=== PATIENT | male | born 1970 | race Caucasian/White ===

== ENCOUNTER 2022-10-01 16:58 | Emergency (ER) | payer MEDICAID, SELFPAY ==
[2022-10-01 17:34] VITALS: BP 190/131; PULSE 75; RESP 18; TEMP 36.6; O2SAT 98; BMI 31.7
--- NOTE | 2022-10-01 17:35 | ECG_ITS ---
Test Reason : sob Blood Pressure : / mmHG Vent. Rate : 077 BPM Atrial Rate : 077 BPM P-R Int : 146 ms QRS Dur : 096 ms QT Int : 364 ms P-R-T Axes : 029 -25 065 degrees QTc Int : 411 ms Normal sinus rhythm Minimal voltage criteria for LVH, may be normal variant ( Silvestre product ) Nonspecific T wave abnormality Abnormal ECG No previous ECGs available Referred By: René Haque Electronically Signed By:RASHARD VAN MD
--- NOTE | 2022-10-01 17:44 | ED.GENADULT ---
HPI - General Adult General Chief complaint: General Medical <EVANGELINA Saldaña - Last Filed: 10/01/22 17:45> Stated complaint: rib pain, no injury <EVANGELINA Saldaña - Last Filed: 10/01/22 17:45> Time Seen by Provider: 10/01/22 21:35 <EVANGELINA Saldaña - Last Filed: 10/01/22 17:45> Source: patient and family <Aadms Mason MD - Last Filed: 10/01/22 22:14> Mode of arrival: ambulatory <Adams Mason MD - Last Filed: 10/01/22 22:14> Limitations: language barrier (Patient speaks Kazakh, IP[employer] certified court interpreter used.) <Adams Mason MD - Last Filed: 10/01/22 22:14> History of Present Illness HPI narrative: 52-year-old male who presents emergency department for evaluation of right-sided chest pain. He states the pain came on gradually 3 days prior. The pain is worse with movement, worse with breathing worse with coughing. The patient states that he has a cough which is productive of thick green phlegm with no blood in the phlegm. He feels short of breath and has dyspnea on exertion. He had subjective fever and chills. Patient traveled back from [place] 1 week prior. Denied any pain or swelling in his lower extremities. <Adams Mason MD - Last Filed: 10/01/22 22:14> Related Data Home medications: Previous Rx's Medication Instructions Recorded acetaminophen 500 mg tablet 1,000 mg PO Q6H PRN fever or pain 10/01/22 (Tylenol Extra Strength) #20 tabs amoxicillin 500 mg capsule 1,000 mg PO TID 5 days #30 caps 10/01/22 azithromycin 250 mg tablet See Rx Instructions PO .COMPLEX #6 10/01/22 (Zithromax Z-Freddie) tabs ibuprofen 400 mg tablet 400 mg PO TID PRN fever or pain 10/01/22 #30 tabs <EVANGELINA Saldaña - Last Filed: 10/01/22 17:45> Allergies/adverse reactions: Allergies Allergy/AdvReac Type Severity Reaction Status Date / Time No Known Allergies Allergy Verified 10/01/22 17:35 <EVANGELINA Saldaña - Last Filed: 10/01/22 17:45> Review of Systems Review of Systems: Yes all other systems are reviewed and are negative <Adams Mason MD - Last Filed: 10/01/22 22:14> [facility] Past Medical History [facility] Narrative: Social history: He does smoke cigarettes. Denies alcohol use. Denies drug use. <Adams Mason MD - Last Filed: 10/01/22 22:14> Social History Social History: Social History Smoked in Last 30 Days: No Use of substances other than those prescribed or required for medical reasons: No Advance Directives: No Advance Directives Information Provided: Yes <EVANGELINA Saldaña - Last Filed: 10/01/22 17:45> Physical Exam ED Vital Signs: Vital Signs - 24 hr 10/01/22 17:34 Temperature 97.9 F Pulse Rate 75 Respiratory Rate 18 Blood Pressure 190/131 H Pulse Oximetry 98 Oxygen Delivery Method Room Air BMI result Body Mass Index 31.7 <EVANGELINA Saldaña - Last Filed: 10/01/22 17:45> Vital Signs - 24 hr 10/01/22 17:34 Temperature 97.9 F Pulse Rate 75 Respiratory Rate 18 Blood Pressure 190/131 H Pulse Oximetry 98 Oxygen Delivery Method Room Air BMI result Body Mass Index 31.7 <Adams Mason MD - Last Filed: 10/01/22 22:14> Const General: cooperative and no acute distress <Adams Mason MD - Last Filed: 10/01/22 22:14> Orientation/consciousness: oriented to person and oriented to place <Adams Mason MD - Last Filed: 10/01/22 22:14> Limitations: no limitations <Adams Mason MD - Last Filed: 10/01/22 22:14> HENMT Head: Yes normal to inspection, Yes normocephalic and Yes atraumatic <Adams Mason MD - Last Filed: 10/01/22 22:14> Ears: external ears normal <Adams Mason MD - Last Filed: 10/01/22 22:14> General nose exam: Normal external nose present <Adams Mason MD - Last Filed: 10/01/22 22:14> Face and sinus: Yes normal facial exam <Adams Mason MD - Last Filed: 10/01/22 22:14> Mouth: Normal oral and palatal mucosa present <Adams Mason MD - Last Filed: 10/01/22 22:14> Throat: Yes posterior oropharynx normal <Adams Mason MD - Last Filed: 10/01/22 22:14> Eyes General: appearance normal, both eyes and all related structures <Adams Mason MD - Last Filed: 10/01/22 22:14> Pupils: Equal, round and reactive pupils present <Adams Mason MD - Last Filed: 10/01/22 22:14> Neck Neck: Yes normal visual inspection, Yes no lymphadenopathy, Yes trachea midline and Yes supple <Adams Mason MD - Last Filed: 10/01/22 22:14> Chest Chest palpation & inspection: normal inspection of the chest and normal palpation of entire chest wall <MD Sunshine Whitman Last Filed: 10/01/22 22:14> Resp Effort & Inspection: normal respiratory effort and able to speak in complete sentences <Adams Mason MD - Last Filed: 10/01/22 22:14> Auscultation: clear to auscultation bilaterally <Adams Mason MD - Last Filed: 10/01/22 22:14> Cardio Rate: regular rate <MD uSnshine Whitman Last Filed: 10/01/22 22:14> Rhythm: regular rhythm <MD Sunshine Whitman Last Filed: 10/01/22 22:14> Heart sounds: S1 normal heart sound present, S2 normal heart sound present and no murmurs <MD Sunshine Whitman Last Filed: 10/01/22 22:14> GI Inspection: Yes normal to inspection <Adams Mason MD - Last Filed: 10/01/22 22:14> Palpation (GI): Soft to palpation, nontender and no guarding <Adams Mason MD - Last Filed: 10/01/22 22:14> Auscultation: normal bowel sounds <Adams Mason MD - Last Filed: 10/01/22 22:14> General: Yes no CVA tenderness <Adams Mason MD - Last Filed: 10/01/22 22:14> Back/Spine/Pelvis Back: no CVA tenderness <Adams Mason MD - Last Filed: 10/01/22 22:14> Skin General skin exam: no rashes or lesions noted <Adams Mason MD - Last Filed: 10/01/22 22:14> Neuro General: oriented to person and oriented to place <Adams Mason MD - Last Filed: 10/01/22 22:14> Cranial nerves: Yes CN's II-XII intact bilaterally and Yes Equal, round and reactive pupils present <Adams Mason MD - Last Filed: 10/01/22 22:14> Cognition (Neuro): normal cognition <Adams Mason MD - Last Filed: 10/01/22 22:14> Motor exam (neuro): 5/5 motor strength present throughout <Adams Mason MD - Last Filed: 10/01/22 22:14> Extrem General: Yes normal to inspection <Adams Mason MD - Last Filed: 10/01/22 22:14> Psych Appearance: grossly normal <Adams Mason MD - Last Filed: 10/01/22 22:14> Speech and movement: Normal speech and movement present <Adams Mason MD - Last Filed: 10/01/22 22:14> Affect: normal affect <Adams Mason MD - Last Filed: 10/01/22 22:14> Attitude: cooperative <Adams Mason MD - Last Filed: 10/01/22 22:14> Thought process: Normal thought process present <Adams Mason MD - Last Filed: 10/01/22 22:14> Thought content: Normal thought content present <Adams Mason MD - Last Filed: 10/01/22 22:14> Course Course Course Narrative: This is an RME: Additional HPI, ROS, PE not included below will be deferred to primary provider. 52-year-old male presents for evaluation of right-sided rib pain with deep breathing status post flight from [place] since last Thursday, symptoms worsening. Also reports shortness of breath. No history of PE or DVT. Not anticoagulated. History of hypertension not med compliant physical exam hypertension noted. Plan labs, EKG. <EVANGELINA Saldaña - Last Filed: 10/01/22 17:45> Medical Decision Making Medical Decision Making [facility] Narrative: 51-year-old male presents emergency department for evaluation of right-sided chest pain x1 week, the pain came on gradually and got progressively worse. Pain is a sharp pain which is worse with coughing, breathing and with movement. Patient has had a productive cough, subjective fever and chills. Patient vital signs revealed an elevated blood pressure of 190/131-patient has absent hypertension, otherwise vital signs were unremarkable. Patient had no chest wall tenderness. 2207: My interpretation laboratory data is as follows: Normal CBC, normal CMP. Troponin was detectable at 9.7 but not elevated. COVID-19 was negative. D-dimer was not elevated at 195. Twelve EKG was unremarkable Patient's presentation is most likely consistent with acute bronchitis versus pneumonia. Patient will be treated with amoxicillin 1000 mg 3 times a day for 5 days . Also was given a prescription for Zithromax Z-Freddie is also given prescription for ibuprofen and Tylenol. Prior to discharge he was given amoxicillin 1000 mg orally, Zithromax 500 mg orally and ibuprofen 40 mg orally. He was given printed and verbal instructions and discharged home. <Adams Mason MD - Last Filed: 10/01/22 22:14> Differential Diagnosis Differential diagnosis includes was not limited to pleurisy, pleuritic pain, pulmonary embolism, pneumonia, bronchitis, chest wall injury, herpes zoster <Adams Mason MD - Last Filed: 10/01/22 22:14> Lab Data [facility] Lab Attestation statement: I reviewed the patient's lab results. <Adams Mason MD - Last Filed: 10/01/22 22:14> Please see MDM <Adams Mason MD - Last Filed: 10/01/22 22:14> Result Diagrams: 10/01/22 18:06 10/01/22 18:06 <EVANGELINA Saldaña - Last Filed: 10/01/22 17:45> Labs: Lab Results 10/01/22 10/01/22 10/01/22 Range/Units 18:06 18:06 18:06 WBC 6.6 (4.8-10.8) X10*3/uL RBC 5.51 (4.60-5.80) X10*6/uL Hgb 15.0 (14.0-18.0) g/dl Hct 45.9 (42.0-52.0) % MCV 83.3 (80.0-98.0) fL MCH 27.2 (27.0-33.0) pg MCHC 32.7 (31.0-36.0) g/dl RDW 14.3 (11.0-16.0) % Plt Count 310 (160-400) X10*3/uL MPV 9.8 (9.4-12.4) fL Immature Gran % (Auto) 0.3 (0.0-0.4) % Neut % (Auto) 56.3 (45-73) % Lymph % (Auto) 26.5 (20-40) % [place] % (Auto) 11.9 H (2-11) % Eos % (Auto) 4.2 H (0-4) % Baso % (Auto) 0.8 (0-2) % Lymph # (Auto) 1.8 (1.2-4.9) X10*3/uL [place] # (Auto) 0.8 (0.1-1.2) X10*3/uL Eos # (Auto) 0.3 (0.0-0.4) X10*3/uL Baso # (Auto) 0.1 (0.0-0.2) X10*3/uL Abs Immat Gran (auto) 0.02 (0.00-0.03) X10*3/uL Absolute Neuts (auto) 3.7 (2.0-8.3) x10*3/uL Absolute Nucleated RBC 0.000 (0.0-0.012) X10*3/uL Nucleated RBC % (auto) 0.0 (0.0-0.2) /100WBC D-Dimer High Sensitivty 195 NG/ML Sodium 139 (135-145) mmol/L Potassium 4.8 (3.3-5.1) mmol/L Chloride 107 (96-108) mmol/L Carbon Dioxide 24 (22-29) mmol/L Anion Gap 13 (12-20) BUN 18 H (9-16) mg/dL Creatinine 1.04 (0.5-1.4) mg/dL Estim Creat Clear Calc 94.6 Estimated GFR > 60 Random Glucose 82 (60-115) mg/dL Calcium 10.1 (8.4-10.2) mg/dL Magnesium 1.9 (1.6-2.6) mg/dL Total Bilirubin 0.4 (0.0-1.0) mg/dL AST 27 (5-37) U/L ALT 31 (0-40) U/L Alkaline Phosphatase 93 (39-117) U/L Troponin I High Sens (<3.5-35.0) ng/L Total Protein 7.4 (6.5-8.0) g/dL Albumin 4.4 (3.5-5.0) g/dL COVID-19 (KIM) (Negative) COVID-19 Clin Com 10/01/22 10/01/22 Range/Units 18:06 18:06 WBC (4.8-10.8) X10*3/uL RBC (4.60-5.80) X10*6/uL Hgb (14.0-18.0) g/dl Hct (42.0-52.0) % MCV (80.0-98.0) fL MCH (27.0-33.0) pg MCHC (31.0-36.0) g/dl RDW (11.0-16.0) % Plt Count (160-400) X10*3/uL MPV (9.4-12.4) fL Immature Gran % (Auto) (0.0-0.4) % Neut % (Auto) (45-73) % Lymph % (Auto) (20-40) % [place] % (Auto) (2-11) % Eos % (Auto) (0-4) % Baso % (Auto) (0-2) % Lymph # (Auto) (1.2-4.9) X10*3/uL [place] # (Auto) (0.1-1.2) X10*3/uL Eos # (Auto) (0.0-0.4) X10*3/uL Baso # (Auto) (0.0-0.2) X10*3/uL Abs Immat Gran (auto) (0.00-0.03) X10*3/uL Absolute Neuts (auto) (2.0-8.3) x10*3/uL Absolute Nucleated RBC (0.0-0.012) X10*3/uL Nucleated RBC % (auto) (0.0-0.2) /100WBC D-Dimer High Sensitivty NG/ML Sodium (135-145) mmol/L Potassium (3.3-5.1) mmol/L Chloride (96-108) mmol/L Carbon Dioxide (22-29) mmol/L Anion Gap (12-20) BUN (9-16) mg/dL Creatinine (0.5-1.4) mg/dL Estim Creat Clear Calc Estimated GFR Random Glucose (60-115) mg/dL Calcium (8.4-10.2) mg/dL Magnesium (1.6-2.6) mg/dL Total Bilirubin (0.0-1.0) mg/dL AST (5-37) U/L ALT (0-40) U/L Alkaline Phosphatase (39-117) U/L Troponin I High Sens 9.7 (<3.5-35.0) ng/L Total Protein (6.5-8.0) g/dL Albumin (3.5-5.0) g/dL COVID-19 (KIM) Negative (Negative) COVID-19 Clin Com See Note <EVANGELINA Saldaña - Last Filed: 10/01/22 17:45> Lab Results 10/01/22 10/01/22 10/01/22 Range/Units 18:06 18:06 18:06 WBC 6.6 (4.8-10.8) X10*3/uL RBC 5.51 (4.60-5.80) X10*6/uL Hgb 15.0 (14.0-18.0) g/dl Hct 45.9 (42.0-52.0) % MCV 83.3 (80.0-98.0) fL MCH 27.2 (27.0-33.0) pg MCHC 32.7 (31.0-36.0) g/dl RDW 14.3 (11.0-16.0) % Plt Count 310 (160-400) X10*3/uL MPV 9.8 (9.4-12.4) fL Immature Gran % (Auto) 0.3 (0.0-0.4) % Neut % (Auto) 56.3 (45-73) % Lymph % (Auto) 26.5 (20-40) % [place] % (Auto) 11.9 H (2-11) % Eos % (Auto) 4.2 H (0-4) % Baso % (Auto) 0.8 (0-2) % Lymph # (Auto) 1.8 (1.2-4.9) X10*3/uL [place] # (Auto) 0.8 (0.1-1.2) X10*3/uL Eos # (Auto) 0.3 (0.0-0.4) X10*3/uL Baso # (Auto) 0.1 (0.0-0.2) X10*3/uL Abs Immat Gran (auto) 0.02 (0.00-0.03) X10*3/uL Absolute Neuts (auto) 3.7 (2.0-8.3) x10*3/uL Absolute Nucleated RBC 0.000 (0.0-0.012) X10*3/uL Nucleated RBC % (auto) 0.0 (0.0-0.2) /100WBC D-Dimer High Sensitivty 195 NG/ML Sodium 139 (135-145) mmol/L Potassium 4.8 (3.3-5.1) mmol/L Chloride 107 (96-108) mmol/L Carbon Dioxide 24 (22-29) mmol/L Anion Gap 13 (12-20) BUN 18 H (9-16) mg/dL Creatinine 1.04 (0.5-1.4) mg/dL Estim Creat Clear Calc 94.6 Estimated GFR > 60 Random Glucose 82 (60-115) mg/dL Calcium 10.1 (8.4-10.2) mg/dL Magnesium 1.9 (1.6-2.6) mg/dL Total Bilirubin 0.4 (0.0-1.0) mg/dL AST 27 (5-37) U/L ALT 31 (0-40) U/L Alkaline Phosphatase 93 (39-117) U/L Troponin I High Sens (<3.5-35.0) ng/L Total Protein 7.4 (6.5-8.0) g/dL Albumin 4.4 (3.5-5.0) g/dL COVID-19 (KIM) (Negative) COVID-19 Clin Com 10/01/22 10/01/22 Range/Units 18:06 18:06 WBC (4.8-10.8) X10*3/uL RBC (4.60-5.80) X10*6/uL Hgb (14.0-18.0) g/dl Hct (42.0-52.0) % MCV (80.0-98.0) fL MCH (27.0-33.0) pg MCHC (31.0-36.0) g/dl RDW (11.0-16.0) % Plt Count (160-400) X10*3/uL MPV (9.4-12.4) fL Immature Gran % (Auto) (0.0-0.4) % Neut % (Auto) (45-73) % Lymph % (Auto) (20-40) % [place] % (Auto) (2-11) % Eos % (Auto) (0-4) % Baso % (Auto) (0-2) % Lymph # (Auto) (1.2-4.9) X10*3/uL [place] # (Auto) (0.1-1.2) X10*3/uL Eos # (Auto) (0.0-0.4) X10*3/uL Baso # (Auto) (0.0-0.2) X10*3/uL Abs Immat Gran (auto) (0.00-0.03) X10*3/uL Absolute Neuts (auto) (2.0-8.3) x10*3/uL Absolute Nucleated RBC (0.0-0.012) X10*3/uL Nucleated RBC % (auto) (0.0-0.2) /100WBC D-Dimer High Sensitivty NG/ML Sodium (135-145) mmol/L Potassium (3.3-5.1) mmol/L Chloride (96-108) mmol/L Carbon Dioxide (22-29) mmol/L Anion Gap (12-20) BUN (9-16) mg/dL Creatinine (0.5-1.4) mg/dL Estim Creat Clear Calc Estimated GFR Random Glucose (60-115) mg/dL Calcium (8.4-10.2) mg/dL Magnesium (1.6-2.6) mg/dL Total Bilirubin (0.0-1.0) mg/dL AST (5-37) U/L ALT (0-40) U/L Alkaline Phosphatase (39-117) U/L Troponin I High Sens 9.7 (<3.5-35.0) ng/L Total Protein (6.5-8.0) g/dL Albumin (3.5-5.0) g/dL COVID-19 (KIM) Negative (Negative) COVID-19 Clin Com See Note <Adams Mason MD - Last Filed: 10/01/22 22:14> Independent Interpretation I performed an independent interpretation of an: EKG <Adams Mason MD - Last Filed: 10/01/22 22:14> Interpretation: My independent interpretation of the patient's Twelve EKG done at 17:57 was as follows: Normal sinus rhythm rate of 77, normal VT interval, QRS duration QTC interval, no ST segment elevation, no ST segment depression, no T-wave abnormalities, no PVCs, no PACs, no previous EKG for comparison. This is a normal EKG <Adams Mason MD - Last Filed: 10/01/22 22:14> Discharge Plan Discharge Clinical Impression: Pleuritic chest pain Pneumonia Qualifiers: Pneumonia type: due to unspecified organism Laterality: right Lung location: lower lobe of lung Qualified Code(s): J18.9 - Pneumonia, unspecified organism <EVANGELINA Saldaña - Last Filed: 10/01/22 17:45> Patient Disposition: Home, Self-Care <EVANGELINA Saldaña - Last Filed: 10/01/22 17:45> Instructions: Community Acquired Pneumonia (ED) <EVANGELINA Saldaña - Last Filed: 10/01/22 17:45> Additional Instructions: Your laboratory evaluation was normal Your 12 EKG was normal. Your symptoms are consistent with pneumonia or bronchitis. Take ibuprofen 200 mg pills, 2 pills every 6 hours as needed for pain. Take Tylenol (acetaminophen) 500 mg pills, 2 pills every 6 hours as needed for pain. Take amoxicillin 500 mg pills, 2 pills, every 6 hours (3 times a day) for 5 days. Take Zithromax (azithromycin) Z-Freddie as prescribed. Day 1 take 2 pills, each day after that take 1 pill for total of 5 days. This medication states in your system for 7-10 days and continues to work despite only taking it for 5 days. Follow-up with your doctor in 2 days. Please return to the emergency department if your symptoms get worse or if you develop any symptoms that are concerning to you. <EVANGELINA Saldaña - Last Filed: 10/01/22 17:45> Prescriptions: New amoxicillin 500 mg capsule 1,000 mg PO TID 5 Days Qty: 30 0RF azithromycin [Zithromax Z-Freddie] 250 mg tablet See Rx Instructions .ROUTE .COMPLEX Qty: 6 0RF Rx Instructions: take 500 mg today (day 1), then 250 mg for 4 days (days 2-5) acetaminophen [Tylenol Extra Strength] 500 mg tablet 1,000 mg PO Q6H PRN (Reason: fever or pain) Qty: 20 0RF ibuprofen 400 mg tablet 400 mg PO TID PRN (Reason: fever or pain) Qty: 30 0RF <EVANGELINA Saldaña - Last Filed: 10/01/22 17:45>
[2022-10-01 18:11] LABS: MANUAL DIFF FLAG NO
[2022-10-01 18:12] LABS: Basophils Absolute Auto 0.1 X10*3/uL (0.0-0.2); Basophils Percent Auto 0.8 % (0-2); Eosinophils Absolute Auto 0.3 X10*3/uL (0.0-0.4); Eosinophils Percent Auto 4.2 % (0-4); Hematocrit 45.9 % (42.0-52.0); Imm Gran Abs Auto 0.02 X10*3/uL (0.00-0.03); Imm Gran Pct Auto 0.3 % (0.0-0.4); Lymphocytes Absolute Auto 1.8 X10*3/uL (1.2-4.9); Lymphocytes Percent Auto 26.5 % (20-40); Mean Corpuscular HGB Conc 32.7 g/dl (31.0-36.0); Mean Corpuscular Hemoglobin 27.2 pg (27.0-33.0); Mean Corpuscular Volume 83.3 fL (80.0-98.0); Mean Platelet Volume 9.8 fL (9.4-12.4); Monocytes Absolute Auto 0.8 X10*3/uL (0.1-1.2); Monocytes Percent Auto 11.9 % (2-11); Neutrophils Absolute Auto 3.7 x10*3/uL (2.0-8.3); Neutrophils Percent Auto 56.3 % (45-73); Platelet Count 310 X10*3/uL (160-400); Red Blood Count 5.51 X10*6/uL (4.60-5.80); Red Cell Distribution Width 14.3 % (11.0-16.0); White Blood Count 6.6 X10*3/uL (4.8-10.8)
[2022-10-01 18:20] LABS: D Dimer High Sensitivity 195 NG/ML
[2022-10-01 18:27] LABS: COVID-19 Test Negative (Negative); IDNOW Serial# 9DB6401D
[2022-10-01 18:35] LABS: Alanine Aminotransferase 31 U/L (0-40); Albumin Level 4.4 g/dL (3.5-5.0); Alkaline Phosphatase 93 U/L (39-117); Anion Gap 13 (12-20); Aspartate Amino Transferase 27 U/L (5-37); Bilirubin Total 0.4 mg/dL (0.0-1.0); Blood Urea Nitrogen 18 mg/dL (9-16); Calcium 10.1 mg/dL (8.4-10.2); Carbon Dioxide 24 mmol/L (22-29); Chloride 107 mmol/L (96-108); Creatinine Clr Calc Pharmacy 94.6; Estimated Glomerular Filt Rate > 60; Glucose Random 82 mg/dL (60-115); Magnesium 1.9 mg/dL (1.6-2.6); Potassium 4.8 mmol/L (3.3-5.1); Sodium 139 mmol/L (135-145); Total Protein 7.4 g/dL (6.5-8.0)
[2022-10-01 18:42] LABS: Troponin-I High Sensitivity 9.7 ng/L (<3.5-35.0)
[2022-10-01 21:30] VITALS: BP 199/103; PULSE 77; RESP 18; O2SAT 96
[2022-10-01] MEDS: Amoxicillin 500 MG CAPSULE 1000 MG PO (22:08)
[2022-10-01] MEDS: Azithromycin 500 MG TABLET PO (22:09)
[2022-10-01] MEDS: Ibuprofen 400 MG TABLET PO (22:09)
== END 2022-10-01 22:30 | disposition home or self-care (01) ==
PROVIDERS: Physician Assistant; Emergency Provider Emergency Medicine Emergency Medical Services
DX: R07.89 Other chest pain (principal); J18.9 Pneumonia, unspecified organism; Z20.822 Contact with and (suspected) exposure to COVID-19; R06.02 Shortness of breath
CPT/HCPCS: 80053; 83735; 84484; 85025; 85379; 87635; 93005; 99283; 99284

== ENCOUNTER 2022-11-13 15:04 | Emergency (ER) | payer MEDICAID, SELFPAY ==
--- NOTE | 2022-11-13 15:06 | ED.HA ---
HPI - Headache General Chief Complaint: Headache Stated Complaint: hypertension sent from [facility] office Time Seen by Provider: 11/13/22 17:06 Source: patient and other (Friend) Mode of arrival: ambulatory Limitations: language barrier (Bermudian speaking only, motion picture actor used) History of Present Illness HPI Narrative: 52-year-old male who was sent to the emergency department from an urgent care clinic for evaluation of a blood pressure of 194/143. Patient states that he went to the urgent care clinic for left knee pain. He has had left knee pain for approximately 3 days. Denies any injury. He points to the medial aspect of the left knee when asked to localize the pain. The pain is worse with bending the knee in with walking. He denied fever, chills, nausea, vomiting. He states he did have a headache and felt lightheaded. The patient does have a history of hypertension but since coming from [place] 3 months prior he has not been able to get a primary care doctor any has not gotten his antihypertensive medications refilled. He does not know what medications he was taking [place]. Related Data Previous Rx's Medication Instructions Recorded acetaminophen 500 mg tablet 1,000 mg PO Q6H PRN fever or pain 10/01/22 (Tylenol Extra Strength) #20 tabs amoxicillin 500 mg capsule 1,000 mg PO TID 5 days #30 caps 10/01/22 azithromycin 250 mg tablet See Rx Instructions PO .COMPLEX #6 10/01/22 (Zithromax Z-Freddie) tabs ibuprofen 400 mg tablet 400 mg PO TID PRN fever or pain 10/01/22 #30 tabs acetaminophen 500 mg tablet 500 mg PO Q6H PRN fever or pain 11/13/22 (Tylenol Extra Strength) #30 tabs ibuprofen 400 mg tablet 400 mg PO TID PRN fever or pain 11/13/22 #30 tabs lisinopril 20 mg tablet 20 mg PO DAILY 90 days #90 tabs 11/13/22 Allergies Allergy/AdvReac Type Severity Reaction Status Date / Time No Known Allergies Allergy Verified 10/01/22 17:35 Review of Systems Review of Systems: Yes all other systems are reviewed and are negative [facility] Past Medical History [facility] Narrative: Past medical history: Hypertension. Social history: He smokes 4 cigarettes per day times 30 years. He denies alcohol use. He denies drug use. Social History Social History Advance Directives: No Advance Directives Information Provided: No Physical Exam Vital Signs: Vital Signs: Last Vital Signs Temp 98 F 11/13/22 16:58 Pulse 68 11/13/22 18:13 Resp 15 11/13/22 18:13 BP 135/103 H 11/13/22 18:13 Pulse Ox 96 11/13/22 18:13 O2 Del Method Room Air 11/13/22 18:13 BMI result Body Mass Index 34.0 Const: General: cooperative and no acute distress Orientation/consciousness: oriented to person and oriented to place Limitations: no limitations HEENT: Head: Yes normal to inspection, Yes normocephalic and Yes atraumatic Ears: external ears normal General nose exam: Normal external nose present Face and sinus: Yes normal facial exam Mouth: Normal oral and palatal mucosa present Throat: Yes posterior oropharynx normal Eyes: General: appearance normal, both eyes and all related structures Pupils: Equal, round and reactive pupils present Neck: Neck: Yes normal visual inspection, Yes no lymphadenopathy, Yes trachea midline and Yes supple Chest: Chest palpation & inspection: normal inspection of the chest and normal palpation of entire chest wall Resp: Effort & Inspection: normal respiratory effort and able to speak in complete sentences Auscultation: clear to auscultation bilaterally Cardio: Rate: regular rate Rhythm: regular rhythm Heart sounds: S1 normal heart sound present, S2 normal heart sound present and no murmurs GI: Inspection: Yes normal to inspection Palpation (GI): Soft to palpation, nontender and no guarding Auscultation: normal bowel sounds : General: Yes no CVA tenderness Back/Spine/Pelvis: Back: no CVA tenderness Skin: General skin exam: no rashes or lesions noted Neuro: General: oriented to person and oriented to place Cranial nerves: Yes CN's II-XII intact bilaterally and Yes Equal, round and reactive pupils present Cognition (Neuro): normal cognition Motor exam (neuro): 5/5 motor strength present throughout Extrem: Other: Patient has tenderness with palpation over the medial collateral ligament of the left knee, he has increased pain with medial stress of the knee, there is no joint effusion, no erythema increased warmth. Patient's the joint appear to be stable. Psych: Appearance: grossly normal Speech and movement: Normal speech and movement present Affect: normal affect Attitude: cooperative Thought process: Normal thought process present Thought content: Normal thought content present Course Course Course Narrative: This is a rapid medical exam. Deferred additional HPI, ROS, PE to primary provider. 52 yo male with history of HTN here with complaints of headache, dizziness, high blood pressure from PCP office. Was being seen today by PCP d/t left knee pain x months. Came here from [place] 3 months and had not taken his blood pressure meds since then. Reports he left in a [place]. Hypertensive in triage Will check labs, EKG. Medical Decision Making Medical Decision Making MDM Narrative: 52-year-old male with a history of essential hypertension noncompliant with medications for 3 months who presents emergency department for evaluation of elevated blood pressures and left knee pain x3 days. Physical examination did reveal tenderness palpation of his left medial collateral ligament/tendon area consistent with a knee sprain/strain. Patient did have an elevated blood pressure here in the emergency department of 188/127 but his examination was otherwise unremarkable. His 12 EKG was normal. His laboratory evaluation did reveal an elevated glucose otherwise was unremarkable. Patient will be treated for left knee sprain/strain with an Ruben wrap and crutches. He was prescribed Tylenol ibuprofen. Patient will be started on lisinopril 20 mg daily. He was given a 1 month supply. He was told that he needs to follow-up with an PCP within 1 month to get refills and if he cannot get a refill he should return to the emergency department for refills of these medications. Patient was advised to get a blood pressure cuff and to take his blood pressure 3 times a week, I did tell middle take 4-6 weeks for his blood pressure improved. Differential Diagnosis Differential diagnosis includes was not limited to left knee strain, left knee sprain. Essential hypertension, hypertensive urgency, hypertensive emergency, renal failure, myocardial infarction. Admission/Observation Consideration of admission/observation: Escalation of care including admission/observation considered Consult Healthcare Provider Management of the patient was discussed with: Hospitalist Lab Data [facility] Lab Attestation statement: I reviewed the patient's lab results. 11/13/22 15:21 11/13/22 15:21 Labs: Lab Results 11/13/22 11/13/22 11/13/22 Range/Units 15:21 15:21 15:21 WBC 7.5 (4.8-10.8) X10*3/uL RBC 5.33 (4.60-5.80) X10*6/uL Hgb 14.4 (14.0-18.0) g/dl Hct 44.7 (42.0-52.0) % MCV 83.9 (80.0-98.0) fL MCH 27.0 (27.0-33.0) pg MCHC 32.2 (31.0-36.0) g/dl RDW 13.5 (11.0-16.0) % Plt Count 300 (160-400) X10*3/uL MPV 9.5 (9.4-12.4) fL Immature Gran % (Auto) 0.4 (0.0-0.4) % Neut % (Auto) 58.8 (45-73) % Lymph % (Auto) 28.4 (20-40) % [place] % (Auto) 8.5 (2-11) % Eos % (Auto) 3.2 (0-4) % Baso % (Auto) 0.7 (0-2) % Lymph # (Auto) 2.1 (1.2-4.9) X10*3/uL [place] # (Auto) 0.6 (0.1-1.2) X10*3/uL Eos # (Auto) 0.2 (0.0-0.4) X10*3/uL Baso # (Auto) 0.1 (0.0-0.2) X10*3/uL Abs Immat Gran (auto) 0.03 (0.00-0.03) X10*3/uL Absolute Neuts (auto) 4.4 (2.0-8.3) x10*3/uL Absolute Nucleated RBC 0.000 (0.0-0.012) X10*3/uL Nucleated RBC % (auto) 0.0 (0.0-0.2) /100WBC Sodium 139 (135-145) mmol/L Potassium 4.4 (3.3-5.1) mmol/L Chloride 103 (96-108) mmol/L Carbon Dioxide 24 (22-29) mmol/L Anion Gap 16 (12-20) BUN 19 H (9-16) mg/dL Creatinine 1.19 (0.5-1.4) mg/dL Estim Creat Clear Calc 85.4 Estimated GFR > 60 Random Glucose 151 H (60-115) mg/dL Calcium 10.3 H (8.4-10.2) mg/dL Troponin I High Sens 2.7 D (<3.5-35.0) ng/L Independent Interpretation I performed an independent interpretation of an: EKG Interpretation: My independent interpretation patient's 12 EKG done at 15:13 hours is as follows: Normal sinus rhythm rate of 78, normal [place] interval, QRS duration QTC interval, no ST segment elevation, no ST segment depression, no PACs, no PVCs, no significant T-wave abnormalities, when compared to EKG dated 10/01/2022 there are no significant changes. Discharge Plan Discharge Clinical Impression: Benign essential hypertension, Left knee sprain Patient Disposition: Home, Self-Care Instructions: Knee Sprain (ED), Hypertension (ED) Additional Instructions: Your blood work was unremarkable. Your EKG was normal. Your blood pressure is elevated because she ran out of your medications. I am prescribing lisinopril 20 mg pills, take 1 pill daily. I can only give you a 1 month supply. You will need to follow-up with a primary care doctor to get a refill of this medication however if you cannot get in to see a doctor within 1 month come back to the emergency department and we will refill this prescription Take ibuprofen 200 mg pills, 3 pills every 6 hours as needed for pain. Take Tylenol (acetaminophen) 500 mg pills, 2 pills every 4 to 6 hours as needed for pain. Wear the Ruben wrap for 3 days. Apply ice to the left knee for 15 minutes 4 to 6 times a day for the next 3 days reduce the pain and swelling in your inflamed tendon/ligament Use the crutches for 3-7 days to keep weight off your left knee. Follow-up with your doctor in 2 days. Please return to the emergency department if your symptoms get worse or if you develop any symptoms that are concerning to you. Prescriptions: New acetaminophen [Tylenol Extra Strength] 500 mg tablet 500 mg PO Q6H PRN (Reason: fever or pain) Qty: 30 0RF ibuprofen 400 mg tablet 400 mg PO TID PRN (Reason: fever or pain) Qty: 30 0RF lisinopril 20 mg tablet 20 mg PO DAILY 90 Days Qty: 90 0RF No Action amoxicillin 500 mg capsule 1,000 mg PO TID 5 Days Qty: 30 0RF azithromycin [Zithromax Z-Freddie] 250 mg tablet See Rx Instructions .ROUTE .COMPLEX Qty: 6 0RF Rx Instructions: take 500 mg today (day 1), then 250 mg for 4 days (days 2-5) acetaminophen [Tylenol Extra Strength] 500 mg tablet 1,000 mg PO Q6H PRN (Reason: fever or pain) Qty: 20 0RF ibuprofen 400 mg tablet 400 mg PO TID PRN (Reason: fever or pain) Qty: 30 0RF
[2022-11-13 15:07] VITALS: BP 188/127; PULSE 82; RESP 18; TEMP 36.4; O2SAT 95; BMI 34.0
--- NOTE | 2022-11-13 15:13 | ECG_ITS ---
Test Reason : weakness Blood Pressure : / mmHG Vent. Rate : 078 BPM Atrial Rate : 078 BPM P-R Int : 154 ms QRS Dur : 100 ms QT Int : 388 ms P-R-T Axes : 033 -24 063 degrees QTc Int : 442 ms Normal sinus rhythm Minimal voltage criteria for LVH, may be normal variant ( Silvestre product ) Nonspecific T wave abnormality Abnormal ECG When compared with ECG of 01-OCT-2022 17:57, No significant change was found Referred By: Edita Montelongo Electronically Signed By:RASHARD VAN MD
[2022-11-13 15:25] LABS: MANUAL DIFF FLAG NO
[2022-11-13 15:28] LABS: Basophils Absolute Auto 0.1 X10*3/uL (0.0-0.2); Basophils Percent Auto 0.7 % (0-2); Eosinophils Absolute Auto 0.2 X10*3/uL (0.0-0.4); Eosinophils Percent Auto 3.2 % (0-4); Hematocrit 44.7 % (42.0-52.0); Hemoglobin 14.4 g/dl (14.0-18.0); Imm Gran Abs Auto 0.03 X10*3/uL (0.00-0.03); Imm Gran Pct Auto 0.4 % (0.0-0.4); Lymphocytes Absolute Auto 2.1 X10*3/uL (1.2-4.9); Lymphocytes Percent Auto 28.4 % (20-40); Mean Corpuscular HGB Conc 32.2 g/dl (31.0-36.0); Mean Corpuscular Volume 83.9 fL (80.0-98.0); Mean Platelet Volume 9.5 fL (9.4-12.4); Monocytes Absolute Auto 0.6 X10*3/uL (0.1-1.2); Monocytes Percent Auto 8.5 % (2-11); Neutrophils Absolute Auto 4.4 x10*3/uL (2.0-8.3); Neutrophils Percent Auto 58.8 % (45-73); Platelet Count 300 X10*3/uL (160-400); Red Blood Count 5.33 X10*6/uL (4.60-5.80); Red Cell Distribution Width 13.5 % (11.0-16.0); White Blood Count 7.5 X10*3/uL (4.8-10.8)
[2022-11-13 15:41] LABS: Anion Gap 16 (12-20); Blood Urea Nitrogen 19 mg/dL (9-16); Calcium 10.3 mg/dL (8.4-10.2); Carbon Dioxide 24 mmol/L (22-29); Chloride 103 mmol/L (96-108); Creatinine Clr Calc Pharmacy 85.4; Estimated Glomerular Filt Rate > 60; Glucose Random 151 mg/dL (60-115); Potassium 4.4 mmol/L (3.3-5.1); Sodium 139 mmol/L (135-145)
[2022-11-13 15:50] LABS: Troponin-I High Sensitivity 2.7 ng/L (<3.5-35.0)
[2022-11-13 16:58] VITALS: BP 160/109; PULSE 75; RESP 18; TEMP 36.6; O2SAT 95
[2022-11-13 18:13] VITALS: BP 135/103; PULSE 68; RESP 15; O2SAT 96
== END 2022-11-13 19:55 | disposition home or self-care (01) ==
PROVIDERS: Nurse Practitioner Family; Emergency Provider Emergency Medicine Emergency Medical Services
DX: M25.562 Pain in left knee (principal); I10 Essential (primary) hypertension; R51.9 Headache, unspecified; R42 Dizziness and giddiness; R94.31 Abnormal electrocardiogram [ECG] [EKG]; Z79.899 Other long term (current) drug therapy
CPT/HCPCS: 36415; 80048; 84484; 85025; 93005; 99283; 99284

== ENCOUNTER 2022-11-19 15:57 | Outpatient (REF) | payer MEDICAID, SELFPAY ==
--- NOTE | ~2022-11-19 | XR_ITS ---
EXAMINATION: XR KNEE, LEFT 2 views CLINICAL INFORMATION: Left knee pain COMPARISON: None available. TECHNIQUE: Two views of the left knee. FINDINGS: No evidence for acute fracture or dislocation. Mild narrowing in the medial joint space compartment. No significant joint effusion. There is no appreciable erosive process. Minimal spurring of patella seen. XR/XR knee LT 2V IMPRESSION: No acute process. Mild narrowing in the medial joint space compartment. Minimal spurring of the patella.
== END 2022-11-19 15:58 | disposition home or self-care (01) ==
LOC: HO.HHCX 15:57
PROVIDERS: Visit Provider Student in an Organized Health Care Education/Training Program
DX: M25.562 Pain in left knee (principal)
CPT/HCPCS: 73560

== ENCOUNTER 2022-11-24 07:34 | Outpatient (REF) | payer MEDICAID, SELFPAY | END 2022-11-24 07:35 | disposition home or self-care (01) | LOC: HO.LNP 07:34 | PROVIDERS: PCP Internal Medicine; Visit Provider Surgery | DX: L02.91 Cutaneous abscess, unspecified (principal); Z79.2 Long term (current) use of antibiotics; Z79.899 Other long term (current) drug therapy | CPT/HCPCS: 10060; 10061; 87070; 87205; 88304; 88305; 99202 ==

== ENCOUNTER → 2022-11-25 14:59 | Outpatient (BNVA) | payer MEDICAID, SELFPAY | PROVIDERS: PCP Internal Medicine; Visit Provider Surgery | DX: Z48.01 Encounter for change or removal of surgical wound dressing (principal) | CPT/HCPCS: 99211 ==

== ENCOUNTER → 2022-11-26 09:07 | Outpatient (BNVA) | payer MEDICAID, SELFPAY | PROVIDERS: PCP Internal Medicine; Visit Provider Surgery | DX: Z48.01 Encounter for change or removal of surgical wound dressing (principal) | CPT/HCPCS: 99211 ==

== ENCOUNTER → 2022-11-27 14:56 | Outpatient (BNVA) | payer MEDICAID, SELFPAY | PROVIDERS: PCP Internal Medicine; Visit Provider Surgery | DX: Z48.1 Encounter for planned postprocedural wound closure (principal); Z87.2 Personal history of diseases of the skin and subcutaneous tissue | CPT/HCPCS: 99211 ==

== ENCOUNTER → 2022-12-03 14:32 | Outpatient (BNVA) | payer MEDICAID, SELFPAY | PROVIDERS: PCP Internal Medicine; Visit Provider Surgery ==

== ENCOUNTER 2023-04-07 15:55 | Outpatient (REF) | payer MEDICAID, SELFPAY ==
--- NOTE | ~2023-04-07 | XR_ITS ---
EXAMINATION: XR chest 2V CLINICAL INFORMATION: Reason for Exam CHF COMPARISON: No prior chest x-ray available in our system for comparison at the time of this dictation. TECHNIQUE: XR chest 2V, 2 Views Lungs and Chasidy: Very mild diffuse increased interstitial lung marking and peribronchial cuffing might be a small airway disease such as bronchiolitis or interstitial pneumonitis, versus interstitial lung disease versus interstitial edema. No dense focal consolidation pneumonia. Pleura: Normal. Costophrenic angles are sharp. No pneumothorax. Heart: The heart is normal in size. Mediastinum: Prominent aortic knob possibly chronic hypertension.. Bones: Mild spondylosis of dorsal spine. XR/XR chest 2V IMPRESSION: Very mild diffuse increased interstitial lung marking and peribronchial cuffing might be a small airway disease such as bronchiolitis or interstitial pneumonitis, versus interstitial lung disease versus interstitial edema. No dense focal consolidation pneumonia.
== END 2023-04-07 15:56 | disposition home or self-care (01) ==
LOC: HO.HHCX 15:55
PROVIDERS: Visit Provider Internal Medicine
DX: I50.9 Heart failure, unspecified (principal)
CPT/HCPCS: 71046

== ENCOUNTER 2023-04-09 11:38 | Outpatient (REF) | payer MEDICAID, SELFPAY ==
[2023-04-09 11:58] LABS: MANUAL DIFF FLAG NO
[2023-04-09 13:28] LABS: Basophils Absolute Auto 0.1 X10*3/uL (0.0-0.2); Basophils Percent Auto 0.9 % (0-2); Eosinophils Absolute Auto 0.4 X10*3/uL (0.0-0.4); Eosinophils Percent Auto 5.3 % (0-4); Hematocrit 48.3 % (42.0-52.0); Hemoglobin 15.7 g/dl (14.0-18.0); Imm Gran Abs Auto 0.03 X10*3/uL (0.00-0.03); Imm Gran Pct Auto 0.4 % (0.0-0.4); Lymphocytes Absolute Auto 2.2 X10*3/uL (1.2-4.9); Lymphocytes Percent Auto 32.3 % (20-40); Mean Corpuscular HGB Conc 32.5 g/dl (31.0-36.0); Mean Corpuscular Hemoglobin 27.4 pg (27.0-33.0); Mean Corpuscular Volume 84.3 fL (80.0-98.0); Mean Platelet Volume 10.4 fL (9.4-12.4); Monocytes Absolute Auto 0.8 X10*3/uL (0.1-1.2); Neutrophils Absolute Auto 3.4 x10*3/uL (2.0-8.3); Neutrophils Percent Auto 50.1 % (45-73); Platelet Count 318 X10*3/uL (160-400); Red Blood Count 5.73 X10*6/uL (4.60-5.80); Red Cell Distribution Width 13.4 % (11.0-16.0); White Blood Count 6.8 X10*3/uL (4.8-10.8)
[2023-04-09 14:04] LABS: B Type Natriuretic Peptide < 10 pg/mL (<100)
[2023-04-09 14:08] LABS: Troponin-I High Sensitivity 3.6 ng/L (<3.5-35.0)
[2023-04-09 14:09] LABS: Anion Gap 13 (12-20); Blood Urea Nitrogen 19 mg/dL (9-16); Calcium 9.5 mg/dL (8.4-10.2); Carbon Dioxide 29 mmol/L (22-29); Chloride 102 mmol/L (96-108); Estimated Glomerular Filt Rate > 60; Glucose Random 103 mg/dL (60-115); Potassium 4.3 mmol/L (3.3-5.1); Sodium 140 mmol/L (135-145)
[2023-04-09 14:21] LABS: TSH reflex Free T4 2.21 uIU/mL (0.32-4.0)
== END 2023-04-09 11:39 | disposition home or self-care (01) ==
LOC: HO.LAB 11:38
PROVIDERS: PCP Internal Medicine; Visit Provider Internal Medicine
DX: I11.0 Hypertensive heart disease with heart failure (principal); I50.9 Heart failure, unspecified
CPT/HCPCS: 36415; 80048; 83880; 84443; 84484; 85025

== ENCOUNTER 2023-04-14 16:31 | Emergency (ER) | payer MEDICAID, SELFPAY ==
--- NOTE | ~2023-04-14 | CT_ITS ---
EXAMINATION: CT HEAD WITHOUT CONTRAST CLINICAL INFORMATION: Headache, rule out bleed COMPARISON: None available. TECHNIQUE: Contiguous axial imaging was performed from the skull base to vertex without intravenous administration of contrast. This CT examination was performed using dose optimization techniques as appropriate, variously including the following: *Automated exposure control *Adjustment of mA and/or kV according to patient size (this includes techniques or standardized protocols for targeted exams where dose is matched to indication/reason for exam; i.e. extremities or head) *Use of iterative reconstruction technique DLP: 680 mGy-cm FINDINGS: The ventricles and sulci are normal in size and configuration. No acute hemorrhage, mass effect or shift is evident. Carmen-white differentiation is maintained. In the posterior fossa, the brainstem, cerebellum and fourth ventricle image normally. The orbits and calvarium are intact. The paranasal sinuses and mastoid air cells are well pneumatized and clear. CT/CT head/brain wo IV con IMPRESSION: 1. Unremarkable noncontrast brain CT. No acute hemorrhage, mass effect or shift.
--- NOTE | ~2023-04-14 | XR_ITS ---
EXAMINATION: XR CHEST CLINICAL INFORMATION: Chest pain COMPARISON: 04/07/2023 TECHNIQUE: Frontal view of the chest was obtained. FINDINGS: Again seen is some mild interstitial prominence similar to the prior study. No other significant abnormality is noted involving the heart, lungs, mediastinum, bony thorax or soft tissues. No consolidations, lung masses or pleural effusions are seen. XR/XR chest 1V IMPRESSION: No acute intrathoracic disease. Mild interstitial prominence.
[2023-04-14 16:50] VITALS: BP 146/98; PULSE 94; RESP 20; TEMP 37.1; O2SAT 94; BMI 38.1
--- NOTE | 2023-04-14 16:53 | ECG_ITS ---
Test Reason : chest pain Blood Pressure : / mmHG Vent. Rate : 097 BPM Atrial Rate : 097 BPM P-R Int : 140 ms QRS Dur : 094 ms QT Int : 342 ms P-R-T Axes : 050 -26 095 degrees QTc Int : 434 ms Normal sinus rhythm T wave abnormality, consider lateral ischemia Abnormal ECG When compared with ECG of 13-NOV-2022 15:13, No significant change was found Referred By: René Haque Electronically Signed By:SHILPA SOL MD
--- NOTE | 2023-04-14 16:53 | ED.GENADULT ---
HPI - General Adult General Chief complaint: Chest Pain Stated complaint: HBP Time Seen by Provider: 04/14/23 17:30 Related Data Previous Rx's ?Medication ?Instructions ?Recorded acetaminophen 500 mg tablet 1,000 mg (2 x 500 mg) PO Q6H PRN 10/01/22 (Tylenol Extra Strength) fever or pain #20 tabs acetaminophen 500 mg tablet 500 mg PO Q6H PRN fever or pain 11/13/22 (Tylenol Extra Strength) #30 tabs ibuprofen 400 mg tablet 400 mg PO TID PRN fever or pain 11/13/22 #30 tabs lisinopril 20 mg tablet 20 mg PO DAILY 90 days #90 tabs 11/13/22 hydrocodone 5 mg-acetaminophen 325 1 tab PO Q4-6H PRN pain #30 tabs 11/24/22 mg tablet amoxicillin 500 mg capsule 1,000 mg (2 x 500 mg) PO TID 5 04/28/23 days #28 caps azithromycin 250 mg tablet 250 mg PO DAILY 4 days #4 tabs 04/28/23 azithromycin 250 mg tablet See Rx Instructions PO .COMPLEX #6 04/28/23 tabs albuterol sulfate 90 mcg/actuation 2 inh inhalation Q8H PRN shortness 05/08/23 aerosol inhaler of breath or wheezing #8.5 grams prednisone 20 mg tablet 60 mg (3 x 20 mg) PO DAILY #12 tabs 05/08/23 Allergies Allergy/AdvReac Type Severity Reaction Status Date / Time No Known Allergies Allergy Verified 12/03/22 14:40 [facility] Past Medical History Medical History Hypertension Social History Social History Alcohol intake: never Patient Tobacco Use Status: Current someday Tobacco user Cigarette Packs Per Day: 4 Physical Exam ED Vital Signs: Vital Signs - 24 hr 04/14/23 16:50 Temperature 98.8 F Pulse Rate 94 Respiratory Rate 20 Blood Pressure 146/98 H Pulse Oximetry 94 Oxygen Delivery Method Room Air BMI result Body Mass Index 38.1 Course Course Course Narrative: This is an RME: Additional HPI, ROS, PE not included below will be deferred to primary provider. 52 yo m presents from PCP for HTN, CP, sob, blurred vision and headaches. Med compliant Plan- labs, ekg Medications Administered Discontinued Medications Generic Name Dose Route Start Last Admin Trade Name Curtis PRN Reason Stop Dose Admin Diphenhydramine HCl 50 mg 04/14/23 18:33 04/14/23 19:16 Diphenhydramine Hcl 50 Mg/Ml Vial IVPUSH 04/14/23 18:34 50 mg ONCE ONE Administration Ketorolac Tromethamine 15 mg 04/14/23 18:33 04/14/23 19:16 Ketorolac Tromethamine 15 Mg/Ml Vial IVPUSH 04/14/23 18:34 15 mg ONCE ONE Administration Metoclopramide HCl 10 mg 04/14/23 18:33 04/14/23 19:15 Metoclopramide Hcl 10 Mg/2 Ml Vial IVPUSH 04/14/23 18:34 10 mg ONCE ONE Administration Medical Decision Making Lab Data 04/14/23 16:35 04/14/23 17:10 Labs: Lab Results 04/14/23 04/14/23 04/14/23 Range/Units 16:35 17:10 18:35 WBC 9.4 (4.8-10.8) X10*3/uL RBC 5.47 (4.60-5.80) X10*6/uL Hgb 15.2 (14.0-18.0) g/dl Hct 46.4 (42.0-52.0) % MCV 84.8 (80.0-98.0) fL MCH 27.8 (27.0-33.0) pg MCHC 32.8 (31.0-36.0) g/dl RDW 13.4 (11.0-16.0) % Plt Count 311 (160-400) X10*3/uL MPV 10.2 (9.4-12.4) fL Immature Gran % (Auto) 0.2 (0.0-0.4) % Neut % (Auto) 66.2 (45-73) % Lymph % (Auto) 21.0 (20-40) % [place] % (Auto) 9.1 (2-11) % Eos % (Auto) 2.9 (0-4) % Baso % (Auto) 0.6 (0-2) % Lymph # (Auto) 2.0 (1.2-4.9) X10*3/uL [place] # (Auto) 0.9 (0.1-1.2) X10*3/uL Eos # (Auto) 0.3 (0.0-0.4) X10*3/uL Baso # (Auto) 0.1 (0.0-0.2) X10*3/uL Abs Immat Gran (auto) 0.02 (0.00-0.03) X10*3/uL Absolute Neuts (auto) 6.2 (2.0-8.3) x10*3/uL Absolute Nucleated RBC 0.000 (0.0-0.012) X10*3/uL Nucleated RBC % (auto) 0.0 (0.0-0.2) /100WBC PT 11.3 (11.1-13.3) SEC INR 0.9 (0.9-1.1) D-Dimer High Sensitivty 167 NG/ML Sodium 142 (135-145) mmol/L Potassium 4.4 (3.3-5.1) mmol/L Chloride 105 (96-108) mmol/L Carbon Dioxide 27 (22-29) mmol/L Anion Gap 14 (12-20) BUN 21 H (9-16) mg/dL Creatinine 1.39 (0.5-1.4) mg/dL Estim Creat Clear Calc 82.3 Estimated GFR 53 Random Glucose 126 H (60-115) mg/dL Calcium 9.9 (8.4-10.2) mg/dL Magnesium 2.1 (1.6-2.6) mg/dL Total Bilirubin 0.4 (0.0-1.0) mg/dL AST 28 (5-37) U/L ALT 25 (0-40) U/L Alkaline Phosphatase 99 (39-117) U/L Troponin I High Sens < 2.7 3.1 (<3.5-35.0) ng/L B-Natriuretic Peptide 20 (<100) pg/mL Total Protein 7.4 (6.5-8.0) g/dL Albumin 4.2 (3.5-5.0) g/dL COVID-19 (KIM) Negative (Negative) COVID-19 Clin Com See Note Discharge Plan Discharge Clinical Impression: Chest pain Patient Disposition: Home, Self-Care Instructions: Chest Pain (DC), Acute Headache (DC) Prescriptions: No Action acetaminophen [Tylenol Extra Strength] 500 mg tablet 500 mg PO Q6H PRN (Reason: fever or pain) Qty: 30 0RF ibuprofen 400 mg tablet 400 mg PO TID PRN (Reason: fever or pain) Qty: 30 0RF lisinopril 20 mg tablet 20 mg PO DAILY 90 Days Qty: 90 0RF prednisone 20 mg tablet 60 mg PO DAILY Qty: 12 0RF albuterol sulfate 90 mcg/actuation HFA aerosol inhaler 2 inh inhalation Q8H PRN (Reason: shortness of breath or wheezing) Qty: 8.5 0RF acetaminophen [Tylenol Extra Strength] 500 mg tablet 1,000 mg PO Q6H PRN (Reason: fever or pain) Qty: 20 0RF amoxicillin 500 mg capsule 1,000 mg PO TID 5 Days Qty: 28 0RF azithromycin 250 mg tablet 250 mg PO DAILY 4 Days Qty: 4 0RF Rx Instructions: start on day 2 of therapy azithromycin 250 mg tablet See Rx Instructions .ROUTE .COMPLEX Qty: 6 0RF Rx Instructions: For 250 mg dose pack: take 500 mg today (day 1), then 250 mg for 4 days (days 2-5) hydrocodone-acetaminophen 5-325 mg tablet 1 tab PO Q4-6H PRN (Reason: pain) Qty: 30 0RF Rx Instructions: Partial Fill upon patient request. Referrals: Elia Garcia MD [Physician] - 04/16/23 Interventions: ED Discharge Assessment Last Done: 04/14/23 22:01 Discharge Date/Time: 04/14/23 22:03 Print Language: Belarusian
[2023-04-14 17:18] LABS: MANUAL DIFF FLAG NO
[2023-04-14 17:20] LABS: INTERNATIONAL NORM RATIO 0.9 (0.9-1.1); Prothrombin Time 11.3 SEC (11.1-13.3)
[2023-04-14 17:30] LABS: COVID-19 Test Negative (Negative); IDNOW Serial# BCCEAD1C
[2023-04-14 17:33] LABS: Basophils Absolute Auto 0.1 X10*3/uL (0.0-0.2); Basophils Percent Auto 0.6 % (0-2); Eosinophils Absolute Auto 0.3 X10*3/uL (0.0-0.4); Eosinophils Percent Auto 2.9 % (0-4); Hematocrit 46.4 % (42.0-52.0); Hemoglobin 15.2 g/dl (14.0-18.0); Imm Gran Abs Auto 0.02 X10*3/uL (0.00-0.03); Imm Gran Pct Auto 0.2 % (0.0-0.4); Mean Corpuscular HGB Conc 32.8 g/dl (31.0-36.0); Mean Corpuscular Hemoglobin 27.8 pg (27.0-33.0); Mean Corpuscular Volume 84.8 fL (80.0-98.0); Mean Platelet Volume 10.2 fL (9.4-12.4); Monocytes Absolute Auto 0.9 X10*3/uL (0.1-1.2); Monocytes Percent Auto 9.1 % (2-11); Neutrophils Absolute Auto 6.2 x10*3/uL (2.0-8.3); Neutrophils Percent Auto 66.2 % (45-73); Platelet Count 311 X10*3/uL (160-400); Red Blood Count 5.47 X10*6/uL (4.60-5.80); Red Cell Distribution Width 13.4 % (11.0-16.0); White Blood Count 9.4 X10*3/uL (4.8-10.8)
[2023-04-14 17:34] LABS: Alanine Aminotransferase 25 U/L (0-40); Albumin Level 4.2 g/dL (3.5-5.0); Alkaline Phosphatase 99 U/L (39-117); Anion Gap 14 (12-20); Aspartate Amino Transferase 28 U/L (5-37); Bilirubin Total 0.4 mg/dL (0.0-1.0); Blood Urea Nitrogen 21 mg/dL (9-16); Calcium 9.9 mg/dL (8.4-10.2); Carbon Dioxide 27 mmol/L (22-29); Chloride 105 mmol/L (96-108); Creatinine Clr Calc Pharmacy 82.3; Estimated Glomerular Filt Rate 53; Glucose Random 126 mg/dL (60-115); Magnesium 2.1 mg/dL (1.6-2.6); Potassium 4.4 mmol/L (3.3-5.1); Sodium 142 mmol/L (135-145); Total Protein 7.4 g/dL (6.5-8.0)
[2023-04-14 17:41] LABS: Troponin-I High Sensitivity < 2.7 ng/L (<3.5-35.0)
[2023-04-14 18:04] LABS: B Type Natriuretic Peptide 20 pg/mL (<100)
[2023-04-14 18:13] VITALS: BP 135/86; PULSE 86; RESP 14; O2SAT 100
[2023-04-14 18:49] LABS: D Dimer High Sensitivity 167 NG/ML
[2023-04-14 19:02] LABS: Troponin-I High Sensitivity 3.1 ng/L (<3.5-35.0)
[2023-04-14 19:11] VITALS: BP 145/90; PULSE 83; RESP 16; O2SAT 95
[2023-04-14] MEDS: Metoclopramide HCl 10 MG/2 ML VIAL IVPUSH (19:15)
[2023-04-14] MEDS: diphenhydrAMINE HCL 50 MG/ML VIAL IVPUSH (19:16)
[2023-04-14] MEDS: Ketorolac Tromethamine 15 MG/ML VIAL IVPUSH (19:16)
[2023-04-14 20:57] VITALS: BP 130/85; PULSE 73; RESP 15; O2SAT 95
--- NOTE | 2023-04-14 21:15 | ED.CHESTPAIN ---
HPI - Chest Pain General Chief Complaint: Chest Pain Stated Complaint: HBP Time Seen by Provider: 04/14/23 17:30 History of Present Illness HPI narrative: patient is a 52-year-old male presents today with having chest pain. The chest pain lasts for few minutes. Sometimes with exertion sometimes at rest there is no specific trigger patient denies any diaphoresis sometimes it is worse with deep breath. Patient went to see her primary physician was noted to have elevated blood pressure. He also had a headache. It started approximately 4-5 hours prior to arrival in the emergency department. Patient's denies any diaphoresis. No coughing or congestion or upper respiratory symptoms. Patient is from home. He is 52 years old History of hypertension. No history of diabetes. No history of high cholesterol. No history of smoking no history of MA. no sudden in the family. no recent travel no history of blood clots in the past not on blood thinners. No leg swelling Related Data Previous Rx's Medication Instructions Recorded acetaminophen 500 mg tablet 1,000 mg (2 x 500 mg) PO Q6H PRN 10/01/22 (Tylenol Extra Strength) fever or pain #20 tabs acetaminophen 500 mg tablet 500 mg PO Q6H PRN fever or pain 11/13/22 (Tylenol Extra Strength) #30 tabs ibuprofen 400 mg tablet 400 mg PO TID PRN fever or pain 11/13/22 #30 tabs lisinopril 20 mg tablet 20 mg PO DAILY 90 days #90 tabs 11/13/22 hydrocodone 5 mg-acetaminophen 325 1 tab PO Q4-6H PRN pain #30 tabs 11/24/22 mg tablet Allergies Allergy/AdvReac Type Severity Reaction Status Date / Time No Known Allergies Allergy Verified 12/03/22 14:40 Review of Systems Review of Systems: Positive headache positive chest pain positive generalized malaise Yes all other systems are reviewed and are negative PMFSH Past Medical History Attestation statement: The following information was validated with the patient. Medical History Hypertension Social History Social History Patient Tobacco Use Status: Current someday Tobacco user Cigarette Packs Per Day: 4 Advance Directives: No Advance Directives Information Provided: No Physical Exam Vital Signs: Vital Signs: Last Vital Signs Temp 98.8 F 04/14/23 16:50 Pulse 73 04/14/23 20:57 Resp 15 04/14/23 20:57 BP 130/85 04/14/23 20:57 Pulse Ox 95 04/14/23 20:57 O2 Del Method Room Air 04/14/23 20:57 BMI result Body Mass Index 38.1 Appearance: Alert. Oriented X3. No acute distress. Eyes: Pupils equal, round and reactive to light. ENT: Pharynx normal. Neck: Normal inspection. Neck supple. No lymph nodes noted. No crepitus CVS: Normal heart rate and rhythm. Pulses normal. Normal S1 and S2 Respiratory: No respiratory distress. Breath sounds normal. No Wheezing. No rales Abdomen: Soft and nontender. No rigidity. No distention. good BS x4 Skin: Skin warm and dry. Normal skin color. Normal skin turgor. Extremities: No lower extremity edema. Neurovascular intact to all extremities. No Lacerations. No Rash Neuro: Oriented X 3. No motor deficit. No sensory deficit. Moving all extermities. No slurred speech Medications Administered Discontinued Medications Generic Name Dose Route Start Last Admin Trade Name Freq PRN Reason Stop Dose Admin Diphenhydramine HCl 50 mg 04/14/23 18:33 04/14/23 19:16 Diphenhydramine Hcl 50 Mg/Ml Vial IVPUSH 04/14/23 18:34 50 mg ONCE ONE Administration Ketorolac Tromethamine 15 mg 04/14/23 18:33 04/14/23 19:16 Ketorolac Tromethamine 15 Mg/Ml Vial IVPUSH 04/14/23 18:34 15 mg ONCE ONE Administration Metoclopramide HCl 10 mg 04/14/23 18:33 04/14/23 19:15 Metoclopramide Hcl 10 Mg/2 Ml Vial IVPUSH 04/14/23 18:34 10 mg ONCE ONE Administration Medical Decision Making Medical Decision Making [facility] Narrative: my interpretation of patient's EKG showed a sinus pattern heart rate is 100 NE QRS QTC within normal limits there is diffuse T-wave flattening noted over the inferior and lateral leads. The EKG is unchanged from a previous EKG. My interpretation patient's chest x-ray is grossly negative for any acute evidence of pneumonia pneumothorax. No rib fracture. Given patient's headache started less than [address] scan of the head was done it did not show any acute evidence of bleeding. Unlikely patient has an intracranial bleed. History not consistent. Patient does not have any significant risk factors for PE. His D-dimer is less than 250 in the setting of low wrist negative D-dimer unlikely have a pulmonary emboli. Patient's chest pain was atypical and happen from time to time is nonspecific. Two sets of cardiac enzyme negative patient's EKG is not changed. He is slightly overweight he is 52 years young his heart score so less than 3. Will have patient follow-up with cardiology on an outpatient basis. Currently patient is in stable condition. Differential Diagnosis Differential Diagnoses: The differential diagnosis associated with the presentation includes Intracranial bleed, temporal arteritis very unlikely, intracranial mass highly unlikely ACS, PE, pneumonia, pneumothorax Admission/Observation Consideration of admission/observation: Escalation of care including admission/observation considered joint decision was made to discharge patient home Lab Data 04/14/23 16:35 04/14/23 17:10 Labs: Lab Results 04/14/23 04/14/23 04/14/23 Range/Units 16:35 17:10 18:35 WBC 9.4 (4.8-10.8) X10*3/uL RBC 5.47 (4.60-5.80) X10*6/uL Hgb 15.2 (14.0-18.0) g/dl Hct 46.4 (42.0-52.0) % MCV 84.8 (80.0-98.0) fL MCH 27.8 (27.0-33.0) pg MCHC 32.8 (31.0-36.0) g/dl RDW 13.4 (11.0-16.0) % Plt Count 311 (160-400) X10*3/uL MPV 10.2 (9.4-12.4) fL Immature Gran % (Auto) 0.2 (0.0-0.4) % Neut % (Auto) 66.2 (45-73) % Lymph % (Auto) 21.0 (20-40) % [place] % (Auto) 9.1 (2-11) % Eos % (Auto) 2.9 (0-4) % Baso % (Auto) 0.6 (0-2) % Lymph # (Auto) 2.0 (1.2-4.9) X10*3/uL [place] # (Auto) 0.9 (0.1-1.2) X10*3/uL Eos # (Auto) 0.3 (0.0-0.4) X10*3/uL Baso # (Auto) 0.1 (0.0-0.2) X10*3/uL Abs Immat Gran (auto) 0.02 (0.00-0.03) X10*3/uL Absolute Neuts (auto) 6.2 (2.0-8.3) x10*3/uL Absolute Nucleated RBC 0.000 (0.0-0.012) X10*3/uL Nucleated RBC % (auto) 0.0 (0.0-0.2) /100WBC PT 11.3 (11.1-13.3) SEC INR 0.9 (0.9-1.1) D-Dimer High Sensitivty 167 NG/ML Sodium 142 (135-145) mmol/L Potassium 4.4 (3.3-5.1) mmol/L Chloride 105 (96-108) mmol/L Carbon Dioxide 27 (22-29) mmol/L Anion Gap 14 (12-20) BUN 21 H (9-16) mg/dL Creatinine 1.39 (0.5-1.4) mg/dL Estim Creat Clear Calc 82.3 Estimated GFR 53 Random Glucose 126 H (60-115) mg/dL Calcium 9.9 (8.4-10.2) mg/dL Magnesium 2.1 (1.6-2.6) mg/dL Total Bilirubin 0.4 (0.0-1.0) mg/dL AST 28 (5-37) U/L ALT 25 (0-40) U/L Alkaline Phosphatase 99 (39-117) U/L Troponin I High Sens < 2.7 3.1 (<3.5-35.0) ng/L B-Natriuretic Peptide 20 (<100) pg/mL Total Protein 7.4 (6.5-8.0) g/dL Albumin 4.2 (3.5-5.0) g/dL COVID-19 (KIM) Negative (Negative) COVID-19 Clin Com See Note Independent Interpretation I performed an independent interpretation of an: EKG ( my interpretation of patient's EKG as above), Plain X-Ray ( my interpretation patient's chest x-ray grossly negative) and CT Scan ( my interpretation patient's CT scan of the head was grossly negative) Radiology Impression Discussion of test interpretation with radiology: I have reviewed the radiologist's reading. Prescription Management I considered prescription management with: Pain Medication, Antiviral and Antibiotic not needed Chronic Conditions Patient?s care impacted by: Hypertension Discharge Plan Discharge Clinical Impression: Chest pain Patient Disposition: Home, Self-Care Instructions: Chest Pain (DC), Acute Headache (DC) Prescriptions: No Action acetaminophen [Tylenol Extra Strength] 500 mg tablet 500 mg PO Q6H PRN (Reason: fever or pain) Qty: 30 0RF ibuprofen 400 mg tablet 400 mg PO TID PRN (Reason: fever or pain) Qty: 30 0RF lisinopril 20 mg tablet 20 mg PO DAILY 90 Days Qty: 90 0RF acetaminophen [Tylenol Extra Strength] 500 mg tablet 1,000 mg PO Q6H PRN (Reason: fever or pain) Qty: 20 0RF hydrocodone-acetaminophen 5-325 mg tablet 1 tab PO Q4-6H PRN (Reason: pain) Qty: 30 0RF Rx Instructions: Partial Fill upon patient request. Referrals: Elia Garcia MD [Physician] - 04/16/23 Print Language: Bengali
== END 2023-04-14 22:03 | disposition home or self-care (01) ==
PROVIDERS: Physician Assistant; Emergency Provider Emergency Medicine Emergency Medical Services
DX: R07.9 Chest pain, unspecified (principal); R51.9 Headache, unspecified; I10 Essential (primary) hypertension; F17.210 Nicotine dependence, cigarettes, uncomplicated; Z11.52 Encounter for screening for COVID-19; Z79.899 Other long term (current) drug therapy
CPT/HCPCS: 36415; 70450; 71045; 80053; 83735; 83880; 84484; 85025; 85379; 85610; 87635; 93005; 96374; 96375; 99284; J1200; J1885; J2765

== ENCOUNTER 2023-04-21 15:30 | Outpatient (REF) | payer MEDICAID, SELFPAY ==
[2023-04-22 04:52] LABS: HBS Num1 0.48 mIU/mL (0-7.99); HBc Num1 0.15 S/CO (0.00-0.79); HBsAGNum1 2.03 S/CO (0.00-0.99); Hepatitis A Antibody IgM 0.57 Index (0-0.79); Hepatitis B Core Antibody Nonreactive (Nonreactive); ~HepC Num1 0.27 S/CO (0.00-0.79); ~Hepatitis A Antibody IgM Nonreactive (Nonreactive); ~Hepatitis B Surface Antibody NONREACTIVE (Nonreactive); ~Hepatitis C Antibody Nonreactive (Nonreactive)
[2023-04-22 05:36] LABS: HBsAGNum2 Reactive; HBsAGNum3 Reactive
[2023-04-22 05:37] LABS: Hepatitis B Surface Antigen Retest CNFM (Negative)
[2023-05-03 11:34] LABS: HBsAG SEE COMMENTS
== END 2023-04-21 15:31 | disposition home or self-care (01) ==
LOC: HO.HHCL 15:30
PROVIDERS: Visit Provider Nurse Practitioner Family
DX: R10.11 Right upper quadrant pain (principal)
CPT/HCPCS: 36415; 86704; 86706; 86709; 86803; 87340

== ENCOUNTER 2023-04-28 11:19 | Emergency (ER) | payer MEDICAID, SELFPAY ==
--- NOTE | ~2023-04-28 | US_ITS ---
EXAMINATION: US ABDOMEN LIMITED CLINICAL INFORMATION: Right upper quadrant pain. COMPARISON: None available. TECHNIQUE: Real-time imaging of the right upper quadrant abdominal viscera. FINDINGS: PANCREAS: Normal. LIVER: The liver is normal in size. The liver contour is normal. Parenchymal echogenicity is increased. No focal hepatic lesion. There is no intrahepatic biliary duct dilatation seen. GALLBLADDER: Gallbladder wall thickness is 0.26 cm The gallbladder is physiologically distended without evidence of stones, sludge, polyps, wall thickening or pericholecystic fluid. COMMON BILE DUCT: Normal in caliber measuring 0.28 cm in diameter. RIGHT KIDNEY: There is anechoic cyst in midpole measuring 2.3 x 1.9 x 2.8 cm, lower pole measuring 1.5 x 1.8 x 1.5 and 1.2 x 1.2 x 1.1 cm. No hydronephrosis. No renal calculi or focal parenchymal lesions. The kidney measures 12.2 cm in maximum dimension. FREE FLUID: None. US/US abdomen limited IMPRESSION: 1. Multiple right renal cysts. No echogenic stones or hydronephrosis. 2. Mild echogenic liver without focal lesion. 3. Visualized pancreas, gallbladder and CBD is unremarkable.
--- NOTE | ~2023-04-28 | XR_ITS ---
EXAMINATION: XR CHEST CLINICAL INFORMATION: Chest pain. COMPARISON: Most recent chest radiograph dated 04/14/2023. TECHNIQUE: Frontal view of the chest was obtained. FINDINGS: Patchy bibasilar atelectasis versus early infiltrates, increased on the right when compared to the most recent chest radiograph. No pleural effusion or pneumothorax. Stable cardiomediastinal silhouette. XR/XR chest 1V IMPRESSION: Patchy bibasilar atelectasis versus early infiltrates, increased on the right when compared to the most recent chest radiograph.
--- NOTE | 2023-04-28 11:20 | ECG_ITS ---
Test Reason : abd pain Blood Pressure : / mmHG Vent. Rate : 090 BPM Atrial Rate : 090 BPM P-R Int : 142 ms QRS Dur : 100 ms QT Int : 352 ms P-R-T Axes : 022 -24 114 degrees QTc Int : 430 ms Normal sinus rhythm T wave abnormality, consider lateral ischemia Abnormal ECG When compared with ECG of 14-APR-2023 16:55, No significant change was found Referred By: René Haque Electronically Signed By:SHILPA SOL MD
--- NOTE | 2023-04-28 11:22 | ED.GENADULT ---
HPI - General Adult General Chief complaint: Abdominal Pain Stated complaint: chest pain Time Seen by Provider: 04/28/23 16:08 Source: patient Mode of arrival: ambulatory Limitations: language barrier (Speaking staff interpreter utilized) History of Present Illness HPI narrative: Patient is a 52-year-old male who presents emergency department with reports of right upper quadrant abdominal pain. He states the pain has been present for 1 month, but progressively worsening over the past week. He was seen at walk-in clinic and referred to the emergency department for further evaluation. Pain is made worse with particular movements, coughing, deep breathing. He states he has had a intermittent productive cough over the past month as well. He denies chest pain, shortness of breath, difficulty breathing, nausea, vomiting, lower abdominal pain, constipation, diarrhea, hematochezia, melena, genitourinary symptoms, back pain. Related Data Previous Rx's Medication Instructions Recorded acetaminophen 500 mg tablet 1,000 mg (2 x 500 mg) PO Q6H PRN 10/01/22 (Tylenol Extra Strength) fever or pain #20 tabs acetaminophen 500 mg tablet 500 mg PO Q6H PRN fever or pain 11/13/22 (Tylenol Extra Strength) #30 tabs ibuprofen 400 mg tablet 400 mg PO TID PRN fever or pain 11/13/22 #30 tabs lisinopril 20 mg tablet 20 mg PO DAILY 90 days #90 tabs 11/13/22 hydrocodone 5 mg-acetaminophen 325 1 tab PO Q4-6H PRN pain #30 tabs 11/24/22 mg tablet amoxicillin 500 mg capsule 1,000 mg (2 x 500 mg) PO TID 5 04/28/23 days #28 caps azithromycin 250 mg tablet 250 mg PO DAILY 4 days #4 tabs 04/28/23 azithromycin 250 mg tablet See Rx Instructions PO .COMPLEX #6 04/28/23 tabs Allergies Allergy/AdvReac Type Severity Reaction Status Date / Time No Known Allergies Allergy Verified 12/03/22 14:40 Review of Systems Review of Systems: Yes all other systems are reviewed and are negative PMFSH Past Medical History Attestation statement: The following information was validated with the patient. Source: old records reviewed Medical History Hypertension Social History Social History Alcohol intake: never Patient Tobacco Use Status: Current someday Tobacco user Cigarette Packs Per Day: 4 Smoked in Last 30 Days: No Use of substances other than those prescribed or required for medical reasons: No Advance Directives: No Advance Directives Information Provided: Yes Physical Exam ED Vital Signs: Vital Signs - 24 hr 04/28/23 11:36 04/28/23 16:21 Temperature 98.3 F Pulse Rate 92 92 Respiratory Rate 20 18 Blood Pressure 156/103 H 162/103 H Pulse Oximetry 96 96 Oxygen Delivery Method Room Air Room Air BMI result Body Mass Index 36.8 Appearance: Alert.?Oriented to person, place and time. No acute distress.?Normal affect. Eyes: Pupils equal, round and reactive to light.? ENT: Pharynx normal.?? Neck: Normal inspection.? Neck supple.?? CVS: Heart sounds normal. Normal heart rate and rhythm.? Pulses normal.?? Respiratory: No respiratory distress.? Lung sounds clear at the apices and left lower lobe, right lower lobe with rhonchi Abdomen: Soft and non-tender. Negative Urias sign. No rebound tenderness. No rigidity. No guarding. Normoactive bowel sounds. Skin: Skin warm and dry.? Normal skin color.? Extremities: No lower extremity edema.? No calf ttp? Neuro: Moves all extremities spontaneously. Sensation intact bilaterally. No focal neuro deficits. Ambulates with normal steady gait. Course Course Course Narrative: This is an RME: Additional HPI, ROS, PE not included below will be deferred to primary provider. 52-year-old male presents today for evaluation of 15 days of RUQ pain. He saw Dr. Patel at the walk-in who sent him here. He denies nausea, vomiting, diarrhea. Plan: Labs, ultrasound, UA Medical Decision Making Medical Decision Making MDM Narrative: Patient is a 52-year-old male with past medical history of hypertension presented to emergency department for evaluation of right upper quadrant abdominal pain as per HPI. His abdominal examination is benign. Pain has been persistent for the past month and reproducible to cough and deep inspiration. Of note he has been seen in the emergency department 1.5 weeks ago for chest pain. It is difficult to discern whether the ?chest pain? that he was experiencing at that time is similar to the pain he is currently experiencing, as he does not answer this question directly. Overall, he is well-appearing, nontoxic, afebrile. Wells negative unlikely PE. Heart score <3, high sensitive troponin obtained today within normal range, EKG revealing normal sinus rhythm with ventricular rate of 90, QTC 430, nonspecific T-wave abnormality, no STEMI, pain on likely secondary to ACS. BNP within normal limits, unlikely CHF, no vascular congestion on chest x-ray. CBC is unremarkable, a CMP overall unremarkable. Lipase mildly elevated at 102, no right upper quadrant tenderness, ultrasound revealing unremarkable gallbladder, no acute etiology to suggest cause for pain, suspect less likely to be cholecystitis/cholelithiasis. Not consistent with ascending cholangitis. Chest x-ray revealing patchy bibasilar atelectasis versus early infiltrates increased on the right when compared to most recent chest x-ray 04/14/2023. I suspect infiltrate coupled with cough, pain, and rhonchi upon auscultation be consistent with pneumonia. He is in no respiratory distress, he is not hypoxic nor tachypneic, he is speaking clear full sentences. At this time feel the patient is stable for discharge home, outpatient follow-up with primary care provider, reviewed worrisome signs and symptoms that would warrant re-evaluation in the emergency department. All questions answered. Stable for discharge. Differential Diagnosis Differential Diagnoses: The differential diagnosis associated with the presentation includes (As noted above) Admission/Observation Consideration of admission/observation: Escalation of care including admission/observation considered (I considered admission for pneumonia, see narrative above for further detail) Lab Data MDM Lab Attestation statement: I reviewed the patient's lab results. (As noted above) 04/28/23 13:15 04/28/23 13:15 Labs: Lab Results 04/28/23 Range/Units 13:15 WBC 10.3 (4.8-10.8) X10*3/uL RBC 5.70 (4.60-5.80) X10*6/uL Hgb 15.4 (14.0-18.0) g/dl Hct 48.3 (42.0-52.0) % MCV 84.7 (80.0-98.0) fL MCH 27.0 (27.0-33.0) pg MCHC 31.9 (31.0-36.0) g/dl RDW 13.3 (11.0-16.0) % Plt Count 336 (160-400) X10*3/uL MPV 9.8 (9.4-12.4) fL Immature Gran % (Auto) 0.3 (0.0-0.4) % Neut % (Auto) 66.3 (45-73) % Lymph % (Auto) 20.9 (20-40) % [place] % (Auto) 9.3 (2-11) % Eos % (Auto) 2.8 (0-4) % Baso % (Auto) 0.4 (0-2) % Lymph # (Auto) 2.2 (1.2-4.9) X10*3/uL [place] # (Auto) 1.0 (0.1-1.2) X10*3/uL Eos # (Auto) 0.3 (0.0-0.4) X10*3/uL Baso # (Auto) 0.0 (0.0-0.2) X10*3/uL Abs Immat Gran (auto) 0.03 (0.00-0.03) X10*3/uL Absolute Neuts (auto) 6.8 (2.0-8.3) x10*3/uL Absolute Nucleated RBC 0.000 (0.0-0.012) X10*3/uL Nucleated RBC % (auto) 0.0 (0.0-0.2) /100WBC PT 11.0 L (11.1-13.3) SEC INR 0.9 (0.9-1.1) Sodium 140 (135-145) mmol/L Potassium 4.1 (3.3-5.1) mmol/L Chloride 103 (96-108) mmol/L Carbon Dioxide 28 (22-29) mmol/L Anion Gap 13 (12-20) BUN 17 H (9-16) mg/dL Creatinine 1.11 (0.5-1.4) mg/dL Estim Creat Clear Calc 95.4 Estimated GFR > 60 Random Glucose 89 (60-115) mg/dL Calcium 9.7 (8.4-10.2) mg/dL Magnesium 2.3 (1.6-2.6) mg/dL Total Bilirubin 0.4 (0.0-1.0) mg/dL AST 26 (5-37) U/L ALT 23 (0-40) U/L Alkaline Phosphatase 103 (39-117) U/L Troponin I High Sens 5.8 D (<3.5-35.0) ng/L B-Natriuretic Peptide 21 (<100) pg/mL Total Protein 8.2 H (6.5-8.0) g/dL Albumin 4.5 (3.5-5.0) g/dL Lipase 102 H (8-78) U/L Urine Color Yellow Urine Appearance Clear Urine pH 7.0 (5.0-9.0) Ur Specific [place] 1.010 (1.005-1.025) Urine Protein Negative (Neg-Trace) mg/dL Urine Glucose (UA) Negative (Negative) mg/dL Urine Ketones Negative (Negative) mg/dL Urine Blood Negative (Negative) Urine Nitrite Negative (Negative) Ur Leukocyte Esterase Negative (Negative) Independent Interpretation I performed an independent interpretation of an: Plain X-Ray (I personally interpreted chest x-ray and agree with radiologist impression) and Ultrasound Radiology Impression Discussion of test interpretation with radiology: I have reviewed the radiologist's reading. Radiologist Impression: US/US abdomen limited IMPRESSION: 1. Multiple right renal cysts. No echogenic stones or hydronephrosis. 2. Mild echogenic liver without focal lesion. 3. Visualized pancreas, gallbladder and CBD is unremarkable. XR/XR chest 1V IMPRESSION: Patchy bibasilar atelectasis versus early infiltrates, increased on the right when compared to the most recent chest radiograph. External Record Review External record reviewed: Outpatient record Tests considered The following testing was considered but not selected: CT AP deferred see narrative above Prescription Management I considered prescription management with: Antibiotic Chronic Conditions Patient?s care impacted by: Hypertension Discharge Plan Discharge Clinical Impression: CAP (community acquired pneumonia) Patient Disposition: Home, Self-Care Instructions: Community Acquired Pneumonia (ED) Additional Instructions: You received the 1st dose of antibiotic in the emergency department today. Begin taking your antibiotics tomorrow morning once you pick them up from the pharmacy. Follow-up with your primary care provider Return back to emergency department any new or worsening symptoms or concerns. Prescriptions: New amoxicillin 500 mg capsule 1,000 mg PO TID 5 Days Qty: 28 0RF azithromycin 250 mg tablet 250 mg PO DAILY 4 Days Qty: 4 0RF Rx Instructions: start on day 2 of therapy azithromycin 250 mg tablet See Rx Instructions .ROUTE .COMPLEX Qty: 6 0RF Rx Instructions: For 250 mg dose pack: take 500 mg today (day 1), then 250 mg for 4 days (days 2-5) No Action acetaminophen [Tylenol Extra Strength] 500 mg tablet 500 mg PO Q6H PRN (Reason: fever or pain) Qty: 30 0RF ibuprofen 400 mg tablet 400 mg PO TID PRN (Reason: fever or pain) Qty: 30 0RF lisinopril 20 mg tablet 20 mg PO DAILY 90 Days Qty: 90 0RF acetaminophen [Tylenol Extra Strength] 500 mg tablet 1,000 mg PO Q6H PRN (Reason: fever or pain) Qty: 20 0RF hydrocodone-acetaminophen 5-325 mg tablet 1 tab PO Q4-6H PRN (Reason: pain) Qty: 30 0RF Rx Instructions: Partial Fill upon patient request. Referrals: Physician,Unknown J [Primary Care Provider] -
[2023-04-28 11:36] VITALS: BP 156/103; PULSE 92; RESP 20; TEMP 36.8; O2SAT 96; BMI 36.8
[2023-04-28 13:25] LABS: MANUAL DIFF FLAG NO
[2023-04-28 13:26] LABS: Basophils Percent Auto 0.4 % (0-2); Eosinophils Absolute Auto 0.3 X10*3/uL (0.0-0.4); Eosinophils Percent Auto 2.8 % (0-4); Hematocrit 48.3 % (42.0-52.0); Hemoglobin 15.4 g/dl (14.0-18.0); Imm Gran Abs Auto 0.03 X10*3/uL (0.00-0.03); Imm Gran Pct Auto 0.3 % (0.0-0.4); Lymphocytes Absolute Auto 2.2 X10*3/uL (1.2-4.9); Lymphocytes Percent Auto 20.9 % (20-40); Mean Corpuscular HGB Conc 31.9 g/dl (31.0-36.0); Mean Corpuscular Volume 84.7 fL (80.0-98.0); Mean Platelet Volume 9.8 fL (9.4-12.4); Monocytes Percent Auto 9.3 % (2-11); Neutrophils Absolute Auto 6.8 x10*3/uL (2.0-8.3); Neutrophils Percent Auto 66.3 % (45-73); Platelet Count 336 X10*3/uL (160-400); Red Cell Distribution Width 13.3 % (11.0-16.0); White Blood Count 10.3 X10*3/uL (4.8-10.8)
[2023-04-28 13:29] LABS: Appearance Urine Clear; Color Urine Yellow; Glucose Urine UA Negative (Negative); Leukocyte Esterase Urine Negative (Negative); Nitrite Urine Negative (Negative); Urine Blood Negative (Negative); Urine Ketones Negative (Negative); Urine Protein Negative (Neg-Trace)
[2023-04-28 13:39] LABS: Lipase 102 U/L (8-78)
[2023-04-28 13:42] LABS: Alanine Aminotransferase 23 U/L (0-40); Albumin Level 4.5 g/dL (3.5-5.0); Alkaline Phosphatase 103 U/L (39-117); Anion Gap 13 (12-20); Aspartate Amino Transferase 26 U/L (5-37); Bilirubin Total 0.4 mg/dL (0.0-1.0); Blood Urea Nitrogen 17 mg/dL (9-16); Calcium 9.7 mg/dL (8.4-10.2); Carbon Dioxide 28 mmol/L (22-29); Chloride 103 mmol/L (96-108); Creatinine Clr Calc Pharmacy 95.4; Estimated Glomerular Filt Rate > 60; Glucose Random 89 mg/dL (60-115); Magnesium 2.3 mg/dL (1.6-2.6); Potassium 4.1 mmol/L (3.3-5.1); Sodium 140 mmol/L (135-145); Total Protein 8.2 g/dL (6.5-8.0)
[2023-04-28 13:47] LABS: B Type Natriuretic Peptide 21 pg/mL (<100)
[2023-04-28 13:51] LABS: Troponin-I High Sensitivity 5.8 ng/L (<3.5-35.0)
[2023-04-28 13:52] LABS: INTERNATIONAL NORM RATIO 0.9 (0.9-1.1)
[2023-04-28 16:21] VITALS: BP 162/103; PULSE 92; RESP 18; O2SAT 96
[2023-04-28] MEDS: Amoxicillin 500 MG CAPSULE 1000 MG PO (17:15)
== END 2023-04-28 17:19 | disposition home or self-care (01) ==
PROVIDERS: Physician Assistant; Emergency Provider Emergency Medicine
DX: J18.9 Pneumonia, unspecified organism (principal); R10.11 Right upper quadrant pain; I10 Essential (primary) hypertension; F17.210 Nicotine dependence, cigarettes, uncomplicated
CPT/HCPCS: 36415; 71045; 76705; 80053; 81003; 83690; 83735; 83880; 84484; 85025; 85610; 93005; 99284

== ENCOUNTER 2023-05-08 10:47 | Emergency (ER) | payer MEDICAID, SELFPAY ==
--- NOTE | ~2023-05-08 | XR_ITS ---
EXAMINATION: XR CHEST CLINICAL INFORMATION: Pain COMPARISON: 12/26/2022 TECHNIQUE: 2 views of the chest were obtained. FINDINGS: Heart and mediastinum within normal limits. No vascular congestion. Increased AP diameter to the chest. Diffusely increased interstitial markings with right mid to lower lobe predominance, mildly increased from previous to lower lung volumes are present. Bony structures are intact. XR/XR chest 2V IMPRESSION: Increased interstitial markings, slightly more prominent than on previous study, possibly related to lower lung volumes. No consolidations or failure.
[2023-05-08 11:13] VITALS: BP 149/93; PULSE 88; RESP 16; TEMP 36.4; O2SAT 93; BMI 35.4
--- NOTE | 2023-05-08 11:17 | ED.GENADULT ---
HPI - General Adult General Chief complaint: Upper Respiratory Symptoms Stated complaint: sob ? 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 Recent diagnosis of pneumonia on antibiotics. Now with increased shortness of breath for the past few days Onset (ago): week(s) Severity: moderate Related Data Previous Rx's Medication Instructions Recorded acetaminophen 500 mg tablet 1,000 mg (2 x 500 mg) PO Q6H PRN 10/01/22 (Tylenol Extra Strength) fever or pain #20 tabs acetaminophen 500 mg tablet 500 mg PO Q6H PRN fever or pain 11/13/22 (Tylenol Extra Strength) #30 tabs ibuprofen 400 mg tablet 400 mg PO TID PRN fever or pain 11/13/22 #30 tabs lisinopril 20 mg tablet 20 mg PO DAILY 90 days #90 tabs 11/13/22 hydrocodone 5 mg-acetaminophen 325 1 tab PO Q4-6H PRN pain #30 tabs 11/24/22 mg tablet amoxicillin 500 mg capsule 1,000 mg (2 x 500 mg) PO TID 5 04/28/23 days #28 caps azithromycin 250 mg tablet 250 mg PO DAILY 4 days #4 tabs 04/28/23 azithromycin 250 mg tablet See Rx Instructions PO .COMPLEX #6 04/28/23 tabs albuterol sulfate 90 mcg/actuation 2 inh inhalation Q8H PRN shortness 05/08/23 aerosol inhaler of breath or wheezing #8.5 grams prednisone 20 mg tablet 60 mg (3 x 20 mg) PO DAILY #12 tabs 05/08/23 Allergies Allergy/AdvReac Type Severity Reaction Status Date / Time No Known Allergies Allergy Verified 12/03/22 14:40 Review of Systems Review of Systems: Yes all other systems are reviewed and are negative Neurologic: Denies Sensory deficit (Neuro) [facility] Past Medical History Medical History Hypertension Social History Social History Alcohol intake: never Patient Tobacco Use Status: Current someday Tobacco user Cigarette Packs Per Day: 4 Advance Directives: Yes Advance Directives Information Provided: Yes Advance Directives on File: No Physical Exam ED Vital Signs: Vital Signs - 24 hr 05/08/23 11:13 05/08/23 12:27 05/08/23 12:27 Temperature 97.5 F Pulse Rate 88 86 Respiratory Rate 16 19 Blood Pressure 149/93 H Pulse Oximetry 93 96 97 Oxygen Delivery Method Room Air Room Air Nasal Cannula Nasal Cannula Oxygen Flow Rate 2 05/08/23 12:49 05/08/23 14:13 05/08/23 14:46 Temperature Pulse Rate 88 88 90 Respiratory Rate 18 18 19 Blood Pressure 147/101 H Pulse Oximetry 96 Oxygen Delivery Method Room Air Oxygen Flow Rate BMI result Body Mass Index 35.4 Const Other: male appearing short of breath, coughing Nutritional Appearance: average body habitus Orientation/consciousness: oriented to person and patient oriented x3 Limitations: no limitations HENMT Head: Yes normal to inspection Ears: external ears normal General nose exam: Normal external nose present Mouth: Normal oral and palatal mucosa present and oropharynx normal Throat: Yes posterior oropharynx normal Eyes General: appearance normal, both eyes and all related structures Neck Neck: Yes normal visual inspection Chest Chest palpation & inspection: normal inspection of the chest Resp Other: diffuse wheezing with poor air movement Cardio Jugular venous distension: no JVD Rate: regular rate Rhythm: regular rhythm Heart sounds: S1 normal heart sound present and S2 normal heart sound present GI Inspection: Yes normal to inspection Palpation (GI): Soft to palpation, nontender and No hepatosplenomegaly present Auscultation: normal bowel sounds General: Yes no CVA tenderness Back/Spine/Pelvis Back: no CVA tenderness Skin General skin exam: no rashes or lesions noted Neuro General: oriented to person and patient oriented x3 Cranial nerves: Yes CN's II-XII intact bilaterally Motor exam (neuro): 5/5 motor strength present throughout Sensory Exam: No Sensory deficit (Neuro) Extrem General: Yes normal to inspection Psych Appearance: grossly normal Course Course Course Narrative: RME- 52-year-old male presents for evaluation of cough, shortness of breath. Patient was seen year 04/14/2023 for abdominal pain and again on 04/28/2023 for pneumonia. He was treated with azithromycin and amoxicillin. He reports symptoms worsen. History of COPD, expiratory wheezes and. Plan for labs, repeat chest x-ray, viral swab. Oxygen saturation 90-93% on room air on triage Reevaluation(s) Reevaluation #1: I spent 40 minutes of critical care, with interventions, assessments, speaking to patient, consultants, and family. Time: 15:09 Reevaluation #2: patient with RSV, no pneumonia on xray will dc on prednisone, and albuterol Time: 15:09 Reevaluation #3: smoking cessation: I spent 3 minutes counseling patient on the importance of stopping smoking and how he can stop Time: 15:13 Medications Administered Discontinued Medications Generic Name Dose Route Start Last Admin Trade Name Freq PRN Reason Stop Dose Admin Albuterol Sulfate 5 mg/ 7.5 mg 05/08/23 12:43 05/08/23 12:46 Albuterol Sulfate 2.5 mg INHALE 05/08/23 12:44 7.5 mg ONCE ONE Administration Albuterol Sulfate 5 mg/ 7.5 mg 05/08/23 14:06 05/08/23 14:11 Albuterol Sulfate 2.5 mg INHALE 05/08/23 14:07 7.5 mg ONCE ONE Administration Methylprednisolone Sodium Succinate 125 mg 05/08/23 12:35 05/08/23 12:45 Methylprednisolone Sod Succ 125 Mg/2 Ml Vial IVPUSH 05/08/23 12:36 125 mg ONCE ONE Administration Medical Decision Making Differential Diagnosis Differential Diagnoses: The differential diagnosis associated with the presentation includes (pneumonia, copd exacerbation, Covid, flu, RSV, respiratory failure all considered) Admission/Observation Consideration of admission/observation: Escalation of care including admission/observation considered (upon arrival patient considered for admission) Consult Healthcare Provider Repiratory consulted Lab Data 05/08/23 11:33 05/08/23 11:33 Labs: Lab Results 05/08/23 05/08/23 Range/Units 11:33 14:10 WBC 5.4 (4.8-10.8) X10*3/uL RBC 5.64 (4.60-5.80) X10*6/uL Hgb 15.2 (14.0-18.0) g/dl Hct 47.3 (42.0-52.0) % MCV 83.9 (80.0-98.0) fL MCH 27.0 (27.0-33.0) pg MCHC 32.1 (31.0-36.0) g/dl RDW 13.3 (11.0-16.0) % Plt Count 310 (160-400) X10*3/uL MPV 9.8 (9.4-12.4) fL Immature Gran % (Auto) 0.2 (0.0-0.4) % Neut % (Auto) 57.8 (45-73) % Lymph % (Auto) 26.3 (20-40) % Chaves % (Auto) 11.8 H (2-11) % Eos % (Auto) 3.2 (0-4) % Baso % (Auto) 0.7 (0-2) % Lymph # (Auto) 1.4 (1.2-4.9) X10*3/uL Chaves # (Auto) 0.6 (0.1-1.2) X10*3/uL Eos # (Auto) 0.2 (0.0-0.4) X10*3/uL Baso # (Auto) 0.0 (0.0-0.2) X10*3/uL Abs Immat Gran (auto) 0.01 (0.00-0.03) X10*3/uL Absolute Neuts (auto) 3.1 (2.0-8.3) x10*3/uL Absolute Nucleated RBC 0.000 (0.0-0.012) X10*3/uL Nucleated RBC % (auto) 0.0 (0.0-0.2) /100WBC PT 11.5 (11.1-13.3) SEC INR 0.9 (0.9-1.1) APTT 40.6 H (26.0-36.4) SEC Sodium 141 (135-145) mmol/L Potassium 4.0 (3.3-5.1) mmol/L Chloride 108 (96-108) mmol/L Carbon Dioxide 22 (22-29) mmol/L Anion Gap 15 (12-20) BUN 19 H (9-16) mg/dL Creatinine 1.19 (0.5-1.4) mg/dL Estim Creat Clear Calc 87.2 Estimated GFR > 60 Random Glucose 175 H (60-115) mg/dL Lactic Acid 3.3 H* (0.5-2.0) mmol/L Lactic Acid F/U @ 2Hr 1.4 (0.5-2.0) mmol/L Calcium 9.4 (8.4-10.2) mg/dL Total Bilirubin 0.4 (0.0-1.0) mg/dL AST 26 (5-37) U/L ALT 21 (0-40) U/L Alkaline Phosphatase 94 (39-117) U/L Total Protein 7.7 (6.5-8.0) g/dL Albumin 4.3 (3.5-5.0) g/dL Lipase 52 (8-78) U/L Influenza Type A (PCR) NEGATIVE (Negative) Influenza Type B (PCR) NEGATIVE (Negative) RSV RNA Qual (PCR) POSITIVE A (Negative) SARS-CoV-2 RNA (RT-PCR) NEGATIVE (Negative) Independent Interpretation I performed an independent interpretation of an: Plain X-Ray (no infiltrate) Prescription Management I considered prescription management with: Antibiotic (no infiltrate on xray, patient is positive for RSV so no antibiotics given) Chronic Conditions Patient?s care impacted by: Other (smoking) Discharge Plan Discharge Clinical Impression: Upper respiratory infection, Viral infection, COPD (chronic obstructive pulmonary disease) with acute bronchitis Patient Disposition: Home, Self-Care Instructions: Respiratory Syncytial Virus (ED), COPD (Chronic Obstructive Pulmonary Disease) (ED) Prescriptions: New prednisone 20 mg tablet 60 mg PO DAILY Qty: 12 0RF albuterol sulfate 90 mcg/actuation HFA aerosol inhaler 2 inh inhalation Q8H PRN (Reason: shortness of breath or wheezing) Qty: 8.5 0RF No Action acetaminophen [Tylenol Extra Strength] 500 mg tablet 500 mg PO Q6H PRN (Reason: fever or pain) Qty: 30 0RF ibuprofen 400 mg tablet 400 mg PO TID PRN (Reason: fever or pain) Qty: 30 0RF lisinopril 20 mg tablet 20 mg PO DAILY 90 Days Qty: 90 0RF acetaminophen [Tylenol Extra Strength] 500 mg tablet 1,000 mg PO Q6H PRN (Reason: fever or pain) Qty: 20 0RF amoxicillin 500 mg capsule 1,000 mg PO TID 5 Days Qty: 28 0RF azithromycin 250 mg tablet 250 mg PO DAILY 4 Days Qty: 4 0RF Rx Instructions: start on day 2 of therapy azithromycin 250 mg tablet See Rx Instructions .ROUTE .COMPLEX Qty: 6 0RF Rx Instructions: For 250 mg dose pack: take 500 mg today (day 1), then 250 mg for 4 days (days 2-5) hydrocodone-acetaminophen 5-325 mg tablet 1 tab PO Q4-6H PRN (Reason: pain) Qty: 30 0RF Rx Instructions: Partial Fill upon patient request. Referrals: Physician,Unknown J [Primary Care Provider] - 3 days
[2023-05-08 11:40] LABS: MANUAL DIFF FLAG NO
[2023-05-08 11:43] LABS: Basophils Percent Auto 0.7 % (0-2); Eosinophils Absolute Auto 0.2 X10*3/uL (0.0-0.4); Eosinophils Percent Auto 3.2 % (0-4); Hematocrit 47.3 % (42.0-52.0); Hemoglobin 15.2 g/dl (14.0-18.0); Imm Gran Abs Auto 0.01 X10*3/uL (0.00-0.03); Imm Gran Pct Auto 0.2 % (0.0-0.4); Lymphocytes Absolute Auto 1.4 X10*3/uL (1.2-4.9); Lymphocytes Percent Auto 26.3 % (20-40); Mean Corpuscular HGB Conc 32.1 g/dl (31.0-36.0); Mean Corpuscular Volume 83.9 fL (80.0-98.0); Mean Platelet Volume 9.8 fL (9.4-12.4); Monocytes Absolute Auto 0.6 X10*3/uL (0.1-1.2); Monocytes Percent Auto 11.8 % (2-11); Neutrophils Absolute Auto 3.1 x10*3/uL (2.0-8.3); Neutrophils Percent Auto 57.8 % (45-73); Platelet Count 310 X10*3/uL (160-400); Red Blood Count 5.64 X10*6/uL (4.60-5.80); Red Cell Distribution Width 13.3 % (11.0-16.0); White Blood Count 5.4 X10*3/uL (4.8-10.8)
[2023-05-08 11:56] LABS: Lactic Acid 3.3 mmol/L (0.5-2.0)
[2023-05-08 11:59] LABS: Alanine Aminotransferase 21 U/L (0-40); Albumin Level 4.3 g/dL (3.5-5.0); Alkaline Phosphatase 94 U/L (39-117); Anion Gap 15 (12-20); Aspartate Amino Transferase 26 U/L (5-37); Bilirubin Total 0.4 mg/dL (0.0-1.0); Blood Urea Nitrogen 19 mg/dL (9-16); Calcium 9.4 mg/dL (8.4-10.2); Carbon Dioxide 22 mmol/L (22-29); Chloride 108 mmol/L (96-108); Creatinine Clr Calc Pharmacy 87.2; Estimated Glomerular Filt Rate > 60; Glucose Random 175 mg/dL (60-115); Lipase 52 U/L (8-78); Sodium 141 mmol/L (135-145); Total Protein 7.7 g/dL (6.5-8.0)
[2023-05-08 12:03] LABS: INTERNATIONAL NORM RATIO 0.9 (0.9-1.1); Prothrombin Time 11.5 SEC (11.1-13.3)
[2023-05-08 12:05] LABS: Partial Thromboplastin Time 40.6 SEC (26.0-36.4)
[2023-05-08 12:27] VITALS: PULSE 86; RESP 19; O2SAT 96; O2SAT 97
[2023-05-08 12:36] LABS: Influenza A PCR NEGATIVE (Negative); Influenza B PCR NEGATIVE (Negative); Resp Syncy Virus RNA Qual PCR POSITIVE (Negative); SARS COV2 PCR INHOUSE NEGATIVE (Negative)
[2023-05-08] MEDS: methylPREDNISolone Sod Succ 125 MG/2 ML VIAL IVPUSH (12:45)
[2023-05-08] MEDS: Albuterol Sulfate 5 MG, Albuterol Sulfate (0.083%) 2.5 MG 7.5 MG INHALE ×2 (12:46→14:11)
[2023-05-08 12:49] VITALS: PULSE 88; RESP 18; O2SAT 98
[2023-05-08 13:39] LABS: Reflex Lactate? Lactic Acid Added
[2023-05-08 14:13] VITALS: PULSE 88; RESP 18; O2SAT 96
[2023-05-08 14:30] LABS: ~Lactic Acid-LAB USE ONLY 1.4 mmol/L (0.5-2.0)
[2023-05-08 14:46] VITALS: BP 147/101; PULSE 90; RESP 19; O2SAT 96
[2023-05-08 15:42] VITALS: BP 164/89; PULSE 88; RESP 19; O2SAT 96
== END 2023-05-08 15:43 | disposition home or self-care (01) ==
PROVIDERS: Physician Assistant; Emergency Provider Emergency Medicine
DX: J44.1 Chronic obstructive pulmonary disease with (acute) exacerbation (principal); B34.9 Viral infection, unspecified; J06.9 Acute upper respiratory infection, unspecified; R06.02 Shortness of breath; Z20.822 Contact with and (suspected) exposure to COVID-19; Z20.828 Contact with and (suspected) exposure to other viral communicable diseases; Z79.899 Other long term (current) drug therapy
CPT/HCPCS: 0241U; 36415; 71046; 80053; 83605; 83690; 85025; 85610; 85730; 87040; 94640; 96374; 99284; J2930

== ENCOUNTER 2023-09-16 12:15 | Outpatient (REF) | payer MEDICAID, SELFPAY ==
--- NOTE | ~2023-09-16 | XR_ITS ---
EXAMINATION: XR chest 2V CLINICAL INFORMATION: Reason for Exam SOB with hx of CHF, assess for pleural effusion COMPARISON: Prior chest x-ray 05/08/2023 TECHNIQUE: XR chest 2V, 2 Views Lungs and Chasidy: Diffuse increased interstitial lung marking and peribronchial cuffing might be a small airway disease such as bronchiolitis or interstitial pneumonitis, versus interstitial lung disease versus interstitial edema. No dense focal consolidation pneumonia. Pleura: Normal. Costophrenic angles are sharp. No pneumothorax. Heart: The heart is normal in size. Mediastinum: The mediastinum is within normal limits.. Bones: Skeletal structures included are normal for patient's age. XR/XR chest 2V IMPRESSION: * Redemonstration of diffuse chronic or recurrent mild diffuse increased interstitial lung marking and peribronchial cuffing might be a small airway disease such as bronchiolitis or interstitial pneumonitis, versus interstitial lung disease . No dense focal consolidation pneumonia. * No pleural effusion.
== END 2023-09-16 12:16 | disposition home or self-care (01) ==
LOC: HO.HHCX 12:15
PROVIDERS: Visit Provider Emergency Medicine
DX: I50.9 Heart failure, unspecified (principal)
CPT/HCPCS: 36415; 71046; 80048; 83880

== ENCOUNTER 2023-09-16 12:32 | Outpatient (REF) | payer MEDICAID, SELFPAY ==
[2023-09-16 14:25] LABS: Anion Gap 12 (12-20); Blood Urea Nitrogen 19 mg/dL (9-16); Calcium 9.9 mg/dL (8.4-10.2); Carbon Dioxide 29 mmol/L (22-29); Chloride 105 mmol/L (96-108); Estimated Glomerular Filt Rate 56; Glucose Random 95 mg/dL (60-115); Potassium 4.5 mmol/L (3.3-5.1); Sodium 141 mmol/L (135-145)
[2023-09-16 14:37] LABS: B Type Natriuretic Peptide 22 pg/mL (<100)
== END 2023-09-16 12:33 | disposition home or self-care (01) ==
LOC: HO.HHCL 12:32
PROVIDERS: Visit Provider Emergency Medicine
DX: I50.9 Heart failure, unspecified (principal)
CPT/HCPCS: 36415; 80048; 83880

== ENCOUNTER → 2023-10-02 19:30 | Outpatient (REF) | payer MEDICAID, SELFPAY | LOC: HO.SL 19:30 | PROVIDERS: Visit Provider Emergency Medicine | DX: Z13.89 Encounter for screening for other disorder (principal) ==

== ENCOUNTER 2023-12-14 22:43 | Emergency (ER) | payer MEDICAID, SELFPAY ==
--- NOTE | 2023-12-14 | ECG_ITS ---
Test Reason : HIGH BP Blood Pressure : / mmHG Vent. Rate : 099 BPM Atrial Rate : 099 BPM P-R Int : 136 ms QRS Dur : 098 ms QT Int : 352 ms P-R-T Axes : 040 -32 093 degrees QTc Int : 451 ms Normal sinus rhythm Left axis deviation Abnormal QRS-T angle, consider primary T wave abnormality Abnormal ECG When compared with ECG of 28-APR-2023 11:31, No significant change was found Referred By: Generic ED Physician Electronically Signed By:RASHARD VAN MD
--- NOTE | ~2023-12-14 | CT_ITS ---
EXAMINATION: CT ANGIOGRAM OF THE CHEST WITH AND WITHOUT CONTRAST (CT PULMONARY ANGIOGRAM FOR PE) CLINICAL INFORMATION: Reason for Exam Right-sided chest pain with shortness of breath?pe COMPARISON: None available. TECHNIQUE: Prior to contrast administration, noncontrast localization images were obtained. Subsequently, multidetector volumetric imaging was performed from the thoracic inlet to below the diaphragms following the administration of 65 mL Omnipaque 350 intravenous contrast. No contrast reaction reported Sagittal, coronal, and MIP oblique sagittal reformatted images were obtained on the CT workstation, uploaded to PACS, and reviewed. This CT examination was performed using dose optimization techniques as appropriate, variously including the following: *Automated exposure control *Adjustment of mA and/or kV according to patient size (this includes techniques or standardized protocols for targeted exams where dose is matched to indication/reason for exam; i.e. extremities or head) *Use of iterative reconstruction technique Total exam dose-length product 385 mGy-cm FINDINGS: QUALITY OF STUDY/CONTRAST BOLUS: Satisfactory. PULMONARY ARTERIES: No pulmonary emboli. THORACIC AORTA: There is atherosclerotic plaque of the aortic arch. There is no aneurysm. LUNG: There is minimal scarring at the left lung base. There is diffuse emphysematous change most pronounced in the upper lung stone with diffuse interstitial prominence. There are multiple bilateral pleural-based nodules measuring up to 7 mm along the major fissure on the left (image [id number] on series 7. PLEURA: No pleural effusion or pneumothorax. MEDIASTINUM: Normal heart size. No pericardial effusion. No hilar or mediastinal lymphadenopathy. No evidence of septal bowing or right heart strain. CORONARY ARTERY CALCIFICATION: Mild. CHEST WALL/AXILLA: No axillary or internal mammary lymphadenopathy. OSSEOUS STRUCTURES: There is mild diffuse thoracic degenerative change. UPPER ABDOMEN: Left renal cysts are noted. There is bilateral adrenal gland thickening and nodularity. No reflux of contrast into the hepatic veins to suggest elevated right heart pressures. CT/CT angio chest PE protocol IMPRESSION: 1. No evidence of pulmonary embolism. 2. Diffuse emphysematous change with diffuse interstitial prominence. 3. Multiple bilateral pleural-based nodules measuring up to 7 mm. Recommend 3-6 month follow-up. VTE: negative.
--- NOTE | ~2023-12-14 | XR_ITS ---
EXAMINATION: XR CHEST CLINICAL INFORMATION: Dyspnea. COMPARISON: 09/16/2023 TECHNIQUE: 2 views of the chest were obtained. FINDINGS: The cardiomediastinal silhouette is stable. There is no focal lung consolidation or pleural effusions. The bony structures and soft tissues are unremarkable. XR/XR chest 2V IMPRESSION: No acute cardiopulmonary process.
[2023-12-14 22:53] VITALS: BP 207/133; PULSE 101; RESP 18; TEMP 36.3; O2SAT 94; BMI 40.6
[2023-12-14 23:20] LABS: MANUAL DIFF FLAG NO
[2023-12-14 23:27] LABS: Basophils Absolute Auto 0.1 X10*3/uL (0.0-0.2); Basophils Percent Auto 0.7 % (0-2); Eosinophils Absolute Auto 0.3 X10*3/uL (0.0-0.4); Eosinophils Percent Auto 3.8 % (0-4); Hematocrit 48.7 % (42.0-52.0); Imm Gran Abs Auto 0.02 X10*3/uL (0.00-0.03); Imm Gran Pct Auto 0.3 % (0.0-0.4); Lymphocytes Absolute Auto 1.8 X10*3/uL (1.2-4.9); Lymphocytes Percent Auto 23.9 % (20-40); Mean Corpuscular HGB Conc 32.9 g/dl (31.0-36.0); Mean Corpuscular Hemoglobin 27.6 pg (27.0-33.0); Mean Platelet Volume 10.1 fL (9.4-12.4); Monocytes Absolute Auto 0.7 X10*3/uL (0.1-1.2); Neutrophils Absolute Auto 4.5 x10*3/uL (2.0-8.3); Neutrophils Percent Auto 61.3 % (45-73); Platelet Count 305 X10*3/uL (160-400); Red Cell Distribution Width 14.1 % (11.0-16.0); White Blood Count 7.4 X10*3/uL (4.8-10.8)
[2023-12-14 23:32] VITALS: BP 174/117; PULSE 92; RESP 21; O2SAT 97
--- NOTE | 2023-12-14 23:33 | PC.NURSE ---
pt ambulatory with steady gait from wr to ed2 reporting L. mid back pain 10/10, L. chest pain 5/10, sob/tachypneic (chronic, unable to diagnose by pcp per pt). pt placed on heart monitor rhythm as presented on ekg, sats 97% on RA, lung sounds cta pt speaking full clear sentences. ekg/labs/cxr obtained in triage. awaiting eval by ed provider.
[2023-12-14 23:34] LABS: Alanine Aminotransferase 23 U/L (0-40); Albumin Level 4.2 g/dL (3.5-5.0); Alkaline Phosphatase 114 U/L (39-117); Anion Gap 12 (12-20); Aspartate Amino Transferase 19 U/L (5-37); Bilirubin Direct < 0.2 mg/dL (0.0-0.5); Bilirubin Total 0.2 mg/dL (0.0-1.0); Blood Urea Nitrogen 13 mg/dL (9-16); Calcium 9.4 mg/dL (8.4-10.2); Carbon Dioxide 23 mmol/L (22-29); Chloride 110 mmol/L (96-108); Creatinine Clr Calc Pharmacy 98.2; Estimated Glomerular Filt Rate > 60; Glucose Random 147 mg/dL (60-115); Lipase 88 U/L (8-78); Potassium 4.3 mmol/L (3.3-5.1); Sodium 141 mmol/L (135-145); Total Protein 7.4 g/dL (6.5-8.0)
--- NOTE | 2023-12-15 00:27 | PC.NURSE ---
pt reports he hasnt taken his lasix x 1 month d/t running out of it and hasnt seen pcp x 2 months. lung sounds slight fine crackles. no edema noted of BUE & BLE. pt does report sob worse with laying down. BNP ordered. Dr. Yi aware of cp/bp/dyspnea.
--- NOTE | 2023-12-15 00:42 | ED_ITS ---
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 with theatre arts professor yet taking lisinopril 20 mg daily not taking his Lasix for at least 2 months comes here for feeling short of breath for last several months no chest pain or palpitation patient was ex-smoker quit smoking 4 months ago the use inhaler on arrival patient's blood pressure noted to be elevated to 207/133 patient denied any headache or chest pain patient also complaining of pain in the right posterior scapular area with no relation to the breathing or cough or movement no midline pain no chest pain Related Data Previous Rx's ?Medication ?Instructions ?Recorded acetaminophen 500 mg tablet 1,000 mg (2 x 500 mg) PO Q6H PRN 10/01/22 (Tylenol Extra Strength) fever or pain #20 tabs acetaminophen 500 mg tablet 500 mg PO Q6H PRN fever or pain 11/13/22 (Tylenol Extra Strength) #30 tabs ibuprofen 400 mg tablet 400 mg PO TID PRN fever or pain 11/13/22 #30 tabs lisinopril 20 mg tablet 20 mg PO DAILY 90 days #90 tabs 11/13/22 hydrocodone 5 mg-acetaminophen 325 1 tab PO Q4-6H PRN pain #30 tabs 11/24/22 mg tablet amoxicillin 500 mg capsule 1,000 mg (2 x 500 mg) PO TID 5 04/28/23 days #28 caps azithromycin 250 mg tablet 250 mg PO DAILY 4 days #4 tabs 04/28/23 azithromycin 250 mg tablet See Rx Instructions PO .COMPLEX #6 04/28/23 tabs albuterol sulfate 90 mcg/actuation 2 inh inhalation Q8H PRN shortness 05/08/23 aerosol inhaler of breath or wheezing #8.5 grams prednisone 20 mg tablet 60 mg (3 x 20 mg) PO DAILY #12 tabs 05/08/23 amlodipine 10 mg tablet 10 mg PO DAILY #90 tabs 12/15/23 Allergies Allergy/AdvReac Type Severity Reaction Status Date / Time No Known Allergies Allergy Verified 12/14/23 22:59 Review of Systems 2 Review of Systems: Yes all other systems are reviewed and are negative [facility] Past Medical History Medical History Hypertension Social History Social History Alcohol intake: never Patient Tobacco Use Status: Current someday Tobacco user Cigarette Packs Per Day: 4 Smoked in Last 30 Days: No Use of substances other than those prescribed or required for medical reasons: No Advance Directives: No Advance Directives Information Provided: Yes Do you have a plan to hurt others: No Plan Physical Exam ED Vital Signs: Vital Signs - 24 hr 12/14/23 22:53 12/14/23 23:32 12/15/23 01:04 Temperature 97.3 F Pulse Rate 101 H 92 Respiratory Rate 18 21 H Blood Pressure 207/133 H 174/117 H 162/143 H Pulse Oximetry 94 97 Oxygen Delivery Method Room Air Room Air 12/15/23 01:10 12/15/23 02:08 12/15/23 02:34 Temperature Pulse Rate 92 98 93 Respiratory Rate 18 20 Blood Pressure 165/144 H 202/123 H Pulse Oximetry 97 Oxygen Delivery Method Room Air 12/15/23 02:40 12/15/23 03:20 Temperature 98.2 F Pulse Rate 83 Respiratory Rate 15 Blood Pressure 168/111 H 151/108 H Pulse Oximetry 97 Oxygen Delivery Method Room Air BMI result Body Mass Index 40.6 Appearance: Alert. Oriented X3. No acute distress. Eyes: PERRLA, No Nystagmus ENT: Pharynx normal. Oral Mucosa moist Neck: Normal inspection. Neck supple. CVS: Normal heart rate and rhythm. Pulses normal. Respiratory: No respiratory distress. Equal air entry bilateral, no wheezing/rales/rhonchi decreased air entry bilaterally Abdomen: Soft and nontender. Bowel sounds are present, no mass palpable, no CVA tenderness Skin: Skin warm and dry. Normal skin color. Normal skin turgor. Extremities: No lower extremity edema. No calf tenderness Neuro: Oriented X 3. No motor deficit. Medications Administered Discontinued Medications Generic Name Dose Route Start Last Admin Trade Name Freq PRN Reason Stop Dose Admin Amlodipine Besylate 10 mg 12/15/23 01:01 12/15/23 01:04 Amlodipine Besylate 10 Mg Tablet PO 12/15/23 01:02 10 mg ONCE ONE Administration Protocol Albuterol Sulfate 2.5 mg/ 0 mg 12/15/23 01:02 12/15/23 01:08 Albuterol/Ipratropium 3 ml INHALE 12/15/23 01:03 5 dose ONCE ONE Administration Iohexol 65 ml 12/15/23 02:30 12/15/23 02:31 Iohexol 350 Mg/Ml 100 Ml Infus..Btl IV 12/15/23 02:31 65 ml ONCE ONE Administration Labetalol HCl 20 mg 12/15/23 02:13 12/15/23 02:34 Labetalol Hcl 100 Mg/20 Ml Vial IVPUSH 12/15/23 02:14 20 mg ONCE ONE Administration Medical Decision Making Medical Decision Making [facility] Narrative: Patient with sleep apnea not on CPAP has a follow-up plan to see theatre arts professor. Noted to have elevated blood pressure will give him amlodipine patient does have high blood pressure in spite of taking his lisinopril daily no signs of pulmonary congestion BNP is normal will discontinue Lasix will add amlodipine 10 mg along with lisinopril 20 mg advised to follow up with PCP and theatre arts professor blood pressure 155/103 CTA negative for PE/aortic aneurysm patient is feeling better advised to follow with theatre arts professor for sleep apnea Differential Diagnosis Differential Diagnoses: The differential diagnosis associated with the presentation includes Accelerated hypertension/CHF/COPD/PE Admission/Observation Consideration of admission/observation: Escalation of care including admission/observation considered Lab Data [facility] Lab Attestation statement: I reviewed the patient's lab results. 12/14/23 23:14 12/14/23 23:14 Labs: Lab Results 12/14/23 Range/Units 23:14 WBC 7.4 (4.8-10.8) X10*3/uL RBC 5.80 (4.60-5.80) X10*6/uL Hgb 16.0 (14.0-18.0) g/dl Hct 48.7 (42.0-52.0) % MCV 84.0 (80.0-98.0) fL MCH 27.6 (27.0-33.0) pg MCHC 32.9 (31.0-36.0) g/dl RDW 14.1 (11.0-16.0) % Plt Count 305 (160-400) X10*3/uL MPV 10.1 (9.4-12.4) fL Immature Gran % (Auto) 0.3 (0.0-0.4) % Neut % (Auto) 61.3 (45-73) % Lymph % (Auto) 23.9 (20-40) % [place] % (Auto) 10.0 (2-11) % Eos % (Auto) 3.8 (0-4) % Baso % (Auto) 0.7 (0-2) % Lymph # (Auto) 1.8 (1.2-4.9) X10*3/uL [place] # (Auto) 0.7 (0.1-1.2) X10*3/uL Eos # (Auto) 0.3 (0.0-0.4) X10*3/uL Baso # (Auto) 0.1 (0.0-0.2) X10*3/uL Abs Immat Gran (auto) 0.02 (0.00-0.03) X10*3/uL Absolute Neuts (auto) 4.5 (2.0-8.3) x10*3/uL Absolute Nucleated RBC 0.000 (0.0-0.012) X10*3/uL Nucleated RBC % (auto) 0.0 (0.0-0.2) /100WBC Sodium 141 (135-145) mmol/L Potassium 4.3 (3.3-5.1) mmol/L Chloride 110 H (96-108) mmol/L Carbon Dioxide 23 (22-29) mmol/L Anion Gap 12 (12-20) BUN 13 (9-16) mg/dL Creatinine 1.02 (0.5-1.4) mg/dL Estim Creat Clear Calc 98.2 Estimated GFR > 60 Random Glucose 147 H (60-115) mg/dL Calcium 9.4 (8.4-10.2) mg/dL Total Bilirubin 0.2 (0.0-1.0) mg/dL Direct Bilirubin < 0.2 (0.0-0.5) mg/dL AST 19 (5-37) U/L ALT 23 (0-40) U/L Alkaline Phosphatase 114 (39-117) U/L Troponin I High Sens 5.0 (<3.5-35.0) ng/L B-Natriuretic Peptide 19 (<100) pg/mL Total Protein 7.4 (6.5-8.0) g/dL Albumin 4.2 (3.5-5.0) g/dL Lipase 88 H (8-78) U/L Independent Interpretation I performed an independent interpretation of an: EKG Interpretation: Normal sinus rhythm heart rate 99 beats per minute left axis deviation no acute ST-T no acute ischemia Critical Care Time Critical Care Time Critical Care Time: Yes Total Critical Care Time: 55 Attestation: The patient was critically ill with a high probability of imminent or life threatening deterioration. I spent greater than 60 ???minutes of discontinuous time evaluating the patient,delivering critical care at the bedside, discussing and evaluating pertinent data with consultants. Critical care time does not include time spent performing separately billable procedures or teaching. Total time spent performing critical care was ?55??minutes. Discharge Plan Discharge Clinical Impression: Hypertension, uncontrolled, Obstructive sleep apnea Patient Disposition: Home, Self-Care Instructions: Sleep Apnea (DC), Chronic Hypertension (ED) Additional Instructions: Continue lisinopril 20 mg daily Add amlodipine 10 mg daily for blood pressure control Follow with theatre arts professor about CPAP machine for sleep apnea Check blood pressure twice daily should be less than 135/85 Prescriptions: New amlodipine 10 mg tablet 10 mg PO DAILY Qty: 90 0RF No Action acetaminophen [Tylenol Extra Strength] 500 mg tablet 500 mg PO Q6H PRN (Reason: fever or pain) Qty: 30 0RF ibuprofen 400 mg tablet 400 mg PO TID PRN (Reason: fever or pain) Qty: 30 0RF lisinopril 20 mg tablet 20 mg PO DAILY 90 Days Qty: 90 0RF prednisone 20 mg tablet 60 mg PO DAILY Qty: 12 0RF albuterol sulfate 90 mcg/actuation HFA aerosol inhaler 2 inh inhalation Q8H PRN (Reason: shortness of breath or wheezing) Qty: 8.5 0RF acetaminophen [Tylenol Extra Strength] 500 mg tablet 1,000 mg PO Q6H PRN (Reason: fever or pain) Qty: 20 0RF amoxicillin 500 mg capsule 1,000 mg PO TID 5 Days Qty: 28 0RF azithromycin 250 mg tablet 250 mg PO DAILY 4 Days Qty: 4 0RF Rx Instructions: start on day 2 of therapy azithromycin 250 mg tablet See Rx Instructions .ROUTE .COMPLEX Qty: 6 0RF Rx Instructions: For 250 mg dose pack: take 500 mg today (day 1), then 250 mg for 4 days (days 2-5) hydrocodone-acetaminophen 5-325 mg tablet 1 tab PO Q4-6H PRN (Reason: pain) Qty: 30 0RF Rx Instructions: Partial Fill upon patient request. Interventions: ED Discharge Assessment Last Done: 12/15/23 03:20 Discharge Date/Time: 12/15/23 03:20 Print Language: Romansh
[2023-12-15 00:56] LABS: B Type Natriuretic Peptide 19 pg/mL (<100)
[2023-12-15 01:04] VITALS: BP 162/143
[2023-12-15] MEDS: amLODIPine Besylate 10 MG TABLET PO (01:04)
[2023-12-15] MEDS: Albuterol Sulfate 2.5 MG, Albuterol/Iprat 2.5/0.5MG 3 ML 3 ML INHALE (01:08)
[2023-12-15 01:10] VITALS: PULSE 92; RESP 18; O2SAT 97
[2023-12-15 02:08] VITALS: BP 165/144; PULSE 98; RESP 20; O2SAT 97
[2023-12-15] MEDS: iohexoL 350 MG/ML 100 ML INFUS..BTL 65 ML IV (02:31)
[2023-12-15 02:34] VITALS: BP 202/123; PULSE 93
[2023-12-15] MEDS: Labetalol HCL 100 MG/20 ML VIAL 20 MG IVPUSH (02:34)
--- NOTE | 2023-12-15 02:38 | PC.NURSE ---
pt bp did not improve after po amlodipine. MD made aware and MD & direct support staff at bedside. per MD order for ct scan of chest and iv labetolol. iv established to L. AC. pt states breathing improved with breathing tx and denies cp/sob at this time. pt denies VELEZ/blurry vision. neuros intact. at bedside recliner provided for comfort. warm blankets and pillows provided for pt. pt is on heart monitor nsr 93 bpm. bp improving last read 168/111. call monzon within reach.
[2023-12-15 02:40] VITALS: BP 168/111
[2023-12-15 03:20] VITALS: BP 151/108; PULSE 83; RESP 15; TEMP 36.8; O2SAT 97
== END 2023-12-15 03:20 | disposition home or self-care (01) ==
PROVIDERS: Emergency Provider Internal Medicine
DX: G47.33 Obstructive sleep apnea (adult) (pediatric) (principal); R06.02 Shortness of breath; R07.89 Other chest pain; F17.210 Nicotine dependence, cigarettes, uncomplicated; Z79.899 Other long term (current) drug therapy
CPT/HCPCS: 36415; 71046; 71275; 80048; 80076; 83690; 83880; 84484; 85025; 93005; 94640; 96374; 99284; 99285; J1920; Q9967

== ENCOUNTER → 2023-12-14 23:00 | Outpatient (BNV) | payer MEDICAID, SELFPAY | PROVIDERS: Emergency Provider Internal Medicine; Visit Provider Internal Medicine Cardiovascular Disease | DX: R94.31 Abnormal electrocardiogram [ECG] [EKG] (principal) | CPT/HCPCS: 93010 ==

== ENCOUNTER 2024-01-11 03:39 | Emergency (ER) | payer MEDICAID, SELFPAY ==
--- NOTE | 2024-01-11 | ECG_ITS ---
Test Reason : SOB Blood Pressure : / mmHG Vent. Rate : 097 BPM Atrial Rate : 097 BPM P-R Int : 140 ms QRS Dur : 098 ms QT Int : 350 ms P-R-T Axes : 041 -22 100 degrees QTc Int : 444 ms Normal sinus rhythm Nonspecific ST and T wave abnormality Abnormal ECG When compared with ECG of 14-DEC-2023 23:00, No significant change was found Referred By: Generic ED Physician Electronically Signed By:ALYSSIA VIERA
--- NOTE | ~2024-01-11 | XR_ITS ---
EXAMINATION: XR CHEST CLINICAL INFORMATION: Asthma. Shortness of breath. COMPARISON: 12/14/2023. TECHNIQUE: Frontal view of the chest was obtained. FINDINGS: The cardiomediastinal silhouette is stable. There appears to be atelectatic change or scarring at the lung bases. The lungs are otherwise clear. The bony structures and soft tissues are unremarkable. XR/XR chest 1V IMPRESSION: Atelectasis or scarring at the lung bases.
[2024-01-11 03:46] VITALS: BP 179/148; PULSE 102; RESP 24; TEMP 37.3; O2SAT 97; BMI 36.9
[2024-01-11 04:12] LABS: MANUAL DIFF FLAG NO
[2024-01-11 04:13] LABS: Basophils Absolute Auto 0.1 X10*3/uL (0.0-0.2); Basophils Percent Auto 0.8 % (0-2); Eosinophils Absolute Auto 0.3 X10*3/uL (0.0-0.4); Eosinophils Percent Auto 3.6 % (0-4); Hematocrit 49.5 % (42.0-52.0); Hemoglobin 16.4 g/dl (14.0-18.0); Imm Gran Abs Auto 0.02 X10*3/uL (0.00-0.03); Imm Gran Pct Auto 0.3 % (0.0-0.4); Lymphocytes Absolute Auto 2.2 X10*3/uL (1.2-4.9); Lymphocytes Percent Auto 27.9 % (20-40); Mean Corpuscular HGB Conc 33.1 g/dl (31.0-36.0); Mean Corpuscular Hemoglobin 27.7 pg (27.0-33.0); Mean Corpuscular Volume 83.8 fL (80.0-98.0); Mean Platelet Volume 9.1 fL (9.4-12.4); Monocytes Absolute Auto 0.9 X10*3/uL (0.1-1.2); Monocytes Percent Auto 10.9 % (2-11); Neutrophils Absolute Auto 4.5 x10*3/uL (2.0-8.3); Neutrophils Percent Auto 56.5 % (45-73); Platelet Count 354 X10*3/uL (160-400); Red Blood Count 5.91 X10*6/uL (4.60-5.80); Red Cell Distribution Width 13.3 % (11.0-16.0)
[2024-01-11 04:16] VITALS: PULSE 98; RESP 18; O2SAT 98
[2024-01-11] MEDS: Albuterol Sulfate 2.5 MG, Albuterol/Iprat 2.5/0.5MG 3 ML 3 ML INHALE (04:16)
[2024-01-11 04:18] LABS: Appearance Urine Clear; Color Urine Yellow; Glucose Urine UA Negative (Negative); Leukocyte Esterase Urine Negative (Negative); Nitrite Urine Negative (Negative); PH 6.5 (5.0-9.0); Urine Blood Negative (Negative); Urine Ketones Negative (Negative); Urine Protein Negative (Neg-Trace)
[2024-01-11 04:23] LABS: Bacteria Urine None Seen (None Seen); Hyaline Casts Urine 0-2 /LPF (0-2); RBC Urine 0-2 /HPF (0-2); Squamous Epithelial Cell Urine 0-2 /HPF (0-2); WBC Urine 0-5 /HPF (0-5)
[2024-01-11 04:27] LABS: Alanine Aminotransferase 31 U/L (0-40); Albumin Level 4.6 g/dL (3.5-5.0); Alkaline Phosphatase 110 U/L (39-117); Anion Gap 14 (12-20); Aspartate Amino Transferase 23 U/L (5-37); Bilirubin Total 0.2 mg/dL (0.0-1.0); Blood Urea Nitrogen 14 mg/dL (9-16); Carbon Dioxide 26 mmol/L (22-29); Chloride 104 mmol/L (96-108); Creatinine Clr Calc Pharmacy 117.8; Estimated Glomerular Filt Rate > 60; Glucose Random 103 mg/dL (60-115); Potassium 4.1 mmol/L (3.3-5.1); Sodium 140 mmol/L (135-145); Total Protein 8.1 g/dL (6.5-8.0)
[2024-01-11 04:30] LABS: Troponin-I High Sensitivity 3.8 ng/L (<3.5-35.0)
[2024-01-11 04:45] LABS: B Type Natriuretic Peptide 21 pg/mL (<100)
[2024-01-11] MEDS: Magnesium Sulfate/H2O 2 GM/50 ML PIGGYBACK IV (05:02)
[2024-01-11] MEDS: methylPREDNISolone Sod Succ 125 MG/2 ML VIAL IVPUSH (05:07)
[2024-01-11] MEDS: Doxycycline Monohydrate 100 MG CAPSULE PO (05:07)
[2024-01-11] MEDS: ondansetron HCL 4 MG/2 ML VIAL IVPUSH (05:08)
--- NOTE | 2024-01-11 05:49 | ED_ITS ---
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 Ventura HPI Narrative: A 53-year-old male history of hypertension, sleep apnea not on CPAP machine yet, COPD, asthma, pneumonia. Patient presented for shortness of breath and dyspnea for the past 3-4 days, feels chest tightness, nonproductive cough, subjective fever, symptoms worse at nighttime and with exertion. Former smoker quit 4 months ago. patient ran out of his albuterol pump. Related Data Previous Rx's ?Medication ?Instructions ?Recorded acetaminophen 500 mg tablet 1,000 mg (2 x 500 mg) PO Q6H PRN 10/01/22 (Tylenol Extra Strength) fever or pain #20 tabs acetaminophen 500 mg tablet 500 mg PO Q6H PRN fever or pain 11/13/22 (Tylenol Extra Strength) #30 tabs ibuprofen 400 mg tablet 400 mg PO TID PRN fever or pain 11/13/22 #30 tabs lisinopril 20 mg tablet 20 mg PO DAILY 90 days #90 tabs 11/13/22 hydrocodone 5 mg-acetaminophen 325 1 tab PO Q4-6H PRN pain #30 tabs 11/24/22 mg tablet amoxicillin 500 mg capsule 1,000 mg (2 x 500 mg) PO TID 5 04/28/23 days #28 caps azithromycin 250 mg tablet 250 mg PO DAILY 4 days #4 tabs 04/28/23 azithromycin 250 mg tablet See Rx Instructions PO .COMPLEX #6 04/28/23 tabs albuterol sulfate 90 mcg/actuation 2 inh inhalation Q8H PRN shortness 05/08/23 aerosol inhaler of breath or wheezing #8.5 grams prednisone 20 mg tablet 60 mg (3 x 20 mg) PO DAILY #12 tabs 05/08/23 amlodipine 10 mg tablet 10 mg PO DAILY #90 tabs 12/15/23 albuterol sulfate 90 mcg/actuation 2 puff inhalation Q6H PRN 01/11/24 aerosol inhaler shortness of breath or wheezing #8.5 grams azithromycin 250 mg tablet See Rx Instructions PO .COMPLEX #6 01/11/24 (Zithromax Z-Freddie) tabs prednisone 20 mg tablet 20 mg PO BID #10 tabs 01/11/24 Allergies Allergy/AdvReac Type Severity Reaction Status Date / Time No Known Allergies Allergy Verified 01/11/24 03:49 Review of Systems 2 Review of Systems: All other systems are reviewed and are negative Constitutional: Reports as per HPI and Reports no additional constitutional complaints Eyes: Reports as per HPI and Reports no additional eye complaints Reports system reviewed and no additional complaints, except as documented Cardiovascular: Reports as per HPI and Reports no additional cardiovascular complaints Respiratory: Reports as per HPI and Reports no additional respiratory complaints Gastrointestinal: Reports as per HPI and Reports no additional gastrointestinal complaints Genitourinary: Reports no additional female genitourinary complaints Musculoskeletal: Reports no additional musculoskeletal complaints Skin/Breast: Reports system reviewed and no additional complaints, except as docu Psychiatric: Reports no additional psychiatric complaints Endocrine: Reports no additional endocrine complaints Hematologic/Lymphatic: Reports no additional hematologic/lymphatic complaints Allergic/Immunologic: Reports no additional allergic/immunologic complaints Reports system reviewed and no additional complaints, except as documented and Reports Abnormal speech present [facility] Past Medical History Medical History Hypertension Social History Social History Alcohol intake: never Patient Tobacco Use Status: Current someday Tobacco user Cigarette Packs Per Day: 4 Smoked in Last 30 Days: No Use of substances other than those prescribed or required for medical reasons: No Advance Directives: No Advance Directives Information Provided: Yes Do you have a plan to hurt others: No Plan Physical Exam 2 Vital Signs: Vital Signs: Last Vital Signs Temp 99.2 F 01/11/24 03:46 Pulse 98 01/11/24 04:16 Resp 18 01/11/24 04:16 BP 179/148 H 01/11/24 03:46 Pulse Ox 97 01/11/24 03:46 O2 Del Method Room Air 01/11/24 03:46 BMI result Body Mass Index 36.9 Vital signs have been reviewed and appear to be correct. Blood pressure elevated. Heart rate normal. Respiratory rate normal. Temperature normal. Oxygen saturation normal. Appearance: Alert. Oriented X3. No acute distress. Head: Normal external exam. Normocephalic. Atraumatic. No [place] signs noted. No raccoon eyes noted Eyes: PERRLA. EOMI. Conjunctiva and sclera normal. Eyelids normal. ENT: TM's Normal. Pharynx normal. Uvula midline. Moist mucous membranes. No trismus noted. No drooling noted. No muffled voice noted. Neck: Normal inspection. Neck supple. FROM. No adenopathy. Thyroid Normal. No meningeal signs. No neck mass noted. CVS: Normal heart rate and rhythm. Heart sound normal. No murmurs noted. Pulses normal throughout. Respiratory: No respiratory distress. Painless inspiration. Diminished breathing sounds bilaterally, expiratory wheezing with prolonged expiration. Chest nontender. No accessory muscle usage noted or decreased air movement noted. Abdomen: Soft and nontender. Bowel sounds normal in all 4 quadrants. No distention noted. No organomegaly noted. No visible injury noted. Back: No CVA tenderness. Full range of motion noted. Skin: Skin warm and dry. Normal skin color. Normal skin turgor. No rashes/lesions/lacerations noted. Extremities: No lower extremity edema. Extremities exhibit normal range of motion. Extremities nontender. Neuro: Oriented X 3. Cranial nerve exam: II-XII are grossly intact No motor deficit. No sensory deficit. Reflexes normal. Course Reevaluation(s) Reevaluation #1: Patient feels better after received Solu-Medrol, magnesium, albuterol, and Zithromax. Feels better, blood pressure has improved to 123/88. Will discharge home and follow-up with quarry manager, discharged on albuterol/Z- Freddie/prednisone. Time: 05:55 Medications Administered Generic Name Dose Route Start Last Admin Trade Name Freq PRN Reason Stop Dose Admin Magnesium Sulfate 2 gm in 50 mls @ 25 mls/hr 01/11/24 04:26 01/11/24 05:02 Magnesium Sulfate/H2o IV 01/11/24 06:25 25 mls/hr ONCE ONE Administration Discontinued Medications Generic Name Dose Route Start Last Admin Trade Name Freq PRN Reason Stop Dose Admin Albuterol Sulfate 2.5 mg/ 0 mg 01/11/24 03:54 01/11/24 04:16 Albuterol/Ipratropium 3 ml INHALE 01/11/24 03:55 2 dose ONCE ONE Administration Doxycycline Monohydrate 100 mg 01/11/24 04:26 01/11/24 05:07 Doxycycline Monohydrate 100 Mg Capsule PO 01/11/24 04:27 100 mg ONCE ONE Administration Methylprednisolone Sodium Succinate 125 mg 01/11/24 04:26 01/11/24 05:07 Methylprednisolone Sod Succ 125 Mg/2 Ml Vial IVPUSH 01/11/24 04:27 125 mg ONCE ONE Administration Ondansetron HCl 4 mg 01/11/24 05:07 01/11/24 05:08 Ondansetron Hcl 4 Mg/2 Ml Vial IVPUSH 01/11/24 05:08 4 mg ONCE ONE Administration Medical Decision Making Differential Diagnosis Differential Diagnoses: The differential diagnosis associated with the presentation includes (Acute asthma exacerbation, COPD exacerbation, pneumonia, pneumothorax, pleural effusion, ACS, electrolyte derangement, severe anemia, hypertension.) Admission/Observation Consideration of admission/observation: Escalation of care including admission/observation considered Lab Data MDM Lab Attestation statement: I reviewed the patient's lab results. 01/11/24 04:07 01/11/24 04:07 Labs: Lab Results 01/11/24 Range/Units 04:07 WBC 8.0 (4.8-10.8) X10*3/uL RBC 5.91 H (4.60-5.80) X10*6/uL Hgb 16.4 (14.0-18.0) g/dl Hct 49.5 (42.0-52.0) % MCV 83.8 (80.0-98.0) fL MCH 27.7 (27.0-33.0) pg MCHC 33.1 (31.0-36.0) g/dl RDW 13.3 (11.0-16.0) % Plt Count 354 (160-400) X10*3/uL MPV 9.1 L (9.4-12.4) fL Immature Gran % (Auto) 0.3 (0.0-0.4) % Neut % (Auto) 56.5 (45-73) % Lymph % (Auto) 27.9 (20-40) % [place] % (Auto) 10.9 (2-11) % Eos % (Auto) 3.6 (0-4) % Baso % (Auto) 0.8 (0-2) % Lymph # (Auto) 2.2 (1.2-4.9) X10*3/uL [place] # (Auto) 0.9 (0.1-1.2) X10*3/uL Eos # (Auto) 0.3 (0.0-0.4) X10*3/uL Baso # (Auto) 0.1 (0.0-0.2) X10*3/uL Abs Immat Gran (auto) 0.02 (0.00-0.03) X10*3/uL Absolute Neuts (auto) 4.5 (2.0-8.3) x10*3/uL Absolute Nucleated RBC 0.000 (0.0-0.012) X10*3/uL Nucleated RBC % (auto) 0.0 (0.0-0.2) /100WBC Sodium 140 (135-145) mmol/L Potassium 4.1 (3.3-5.1) mmol/L Chloride 104 (96-108) mmol/L Carbon Dioxide 26 (22-29) mmol/L Anion Gap 14 (12-20) BUN 14 (9-16) mg/dL Creatinine 0.89 (0.5-1.4) mg/dL Estim Creat Clear Calc 117.8 Estimated GFR > 60 Random Glucose 103 (60-115) mg/dL Calcium 10.0 D (8.4-10.2) mg/dL Total Bilirubin 0.2 (0.0-1.0) mg/dL AST 23 (5-37) U/L ALT 31 (0-40) U/L Alkaline Phosphatase 110 (39-117) U/L Troponin I High Sens 3.8 (<3.5-35.0) ng/L B-Natriuretic Peptide 21 (<100) pg/mL Total Protein 8.1 H (6.5-8.0) g/dL Albumin 4.6 (3.5-5.0) g/dL Urine Color Yellow Urine Appearance Clear Urine pH 6.5 (5.0-9.0) Ur Specific [place] 1.010 (1.005-1.025) Urine Protein Negative (Neg-Trace) mg/dL Urine Glucose (UA) Negative (Negative) mg/dL Urine Ketones Negative (Negative) mg/dL Urine Blood Negative (Negative) Urine Nitrite Negative (Negative) Ur Leukocyte Esterase Negative (Negative) Urine RBC 0-2 (0-2) /HPF Urine WBC 0-5 (0-5) /HPF Ur Squamous Epith Cells 0-2 (0-2) /HPF Urine Bacteria None Seen (None Seen) Hyaline Casts 0-2 (0-2) /LPF Independent Interpretation I performed an independent interpretation of an: Plain X-Ray (Chest:Atelectasis or scarring at the lung bases. ) Radiology Impression Discussion of test interpretation with radiology: I have reviewed the radiologist's reading. Chronic Conditions Patient?s care impacted by: Other (COPD, ex-smoker.) Discharge Plan Discharge Clinical Impression: Asthma with exacerbation, Acute exacerbation of chronic obstructive airways disease Patient Disposition: Home, Self-Care Instructions: COPD (Chronic Obstructive Pulmonary Disease) (ED) Prescriptions: New azithromycin [Zithromax Z-Freddie] 250 mg tablet See Rx Instructions .ROUTE .COMPLEX Qty: 6 0RF Rx Instructions: For 250 mg dose pack: take 500 mg today (day 1), then 250 mg for 4 days (days 2-5) prednisone 20 mg tablet 20 mg PO BID Qty: 10 0RF albuterol sulfate 90 mcg/actuation HFA aerosol inhaler 2 puff inhalation Q6H PRN (Reason: shortness of breath or wheezing) Qty: 8.5 0RF No Action acetaminophen [Tylenol Extra Strength] 500 mg tablet 500 mg PO Q6H PRN (Reason: fever or pain) Qty: 30 0RF ibuprofen 400 mg tablet 400 mg PO TID PRN (Reason: fever or pain) Qty: 30 0RF lisinopril 20 mg tablet 20 mg PO DAILY 90 Days Qty: 90 0RF prednisone 20 mg tablet 60 mg PO DAILY Qty: 12 0RF albuterol sulfate 90 mcg/actuation HFA aerosol inhaler 2 inh inhalation Q8H PRN (Reason: shortness of breath or wheezing) Qty: 8.5 0RF amlodipine 10 mg tablet 10 mg PO DAILY Qty: 90 0RF acetaminophen [Tylenol Extra Strength] 500 mg tablet 1,000 mg PO Q6H PRN (Reason: fever or pain) Qty: 20 0RF amoxicillin 500 mg capsule 1,000 mg PO TID 5 Days Qty: 28 0RF azithromycin 250 mg tablet 250 mg PO DAILY 4 Days Qty: 4 0RF Rx Instructions: start on day 2 of therapy azithromycin 250 mg tablet See Rx Instructions .ROUTE .COMPLEX Qty: 6 0RF Rx Instructions: For 250 mg dose pack: take 500 mg today (day 1), then 250 mg for 4 days (days 2-5) hydrocodone-acetaminophen 5-325 mg tablet 1 tab PO Q4-6H PRN (Reason: pain) Qty: 30 0RF Rx Instructions: Partial Fill upon patient request. Referrals: [facility] [Primary Care Provider] - Simeon Barraza MD [Physician] - Print Language: Beninese
[2024-01-11 05:56] VITALS: BP 123/88; PULSE 88; RESP 20; TEMP 36.9; O2SAT 93
[2024-01-11 06:20] VITALS: BP 123/88; PULSE 88; RESP 20; TEMP 36.9; O2SAT 93
== END 2024-01-11 06:20 | disposition home or self-care (01) ==
PROVIDERS: Emergency Provider Emergency Medicine
DX: J45.901 Unspecified asthma with (acute) exacerbation (principal); J44.9 Chronic obstructive pulmonary disease, unspecified; R06.02 Shortness of breath; R07.89 Other chest pain; R05.9 Cough, unspecified; Z79.899 Other long term (current) drug therapy
CPT/HCPCS: 36415; 71045; 80053; 81001; 83880; 84484; 85025; 93005; 94640; 96365; 96366; 96375; 99284; 99285; J2405; J2919; J3475

== ENCOUNTER → 2024-01-11 04:04 | Outpatient (BNV) | payer MEDICAID, SELFPAY | PROVIDERS: Emergency Provider Emergency Medicine; Visit Provider Internal Medicine | DX: R94.31 Abnormal electrocardiogram [ECG] [EKG] (principal) | CPT/HCPCS: 93010 ==

== ENCOUNTER 2024-01-14 14:07 | Outpatient (REF) | payer MEDICAID, SELFPAY ==
[2024-01-14 16:23] LABS: Alanine Aminotransferase 28 U/L (0-40); Albumin Level 4.3 g/dL (3.5-5.0); Alkaline Phosphatase 96 U/L (39-117); Anion Gap 14 (12-20); Aspartate Amino Transferase 22 U/L (5-37); Bilirubin Total 0.3 mg/dL (0.0-1.0); Blood Urea Nitrogen 18 mg/dL (9-16); Calcium 9.8 mg/dL (8.4-10.2); Carbon Dioxide 22 mmol/L (22-29); Chloride 106 mmol/L (96-108); Estimated Glomerular Filt Rate > 60; Glucose Random 127 mg/dL (60-115); Potassium 4.1 mmol/L (3.3-5.1); Sodium 138 mmol/L (135-145); Total Protein 7.6 g/dL (6.5-8.0)
[2024-01-14 16:42] LABS: B Type Natriuretic Peptide 20 pg/mL (<100)
[2024-01-14 17:44] LABS: CT PCR NOT DETECTED (Not Detect.); NG PCR NOT DETECTED (Not Detect.)
== END 2024-01-14 14:08 | disposition home or self-care (01) ==
LOC: HO.HHCL 14:07
PROVIDERS: Visit Provider Internal Medicine
DX: I10 Essential (primary) hypertension (principal); N48.1 Balanitis
CPT/HCPCS: 36415; 80053; 83880; 87491; 87591

== ENCOUNTER → 2024-01-19 19:30 | Outpatient (REF) | payer MEDICAID, SELFPAY | LOC: HO.SL 19:30 | PROVIDERS: PCP Internal Medicine; Visit Provider Internal Medicine | DX: Z13.89 Encounter for screening for other disorder (principal) ==

== ENCOUNTER 2024-01-26 13:56 | Outpatient (AMB) | payer MEDICAID, SELFPAY ==
--- NOTE | 2024-01-26 14:01 | MHC.OFFVIS ---
Vital Signs 01/26/24 14:02 Height 5 ft 9 in Weight 248 lb 2 oz BMI 36.6 BP 146/98 H Blood Pressure Location Rt brachial Position Sitting Pulse 82 Pulse Source Pulse Oximeter Pulse Oximetry (%) 95 Oxygen Delivery Method Room Air Intake Visit Reasons: asthma Mental Health Program Manager Required: Yes Mental Health Program Manager Language: Box Annealer Name: [id number] Antonia Allergies No Known Allergies Allergy (Verified 01/26/24 14:06) HPI HPI asthma: Details: Ray is a pleasant 53 year old male, former smoker, quit 6+ months ago with 40 pack year history with underlying HTN, COPD, asthma. He was referred by [facility] for pulmonary evaluation. He was evaluated in the ED on 12/14 and again on 01/10 due to asthma/COPD exacerbations. Chest CT from 12/14 revealed emphysematous changes and multiple pulmonary nodules, largest 7mm. On 01/10 he was discharged with zpak, prednisone and albuterol MDI. He has been using albuterol MDI multiple times per day with moderate effect for dyspnea, wheezing, chest tightness and dry cough. He has not been on a daily inhaler. He reports asthma diagnosed as an adult, never requiring intubation. He denies any occupational exposures. He denies pertinent family history. He denies any seasonal allergies or pets at home. Of note, PCP sent for titration study for LIZETH and revealed AHI 28, however REM AHI 80, with nocturnal hypoxemia for 87,5 minutes, lowest 70%. [facility] Medical History Hypertension Social History (Updated 01/26/24 @ 14:06 by Louisa Boswell CMA) Alcohol intake: never Patient Tobacco Use Status: Former Tobacco user Cigarette Packs Per Day: 4 Review of Systems Const Denies chills, Denies excessive sweating, Denies fever(s), Denies headache(s) and Denies night sweats Eyes Denies dry eyes, Denies irritation and Denies itchy eyes ENT Reports Normal hearing present, Denies headache(s), Denies nasal congestion, Denies nasal discharge, Denies post nasal drip and Denies sore throat Card Denies chest pain, Denies chest pain at rest, Denies chest pain with activity, Denies claudication, Denies leg edema, Denies orthopnea and Denies paroxysmal nocturnal dyspnea Resp Denies chest congestion, Denies excessive phlegm production, Denies pain on inspiration, Denies pain with cough and Denies stridor Musc Denies myalgias Neuro Reports Normal hearing present and Denies headache(s) Endo Denies excessive sweating Sd/Lymph Denies lymphadenopathy Aller/Immun Denies itchy eyes and Denies seasonal rhinorrhea Physical Exam Vital Signs: Last Vital Signs Pulse 82 01/26/24 14:02 BP 146/98 H 01/26/24 14:02 Pulse Ox 95 01/26/24 14:02 Oxygen Delivery Method Room Air 01/26/24 14:02 BMI result Body Mass Index 36.6 Const General: cooperative, healthy appearing, comfortable, no acute distress, well developed and alert Orientation/consciousness: patient oriented x3 Limitations: no limitations HEENT Head: Yes normal to inspection, Yes normocephalic and Yes atraumatic Ears: hearing grossly normal bilaterally and external ears normal Eyes General: appearance normal, both eyes and all related structures Eyelids: Yes eyelids normal Sclerae: sclerae normal EOM: EOMs intact bilaterally Neck Neck: Yes normal visual inspection and Yes no lymphadenopathy Lymphatic: no lymphadenopathy noted Chest Chest palpation & inspection: normal inspection of the chest Resp Effort & Inspection: normal respiratory effort, able to speak in complete sentences, no audible wheezes, no cough, no stridor, not tachypneic, no tripod positioning and no use of accessory muscles Auscultation: clear to auscultation bilaterally Cardio Jugular venous distension: no JVD Rate: regular rate Rhythm: regular rhythm Skin Other: warm, dry General skin exam: no rashes or lesions noted Neuro General: patient oriented x3 Cranial nerves: Yes Normal hearing present Cognition (Neuro): normal cognition Gait exam (Neuro): Normal gait present Extrem General: Yes normal to inspection, Yes capillary refill normal, Yes no clubbing, cyanosis or edema and Yes no pedal edema Psych Appearance: grossly normal and well kempt Speech and movement: Normal speech and movement present and Clear speech present Affect: normal affect Attitude: cooperative Thought process: Normal thought process present Thought content: Normal thought content present Insight: Good insight present (Psych) Judgement: Good judgement present (Psych) Results Reviewed Results Reviewed: [address] [address] [address] Scan Report Signed Patient: Ray Valdes MR#: [id number] : 1970 Acct:[id number] Age/Sex: 53 / M ADM Date: 12/14/23 Loc: .ED Attending Dr: Ordering Physician: Rafita Laura MD Date of Service: 12/15/23 Procedure(s): CT angio chest PE protocol Accession Number(s): [id number] cc: [facility]; Rafita Laura MD~ EXAMINATION: CT ANGIOGRAM OF THE CHEST WITH AND WITHOUT CONTRAST (CT PULMONARY ANGIOGRAM FOR PE) CLINICAL INFORMATION: Reason for Exam Right-sided chest pain with shortness of breath?pe COMPARISON: None available. TECHNIQUE: Prior to contrast administration, noncontrast localization images were obtained. Subsequently, multidetector volumetric imaging was performed from the thoracic inlet to below the diaphragms following the administration of 65 mL Omnipaque 350 intravenous contrast. No contrast reaction reported Sagittal, coronal, and MIP oblique sagittal reformatted images were obtained on the CT workstation, uploaded to PACS, and reviewed. This CT examination was performed using dose optimization techniques as appropriate, variously including the following: *Automated exposure control *Adjustment of mA and/or kV according to patient size (this includes techniques or standardized protocols for targeted exams where dose is matched to indication/reason for exam; i.e. extremities or head) *Use of iterative reconstruction technique Total exam dose-length product 385 mGy-cm FINDINGS: QUALITY OF STUDY/CONTRAST BOLUS: Satisfactory. PULMONARY ARTERIES: No pulmonary emboli. THORACIC AORTA: There is atherosclerotic plaque of the aortic arch. There is no aneurysm. LUNG: There is minimal scarring at the left lung base. There is diffuse emphysematous change most pronounced in the upper lung stone with diffuse interstitial prominence. There are multiple bilateral pleural-based nodules measuring up to 7 mm along the major fissure on the left (image [id number] on series 7. PLEURA: No pleural effusion or pneumothorax. MEDIASTINUM: Normal heart size. No pericardial effusion. No hilar or mediastinal lymphadenopathy. No evidence of septal bowing or right heart strain. CORONARY ARTERY CALCIFICATION: Mild. CHEST WALL/AXILLA: No axillary or internal mammary lymphadenopathy. OSSEOUS STRUCTURES: There is mild diffuse thoracic degenerative change. UPPER ABDOMEN: Left renal cysts are noted. There is bilateral adrenal gland thickening and nodularity. No reflux of contrast into the hepatic veins to suggest elevated right heart pressures. CT/CT angio chest PE protocol IMPRESSION: 1. No evidence of pulmonary embolism. 2. Diffuse emphysematous change with diffuse interstitial prominence. 3. Multiple bilateral pleural-based nodules measuring up to 7 mm. Recommend 3-6 month follow-up. VTE: negative. Dictated By: Ángel Kaba MD Signed By: <Electronically signed by Ángel Kaba MD in OV> 12/15/23 0259 DD/ 0238 TD/TT: Macaroni Maker: Assessment & Plan Assessment & Plan (1) Asthma: Code(s): J45.909 - Unspecified asthma, uncomplicated Category: Medical (2) COPD (chronic obstructive pulmonary disease): Code(s): J44.9 - Chronic obstructive pulmonary disease, unspecified Category: Medical (3) Severe obstructive sleep apnea: Code(s): G47.33 - Obstructive sleep apnea (adult) (pediatric) Category: Medical (4) Nocturnal hypoxemia: Code(s): G47.34 - Idiopathic sleep related nonobstructive alveolar hypoventilation Category: Medical (5) Personal history of tobacco use: Code(s): Z87.891 - Personal history of nicotine dependence Category: Social Hx (6) Multiple pulmonary nodules: Code(s): R91.8 - Other nonspecific abnormal finding of lung field Category: Medical Plan Ray's symptoms are likely related to underlying asthma/COPD, unclear severity. Will send for PFT to evaluate. He reports using albuterol MDI frequently with moderate effect, will trial throughout. Discussed importance of good oral hygiene to prevent thrush. Review chest CT which revealed emphysematous changes as well as pulmonary nodules, largest 7 mm. Will repeat chest CT in 3 months to assess stability of the nodules. Reviewed sleep study results with patient which revealed an AHI of 28, REM AHI 80 with nocturnal hypoxemia. Since patient is quite symptomatic, will start CPAP therapy. Will send in prescription for CPAP mode and pressure setting of 13 cm with close monitoring for compliance and benefits. Sleep hygiene education reviewed. He is aware if there are any issues with the mask or CPAP machine, he will call the office. All questions were answered and patient is in agreement of plan. Will follow-up to review results as well as response to Breo and CPAP therapy in 6-8 weeks, or sooner if needed. Orders: Orders CT chest wo IV con 1 Month R91.8 - Other nonspecific abnormal finding of lung field PFT pulmonary function test Today J44.9 - Chronic obstructive pulmonary disease, unspecified, J45.909 - Unspecified asthma, uncomplicated Medications: New fluticasone furoate-vilanterol 100-25 mcg/dose (Breo Ellipta) 1 inh inhalation DAILY 60 ea 3RF Coding Level of Care Code New Pt Level 4 (18703) Diagnoses Asthma J45.909 COPD (chronic obstructive pulmonary disease) J44.9 Severe obstructive sleep apnea G47.33 Nocturnal hypoxemia G47.34 Personal history of tobacco use Z87.891 Multiple pulmonary nodules R91.8
[2024-01-26 14:02] VITALS: BP 146/98; PULSE 82; O2SAT 95; BMI 36.6
== END 2024-01-26 14:33 | disposition home or self-care (01) ==
PROVIDERS: PCP Internal Medicine; Visit Provider Nurse Practitioner Family
DX: J45.909 Unspecified asthma, uncomplicated (principal); J44.9 Chronic obstructive pulmonary disease, unspecified; G47.33 Obstructive sleep apnea (adult) (pediatric); G47.34 Idiopathic sleep related nonobstructive alveolar hypoventilation; Z87.891 Personal history of nicotine dependence; R91.8 Other nonspecific abnormal finding of lung field
CPT/HCPCS: 99204

== ENCOUNTER → 2024-01-26 13:56 | Outpatient (BNVA) | payer MEDICAID, SELFPAY | PROVIDERS: PCP Internal Medicine; Visit Provider Nurse Practitioner Family | DX: J44.9 Chronic obstructive pulmonary disease, unspecified (principal); G47.33 Obstructive sleep apnea (adult) (pediatric); G47.34 Idiopathic sleep related nonobstructive alveolar hypoventilation; R91.8 Other nonspecific abnormal finding of lung field; Z87.891 Personal history of nicotine dependence | CPT/HCPCS: 99212 ==

== ENCOUNTER → 2024-02-11 11:30 | Outpatient (REF) | payer MEDICAID, SELFPAY ==
--- NOTE | 2024-02-11 12:49 | CA_ITS ---
Transthoracic Echocardiogram Patient (Last, First, Middle): Ray Valdes, Gender: Male Date of : 1970 Age: 53 Procedure Date: 02/11/2024 Procedure Type: Transthoracic Echocardiogram Location: OP Height: 177.8 cm Weight: 90.72 kg BSA: 2.09 m2 Heart Rate: 82 bpm BP: 140 / [address] Patrol Officer: SB Referring MD: Christina Chakraborty MD Doctorate Of Chiropractic: Luke Romero MD Symptoms: I10 HTN SOB R06.02 Study Quality: Adequate ECG Rhythm: Sinus Conclusions: - 1. Normal LV ejection fraction of 65-70% 2. Normal cardiac valvular Dopplers 3. Upper limits of normal ascending aortic size 4. No gross pericardial effusion Findings Procedure Information Contrast agent, definity, is being given per protocol without apparent complications. The quality of the study was technically difficult. The study quality is limited by patients body habitus. Left Ventricle Normal left ventricular size, thickness, and systolic function. The visually estimated ejection fraction is between 65-70%. Spectral Doppler is indicative of a normal filling pattern. Right Ventricle Normal right ventricular cavity size. Atria Both atria are normal in size. Interatrial shunt cannot be excluded. Aortic Valve The aortic valve structure and function is likely normal. There is no aortic valve stenosis. There is no aortic valve regurgitation. Mitral Valve Normal mitral valve structure and function. There is trace mitral valve regurgitation. There is no mitral valve stenosis. Pulmonic Valve The pulmonic valve was not well visualized. Tricuspid Valve Likely normal tricuspid valve structure and function. Tricuspid regurgitation envelope is inadequate for calculation of right ventricular systolic pressure. Normal right atrial pressure. Great Vessels All visible segments of the aorta are normal in size. The pulmonary artery was not well visualized. Venous The inferior vena cava is normal in size and collapses greater than 50% with inspiration. Pericardium/Pleural There is no evidence of pericardial effusion. Prior Study Comparison No prior study available for comparison. Measurements 2D Linear Measurements IVSd: 1.13 0.6-0.9/0.6-1.0 cm LVIDd: 5.02 3.9-5.3/4.2-5.9 cm LVIDd Index: 2.40 2.4-3.2/2.2-3.1 cm/m2 LVIDs: 2.70 2.0-3.6 cm LVPWd: 1.09 0.7-1.1 cm LA Diam: 3.70 2.7-3.8/3.0-4.0 cm LAIDs Index: 1.77 1.5-2.3 cm/m2 LV Mass: 252.10 67-162/88-224 g LV Mass Index: 120.62 43-95/49-115 g/m2 LVOT Diam: 2.00 3.0+(-)1.3 cm 2D Systolic Function EF 4C: 68.50 >55% EF 2C: 74.40 >55% EF BiP: 69.80 >55% Mitral Valve MV Pk E: 0.92 MV PK A: 0.72 MV Decel Time: 181.00 E/A: 1.30 E'Lateral: 7.29 E'Medial: 7.83 E/E' Med: 11.80 E/E' Lat: 12.60 PHT: 53.00 MVA PHT: 4.15 Decel Vigo: 5.08 Aortic Valve AoV Pk Zane: 1.82 AoV Pk Grad: 13.00 GERALDO: 1.93 LVOT LVOT Pk Zane: 1.12 LVOT Mn Zane: 0.78 LVOT VTI: 0.21 LVOT Pk Grad: 5.00 LVOT Mn Grad: 3.00 LVOT Diam: 2.00 LVOT Area: 3.14 Diastolic Function MV Pk E: 0.92 MV Pk A: 0.72 E/A: 1.30 E'Medial: 7.83 E/E' Med: 11.80 E' Laterial: 7.29 E/E' Lat: 12.60 Right Ventricle TAPSE (mm): 24.00 TVS' Zane: 18.80 Tricuspid Valve RA Press: 3.00 Great Vessels Aorta Sinus of Valsalva: 3.30 2.0-3.5 cm Ao Asc: 3.60 2.1-3.4 cm Ao Arch: 3.00 Pulmonary Valve PV Pk Zane: 1.62 Peak PV Grad: 10.00 Updated in Other Vendor System with Status of Final Luke Romero MD electronically signed on 02/11/2024 3:49:24 PM with status of Final
== END ==
LOC: HO.CARD 11:30
PROVIDERS: PCP Internal Medicine; Visit Provider Internal Medicine
DX: R06.02 Shortness of breath (principal); I10 Essential (primary) hypertension
CPT/HCPCS: 93306; Q9957

== ENCOUNTER → 2024-02-11 12:49 | Outpatient (BNV) | payer MEDICAID, SELFPAY | PROVIDERS: PCP Internal Medicine; Visit Provider Internal Medicine Cardiovascular Disease | DX: I10 Essential (primary) hypertension (principal); R06.02 Shortness of breath | CPT/HCPCS: 93306 ==

== ENCOUNTER 2024-02-15 11:13 | Outpatient (AMB) | payer MEDICAID, SELFPAY ==
--- NOTE | 2024-02-15 11:14 | A.OFFVIS_ITS ---
Intake Visit Reasons: papilloma of left breast Intake Note: Patient referred by pcp Dr. Chakraborty for papilloma on lt nipple. Present for 1yr. Patient c/o: enlarging, tender to touch. Denies bleeding, oozing. No hx of skin ca. Copy Center Operator Required: Yes Copy Center Operator Name: Shelia ULRICH Accompanied by: Self / Same As Patient Allergies No Known Allergies Allergy (Verified 02/15/24 11:17) Medication List - Last Reconciled 02/15/24 by Eliseo Tello MD acetaminophen (Tylenol Extra Strength) 1,000 mg (2 x 500 mg) PO Q6H PRN acetaminophen (Tylenol Extra Strength) 500 mg PO Q6H PRN albuterol sulfate 90 mcg/actuation 2 inhalations inhalation Q8H PRN albuterol sulfate 90 mcg/actuation 2 puffs inhalation Q6H PRN amlodipine 10 mg PO DAILY fluticasone furoate-vilanterol 100-25 mcg/dose (Breo Ellipta) 1 inh inhalation DAILY lisinopril 20 mg PO DAILY 90 days prednisone 20 mg PO BID HPI Comments Details: Patient presents for evaluation of an areolar mass of the left side. He has had this many years time. It was a small lesion which has now grown with a stalk. He would like to have removed. He has no such lesions elsewhere.. Chart was reviewed and patient evaluated [facility] Medical History Hypertension Social History Alcohol intake: never Patient Tobacco Use Status: Former Tobacco user Cigarette Packs Per Day: 4 Physical Exam Chest Other: No cervical, periclavicular, or axillary adenopathy bilaterally. Right breast areola negative. Left breast has an exophytic stalked growth measuring approximately 1 0.5 cm. No other breast areolar pathology demonstrated. Office Procedures Excision Details: Risks, benefits, and alternatives of excision of left areolar exophytic stalked growth were reviewed with the patient and included but not limited to bleeding, infection, recurrence, numbness, pain, scarring the patient wished to proceed. All questions answered. Consent site. After appropriate positioning, patient underwent 1% lidocaine and Betadine prep and uneventfully tangential excision of lesion. Specimen sent to pathology. Wound base cauterized with silver nitrate followed by bacitracin and a sterile dressing. Patient tolerated procedure well. 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 All questions answered. 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
== END 2024-02-15 11:34 | disposition home or self-care (01) ==
PROVIDERS: PCP Internal Medicine; Referring Provider Internal Medicine; Visit Provider Surgery
DX: B07.9 Viral wart, unspecified (principal)
CPT/HCPCS: 11102; 99214

== ENCOUNTER 2024-02-15 11:13 | Outpatient (REF) | payer MEDICAID, SELFPAY | END 2024-02-15 11:14 | disposition home or self-care (01) | LOC: HO.LNP 11:13 | PROVIDERS: PCP Internal Medicine; Referring Provider Internal Medicine; Visit Provider Surgery | DX: D24.2 Benign neoplasm of left breast (principal) | CPT/HCPCS: 11102; 88304; 88305; 99212 ==

== ENCOUNTER 2024-02-22 12:16 | Outpatient (AMB) | payer MEDICAID, SELFPAY ==
--- NOTE | 2024-02-22 12:49 | MHC.OFFVIS ---
Intake Visit Reasons: s/p 1 week follow up papilloma of left breast Intake Note: Patient here s/p exc wart on Lt nipple. Reports incision healing well. Patient c/o: tenderness to touch. 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 Required: No Accompanied by: Self / Same As Patient Allergies No Known Allergies Allergy (Verified 02/22/24 12:52) Medication List - Last Reconciled 02/22/24 by Eliseo Tello MD acetaminophen (Tylenol Extra Strength) 1,000 mg (2 x 500 mg) PO Q6H PRN acetaminophen (Tylenol Extra Strength) 500 mg PO Q6H PRN albuterol sulfate 90 mcg/actuation 2 inhalations inhalation Q8H PRN albuterol sulfate 90 mcg/actuation 2 puffs inhalation Q6H PRN amlodipine 10 mg PO DAILY fluticasone furoate-vilanterol 100-25 mcg/dose (Breo Ellipta) 1 inh inhalation DAILY ibuprofen 800 mg PO Q8H PRN lisinopril 20 mg PO DAILY 90 days prednisone 20 mg PO BID HPI Comments Details: Patient presents for follow-up. Aside from incisional discomfort he is otherwise doing well. Pathology is benign [facility] Medical History Hypertension Social History Alcohol intake: never Patient Tobacco Use Status: Former Tobacco user Cigarette Packs Per Day: 4 Physical Exam Chest Other: Wound healing well. Eschar clean dry and intact. No evidence of any infection. 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 pain, and will follow-up p.r.n.. All questions answered. 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
== END 2024-02-22 13:12 | disposition home or self-care (01) ==
PROVIDERS: PCP Internal Medicine; Visit Provider Surgery
DX: Z09 Encounter for follow-up examination after completed treatment for conditions other than malignant neoplasm (principal); D24.9 Benign neoplasm of unspecified breast
CPT/HCPCS: 99024

== ENCOUNTER → 2024-02-22 12:16 | Outpatient (BNVA) | payer MEDICAID, SELFPAY | PROVIDERS: PCP Internal Medicine; Visit Provider Surgery | DX: Z09 Encounter for follow-up examination after completed treatment for conditions other than malignant neoplasm (principal); D24.2 Benign neoplasm of left breast | CPT/HCPCS: 99212 ==

== ENCOUNTER 2024-03-02 02:02 | Emergency (ER) | payer MEDICAID, SELFPAY ==
--- NOTE | ~2024-03-02 | XR_ITS ---
EXAMINATION: XR CHEST CLINICAL INFORMATION: Asthma. Short of breath. COMPARISON: Chest radiograph 01/11/2024 TECHNIQUE: 2 views of the chest were obtained. FINDINGS: Normal appearance of the cardiomediastinal structures. No effusions or pneumothoraces. No focal pulmonary consolidation. Central peribronchial wall thickening. Mild aortic calcific atherosclerosis. XR/XR chest 2V IMPRESSION: *No focal pulmonary consolidation. No acute cardiopulmonary abnormalities. *Chronic central peribronchial wall thickening which may represent the sequela of asthma. Electronically signed by: Mani Aj MD 03/02/2024 03:53 AM EDT
[2024-03-02 02:08] VITALS: BP 187/127; PULSE 91; RESP 22; TEMP 36.7; O2SAT 96; BMI 37.1
--- NOTE | 2024-03-02 03:06 | ECG_ITS ---
Test Reason : ASTHMA Blood Pressure : / mmHG Vent. Rate : 085 BPM Atrial Rate : 085 BPM P-R Int : 140 ms QRS Dur : 096 ms QT Int : 348 ms P-R-T Axes : 026 -16 096 degrees QTc Int : 414 ms Normal sinus rhythm Nonspecific T wave abnormality Abnormal ECG When compared with ECG of 11-JAN-2024 04:04, No significant change was found Referred By: Marycruz Cody Electronically Signed By:ANGEL OSCAR
[2024-03-02 03:20] LABS: Influenza A PCR NEGATIVE (Negative); Influenza B PCR NEGATIVE (Negative); Resp Syncy Virus RNA Qual PCR NEGATIVE (Negative); SARS COV2 PCR INHOUSE NEGATIVE (Negative)
--- NOTE | 2024-03-02 03:20 | ED_ITS ---
HPI - Asthma General Chief Complaint: Asthma Stated Complaint: mouth pain? Time Seen by Provider: 03/02/24 03:05 Source: patient Mode of arrival: ambulatory Limitations: no limitations History of Present Illness ED Provider: Dr. Marycruz Cody HPI Narrative: Patient comes to the emergency room complaining of asthma exacerbation. Patient states that he has been having dry cough and multiple asthma exacerbation for several days. Patient ran out of his inhaler yesterday. Patient states also that he has noticed a no he gets short of breath when he is laying down flat. Patient states that he had a sleep apnea test done, tested positive and he is waiting for a CPAP machine. Related Data Previous Rx's ?Medication ?Instructions ?Recorded acetaminophen 500 mg tablet 1,000 mg (2 x 500 mg) PO Q6H PRN 10/01/22 (Tylenol Extra Strength) fever or pain #20 tabs acetaminophen 500 mg tablet 500 mg PO Q6H PRN fever or pain 11/13/22 (Tylenol Extra Strength) #30 tabs lisinopril 20 mg tablet 20 mg PO DAILY 90 days #90 tabs 11/13/22 albuterol sulfate 90 mcg/actuation 2 inh inhalation Q8H PRN shortness 05/08/23 aerosol inhaler of breath or wheezing #8.5 grams amlodipine 10 mg tablet 10 mg PO DAILY #90 tabs 12/15/23 albuterol sulfate 90 mcg/actuation 2 puff inhalation Q6H PRN 01/11/24 aerosol inhaler shortness of breath or wheezing #8.5 grams prednisone 20 mg tablet 20 mg PO BID #10 tabs 01/11/24 fluticasone furoate 100 1 inh inhalation DAILY #60 ea 02/01/24 mcg-vilanterol 25 mcg/dose inhalation powder (Breo Ellipta) ibuprofen 800 mg tablet 800 mg PO Q8H PRN pain #30 tabs 02/22/24 albuterol sulfate 90 mcg/actuation 2 puff inhalation Q4-6H PRN 03/02/24 aerosol inhaler shortness of breath or wheezing #8.5 grams prednisone 50 mg tablet 50 mg PO DAILY #4 tabs 03/02/24 Allergies Allergy/AdvReac Type Severity Reaction Status Date / Time No Known Allergies Allergy Verified 03/02/24 02:17 Review of Systems 2 Review of Systems: Constitutional : No Weight loss, No Fever, No Chills, No Night Sweats, No Fatigue, No Malaise ENT/Mouth : No Hearing loss, No Ear Pain, No Nasal Congestion, No Sinus Pain, No Hoarseness, No sore throat, No Rhinorrhea, No Swallowing Difficulty Eyes: No Eye Pain, No Swelling, No Redness, No Foreign Body, No Discharge, No Vision Changes Cardiovascular : No Chest Pain, complaining of orthopnea, no lower extremity edema, no palpitations Respiratory : Complaining of dry cough, multiple asthma exacerbations, no wheezing at this time Gastrointestinal : No Nausea, No Vomiting, No Diarrhea, No Constipation, No abdominal Pain, No Hematochezia, No Melena Genitourinary : no irregular bleeding, No Dysuria, No Urinary Frequency, No Hematuria, No Urinary Incontinence, No Urgency, No Flank Pain, No Urinary Flow Changes, No Hesitancy Musculoskeletal : No joint pain, No Myalgias, No Joint Swelling Skin : No Skin Lesions, No rash Neuro : No Weakness, No Numbness, No Paresthesias, No Loss of Consciousness, No Dizziness, No Headache Psych : No Anxiety/Panic, No Depression, No SI/HI/AH/VH, No Social Issues, Heme/Lymph: No Bruising, No Bleeding,No Lymphadenopathy Endocrine : No Polyuria, No Polydipsia, No Temperature Intolerance [facility] Past Medical History Medical History (Updated 03/02/24 @ 03:22 by Marycruz Cody MD) COPD (chronic obstructive pulmonary disease) Asthma Nocturnal hypoxemia Multiple pulmonary nodules Hypertension Social History Social History Alcohol intake: never Patient Tobacco Use Status: Former Tobacco user Cigarette Packs Per Day: 4 Advance Directives: No Advance Directives Information Provided: No Physical Exam 2 Vital Signs: Vital Signs: Last Vital Signs Temp 98.4 F 03/02/24 03:50 Pulse 81 03/02/24 03:50 Resp 19 03/02/24 03:50 BP 165/104 H 03/02/24 03:50 Pulse Ox 96 03/02/24 03:50 O2 Del Method Room Air 03/02/24 03:50 BMI result Body Mass Index 37.1 Const: Other: Appearance: Alert. Oriented X3. No acute distress. Eyes: Pupils equal, round and reactive to light. ENT: Pharynx normal. Neck: Normal inspection. Neck supple. No lymph nodes noted. No crepitus CVS: Normal heart rate and rhythm. Pulses normal. Normal S1 and S2 Respiratory: No respiratory distress. Breath sounds normal. No Wheezing. No rales Abdomen: Soft and nontender. No rigidity. No distention. Skin: Skin warm and dry. Normal skin color. Normal skin turgor. Extremities: No lower extremity edema. No Lacerations. No Rash Neuro: Oriented X 3. No motor deficit. No sensory deficit. Moving all extremities. No slurred speech. CN 2 through 12 grossly intact Psych: calm, cooperative, normal affect Course Course Course Narrative: At this time, patient is not wheezing, albuterol treatment not needed. Given patient's new history of orthopnea, patient's labs pending, BNP pending. EKG pending Medications Administered Discontinued Medications Generic Name Dose Route Start Last Admin Trade Name Freq PRN Reason Stop Dose Admin Prednisone 60 mg 03/02/24 03:20 03/02/24 03:53 Prednisone 20 Mg Tablet PO 03/02/24 03:21 60 mg ONCE ONE Administration Medical Decision Making Medical Decision Making [facility] Narrative: My interpretation of labs, normal hematology chemistry troponin and BNP -patient likely having an asthma exacerbation, patient ready for discharge Lab Data [facility] Lab Attestation statement: I reviewed the patient's lab results. 03/02/24 03:31 03/02/24 03:31 Labs: Lab Results 03/02/24 03/02/24 Range/Units 02:40 03:31 WBC 7.6 (4.8-10.8) X10*3/uL RBC 5.53 (4.60-5.80) X10*6/uL Hgb 15.1 (14.0-18.0) g/dl Hct 45.5 (42.0-52.0) % MCV 82.3 (80.0-98.0) fL MCH 27.3 (27.0-33.0) pg MCHC 33.2 (31.0-36.0) g/dl RDW 13.8 (11.0-16.0) % Plt Count 310 (160-400) X10*3/uL MPV 9.8 (9.4-12.4) fL Immature Gran % (Auto) 0.3 (0.0-0.4) % Neut % (Auto) 61.1 (45-73) % Lymph % (Auto) 24.7 (20-40) % [place] % (Auto) 10.4 (2-11) % Eos % (Auto) 3.0 (0-4) % Baso % (Auto) 0.5 (0-2) % Lymph # (Auto) 1.9 (1.2-4.9) X10*3/uL [place] # (Auto) 0.8 (0.1-1.2) X10*3/uL Eos # (Auto) 0.2 (0.0-0.4) X10*3/uL Baso # (Auto) 0.0 (0.0-0.2) X10*3/uL Abs Immat Gran (auto) 0.02 (0.00-0.03) X10*3/uL Absolute Neuts (auto) 4.6 (2.0-8.3) x10*3/uL Absolute Nucleated RBC 0.000 (0.0-0.012) X10*3/uL Nucleated RBC % (auto) 0.0 (0.0-0.2) /100WBC Sodium 143 (135-145) mmol/L Potassium 4.8 (3.3-5.1) mmol/L Chloride 108 (96-108) mmol/L Carbon Dioxide 25 (22-29) mmol/L Anion Gap 15 (12-20) BUN 12 (9-16) mg/dL Creatinine 1.02 (0.5-1.4) mg/dL Estim Creat Clear Calc 103.0 Estimated GFR > 60 Random Glucose 97 (60-115) mg/dL Calcium 9.7 (8.4-10.2) mg/dL Troponin I High Sens 4.2 (<3.5-35.0) ng/L B-Natriuretic Peptide 28 (<100) pg/mL Influenza Type A (PCR) NEGATIVE (Negative) Influenza Type B (PCR) NEGATIVE (Negative) RSV RNA Qual (PCR) NEGATIVE (Negative) SARS-CoV-2 RNA (RT-PCR) NEGATIVE (Negative) Independent Interpretation I performed an independent interpretation of an: Plain X-Ray (My interpretation of chest x-ray: No obvious abnormality, no CHF or infiltrate) Radiology Impression Discussion of test interpretation with radiology: I have reviewed the radiologist's reading. Radiologist Impression: Normal appearance of the cardiomediastinal structures. No effusions or pneumothoraces. No focal pulmonary consolidation. Central peribronchial wall thickening. Mild aortic calcific atherosclerosis. XR/XR chest 2V IMPRESSION: *No focal pulmonary consolidation. No acute cardiopulmonary abnormalities. *Chronic central peribronchial wall thickening which may represent the sequela of asthma. Discharge Plan Discharge Clinical Impression: Asthma Patient Disposition: Home, Self-Care Instructions: Asthma (ED) Additional Instructions: Please follow-up with your primary care physician tomorrow. If you have any worsening or new symptoms, please return to the emergency room or call 911 Prescriptions: New albuterol sulfate 90 mcg/actuation HFA aerosol inhaler 2 puff inhalation Q4-6H PRN (Reason: shortness of breath or wheezing) Qty: 8.5 2RF prednisone 50 mg tablet 50 mg PO DAILY Qty: 4 0RF No Action acetaminophen [Tylenol Extra Strength] 500 mg tablet 500 mg PO Q6H PRN (Reason: fever or pain) Qty: 30 0RF lisinopril 20 mg tablet 20 mg PO DAILY 90 Days Qty: 90 0RF albuterol sulfate 90 mcg/actuation HFA aerosol inhaler 2 inh inhalation Q8H PRN (Reason: shortness of breath or wheezing) Qty: 8.5 0RF amlodipine 10 mg tablet 10 mg PO DAILY Qty: 90 0RF acetaminophen [Tylenol Extra Strength] 500 mg tablet 1,000 mg PO Q6H PRN (Reason: fever or pain) Qty: 20 0RF prednisone 20 mg tablet 20 mg PO BID Qty: 10 0RF albuterol sulfate 90 mcg/actuation HFA aerosol inhaler 2 puff inhalation Q6H PRN (Reason: shortness of breath or wheezing) Qty: 8.5 0RF ibuprofen 800 mg tablet 800 mg PO Q8H PRN (Reason: pain) Qty: 30 0RF fluticasone furoate-vilanterol [Breo Ellipta] 100-25 mcg/dose blister with device 1 inh inhalation DAILY Qty: 60 3RF Print Language: Sinhala
[2024-03-02 03:37] LABS: Basophils Percent Auto 0.5 % (0-2); Eosinophils Absolute Auto 0.2 X10*3/uL (0.0-0.4); Hematocrit 45.5 % (42.0-52.0); Hemoglobin 15.1 g/dl (14.0-18.0); Imm Gran Abs Auto 0.02 X10*3/uL (0.00-0.03); Imm Gran Pct Auto 0.3 % (0.0-0.4); Lymphocytes Absolute Auto 1.9 X10*3/uL (1.2-4.9); Lymphocytes Percent Auto 24.7 % (20-40); MANUAL DIFF FLAG NO; Mean Corpuscular HGB Conc 33.2 g/dl (31.0-36.0); Mean Corpuscular Hemoglobin 27.3 pg (27.0-33.0); Mean Corpuscular Volume 82.3 fL (80.0-98.0); Mean Platelet Volume 9.8 fL (9.4-12.4); Monocytes Absolute Auto 0.8 X10*3/uL (0.1-1.2); Monocytes Percent Auto 10.4 % (2-11); Neutrophils Absolute Auto 4.6 x10*3/uL (2.0-8.3); Neutrophils Percent Auto 61.1 % (45-73); Platelet Count 310 X10*3/uL (160-400); Red Blood Count 5.53 X10*6/uL (4.60-5.80); Red Cell Distribution Width 13.8 % (11.0-16.0); White Blood Count 7.6 X10*3/uL (4.8-10.8)
[2024-03-02 03:49] LABS: Anion Gap 15 (12-20); Blood Urea Nitrogen 12 mg/dL (9-16); Calcium 9.7 mg/dL (8.4-10.2); Carbon Dioxide 25 mmol/L (22-29); Chloride 108 mmol/L (96-108); Estimated Glomerular Filt Rate > 60; Glucose Random 97 mg/dL (60-115); Potassium 4.8 mmol/L (3.3-5.1); Sodium 143 mmol/L (135-145)
[2024-03-02 03:50] VITALS: BP 165/104; PULSE 81; RESP 19; TEMP 36.9; O2SAT 96
[2024-03-02] MEDS: predniSONE 20 MG TABLET 60 MG PO (03:53)
[2024-03-02 03:56] LABS: Troponin-I High Sensitivity 4.2 ng/L (<3.5-35.0)
[2024-03-02 03:57] LABS: B Type Natriuretic Peptide 28 pg/mL (<100)
[2024-03-02 04:51] VITALS: BP 188/124; PULSE 85; RESP 20; TEMP 36.9; O2SAT 96
[2024-03-02 04:53] VITALS: BP 188/124; PULSE 85; RESP 20; TEMP 36.9; O2SAT 96
== END 2024-03-02 04:54 | disposition home or self-care (01) ==
PROVIDERS: Emergency Provider Emergency Medicine; PCP Internal Medicine
DX: J45.909 Unspecified asthma, uncomplicated (principal); Z03.818 Encounter for observation for suspected exposure to other biological agents ruled out; R06.02 Shortness of breath; I10 Essential (primary) hypertension; Z87.891 Personal history of nicotine dependence
CPT/HCPCS: 0241U; 36415; 71046; 80048; 83880; 84484; 85025; 93005; 99283; 99284

== ENCOUNTER 2024-03-25 13:58 | Outpatient (AMB) | payer MEDICAID, SELFPAY ==
--- NOTE | 2024-03-25 13:17 | A.OFFVIS_ITS ---
Vital Signs 03/25/24 14:00 Height 5 ft 9 in Weight 255 lb 4 oz BMI 37.7 BP 148/92 H Blood Pressure Location Rt brachial Position Sitting Pulse 81 Pulse Source Pulse Oximeter Pulse Oximetry (%) 95 Oxygen Delivery Method Room Air Intake Visit Reasons: Asthma Mechanical Striper Required: Yes Mechanical Striper Language: Web Developer Programmer Name: [id number] Jose Luis Allergies No Known Allergies Allergy (Verified 03/25/24 14:07) HPI HPI Asthma: Details: Ray is a pleasant 53 year old male, former smoker, quit 6+ months ago with 40 pack year history with underlying HTN, COPD, asthma. He was evaluated in the ED on 12/14 and again on 01/10 due to asthma/COPD exacerbations. Chest CT from 12/14 revealed emphysematous changes and multiple pulmonary nodules, largest 7mm. At the last visit he was sent for repeat chest CT however this was canceled and he never rescheduled. On 01/10 he was discharged with zpak, prednisone and albuterol MDI. He has been using albuterol MDI multiple times per day with moderate effect for dyspnea, wheezing, chest tightness and dry cough. At the last visit, Breo was sent in however patient was unable to obtain. PCP sent for titration study for LIZETH and revealed AHI 28, however REM AHI 80, with nocturnal hypoxemia for 87,5 minutes, lowest 70%. CPAP order sent at the last visit and he is scheduled to obtain tomorrow. Today he presents for an acute visit. He was [place] [facility] [place] for asthma exacerbation and discharged with prednisone. Since he has noticed minimal improvement, using albuterol mdi frequently, continuing with wheezing, productive cough with yellow sputum and dyspnea. [facility] Medical History (Updated 03/02/24 @ 03:22 by Marycruz Cody MD) COPD (chronic obstructive pulmonary disease) Asthma Nocturnal hypoxemia Multiple pulmonary nodules Hypertension Social History Alcohol intake: never Patient Tobacco Use Status: Former Tobacco user Cigarette Packs Per Day: 4 Review of Systems Const Denies chills, Denies excessive sweating, Denies fever(s), Denies headache(s) and Denies night sweats Eyes Denies dry eyes, Denies irritation and Denies itchy eyes ENT Reports Normal hearing present, Denies headache(s), Denies nasal congestion, Denies nasal discharge, Denies post nasal drip and Denies sore throat Card Denies chest pain, Denies chest pain at rest, Denies chest pain with activity, Denies claudication, Denies leg edema, Denies orthopnea and Denies paroxysmal nocturnal dyspnea Resp Denies chest congestion, Denies excessive phlegm production, Denies pain on inspiration, Denies pain with cough and Denies stridor Musc Denies myalgias Neuro Reports Normal hearing present and Denies headache(s) Endo Denies excessive sweating Sd/Lymph Denies lymphadenopathy Aller/Immun Denies itchy eyes and Denies seasonal rhinorrhea Physical Exam Vital Signs: Last Vital Signs Pulse 81 03/25/24 14:00 BP 148/92 H 03/25/24 14:00 Pulse Ox 95 03/25/24 14:00 Oxygen Delivery Method Room Air 03/25/24 14:00 BMI result Body Mass Index 37.7 Const General: cooperative, no acute distress, well developed and alert Nutritional Appearance: obese Orientation/consciousness: patient oriented x3 Limitations: no limitations HEENT Head: Yes normal to inspection, Yes normocephalic and Yes atraumatic Ears: hearing grossly normal bilaterally and external ears normal Eyes General: appearance normal, both eyes and all related structures Eyelids: Yes eyelids normal Sclerae: sclerae normal EOM: EOMs intact bilaterally Neck Neck: Yes normal visual inspection and Yes no lymphadenopathy Lymphatic: no lymphadenopathy noted Chest Chest palpation & inspection: normal inspection of the chest Resp Other: Rhonchi throughout mildly improved after DuoNeb Effort & Inspection: normal respiratory effort, able to speak in complete sentences, no audible wheezes, no stridor, not tachypneic, no tripod positioning and no use of accessory muscles Cardio Jugular venous distension: no JVD Rate: regular rate Rhythm: regular rhythm Skin Other: warm, dry General skin exam: no rashes or lesions noted Neuro General: patient oriented x3 Cranial nerves: Yes Normal hearing present Cognition (Neuro): normal cognition Gait exam (Neuro): Normal gait present Extrem General: Yes normal to inspection, Yes capillary refill normal, Yes no clubbing, cyanosis or edema and Yes no pedal edema Psych Appearance: grossly normal and well kempt Speech and movement: Normal speech and movement present and Clear speech present Affect: normal affect Attitude: cooperative Thought process: Normal thought process present Thought content: Normal thought content present Insight: Good insight present (Psych) Judgement: Good judgement present (Psych) Assessment & Plan Assessment & Plan (1) Asthma: Code(s): J45.909 - Unspecified asthma, uncomplicated Category: Medical (2) COPD (chronic obstructive pulmonary disease): Code(s): J44.9 - Chronic obstructive pulmonary disease, unspecified Category: Medical (3) Severe obstructive sleep apnea: Code(s): G47.33 - Obstructive sleep apnea (adult) (pediatric) Category: Medical (4) Nocturnal hypoxemia: Code(s): G47.34 - Idiopathic sleep related nonobstructive alveolar hypoventilation Category: Medical (5) Personal history of tobacco use: Code(s): Z87.891 - Personal history of nicotine dependence Category: Social Hx (6) Multiple pulmonary nodules: Code(s): R91.8 - Other nonspecific abnormal finding of lung field Category: Medical Plan Ray presents for an acute visit, will send azithromycin and prednisone for bronchitic symptoms. We will resend Breo. Discussed importance of good oral hygiene to prevent thrush. He is aware to call the office if symptoms are not improved. At the last visit an order for CPAP therapy was sent and he should be obtaining tomorrow. Prior CT revealed pulmonary nodules largest 7 mm with recommendation to repeat to assess stability. He will call to reschedule this as he had to cancel. All questions were answered and patient is in agreement of plan. Will follow-up to review results as well as response to Breo and CPAP therapy in 6-8 weeks, or sooner if needed. Medications: New azithromycin For 250 mg dose pack: take 500 mg today (day 1), then 250 mg for 4 days (days 2-5) PO 6 tabs 0RF prednisone 40 mg (2 x 20 mg) PO DAILY 10 tabs 0RF Refilled fluticasone furoate-vilanterol 100-25 mcg/dose (Breo Ellipta) 1 inh inhalation DAILY 60 ea 3RF Coding Level of Care Code Est Pt Level 4 (57890) Diagnoses Asthma J45.909 COPD (chronic obstructive pulmonary disease) J44.9 Severe obstructive sleep apnea G47.33 Nocturnal hypoxemia G47.34 Personal history of tobacco use Z87.891 Multiple pulmonary nodules R91.8
[2024-03-25 14:00] VITALS: BP 148/92; PULSE 81; O2SAT 95; BMI 37.7
== END 2024-03-25 14:38 | disposition home or self-care (01) ==
PROVIDERS: PCP Internal Medicine; Visit Provider Nurse Practitioner Family
DX: J45.909 Unspecified asthma, uncomplicated (principal); J44.9 Chronic obstructive pulmonary disease, unspecified; G47.33 Obstructive sleep apnea (adult) (pediatric); G47.34 Idiopathic sleep related nonobstructive alveolar hypoventilation; Z87.891 Personal history of nicotine dependence; R91.8 Other nonspecific abnormal finding of lung field
CPT/HCPCS: 99214

== ENCOUNTER → 2024-03-25 13:58 | Outpatient (BNVA) | payer MEDICAID, SELFPAY | PROVIDERS: PCP Internal Medicine; Visit Provider Nurse Practitioner Family | DX: J45.909 Unspecified asthma, uncomplicated (principal); J44.9 Chronic obstructive pulmonary disease, unspecified; G47.33 Obstructive sleep apnea (adult) (pediatric); G47.34 Idiopathic sleep related nonobstructive alveolar hypoventilation; R91.8 Other nonspecific abnormal finding of lung field; Z87.891 Personal history of nicotine dependence | CPT/HCPCS: 99212 ==

== ENCOUNTER 2024-04-20 20:58 | Observation (INO) | payer MEDICAID, SELFPAY ==
--- NOTE | 2024-04-20 | ECG_ITS ---
Test Reason : SOB Blood Pressure : / mmHG Vent. Rate : 104 BPM Atrial Rate : 104 BPM P-R Int : 144 ms QRS Dur : 094 ms QT Int : 342 ms P-R-T Axes : 058 -23 087 degrees QTc Int : 449 ms Poor data quality, interpretation may be adversely affected Sinus tachycardia T wave abnormality, consider lateral ischemia Abnormal ECG When compared with ECG of 02-MAR-2024 03:16, No significant change was found Referred By: Generic ED Physician Electronically Signed By:RASHARD VAN MD
--- NOTE | ~2024-04-20 | XR_ITS ---
EXAMINATION: XR CHEST 2 VIEWS CLINICAL INFORMATION: SOB. COMPARISON: XR Chest 03/02/2024. TECHNIQUE: 2 views of the chest were obtained. FINDINGS: Normal appearance of the cardiomediastinal structures. No effusions or pneumothoraces. No focal pulmonary consolidation. Central peribronchial wall thickening. Minimal multilevel anterior endplate osteophytosis of the thoracic spine. Mild aortic calcific atherosclerosis. XR/XR chest 2V IMPRESSION: *Central peribronchial wall thickening which may represent the chronic sequela of asthma and/or acute bronchitis. No focal pulmonary consolidation. Electronically signed by: Mani Aj MD 04/21/2024 12:29 AM [facility]
[2024-04-20 21:20] VITALS: BP 161/108; PULSE 111; RESP 22; TEMP 37.4; O2SAT 95; BMI 37.1
--- NOTE | 2024-04-20 21:44 | PC.NURSE ---
pt from waiting room, assume care of pt at this time
[2024-04-20 21:54] LABS: MANUAL DIFF FLAG NO
[2024-04-20 21:55] LABS: Basophils Percent Auto 0.3 % (0-2); Eosinophils Absolute Auto 0.2 X10*3/uL (0.0-0.4); Eosinophils Percent Auto 2.3 % (0-4); Hematocrit 43.7 % (42.0-52.0); Hemoglobin 14.5 g/dl (14.0-18.0); Imm Gran Abs Auto 0.02 X10*3/uL (0.00-0.03); Imm Gran Pct Auto 0.2 % (0.0-0.4); Lymphocytes Absolute Auto 0.6 X10*3/uL (1.2-4.9); Lymphocytes Percent Auto 7.2 % (20-40); Mean Corpuscular HGB Conc 33.2 g/dl (31.0-36.0); Mean Corpuscular Hemoglobin 27.6 pg (27.0-33.0); Mean Corpuscular Volume 83.1 fL (80.0-98.0); Mean Platelet Volume 9.7 fL (9.4-12.4); Monocytes Absolute Auto 0.9 X10*3/uL (0.1-1.2); Monocytes Percent Auto 9.7 % (2-11); Neutrophils Absolute Auto 7.1 x10*3/uL (2.0-8.3); Neutrophils Percent Auto 80.3 % (45-73); Platelet Count 296 X10*3/uL (160-400); Red Blood Count 5.26 X10*6/uL (4.60-5.80); Red Cell Distribution Width 13.8 % (11.0-16.0); White Blood Count 8.8 X10*3/uL (4.8-10.8)
[2024-04-20 22:10] LABS: Alanine Aminotransferase 25 U/L (0-40); Albumin Level 4.2 g/dL (3.5-5.0); Alkaline Phosphatase 118 U/L (39-117); Anion Gap 17 (12-20); Aspartate Amino Transferase 24 U/L (5-37); Bilirubin Total 0.2 mg/dL (0.0-1.0); Blood Urea Nitrogen 16 mg/dL (9-16); Calcium 9.1 mg/dL (8.4-10.2); Carbon Dioxide 26 mmol/L (22-29); Chloride 101 mmol/L (96-108); Creatinine Clr Calc Pharmacy 119.4; Estimated Glomerular Filt Rate > 60; Glucose Random 138 mg/dL (60-115); Sodium 140 mmol/L (135-145); Total Protein 7.2 g/dL (6.5-8.0)
[2024-04-20 22:16] VITALS: BP 153/105; PULSE 100; RESP 25; TEMP 37.6; O2SAT 95
[2024-04-20 22:17] LABS: Troponin-I High Sensitivity 5.6 ng/L (<3.5-35.0)
[2024-04-20 22:40] LABS: Influenza A PCR NEGATIVE (Negative); Influenza B PCR NEGATIVE (Negative); Resp Syncy Virus RNA Qual PCR NEGATIVE (Negative); SARS COV2 PCR INHOUSE POSITIVE (Negative)
--- NOTE | 2024-04-20 22:44 | ED.GENADULT ---
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 Patient reports headache is a 9/10 with associated blurry vision as well as nasal congestion. Shortness of breath is described as not getting enough oxygen with associated wheezing and dry cough. Patient has a history of asthma and reports that they tried a nebulizing treatment at home with no relief; shortness of breath worsens upon exertion. Positive history of present complaints; generally worse with seasonal changes. No recent illness, no changes in medications. Denies chest pain, palpitations. Denies chills, weakness. Onset (ago): day(s) (One day with progressively worsening symptoms) Radiation: non-radiation Severity: severe Severity scale (1-10): 9 (Headache is rated a 9/10) Quality: other (Throbbing) Pain Consistency: constant Relieving factors: none (Try nebulizing treatment for SOB at home with no relief) Exacerbating factors: movement (Exertion) Associated symptoms: cough, fever/chills, headaches and shortness of breath Treatments prior to arrival: other (Nebulizing treatment; albuterol) Related Data Previous Rx's ?Medication ?Instructions ?Recorded acetaminophen 500 mg tablet 1,000 mg (2 x 500 mg) PO Q6H PRN 10/01/22 (Tylenol Extra Strength) fever or pain #20 tabs acetaminophen 500 mg tablet 500 mg PO Q6H PRN fever or pain 11/13/22 (Tylenol Extra Strength) #30 tabs lisinopril 20 mg tablet 20 mg PO DAILY 90 days #90 tabs 11/13/22 albuterol sulfate 90 mcg/actuation 2 inh inhalation Q8H PRN shortness 05/08/23 aerosol inhaler of breath or wheezing #8.5 grams amlodipine 10 mg tablet 10 mg PO DAILY #90 tabs 12/15/23 albuterol sulfate 90 mcg/actuation 2 puff inhalation Q6H PRN 01/11/24 aerosol inhaler shortness of breath or wheezing #8.5 grams prednisone 20 mg tablet 20 mg PO BID #10 tabs 01/11/24 ibuprofen 800 mg tablet 800 mg PO Q8H PRN pain #30 tabs 02/22/24 albuterol sulfate 90 mcg/actuation 2 puff inhalation Q4-6H PRN 03/02/24 aerosol inhaler shortness of breath or wheezing #8.5 grams prednisone 50 mg tablet 50 mg PO DAILY #4 tabs 03/02/24 azithromycin 250 mg tablet See Rx Instructions PO .COMPLEX #6 03/25/24 tabs fluticasone furoate 100 1 inh inhalation DAILY #60 ea 03/25/24 mcg-vilanterol 25 mcg/dose inhalation powder (Breo Ellipta) prednisone 20 mg tablet 40 mg (2 x 20 mg) PO DAILY #10 tabs 03/25/24 Allergies Allergy/AdvReac Type Severity Reaction Status Date / Time No Known Allergies Allergy Verified 04/20/24 21:23 Review of Systems Review of Systems: Neuro: Alert and oriented. Reports headache. Denies numbness and tingling in extremities. Constitutional: Reports fever, headache, nasal congestion. Denies chills, weakness HEENT: Reports headache. Reports visual disturbances; blurry vision. Denies discharge, pruritus of eyes. Denies auditory disturbances, tinnitus. Reports nasal discharge, nasal congestion. Reports mild throat discomfort. Denies difficulty swallowing. Cardiac: Denies chest pain, palpitations Pulmonary: Reports shortness of breath, worse upon exertion. Reports wheezing and dry cough GI: Denies nausea, vomiting, abdominal pain, diarrhea, constipation Integumentary: Denies recent changes to skin such as rash, erythema, pruritus MSK: Reports full range of motion in all extremities Yes all other systems are reviewed and are negative Constitutional: Constitutional: Reports as per HPI, Reports no additional constitutional complaints, Reports fever(s) and Reports headache(s) Comments: Nasal congestion Eyes: Eyes: Reports as per HPI, Reports no additional eye complaints and Reports blurry vision ENT: Reports system reviewed and no additional complaints, except as documented, Reports as per HPI, Reports Normal hearing present and Reports headache(s) Cardiovascular: Cardiovascular: Reports as per HPI, Reports no additional cardiovascular complaints and Reports dyspnea Respiratory: Respiratory: Reports as per HPI, Reports no additional respiratory complaints, Reports cough, Reports dyspnea and Reports wheezing Gastrointestinal: Gastrointestinal: Reports as per HPI and Reports no additional gastrointestinal complaints Musculoskeletal: Musculoskeletal: Reports no additional musculoskeletal complaints and Reports as per HPI Integumentary/Breasts: Skin/Breast: Reports system reviewed and no additional complaints, except as docu and Reports as per HPI Neurologic: Reports system reviewed and no additional complaints, except as documented, Reports as per HPI, Reports Normal hearing present and Reports headache(s) Comments: Blurry vision Endocrine: Endocrine: Reports no additional endocrine complaints and Reports as per HPI Allergic/Immunologic: Allergic/Immunologic: Reports wheezing Comments: History of asthma exacerbations associated with seasonal changes [facility] Past Medical History Medical History (Updated 04/21/24 @ 01:25 by EVANGELINA Garcia) COPD (chronic obstructive pulmonary disease) Asthma Nocturnal hypoxemia Multiple pulmonary nodules Hypertension Social History Social History Alcohol intake: never Patient Tobacco Use Status: Former Tobacco user Cigarette Packs Per Day: 4 Advance Directives: No Advance Directives Information Provided: No Do you have a plan to hurt others: No Plan Physical Exam ED Vital Signs: Vital Signs - 24 hr 04/20/24 21:20 04/20/24 22:16 04/20/24 23:26 Temperature 99.4 F 99.7 F Pulse Rate 111 H 100 112 H Respiratory Rate 22 H 25 H 18 Blood Pressure 161/108 H 153/105 H Pulse Oximetry 95 95 Oxygen Delivery Method Room Air Room Air 04/21/24 00:54 Temperature Pulse Rate 112 H Respiratory Rate 18 Blood Pressure Pulse Oximetry Oxygen Delivery Method BMI result Body Mass Index 37.1 Const Other: Patient is awake and alert, sitting up in bed; iron setter services were utilized during encounter. Patient is able to speak in complete in full sentences. They appear to be in a mild state of respiratory distress but this does not affect ability to interact with provider. General: cooperative, alert and awake Nutritional Appearance: average body habitus and well nourished Orientation/consciousness: oriented to person, oriented to place and oriented to time HENMT Other: Head is normocephalic, atraumatic; no notable abnormalities. No auditory abnormalities are noted. Nasal discharge and congestion are noted. External lips reveal no significant abnormalities; patient is noncyanotic. Head: Yes normal to inspection, Yes normocephalic and Yes atraumatic Ears: hearing grossly normal bilaterally and external ears normal General nose exam: Normal external nose present and Normal nares present Face and sinus: Yes normal facial exam and Yes face symmetric Mouth: lip normal Eyes Other: Pupils are PERRL. No noted abnormalities of eyelids or surrounding structures. EOM intact. General: appearance normal, both eyes and all related structures Periorbital: periorbital findings normal Eyelids: Yes eyelids normal Conjunctivae: conjunctivae normal Sclerae: sclerae normal Corneas: corneas normal Pupils: Equal, round and reactive pupils present EOM: EOMs intact bilaterally Neck Other: Full range of motion of the cervical spine. No pain with rotation of the head Neck: Yes normal visual inspection and Yes full ROM Resp Other: Notable labored respirations with audible wheezing. Wheezing is heard in all stone upon auscultation. Presence of supraclavicular accessory muscle use. Patient is noncyanotic. Able to hold conversation and speak in complete full sentences. Effort & Inspection: able to speak in complete sentences, audible wheezes, Actively coughing, labored and uses accessory muscles Auscultation: wheezes Cardio Other: heart is normal for rate, rhythm, quality. No murmurs, rubs, gallops. No pain elicited upon palpation of the chest wall Rate: regular rate Rhythm: regular rhythm GI Other: Abdomen is soft, nontender, nondistended. Bowel sounds present Inspection: Yes normal to inspection Palpation (GI): Soft to palpation Auscultation: normal bowel sounds Skin Other: Skin is warm, dry, slightly red in color. No notable rashes, lesions. General skin exam: no rashes or lesions noted Neuro Other: Patient is alert and oriented. Able to follow commands. Speech is normal. General: oriented to person, oriented to place and oriented to time Cranial nerves: Yes Equal, round and reactive pupils present and Yes Normal hearing present Extrem Other: Full range of motion in all extremities. Positive CMS in all extremities General: Yes full ROM Psych Other: Speech and behavior appear to be normal. Calm and cooperative and answer all questions appropriately Appearance: grossly normal Mental Status: mental status grossly normal Speech and movement: Normal speech and movement present Affect: normal affect Attitude: cooperative Thought process: Normal thought process present Thought content: Normal thought content present Insight: Good insight present (Psych) Judgement: Good judgement present (Psych) Course Reevaluation(s) Reevaluation #1: Ambulated the patient he dropped his oxygen saturation to 90, became more tachycardic Medications Administered Generic Name Dose Route Start Last Admin Trade Name Curtis PRN Reason Stop Dose Admin Azithromycin 500 mg/ Sodium 250 mls @ 125 mls/hr 04/21/24 00:33 04/21/24 01:14 Chloride IV 04/21/24 02:32 125 mls/hr ONCE ONE Administration Discontinued Medications Generic Name Dose Route Start Last Admin Trade Name Curtis PRN Reason Stop Dose Admin Albuterol Sulfate 7.5 mg/ 10 mg 04/20/24 23:27 04/20/24 23:32 Albuterol Sulfate 2.5 mg INHALE 04/20/24 23:28 10 mg ONCE ONE Administration Albuterol Sulfate 7.5 mg 04/21/24 00:32 04/21/24 00:50 Albuterol Sulfate (0.083%) 2.5 Mg/3 Ml Vial.Neb INHALE 04/21/24 00:33 7.5 mg ONCE ONE Administration Ceftriaxone Sodium 2 gm 04/21/24 00:33 04/21/24 01:14 Ceftriaxone Sodium 2 Gm Vial IVPUSH 04/21/24 00:34 2 gm ONCE ONE Administration Magnesium Sulfate 2 gm in 50 mls @ 25 mls/hr 04/20/24 22:59 04/21/24 00:05 Magnesium Sulfate/H2o IV 04/21/24 00:58 Infused ONCE ONE Infusion Methylprednisolone Sodium Succinate 125 mg 04/20/24 22:59 04/20/24 23:16 Methylprednisolone Sod Succ 125 Mg/2 Ml Vial IVPUSH 04/20/24 23:00 125 mg ONCE ONE Administration Ondansetron HCl 4 mg 04/20/24 23:29 04/20/24 23:30 Ondansetron Hcl 4 Mg/2 Ml Vial IVPUSH 04/20/24 23:30 4 mg ONCE ONE Administration Medical Decision Making Medical Decision Making MDM Narrative: I Daysi العراقي PA-C have personally assessed and manage the patient, Kathi MCDOWELL observed in helped to formulate the documentation 53-year-old male seen in the ED for concerns regarding shortness of breath, fever, headache, nausea and vomiting for approximately 1 day with progressively worsening symptoms. Patient reports headache is a 9/10 with associated blurry vision as well as nasal congestion. Shortness of breath is described as not getting enough oxygen with associated wheezing and dry cough. Patient has a history of asthma and reports that they tried a nebulizing treatment at home with no relief; shortness of breath worsens upon exertion. Positive history of present complaints; generally worse with seasonal changes. No recent illness, no changes in medications. Denies chest pain, palpitations. Denies chills, weakness. DDX - asthma exacerbation: Likely given current presentation of shortness of breath, wheezing, accessory muscle use, history of multiple asthma exacerbations in the past - sepsis; consider given borderline fever as well as patient presenting as tachycardic, tachypneic. We will need to assess blood cultures, CBC - pneumonia; consider given shortness of breath, borderline fever; we will need to order x-ray in order to make determination - COVID, flu, RSV; consider given subjective fever, headache, respiratory symptoms. We will need to obtain COVID/ flu/RSV swab - allergic rhinitis/seasonal allergies; consider given headache, shortness of breath, nasal congestion, nasal discharge. Unlikely that this is the only underlying pathology as patient is also borderline febrile, and is in mild respiratory distress Plan - vitals; continue to monitor as patient is already tachycardic, hypertensive, borderline afebrile. Continue to monitor oxygen saturation to ensure patient does not become hypoxic - chest x-ray; assess for any underlying cardiac or pulmonary pathology - EKG; assess for any cardiac, pulmonary, electrolyte abnormality - CBC; to assess for any hematologic, infectious process - CMP; to assess for any metabolic, electrolyte abnormalities - nebulizing treatment; patient has been reporting shortness of breath, wheezing and has a history of asthma exacerbations. Physical exam is indicative that patient is likely experiencing asthma exacerbation - COVID/flu/RSV swab: Assesse with the present COVID, flu, RSV Per Daysi العراقي PA-C Patient here with COPD exacerbation with low-grade temp found to be positive for COVID, we will be treated for bronchitis with antibiotics, he also dropped his oxygen with ambulation, despite having multiple updrafts, magnesium and Solu-Medrol. We will be admitted I have independently reviewed the following tests: Labs: No leukocytosis, not anemic, no electrolyte abnormality, viral panel positive for COVID EKG: Sinus tachycardia, rate of 104, T-wave abnormality again noted lateral leads, unchanged from prior Chest x-ray: XR/XR chest 2V IMPRESSION: *Central peribronchial wall thickening which may represent the chronic sequela of asthma and/or acute bronchitis. No focal pulmonary consolidation. Electronically signed by: Mani Aj MD 04/21/2024 12:29 AM [facility] EKG, Lab Data 04/20/24 21:49 04/20/24 21:49 Labs: Lab Results 04/20/24 Range/Units 21:49 WBC 8.8 (4.8-10.8) X10*3/uL RBC 5.26 (4.60-5.80) X10*6/uL Hgb 14.5 (14.0-18.0) g/dl Hct 43.7 (42.0-52.0) % MCV 83.1 (80.0-98.0) fL MCH 27.6 (27.0-33.0) pg MCHC 33.2 (31.0-36.0) g/dl RDW 13.8 (11.0-16.0) % Plt Count 296 (160-400) X10*3/uL MPV 9.7 (9.4-12.4) fL Immature Gran % (Auto) 0.2 (0.0-0.4) % Neut % (Auto) 80.3 H (45-73) % Lymph % (Auto) 7.2 L (20-40) % [place] % (Auto) 9.7 (2-11) % Eos % (Auto) 2.3 (0-4) % Baso % (Auto) 0.3 (0-2) % Lymph # (Auto) 0.6 L (1.2-4.9) X10*3/uL [place] # (Auto) 0.9 (0.1-1.2) X10*3/uL Eos # (Auto) 0.2 (0.0-0.4) X10*3/uL Baso # (Auto) 0.0 (0.0-0.2) X10*3/uL Abs Immat Gran (auto) 0.02 (0.00-0.03) X10*3/uL Absolute Neuts (auto) 7.1 (2.0-8.3) x10*3/uL Absolute Nucleated RBC 0.000 (0.0-0.012) X10*3/uL Nucleated RBC % (auto) 0.0 (0.0-0.2) /100WBC Sodium 140 (135-145) mmol/L Potassium 4.0 (3.3-5.1) mmol/L Chloride 101 (96-108) mmol/L Carbon Dioxide 26 (22-29) mmol/L Anion Gap 17 (12-20) BUN 16 (9-16) mg/dL Creatinine 0.88 (0.5-1.4) mg/dL Estim Creat Clear Calc 119.4 Estimated GFR > 60 Random Glucose 138 H (60-115) mg/dL Calcium 9.1 D (8.4-10.2) mg/dL Magnesium 1.8 (1.6-2.6) mg/dL Total Bilirubin 0.2 (0.0-1.0) mg/dL AST 24 (5-37) U/L ALT 25 (0-40) U/L Alkaline Phosphatase 118 H (39-117) U/L Troponin I High Sens 5.6 (<3.5-35.0) ng/L B-Natriuretic Peptide 46 (<100) pg/mL Total Protein 7.2 (6.5-8.0) g/dL Albumin 4.2 (3.5-5.0) g/dL Influenza Type A (PCR) NEGATIVE (Negative) Influenza Type B (PCR) NEGATIVE (Negative) RSV RNA Qual (PCR) NEGATIVE (Negative) SARS-CoV-2 RNA (RT-PCR) POSITIVE A (Negative) Discharge Plan Discharge Clinical Impression: Acute exacerbation of COPD with asthma, COVID Patient Disposition: Admitted As Inpatient Print Language: Sammarinese
[2024-04-20 22:54] LABS: Magnesium 1.8 mg/dL (1.6-2.6)
[2024-04-20 22:57] LABS: B Type Natriuretic Peptide 46 pg/mL (<100)
[2024-04-20] MEDS: Magnesium Sulfate/H2O 2 GM/50 ML PIGGYBACK IV (23:16)
[2024-04-20] MEDS: methylPREDNISolone Sod Succ 125 MG/2 ML VIAL IVPUSH (23:16)
[2024-04-20 23:26] VITALS: PULSE 112; RESP 18; O2SAT 95
[2024-04-20] MEDS: ondansetron HCL 4 MG/2 ML VIAL IVPUSH (23:30)
[2024-04-20] MEDS: Albuterol Sulfate 7.5 MG, Albuterol Sulfate (0.083%) 2.5 MG 10 MG INHALE (23:32)
[2024-04-21] VITALS (8 sets, daily range): BP systolic 118–133; BP diastolic 56–108; PULSE 69–120; RESP 16–18; TEMP 36.6; O2SAT 92–97
--- NOTE | 2024-04-21 00:44 | MHC.EDTECH ---
waled pt with 02 monitor. 02 drop to 90 while ambulating.
[2024-04-21] MEDS: Albuterol Sulfate (0.083%) 2.5 MG/3 ML VIAL.NEB 7.5 MG INHALE (00:50)
[2024-04-21] MEDS: Azithromycin 500 MG in 0.9 % Sodium Chloride 250 ML 125 MG IV (01:14)
[2024-04-21] MEDS: cefTRIAXone sodium 2 GM VIAL IVPUSH (01:14)
--- NOTE | 2024-04-21 01:28 | PM.IMHP ---
History of Present Illness Date of Service: 04/21/24 Chief Complaint: Dyspnea This is a 53-year-old male with pertinent history of asthma-COPD overlap syndrome, hypertension, LIZETH on CPAP who presents to the emergency department for evaluation of dyspnea. Patient states his symptoms started 1 day prior to presentation. He has been having dyspnea which is worse with exertion. Also has been having dry cough with wheezing. Symptoms not relieved with home inhaler. No sick contacts. No fever, chills, chest pain, palpitations, abdominal pain, changes in urinary or bowel habits. No orthopnea or PND. Patient is Malay speaking and history obtained with the help of foley artist In the emergency department, patient tested positive for COVID-19 infection. Patient with wheezing despite multiple DuoNeb treatments. Review of Systems Constitutional: Constitutional: Reports malaise and Reports weakness Cardiovascular: Cardiovascular: Reports dyspnea on exertion Respiratory: Respiratory: Reports cough, Reports dyspnea on exertion and Reports wheezing Gastrointestinal: Gastrointestinal: Reports no additional gastrointestinal complaints Genitourinary: Genitourinary: Reports no additional male genitourinary complaints Neurologic: Reports weakness Allergic/Immunologic: Allergic/Immunologic: Reports wheezing [facility] Medical History COPD (chronic obstructive pulmonary disease) Asthma Nocturnal hypoxemia Multiple pulmonary nodules Hypertension Social History Alcohol intake: never Patient Tobacco Use Status: Former Tobacco user Cigarette Packs Per Day: 4 Smoked in Last 30 Days: No Use of substances other than those prescribed or required for medical reasons: No Advance Directives: No Advance Directives Information Provided: No Do you have a plan to hurt others: No Plan Nutrition Risks: No Nutritional Risk Meds Allergies Allergy/AdvReac Type Severity Reaction Status Date / Time No Known Allergies Allergy Verified 04/20/24 21:23 Active Medications: Current Medications Azithromycin 500 mg/ Sodium (Chloride) 250 mls @ 125 mls/hr IV ONCE ONE Stop: 04/21/24 02:32 Last Admin: 04/21/24 01:14 Dose: 125 mls/hr Physical Exam Vital Signs and Narrative: Vital Signs: Last Vital Signs Temp 99.7 F 04/20/24 22:16 Pulse 112 H 04/21/24 00:54 Resp 18 04/21/24 00:54 BP 153/105 H 04/20/24 22:16 Pulse Ox 95 04/20/24 22:16 O2 Del Method Room Air 04/20/24 22:16 BMI result Body Mass Index 37.1 Middle-aged male lying in bed in no distress Neck supple, no JVD Regular rate and rhythm, S1-S2 heard Bilateral wheezing appreciated Abdomen soft nontender, no guarding, no rigidity Patient is awake, alert and oriented to self, place, time and person ; no focal motor deficit Psych: Normal mood No pedal edema Results Labs 04/20/24 21:49 04/20/24 21:49 Labs: Laboratory Results - last 24 hr 04/20/24 21:49 MCV 83.1 MCH 27.6 MCHC 33.2 RDW 13.8 Plt Count 296 MPV 9.7 Immature Gran % (Auto) 0.2 Neut % (Auto) 80.3 H Lymph % (Auto) 7.2 L [place] % (Auto) 9.7 Eos % (Auto) 2.3 Baso % (Auto) 0.3 Lymph # (Auto) 0.6 L [place] # (Auto) 0.9 Eos # (Auto) 0.2 Baso # (Auto) 0.0 Abs Immat Gran (auto) 0.02 Absolute Neuts (auto) 7.1 Absolute Nucleated RBC 0.000 Nucleated RBC % (auto) 0.0 Anion Gap 17 Estim Creat Clear Calc 119.4 Estimated GFR > 60 Random Glucose 138 H Calcium 9.1 D Magnesium 1.8 Total Bilirubin 0.2 AST 24 ALT 25 Alkaline Phosphatase 118 H Troponin I High Sens 5.6 B-Natriuretic Peptide 46 Total Protein 7.2 Albumin 4.2 Influenza Type A (PCR) NEGATIVE Influenza Type B (PCR) NEGATIVE RSV RNA Qual (PCR) NEGATIVE SARS-CoV-2 RNA (RT-PCR) POSITIVE A Imaging Radiologist's Impressions: Impressions Chest X-Ray 04/20/24 22:50 IMPRESSION: *Central peribronchial wall thickening which may represent the chronic sequela of asthma and/or acute bronchitis. No focal pulmonary consolidation. Electronically signed by: Mani Aj MD 04/21/2024 12:29 AM [facility] Assessment and Plan (1) Acute exacerbation of COPD with asthma: Status: Acute (2) COVID: Status: Acute Plan This is a 53-year-old male with pertinent history of asthma-COPD overlap syndrome, hypertension, LIZETH on CPAP who presents to the emergency department for evaluation of dyspnea. #. Acute exacerbation of asthma-COPD overlap syndrome due to COVID-19 infection: Will admit patient with isolation precautions. Defer Decadron as patient is not hypoxic. Scheduled and p.r.n. DuoNebs. Initiating systemic steroids. Continue home inhaler #. Acute lactic acidosis due to albuterol use. No sepsis #. LIZETH: Continue CPAP at bedtime #. Hypertension: Continue home antihypertensives Med rec pending DVT prophylaxis: Lovenox Full code Quality Stroke Does the patient have a stroke diagnosis?: No VTE Prior VTE?: No VTE Risk Level:: Medical - moderate - high VTE Device Contraindication: Treatment Not Indicated VTE Drug Contraindication: N/A - Med Ordered
[2024-04-21 01:35] LABS: Lactic Acid 2.5 mmol/L (0.5-2.0)
--- NOTE | 2024-04-21 01:38 | PC.NURSE ---
Dr Hanna, aware of lactic acid of 2.5, no need to repeat per Dr Hanna, no new orders received
--- NOTE | 2024-04-21 01:40 | PC.NURSE ---
per Dr Hanna, no fluids needed
--- NOTE | 2024-04-21 02:19 | PC.NURSE ---
room air sat 88%, pt was sleeping, Pt placed on O2/2L/NC, and sat came up to95%
--- NOTE | 2024-04-21 03:48 | PC.NURSE ---
Dr Gatica in room, to see pt
--- NOTE | 2024-04-21 04:56 | PC.NURSE ---
Addendum entered by Whitney Crsitobal RN 04/21/24 05:16: Blood cultures x2 and lactic acid was completed prior to starting antibotic. Lactic was 2.5, per Dr Gatica, no need to repeat, no fluids, Original Note: Pt came from home, with c/o of SOB,VELEZ,fever and cough since Thursday. Pt wheezing, while talking, sob. Pt is admitted for SOB, Covid +, and bronchitis. A&OX3, independent at home, Ivorian Speaking. Gets SOB and Tachy while ambulating. 20gRAC. Pt was given duonebs, Mag 2gms, Ceftrianoxe 2gm, Azithromycin 500mg IV. pt dropped his Sats while sleeping, place on O2/2L/NC and sats are maintained in mid 90's.
[2024-04-21 05:50] LABS: Basophils Percent Auto 0.2 % (0-2); Hematocrit 42.4 % (42.0-52.0); Hemoglobin 13.8 g/dl (14.0-18.0); Imm Gran Abs Auto 0.05 X10*3/uL (0.00-0.03); Imm Gran Pct Auto 0.5 % (0.0-0.4); Lymphocytes Absolute Auto 0.2 X10*3/uL (1.2-4.9); Lymphocytes Percent Auto 2.5 % (20-40); MANUAL DIFF FLAG SCAN; Mean Corpuscular HGB Conc 32.5 g/dl (31.0-36.0); Mean Corpuscular Hemoglobin 27.3 pg (27.0-33.0); Mean Corpuscular Volume 83.8 fL (80.0-98.0); Mean Platelet Volume 10.1 fL (9.4-12.4); Monocytes Absolute Auto 0.2 X10*3/uL (0.1-1.2); Monocytes Percent Auto 1.5 % (2-11); Neutrophils Absolute Auto 9.2 x10*3/uL (2.0-8.3); Neutrophils Percent Auto 95.3 % (45-73); Platelet Count 284 X10*3/uL (160-400); Red Blood Count 5.06 X10*6/uL (4.60-5.80); Red Cell Distribution Width 13.9 % (11.0-16.0); SCAN SMEAR FLAG 1; White Blood Count 9.7 X10*3/uL (4.8-10.8)
[2024-04-21 06:13] LABS: SLIDE REVIEW VERIFIED
[2024-04-21 06:44] LABS: Anion Gap 21 (12-20); Blood Urea Nitrogen 19 mg/dL (9-16); Calcium 9.5 mg/dL (8.4-10.2); Carbon Dioxide 19 mmol/L (22-29); Chloride 102 mmol/L (96-108); Creatinine Clr Calc Pharmacy 75.6; Estimated Glomerular Filt Rate 53; Glucose Random 301 mg/dL (60-115); Potassium 3.9 mmol/L (3.3-5.1); Sodium 138 mmol/L (135-145)
[2024-04-21] MEDS: Albuterol/Iprat 2.5/0.5MG 3 ML AMPUL.NEB INHALE (07:53)
[2024-04-21] MEDS: Enoxaparin Sodium 40 MG/0.4 ML SYRINGE SUBCUT (08:20)
[2024-04-21] MEDS: predniSONE 20 MG TABLET 40 MG PO (08:20)
--- NOTE | 2024-04-21 10:17 | P.DS_ITS ---
DS: Providers Provider Date of Service: 04/21/24 Date of admission: 04/21/24 01:26 Date of discharge: 04/21/24 Primary care physician: Christina Chakraborty MD DS: Diagnosis Discharge Diagnosis (1) Acute exacerbation of COPD with asthma: Status: Acute (2) COVID: Status: Acute DS: Summary Hospital Course Hospital Course: from initial hpi: 53-year-old male with pertinent history of asthma-COPD overlap syndrome, hypertension, LIZETH on CPAP who presents to the emergency department for evaluation of dyspnea. Patient states his symptoms started 1 day prior to presentation. He has been having dyspnea which is worse with exertion. Also has been having dry cough with wheezing. Symptoms not relieved with home inhaler. No sick contacts. No fever, chills, chest pain, palpitations, abdominal pain, changes in urinary or bowel habits. No orthopnea or PND. Patient is Kiswahili speaking and history obtained with the help of laborer vineyard In the emergency department, patient tested positive for COVID-19 infection. Patient with wheezing despite multiple DuoNeb treatments. hospital course: Patient was admitted for COPD/moderate persistent asthma with acute decompensation due to COVID complicated by brief episode of acute hypoxia on ambulation. Was treated with DuoNebs and prednisone. Symptoms improved, is currently 93% on room air. Patient does have p.r.n. and nocturnal oxygen at [facility]. For LIZETH uses CPAP at night. For hypertension continue on antihypertensives. Time Attestation Discharge Coordination Time (in mins): 32 Quality: Safe Use of Opioids Does Pt have an Active Cancer Diagnosis on the Problem List?: No Quality: Stroke Does the patient have a stroke diagnosis?: No Physical Exam Vital Signs: Vital Signs: Last Vital Signs Temp 97.9 F 04/21/24 07:16 Pulse 95 04/21/24 07:56 Resp 18 04/21/24 07:56 BP 126/79 04/21/24 07:16 Pulse Ox 93 04/21/24 10:11 O2 Del Method Room Air 04/21/24 10:11 O2 Flow Rate 2 04/21/24 07:16 BMI result Body Mass Index 37.1 General: AO X 3, no acute distress Resp: CTA bilateral, no accessory muscles used CVS: S1,S2,RRR GI: soft, non tender, non distended Neuro: motor grossly intact, alert Psych: appropriate affect, appropriate insight DS: Data Data Completed and Pending Labs on day of discharge: Laboratory Results - last 24 hr 04/20/24 04/21/24 04/21/24 21:49 01:13 05:17 WBC 8.8 9.7 RBC 5.26 5.06 Hgb 14.5 13.8 L Hct 43.7 42.4 MCV 83.1 83.8 MCH 27.6 27.3 MCHC 33.2 32.5 RDW 13.8 13.9 Plt Count 296 284 MPV 9.7 10.1 Immature Gran % (Auto) 0.2 0.5 H Neut % (Auto) 80.3 H 95.3 H Lymph % (Auto) 7.2 L 2.5 L [place] % (Auto) 9.7 1.5 L Eos % (Auto) 2.3 0.0 Baso % (Auto) 0.3 0.2 Lymph # (Auto) 0.6 L 0.2 L [place] # (Auto) 0.9 0.2 Eos # (Auto) 0.2 0.0 Baso # (Auto) 0.0 0.0 Abs Immat Gran (auto) 0.02 0.05 H Absolute Neuts (auto) 7.1 9.2 H Absolute Nucleated RBC 0.000 0.000 Nucleated RBC % (auto) 0.0 0.0 Smear Tech's Comments VERIFIED Sodium 140 138 Potassium 4.0 3.9 Chloride 101 102 Carbon Dioxide 26 19 L Anion Gap 17 21 H BUN 16 19 H Creatinine 0.88 1.39 Estim Creat Clear Calc 119.4 75.6 Estimated GFR > 60 53 Random Glucose 138 H 301 H Lactic Acid 2.5 H* Calcium 9.1 D 9.5 Magnesium 1.8 Total Bilirubin 0.2 AST 24 ALT 25 Alkaline Phosphatase 118 H Troponin I High Sens 5.6 B-Natriuretic Peptide 46 Total Protein 7.2 Albumin 4.2 Influenza Type A (PCR) NEGATIVE Influenza Type B (PCR) NEGATIVE RSV RNA Qual (PCR) NEGATIVE SARS-CoV-2 RNA (RT-PCR) POSITIVE A Discharge Plan Discharge Anticipated Discharge Date/Time: 04/21/24 10:15 Patient Disposition: Home, Self-Care Discharge Diagnosis: covid, asthma Referrals: Christina Chakraborty MD [Primary Care Provider] - 1 Week Discharge Medications: New prednisone 20 mg Tablet 40 mg PO DAILY Qty: 10 0RF Continued acetaminophen [Tylenol Extra Strength] 500 mg tablet 500 mg PO Q6H PRN (Reason: fever or pain) Qty: 30 0RF lisinopril 20 mg tablet 20 mg PO DAILY 90 Days Qty: 90 0RF amlodipine 10 mg tablet 10 mg PO DAILY Qty: 90 0RF hydrochlorothiazide 25 mg tablet 25 mg PO DAILY fluticasone furoate-vilanterol [Breo Ellipta] 100-25 mcg/dose blister with device 1 ea INHALATION DAILY acetaminophen [Tylenol Extra Strength] 500 mg tablet 1,000 mg PO Q6H PRN (Reason: fever or pain) Qty: 20 0RF albuterol sulfate 90 mcg/actuation HFA aerosol inhaler 2 puff inhalation Q6H PRN (Reason: shortness of breath or wheezing) Qty: 8.5 0RF ibuprofen 800 mg tablet 800 mg PO Q8H PRN (Reason: pain) Qty: 30 0RF Discharge Orders: Discharge Order (Routine); Ordered 04/21/24 Ordered By: Micah Koroma Diet: Advance to usual diet Activity on Discharge: As tolerated Stand Alone Forms: Patient Portal Discharge page Print Language: Kiswahili Care Plan Goals: recovery Health Concerns: covid, asthma Plan of Treatment: prednisone 5 days, if needed can use up to 2L oxygen at home, if worsening sob or hypoxia return to ED Assessment: see above
== END 2024-04-21 10:44 | disposition home or self-care (01) ==
LOC: HO.ED 04-21 01:25 → HO.EDOVER 04-21 01:30
PROVIDERS: Physician Assistant Medical; Admitting Provider Student in an Organized Health Care Education/Training Program; Emergency Provider Emergency Medicine; PCP Internal Medicine; Visit Provider Internal Medicine
DX: J44.1 Chronic obstructive pulmonary disease with (acute) exacerbation (principal); U07.1 COVID-19; R06.02 Shortness of breath; R51.9 Headache, unspecified; R11.2 Nausea with vomiting, unspecified; R00.0 Tachycardia, unspecified; R50.9 Fever, unspecified; H53.8 Other visual disturbances; I10 Essential (primary) hypertension; R05.9 Cough, unspecified; Z79.899 Other long term (current) drug therapy
CPT/HCPCS: 0241U; 36415; 71046; 80048; 80053; 83605; 83735; 83880; 84484; 85025; 87040; 93005; 94640; 96365; 96366; 96367; 96372; 96375; 99221; 99285; J0456; J0696; J1650; J2405; J2919; J3475

== ENCOUNTER → 2024-04-20 22:00 | Outpatient (BNV) | payer MEDICAID, SELFPAY | PROVIDERS: Admitting Provider Student in an Organized Health Care Education/Training Program; Emergency Provider Emergency Medicine; PCP Internal Medicine; Visit Provider Internal Medicine Cardiovascular Disease | DX: R94.31 Abnormal electrocardiogram [ECG] [EKG] (principal) | CPT/HCPCS: 93010 ==

== ENCOUNTER → 2024-04-21 01:26 | Outpatient (BNV) | payer MEDICAID, SELFPAY | PROVIDERS: Admitting Provider Student in an Organized Health Care Education/Training Program; Emergency Provider Emergency Medicine; PCP Internal Medicine; Visit Provider Student in an Organized Health Care Education/Training Program | DX: U07.1 COVID-19 (principal); J44.1 Chronic obstructive pulmonary disease with (acute) exacerbation | CPT/HCPCS: 99235; 99499 ==

== ENCOUNTER 2024-05-06 | Outpatient (REF) | payer MEDICAID, SELFPAY | END 2024-05-06 00:01 | disposition home or self-care (01) | LOC: HO.RESP | PROVIDERS: PCP Internal Medicine; Visit Provider Nurse Practitioner Family | DX: J44.9 Chronic obstructive pulmonary disease, unspecified (principal); J45.909 Unspecified asthma, uncomplicated; R91.8 Other nonspecific abnormal finding of lung field | CPT/HCPCS: 94010; 94640; 94727; 94729 ==

== ENCOUNTER 2024-05-16 13:48 | Outpatient (REF) | payer MEDICAID, SELFPAY ==
[2024-05-16 17:03] LABS: Anion Gap 14 (12-20); Blood Urea Nitrogen 18 mg/dL (9-16); Carbon Dioxide 31 mmol/L (22-29); Chloride 99 mmol/L (96-108); Estimated Glomerular Filt Rate > 60; Glucose Random 141 mg/dL (60-115); Potassium 3.8 mmol/L (3.3-5.1); Sodium 140 mmol/L (135-145)
== END 2024-05-16 13:49 | disposition home or self-care (01) ==
LOC: HO.HHCL 13:48
PROVIDERS: Visit Provider Internal Medicine
DX: I10 Essential (primary) hypertension (principal)
CPT/HCPCS: 36415; 80048

== ENCOUNTER 2024-05-17 09:52 | Outpatient (REF) | payer MEDICAID, SELFPAY ==
[2024-05-19 09:01] LABS: Amphetamine, Urine GC/MS NEGATIVE; Methamphetamine, Urine GC/MS NEGATIVE
== END 2024-05-17 09:53 | disposition home or self-care (01) ==
LOC: HO.HHCL 09:52
PROVIDERS: Visit Provider Student in an Organized Health Care Education/Training Program
DX: I16.0 Hypertensive urgency (principal)
CPT/HCPCS: 80324

== ENCOUNTER 2024-07-04 10:23 | Outpatient (REF) | payer MEDICAID, SELFPAY ==
--- NOTE | ~2024-07-04 | XR_ITS ---
EXAMINATION: XR LUMBOSACRAL SPINE CLINICAL INFORMATION: LBP COMPARISON: None available. TECHNIQUE: Three views of the lumbosacral spine. FINDINGS: Dextroconvex curvature apex at L4-5. No acute cortical disruption or gross malalignment. No lytic or blastic lesions. Questionable pseudoarthrosis of the right transverse process of L5 to the sacrum. 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 Electronically signed by: Dwight Starr MD 07/04/2024 10:59 AM AYLIN
--- OUTSIDE RECORDS SUMMARY | 2024-07-04 11:13 | XMS_ITS | Encounter Summary ---
Author Organization [employer] Address [address] [place] [address] [address] [place] [address] Care Team Providers Care Video Game Tester Name Role Phone Christina Chakraborty MD Primary Care Provider + Reason for Visit * Reason Onset Date Comments New Patient Appt 01/01/2023 Encounter Details Date Type Department Care Team (Late st Contact Info) Description 01/01/2023 Telephone [facility] [address] [place] [phone] Keanu Patricio MD [address] [place] [address] [phone] New Patient Appt Social History Tobacco Use Types Packs/Day Years Used Date Smoking Tobacco: Every Day Cigarettes Smokeless Tobacco: Current Alcohol Use Standard Drinks/Week Comments Not Currently 0 (1 standard drink = 0.6 oz pur e alcohol) Sex and Gender Information Value Date Recorded Sex Assigned at Male 11/13/2022 2:02 PM EDT Legal Sex Male 1:35 PM EDT Gender Identity Male 11/13/2022 2:03 PM EDT Sexual Orientation Choose not to disclose 2022 1:46 PM EDT documented as of this encounter Miscellaneous Notes * Telephone Encounter - Jean Claude Tam - 01/01/2023 12:12 PM EDT Tc to pt, to offer EXTERNAL AUDITOR appt, no answer due to pt phone not accepting any calls at this time . Patient Representative could not leave voice mail. documented in this encounter Plan of Treatment Upcoming Encounters Date Type Department Care Team (Late st Contact Info) Description 07/04/2024 3:30 PM EST Office Visit [facility] [address] [place] [address] Christina Chakraborty MD [address] [place] [address] Acute bilateral low back pain without sciatica (Primary Dx); Generalized anxiety disorder; Primary hypertension; Chronic obstructive pulmonary disease, unspecified COPD type (CMS/HCC); Congestive heart failure, unspecified HF chronicity, unspecified heart failure type (CMS/HCC); Periodontal disease 07/15/2024 10:15 AM EST Office Visit [facility] [address] [place], [place] [phone] Edil Barragan DDS [address] [place] [address] documented as of this encounter Visit Diagnoses Not on filedocumented in this encounter Care Teams Video Game Tester Relationship Specialty Start Date End Date Christina Chakraborty MD [address] [place] [address] [phone] PCP - General Internal Medicine 10/15/23 documented as of this encounter
--- OUTSIDE RECORDS SUMMARY | 2024-07-04 11:13 | XMS_ITS | Encounter Summary ---
Author Organization [employer] Address [address] [facility] [address] [place] [address] Care Team Providers Care Sales Trader Name Role Phone Christina Chakraborty MD Primary Care Provider + Reason for Visit * Reason Onset Date Comments rs no show 06/15/2024 Encounter Details Date Type Department Care Team ([facility] st Contact Info) Description 06/15/2024 Telephone [facility] [address] [place], [place] [phone] Edil Barragan DDS [address] [place], [place] [phone] rs no show Social History Tobacco Use Types Packs/Day Years Used Date Smoking Tobacco: Some Days Cigarettes Smokeless Tobacco: Current Alcohol Use Standard Drinks/Week Comments Not Currently 0 (1 standard drink = 0.6 oz pur e alcohol) Depression Answer Date Recorded Patient Health Questionnaire-9 Score 6 09/23/2023 Patient Health Questionnaire-9 Score 6 09/23/2023 Last PHQ-9: Questionnaire Data Not on file 0 09/23/2023 Housing Stability Answer Date Recorded What is your housing situation today? I have lizzeth jesus 06/18/[address] you li ve. Do you have problems with any of the following? None of the above 06/18/2023 Food Insecurity Answer Date Recorded Within the past 12 months, y ou worried that your food would run out before you got money to buy more: Never True 06/18/2023 Within the past 12 months,th e food you bought just didn't last and you didn't have enough money to get more: Never True Transportation Answer Date Recorded In the past 12 months, has l ack of transportation kept you from medical appts, meetings, work or from getting things needed for daily living? No 06/18/2023 Utilities Answer Date Recorded In the past 12 months, has t he electric, gas, oil or water company threatened to shut off services in your home? No 06/18/2023 Depression Answer Date Recorded Patient Health Questionnaire-2 Score 0 09/23/2023 Sex and Gender Information Value Date Recorded Sex Assigned at Male 11/13/2022 2:02 PM EDT Legal Sex Male 1:35 PM EDT Gender Identity Male 11/13/2022 2:03 PM EDT Sexual Orientation Choose not to disclose 2022 1:46 PM EDT documented as of this encounter Miscellaneous Notes * Telephone Encounter - Rosa Maria Wu - 06/15/2024 9:50 AM EST Patient called in to no show appt. Patient informed there is a waiting period to rs no show appt. Informed patient that [facility] dental will reach out to patient to rs when waiting period if over. Patient understood DR documented in this encounter Plan of Treatment Upcoming Encounters Date Type Department Care Team (Late st Contact Info) Description 07/04/2024 3:30 PM EST Office Visit [facility] [address] [place] [address] [phone] Christina Chakraborty MD [address] [place] [address] Acute bilateral low back pain without sciatica (Primary Dx); Generalized anxiety disorder; Primary hypertension; Chronic obstructive pulmonary disease, unspecified COPD type (CMS/HCC); Congestive heart failure, unspecified HF chronicity, unspecified heart failure type (CMS/HCC); Periodontal disease 07/15/2024 10:15 AM EST Office Visit [facility] [address] [place], [place] [phone] Edil Barragan DDS [address] [place] [phone] documented as of this encounter Visit Diagnoses Not on filedocumented in this encounter Additional Health Concerns Assessment Noted Time PHQ-9 Depression Total Score: 6 09/23/19 24 11:46 AM EDT documented as of this encounter Care Teams Sales Trader Relationship Specialty Start Date End Date Christina Chakraborty MD [address] [place] [phone] PCP - General Internal Medicine 10/15/23 documented as of this encounter
--- OUTSIDE RECORDS SUMMARY | 2024-07-04 11:13 | XMS_ITS | Encounter Summary ---
Author Organization [employer] Address [address] [facility] 7t h Floor [place] [id number] Care Team Providers Care Satellite Tv Technician Installer Name Role Phone Christina Chakraborty MD Primary Care Provider + Reason for Visit * Reason Comments Med Refill Encounter Details Date Type Department Care Team (Late st Contact Info) Description 02/10/2023 Refill [facility] [address] [place] [address] [phone] Jonathan Patel MD [address] [place] [address] [phone] Social History Tobacco Use Types Packs/Day Years [...] PM EDT documented as of this encounter Plan of Treatment Upcoming Encounters Date Type Department Care Team (Late st Contact Info) Description 07/04/2024 3:30 PM EST Office Visit [facility] [address] [place] [address] [phone] Christina Chakraborty MD [address] [place] [address] [phone] Acute bilateral low back pain without sciatica (Primary Dx); Generalized anxiety disorder; Primary hypertension; Chronic obstructive pulmonary disease, unspecified COPD type (CMS/HCC); Congestive heart failure, unspecified HF chronicity, unspecified heart failure type (CMS/HCC); Periodontal disease 07/15/2024 10:15 AM EST Office Visit [facility] [address] [place] [address] Edil Barragan DDS [address] [place], [place] [phone] documented as of this encounter Visit Diagnoses Not on filedocumented in this encounter Care Teams Satellite Tv Technician Installer Relationship Specialty Start Date End Date Christina Chakraborty MD [address] [place] [phone] PCP - General Internal Medicine 10/15/23 documented as of this encounter
--- OUTSIDE RECORDS SUMMARY | 2024-07-04 11:14 | XMS_ITS | Encounter Summary ---
Author Organization [employer] Address [address] [facility] 7t [place] [address] Care Team Providers Care Director Of Career Resources Name Role Phone Christina Chakraborty MD Primary Care Provider + Reason for Visit * Reason Comments Pre-visit Planning (Unable to reach for PVP screening and or LVM) Encounter Details Date Type Department Care Team ([facility] st Contact Info) Description 06/22/2024 Patient Outreach [facility] [address] [place], [place] [phone] Christina Chakraborty MD [address] [place], [place] [phone] Pre-visit Planning ((Unable to reach for PVP screening and or LVM)) Social History Tobacco Use Types Packs/Day Years [...] PM EDT documented as of this encounter Progress Notes * Daphne Rodríguez - 06/22/2024 10:12 AM EST CC Daphne placed outbound call to patient to complete pre-visit planning. No answer at this time. Patient name and were not confirmed. CC unable to leave a voice message. documented in this encounter Plan of Treatment Upcoming Encounters Date Type Department Care Team (Late st Contact Info) Description 07/04/2024 3:30 PM EST Office Visit [facility] [address] [place] [address] Christina Chakraborty MD [address] [place] [address] Acute bilateral low back pain without sciatica (Primary Dx); Generalized anxiety disorder; Primary hypertension; Chronic obstructive pulmonary disease, unspecified COPD type (CMS/HCC); Congestive heart failure, unspecified HF chronicity, unspecified heart failure type (CMS/HCC); Periodontal disease 07/15/2024 10:15 AM EST Office Visit [facility] [address] [place] [address] Edil Barragan DDS [address] [place] [phone] documented as of this encounter Visit Diagnoses Not on filedocumented in this encounter Additional Health Concerns Assessment Noted Time PHQ-9 Depression Total Score: 6 09/23/19 11:46 AM EDT documented as of this encounter Care Teams Director Of Career Resources Relationship Specialty Start Date End Date Christina Chakraborty MD [address] [place] [phone] PCP - General Internal Medicine 10/15/23 documented as of this encounter
--- OUTSIDE RECORDS SUMMARY | 2024-07-04 11:14 | XMS_ITS | Clinical Summary ---
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 1 kit 024 2024 Active hydrOXYzine pamoate (Vistaril) 25 MG capsule Take 1 capsule (25 mg) by mouth every 8 (eight) hours if needed for itching or anxiety. 30 capsule Active amLODIPine (Norvasc) 10 MG tablet Take 1 tablet (10 mg) by mouth Once per day. 90 tablet 1 Active lisinopril 40 MG tablet Take 1 tablet (40 mg) by mouth Once per day. 90 tablet 1 024 2024 Active chlorthalidone (Hygroton) 50 MG tablet Take 1 tablet (50 mg) by mouth Once per day. 30 tablet 11 024 2024 Active hydrALAZINE (Apresoline) 10 MG tablet Take 1 tablet (10 mg) by mouth 2 times daily. 60 tablet 11 024 2024 Active budesonide-formot christina (Symbicort) 160-4.5 MCG/ACT inhaler Inhale 2 puffs in the morning and at bedtime. Rinse mouth with water after use to reduce aftertaste and incidence of candidiasis. Do not swallow. 1 each 024 2024 Active nicotine polacrilex (Nicotine Mini) 4 MG lozenge Dissolve 1 lozenge (4 mg) in the mouth every 2 (two) hours if needed for smoking cessation. 100 lozenge 025 2024 Active acetaminophen (Tylenol) 500 MG tabletIndications :Acute bilateral low back pain without sciatica Take 1 tablet (500 mg) by mouth every 6 (six) hours if needed for mild pain for up to 20 doses. 20 tablet Active Diclofenac Sodium 1 % gelIndications:Ac [place] bilateral low back pain without sciatica Apply to the affected area BID prn for pain 50 g 3 Active DULoxetine (Cymbalta) [address] capsule Take 1 capsule (60 mg) by mouth Once per day. Do not crush or chew. 90 capsule 3 025 2025 Active cyclobenzaprine (Flexeril) 10 MG tablet Take 1 tablet (10 mg) by mouth at bedtime for 10 days. 10 tablet 025 2024 Active Diclofenac Sodium 1 % gelIndications:Lo calized osteoarthritis of left knee Apply to the affected area BID prn for pain 50 g 3 023 2024 Discontinued(R eorder (will not trigger notification to Pharmacy)) acetaminophen (Tylenol) 500 MG tabletIndications :Periodontal disease Take 1 tablet (500 mg) by mouth every 6 (six) hours if needed for mild pain for up to 20 doses. 20 tablet 024 2024 Discontinued(R eorder (will not trigger notification to Pharmacy)) nicotine polacrilex (Nicotine Mini) 4 MG lozenge Dissolve 1 lozenge (4 mg) in the mouth every 2 (two) hours if needed for smoking cessation. 100 lozenge 024 2024 Discontinued(R eorder (will not trigger notification to Pharmacy)) DULoxetine (Cymbalta) [address] capsule Take 1 capsule (30 mg) by mouth 2 times daily. Do not crush or chew. 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 I gave him prescription for Tylenol and diclofenac gel and he will take Flexeril nightly. Declined referral to PT Order x-ray L spine Advise regarding weight reduction increase physical activity and quit smoking. Follow-up with me in 4 weeks, he will call back as needed if he agrees to be referred to PT Congestive heart failure 07/04/2024 Assessment & Plan (07/04/2024 10:14 AM EST): Unclear if orthopnea/overnight shortness of breath is related to CHF versus COPD. Follow-up echocardiogram results Discussed with him the importance of quitting smoking and tight control of hypertension Advised to use CPAP every night. Generalized abdominal pain 05/30/2024 Assessment & Plan (05/30/2024 12:23 PM EST): Most likely related to previous constipation, diet, rule out cholecystitis. Order abdominal US. Pt agreed to be referred to GI for CRC screen. Encounter for colorectal cancer screening 2023 Generalized anxiety disorder 05/30/2024 Assessment & Plan (05/30/2024 12:26 PM EST): Will start Duloxetine 30 mg BID and FU in 1 month. Use Hydroxyzine only PRN. Advised to avoid any recreational substances. Re consult PRN, pt declined referral to counselor. Hypertensive urgency 05/03/2024 Assessment & Plan (05/03/2024 2:40 PM EST): Pt with severely increased HTN, mostly related to non-compliance with medications, ? substance use?, refuses to go to ED. I discussed with him that EKG shows some signs of heart muscle strain (maybe old or recent) and other potential complications with severe uncontrolled HTN, including cardiovascular complication or . He declines to go to ED (he's declined other times in the past) and decided to go home, take his medications and go to ED should BP continues to be high. Refusal of recommended treatment form is signed. Will FU BP in 2 weeks with medications and with me in 1 month. Chronic obstructive pulmonary disease 05/03/2024 Assessment & Plan (07/04/2024 10:13 AM EST): Advised to quit smoking. Continue Breo twice daily and albuterol as needed only, advised to avoid nebulizer but will follow-up after PFTs. Order PFTs and follow-up with pulmonology (appointment information given to patient). He will take a picture to although the machine that he has at home, it is unclear if he is still using overnight home O2, follow-up with me in 4 to 6 weeks Assessment & Plan (05/03/2024 2:05 PM EST): Advised to quit smoking, continue Albuterol PRN. We went over video on how to use Breo inhaler, he will bring it in to the nurse if he still does not know how to use it. Recommended to continue O2 overnight, will check overnight oxygen in about 1 to 2 months. Housing instability 05/03/2024 Dependence on supplemental oxygen 05/03/2024 Assessment & Plan (05/03/2024 2:42 PM EST): Uses at night only Sp covid with underlying COPD/smoker Will need pulm referral, overnight O2 sat after next visit. LIZETH (obstructive sleep apnea) 01/14/2024 Overview (05/30/2024): Titration study on 01/20/24: AutoCPAP 13-14 cm Assessment & Plan (05/30/2024 12:23 PM EST): Using CPAP every night. Continue using CPAP for at least 4 hours every night. FU with Esthetic Dermatologist. Assessment & Plan (01/14/2024 2:52 PM EDT): Had sleep study 10/02/2023, need sleep titration study. Papilloma of left breast 01/14/2024 Assessment & Plan (01/14/2024 2:57 PM EDT): Will refer to general surgery for resection. Dysuria 01/14/2024 Assessment & Plan (01/14/2024 2:52 PM EDT): R/o STI. Balanitis 01/14/2024 Assessment & Plan (01/14/2024 2:56 PM EDT): R/o IFG. Keep area clean and dry, use Clotrimazole BID. Periodontal disease 10/05/2023 Abnormal ECG 09/24/2023 Shortness of breath 09/16/2023 Assessment & Plan (01/14/2024 2:54 PM EDT): Currently with asthma exacerbation, r/o CHF due to uncontrolled HTN. Order BMP. Will do PFTs. Follow up in one month and consider Spiriva if continues SOB. Assessment & Plan (09/24/2023 3:30 PM EDT): Most likely related to uncontrolled HTN Order ECG Advised importance of HTN control Abnormal chest x-ray 09/16/2023 Cocaine use 04/28/2023 Assessment & Plan (05/03/2024 2:01 PM EST): See HTN above. Assessment & Plan (01/14/2024 2:57 PM EDT): Advised to continue to cute down on cocaine, I congratulated him for not using for the past 3 weeks. Made him aware of cocaine support groups that meet on Thursday afternoons. Assessment & Plan (09/24/2023 3:27 PM EDT): - Pos Utox today. - advised to cut down on cocaine use - pt tests positive for cocaine today and has agreed to be referred to job coaching Acute congestive heart failure 04/07/2023 Assessment & Plan (04/07/2023 5:11 PM EST): Has clinical sxs today, most likely due to uncontrolled HTN, unclear if he has had a recent ischemic event. Patient declined to go to ANY of the close ED for further evaluation, I explained that he may be at risk of a CV event Due to uncontrolled HTN but he adamantly declines due to previous experience of other EDs. He understood risks and signed a refusal of treatment document. I started him on Lasix 20mg/d and dc hydrochlorothiazide, he's able to identify the medication at home. He needs to get labs to see if he can be started on lisinopril again(if GFR>35), will fu lab results tomorrow. Order BNP, troponins and CXR and will treat accordingly. FU BP with RN in 1-2w, needs to fu with a PCP in 1-2m. We discussed the importance of following htn rx. Counseled to remain abstinent form nicotine. Retained dental root 01/28/2023 Localized osteoarthritis of left knee 12/16/2022 Assessment & Plan (12/16/2022 4:54 PM EDT): Take tylenol 500 mg alternated with ibuprofen 600 mg q8h prn pain + Flexeril 10mg at bedtime x 10d Refer to PT Out of work for 2 more days, fu with me or PCP if restrictions are needed. Back abscess 11/21/2022 Assessment & Plan (11/21/2022 3:41 PM EDT): Stat referral to surgery Cigarette nicotine dependence without complicati on 11/13/2022 Assessment & Plan (05/03/2024 2:05 PM EST): Prescription for nicotine gum to use PRN. FU in 1 month. Assessment & Plan (09/23/2023 1:44 PM EDT): - has not smoked for 2+ months - congratulated him and advised him to use nicotine gum PRN only HTN (hypertension) 11/13/2022 Assessment & Plan (07/04/2024 10:15 AM EST): Uncontrolled, he is noncompliant with medications. Discussed with him the importance of taking medications or lisinopril, amlodipine, hydralazine and chlorthalidone as prescribed. He will follow-up with me in 3 to 4 weeks with BP readings and medications. Advised to use CPAP every night for at least 4 hours Advised to avoid cocaine and smoking. Follow-up with me in 1 month. Assessment & Plan (05/30/2024 12:25 PM EST): BP is better controlled, not at goal yet. Pt is taking Lisinopril + Amlodipine. I told him to start Hydralazine and Chlorthalidone as prescribed (he should have them at home as they were picked up 2 weeks ago). Advised to use CPAP every night for at least 4 hours. Advised to avoid using cocaine, alcohol, or any other recreational substances. FU with me in 1 month. Assessment & Plan (05/03/2024 2:00 PM EST): Uncontrolled. Non-compliant w/meds Continue Lisinopril + HCTZ + Amlodipine daily. Counseled re low salt diet/increase moderate physical activity. Check home BP BIW and prn CP/VELEZ/PIMENTEL Advised to quit smoking. Advised to stop using cocaine, information was given to group meeting at [facility] Ramiro Freireanushka , he does not want to talk with the job coaching at this time. FU BP in 2 weeks with the nurse and 4 weeks with me. Assessment & Plan (01/14/2024 2:55 PM EDT): Uncontrolled, hydrochlorothiazide and Clonidine Continue Lisinopril 40 mg + Clonidine. Advised to stop using Cocaine and congratulated for quitting smoking. Will order ECHO due to associated PIMENTEL, r/o CHF. Follow up with me in 1 month. Assessment & Plan (09/23/2023 1:44 PM EDT): - uncontrolled. Add Clonidine 0.1 mg BID which will also help with anxiety for now - strongly encouraged to quit cocaine use - sleep study pending - Continue Lisinprol 40 mg + Lasix 20 mg per day and check BMP prior to next appointment with me - f/u in 3 weeks - advised to go to ED if he presents with chest pain, worsening SOB, weakness, change on MS, or severe headache Assessment & Plan (04/07/2023 5:13 PM EST): Uncontrolled, taking hydrochlorothiazide only. Repeated one is 166/105. Start lasix 20mg in view of bl pulmonary rales/?CHF. DC hydrochlorothiazide, may lavon to be restarted once acute SOB is improved Get BMP and restart lisinopril if GFR >35. Declined to go to ED. Assessment & Plan (11/21/2022 3:41 PM EDT): I explain to patient he needs to take both medications lisinopril and hydrochlorothiazide I advise low Na diet F/u with nurse in 2 weeks Severe dental caries 10/16/2022 Encounters Date Type Department Care Team Description 07/04/2024 3:30 PM EST Office Visit [facility] [address] [place] [address], [place] [address] Christina Chakraborty MD Acute bilateral low back pain without sciatica (Primary Dx); Generalized anxiety disorder; Primary hypertension; Chronic obstructive pulmonary disease, unspecified COPD type (CMS/HCC); Congestive heart failure, unspecified HF chronicity, unspecified heart failure type (CMS/HCC); Periodontal disease 07/04/2024 Travel 06/30/[address] [place] [address] Christina Chakraborty MD chart prep 06/22/2024 Patient Outreach [address] [place] [address] Christina Chakraborty MD Pre-visit Planning ((Unable to reach for PVP screening and or LVM)) 06/15/2024 Telephone [facility] [address] [place] [address] Edil Barragan DDS rs no show 05/30/2024 11:30 AM EST Office Visit [address] [place] [address] Christina Chakraborty MD Generalized abdominal pain (Primary Dx); LIZETH (obstructive sleep apnea); Primary hypertension; Generalized anxiety disorder; Encounter for colorectal cancer screening 05/30/2024 Travel 05/20/2024 Telephone [facility] [address] [place] [address] Edil Barragan DDS 05/18/2024 Orders Only [address] [place] [address] Christina Chakraborty MD 05/17/2024 10:30 AM EST Office Visit [facility] [address] [place], [place] [id number] Edil Barragan DDS Periodontal disease (Primary Dx); Severe dental caries 05/17/2024 9:00 AM EST Office Visit [facility] [address] [place] [address] Aleja Ricketts MD Hypertensive urgency (Primary Dx) 05/17/2024 Refill [facility] [address] [place] [phone] Jen Aguilera, JAYNE 05/16/2024 11:30 AM EST Clinical Support [address] [address] Jen Aguilera, JAYNE Primary hypertension 05/16/[address] [address] Christina Chakraborty MD July05/16/2024 Refill [facility] [address] [place] [phone] Jen Aguilera, JAYNE Primary hypertension (Primary Dx) 05/16/2024 Travel 05/04/2024 Patient Outreach [address] [address] Christina Chakraborty MD Care Coordination (CHW outreach for SDOH housing search-LVM ) 05/03/2024 10:30 AM EST Office Visit [address] [address] Christina Chakraborty MD Hypertensive urgency (Primary Dx); Primary hypertension; Cocaine use; Chronic obstructive pulmonary disease, unspecified COPD type (CMS/HCC); Cigarette nicotine dependence without complication; Housing instability; Dependence on supplemental oxygen 05/03/2024 Travel 04/20/2024 2:00 PM EST Office Visit [facility] [address] [place] [phone] Adenike Merchant Dental calculus (Primary Dx); Dental plaque 04/20/2024 Orders Only GENERIC EXTERNAL DATA DEPARTMENT Provider, Generic External Data 04/19/2024 Patient Outreach [address] [address] Christina Chakraborty MD Pre-visit Planning (SDOH screening completed on 09/23/2023) from Last 3 Months Social History Tobacco Use Types Packs/Day Years Used Date Smoking Tobacco: Some Days Cigarettes Passive Smoke Exposure: Current Smokeless Tobacco: Current Tobacco Cessation:Ready to Q uit: Not Asked; Counseling Given: Not Answered Alcohol Use Standard Drinks/Week Comments Not Currently 0 (1 standard drink = 0.6 oz pur e alcohol) Depression Answer Date Recorded Patient Health Questionnaire-9 Score 0 07/04/2024 Patient Health Questionnaire-9 Score 0 07/04/2024 Last PHQ-9: Questionnaire Data Not on file 0 07/04/2024 Housing Stability Answer Date Recorded What is your housing situation today? I have lizzeth jessu 06/18/[address] you li [...] Date Recorded Patient Health Questionnaire-2 Score 0 07/04/2024 Internet Access Answer Date Recorded Internet Access Q1 No 07/04/2024 Internet Access Q2 I do not want or need it 07/2024 Sex and Gender Information Value Date Recorded Sex Assigned at Male 11/13/2022 2:02 PM EDT Legal Sex Male 1:35 PM EDT Gender Identity Male 11/13/2022 2:03 PM EDT Sexual Orientation Choose not to disclose 2022 1:46 PM EDT Last Filed Vital Signs Vital Sign Reading Time Taken Comments Blood Pressure 160/100 07/04/2024 9:53 AM EST Pulse 97 07/04/2024 9:32 AM EST Temperature 36.7 ??C (98 ??F) 07/04/2024 9:32 AM EST Respiratory Rate 12 07/04/2024 9:32 AM EST Oxygen Saturation 99% 07/04/2024 9:32 AM EST Inhaled Oxygen Concentration - - Weight 117 kg (257 lb 3.2 oz) 07/04/2024 9:32 AM EST Height 175.3 cm (5' 9 ) 07/04/2024 9:32 AM EST Body Mass Index 37.98 07/04/2024 9:32 AM EST Plan of Treatment Upcoming Encounters Date Type Department Care Team (Late st Contact Info) Description 07/04/2024 3:30 PM EST Office Visit [facility] [address] [place] [address] Christina Chakraborty MD [address] [place] [address] Acute bilateral low back pain without sciatica (Primary Dx); Generalized anxiety disorder; Primary hypertension; Chronic obstructive pulmonary disease, unspecified COPD type (CMS/HCC); Congestive heart failure, unspecified HF chronicity, unspecified heart failure type (CMS/HCC); Periodontal disease 07/15/2024 10:15 AM EST Office Visit [facility] [address] [place] [address] Edil Barragan DDS [address] [place] [address] Health Maintenance Due Date Last Done Comments Anal Pap 1969 CT Colonography 1969 Colonoscopy 1969 Colorectal Cancer Screening 1969 FIT DNA/Cologuard 1969 FIT 1970 FOBT 1970 HIV Screening 1970 Lipid Panel 1969 Sigmoidoscopy 1969 DTaP/Tdap/Td Vaccines (1 - Tdap) 1988 Hepatitis A Vaccines (1 of 2 - Risk 2-dose series) 1988 Hepatitis B Vaccines (1 of 3 - 19+ 3-dose series) 1988 Pneumococcal Vaccine: 50+ Years (1 of 2 - PCV) 1988 Zoster Vaccines (2 of 2) 04/28/2023 03/03/2023 COVID-19 Vaccine (2023-2 5 season) 2024 Influenza Vaccine (#1) 2024 03/06/2023 Dental Oral Exam 10/19/2024 04/20/2024, 01/28/2023 Dental Prophylaxis 10/19/2024 04/20/2024 Dental X-Ray: Bitewings 04/21/2025 04/20/20 24, 01/28/2023 Alcohol/Substance Use Screening 07/04/2025 07/04/2024 Depression Screening 07/04/2025 07/04/2024, 07/04/2024 SDOH Screening 07/04/2025 07/04/2024 Tobacco Screening 07/04/2025 07/04/2024 Dental X-Ray: Full Mouth 10/05/2026 024, 01/28/2023 RSV Patients and Patients Aged 60 years or older (1 - 1-dose 75+ series) 2044 Hepatitis C Screening Completed 04/21/2023 HIB Vaccines Aged Out No longer eligi ble based on patient's age to complete this topic HPV Vaccines Aged Out No longer eligi ble based on patient's age to complete this topic IPV Vaccines Aged Out No longer eligi ble based on patient's age to complete this topic Meningococcal Vaccine Aged Out No charlie porsha eligible based on patient's age to complete this topic RSV under 20 months Aged Out No longe r eligible based on patient's age to complete this topic Rotavirus Vaccines Aged Out No longer eligible based on patient's age to complete this topic Procedures Procedure Name Priority Date/Time Associated Diagnosis Comments XR LUMBAR SPINE 2-3 VIEWS Routine 07/04/2024 10:24 AM EST Acute bilateral low back pain without sciatica ADJUNCTIVE GENERAL SERVICES - PROFESSIONAL VISITS - CASE PRESENTATION, SUBSEQUENT TO DETAILED AND EXTENSIVE TREATMENT PLANNING Routine 05/17/2024 10:30 AM EST 16 EXTRACTION, ERUPTED TOOTH OR EXPOSED ROOT (ELEVATION AND/OR FORCEPS REMOVAL) Routine 05/17/2024 10:30 AM EST DRUG TOX MONITORING AMPHETAMINES, W/CONF, U Routine 05/17/2024 9:58 AM EST Hypertensive urgency ECG 12-LEAD Routine 05/17/2024 9:48 AM EST Hypertensive urgency BASIC METABOLIC PANEL Routine 05/16/2024 1:49 PM EST Primary hypertension ECG 12-LEAD Routine 05/03/2024 2:35 PM EST Hypertensive urgency XR CHEST 2 VIEWS Routine 04/20/2024 10:5 0 PM EST B TYPE NATRIURETIC PEPTIDE (BNP) Routine 04/20/2024 9:49 PM EST MAGNESIUM Routine 04/20/2024 9:49 PM EST HIGH SENSITIVITY TROPONIN I Routine 04/20/2024 9:49 PM EST COMPREHENSIVE METABOLIC PANEL Routine 04/20/2024 9:49 PM EST CBC WITH AUTO DIFFERENTIAL Routine 04/20/2024 9:49 PM EST SARS COV2/INFLUENZA A/B AND RSV RNA QL NAAT Routine 04/20/2024 9:49 PM EST PERIODIC ORAL EVALUATION - ESTABLISHED PATIENT Routine 04/20/2024 2:00 PM EST ORAL HYGIENE INSTRUCTIONS Routine 04/20/2024 2:00 PM EST Dental calculus Dental plaque PROPHYLAXIS - ADULT Routine 04/20/2024 2 :00 PM EST Dental calculus Dental plaque ADJUNCTIVE GENERAL SERVICES - PROFESSIONAL VISITS - CASE PRESENTATION, SUBSEQUENT TO DETAILED AND EXTENSIVE TREATMENT PLANNING Routine 04/20/2024 2:00 PM EST BITEWINGS - 4 RADIOGRAPHIC IMAGES Routine 04/20/2024 2:00 PM EST PANORAMIC RADIOGRAPHIC IMAGE Routine 10/05/2023 9:15 AM EDT HEPATITIS PANEL, GENERAL Routine 04/21/2023 3:37 PM EST Right upper quadrant pain from Last 3 Months or Most Recently Relevant to Health Maintenance Results * XR Lumbar Spine 2-3 Views (07/04/2024 10:24 AM EST) Anatomical Region Laterality Modality Spine, L-spine Radiographic Kaci ging 07/04/2024 10:2 4 AM EST Narrative 07/04/2024 11:02 AM EST ?[facility] ?[address] ?[place] [address] ?XRay Report ? Signed ? Patient: Torres Madi,Ray ?MR#: ?? [id number] ? : 1970 ?Acct:[id number] ? Age/Sex: 54 / M ?ADM Date: 07/04/24 ? Loc: HO.HHCX ? Attending Dr: Christina Chakraborty MD ? Ordering Physician: Christina Chakraborty MD ?? Date of Service: 07/04/24 ?? Procedure(s): XR lumbar spine 2-3V ?? Accession Number(s): [id number] ? cc: Christina Chakraborty MD ? EXAMINATION: ?? XR LUMBOSACRAL SPINE ? CLINICAL INFORMATION: ?? LBP ? COMPARISON: ?? None available. ? TECHNIQUE: ?? Three views of the lumbosacral spine. ? FINDINGS: ?? Dextroconvex curvature apex at L4-5. ?? No acute cortical disruption or gross malalignment. No lytic or blastic ?? lesions. Questionable pseudoarthrosis of the right transverse process ?? of L5 to the sacrum. ? XR/XR lumbar spine 2-3V ?? IMPRESSION: ?? 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 ? Electronically signed by: ??Dwight Starr MD ??07/04/2024 10:59 AM ?? EST RP ? Dictated By: ?Dwight Ding MD ? Signed By: ?<Electronically signed by Dwight Mak MD in OV> ? 07/04/24 1059 ? DD/ 1024 ? TD/TT: 07/04/24 1030 ? Archer[employer] Equipment Repairer: ? Procedure Note Lino Garcia - 07/04/2024 [facility] [address] [place] [address] XRay Report Signed Patient: Lamar Valdes#: [id number] : 1970Acct:[id number] Age/Sex: 54 / MADM Date: 07/04/24 Loc: HO.HHCX Attending Dr: Christina Chakraborty MD Ordering Physician: Christina Chakraborty MD Date of Service: 07/04/24 Procedure(s): XR lumbar spine 2-3V Accession Number(s): [id number] cc: Christina Chkaraborty MD EXAMINATION: XR LUMBOSACRAL SPINE CLINICAL INFORMATION: LBP COMPARISON: None available. TECHNIQUE: Three views of the lumbosacral spine. FINDINGS: Dextroconvex curvature apex at L4-5. No acute cortical disruption or gross malalignment. No lytic or blastic lesions. Questionable pseudoarthrosis of the right transverse process of L5 to the sacrum. 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 Electronically signed by: Dwight Starr MD 07/04/2024 10:59 AM EST Dictated By: Dwight Ding MD Signed By: <Electronically signed by Dwight Mak MDin OV> 07/04/24 1059 DD/ 1024 TD/TT: 07/04/24 1030 [employer] Equipment Repairer: us Christina Chakraborty MD IMG XR PROCEDURES Final Result * Drug Toxicology Monitoring Amphetamines, with Confirmation, Urine (05/17/2024 9:58 AM EST) Amphetamine, Urine NEGATIVE [facility] Comment:REFERENCE RANGE: <25 0 ng/mLThis drug testing is for medical treatment only.Analysis was performed as non-forensic testing andthese results should be used only by healthcareproviders to render diagnosis or treatment, or tomonitor progress of medical conditions.LDT Notes:Confirmation tests were developed and their analyticalperformance characteristics have been determined by[employer] ([employer]). It has not been cleared or approvedby the FDA. This assay has been validated pursuant tothe CLIA regulations and is used for clinical purposes.Healthcare Providers needing Interpretation assistance,please contact us at [phone] ( )M- F, 8am to 10pm ESTTHIS TEST PERFORMED AT:[employer] [address] [phone] DIRECTOR: DARRICK VILLATORO MD Methamphetamine, Urine NEGATIVE [facility] Comment:REFERENCE RANGE: <25 0 ng/mLThis drug testing is for medical treatment only.Analysis was performed as non-forensic testing andthese results should be used only by healthcareproviders to render diagnosis or treatment, or tomonitor progress of medical conditions.LDT Notes:Confirmation tests were developed and their analyticalperformance characteristics have been determined by[employer] ([employer]). It has not been cleared or approvedby the FDA. This assay has been validated pursuant tothe CLIA regulations and is used for clinical purposes.Healthcare Providers needing Interpretation assistance,please contact us at [phone] ( )M- F, 8am to 10pm EST Urine (Urine, Random) 05/17/2024 9:58 AM EST 05/17/2024 11:19 AM EST Aleja Ricketts MD LAB URINE ORDERABLES Final Resul t [facility] [address] [place] [phone] * ECG 12 lead (05/17/2024 9:48 AM EST) Only the most recent of2 resultswithin the time period is included. Narrative Aleja Ricketts MD - 05/17/2024 9:48 AM EST Mild tachycardia No acute process us Aleja Ricketts MD ECG ORDERABLES Final Result * (ABNORMAL) Basic Metabolic Panel (05/16/2024 1:49 PM EST) Sodium 140 135 - 145 mmol/L [facility] Potassium 3.8 3.3 - 5.1 mmol/L [facility] Chloride 99 96 - 108 mmol/L [facility] Carbon Dioxide 31(H) 22 - 29 mmol/L [facility] Anion Gap 14 12 - 20 [facility] Urea Nitrogen (BUN) 18(H) 9 - 16 mg/dL [facility] Creatinine, Serum 1.11 0.5 - 1.4 mg/dL [facility] Estimated Glomerular Filt Rate >60 [facility] Comment:Chronic Kidney Disea se: Estimated GFR < 60 mL/min/1.49q5Wdwotk Kidney Disease: Estimated GFR < 15 mL/min/1.73m2 Glucose 141(H) 60 - 115 mg/dL [facility] Calcium 10.0 8.4 - 10.2 mg/dL [facility] Blood Venous blood specimen / Unknown 05/16/2024 1:49 PM EST 05/16/2024 4:23 PM EST Christina Chakraborty MD LAB BLOOD ORDERABLES Fin al Result [facility] [address] [place] [phone] * XR Chest 2 Views (04/20/2024 10:50 PM EST) Anatomical Region Laterality Modality Chest Radiographic Kaci ging 04/20/2024 10:5 0 PM EST Narrative 04/21/2024 12:32 AM EST ? [facility] ?[address] ?[place] [address] ?XRay Report ? Signed ? Patient: Torres Madi,Ray ?MR#: ?? [id number] ? : 1970 ?Acct:[id number] ? Age/Sex: 53 / M ?ADM Date: 11/20/24 ? Loc: HO.ED ? Attending Dr: ? Ordering Physician: Amish Jackson MD ?? Date of Service: 04/20/24 ?? Procedure(s): XR chest 2V ?? Accession Number(s): [id number] ? cc: Christina Chakraborty MD; Amish Jackson MD ? EXAMINATION: ?? XR CHEST 2 VIEWS ? CLINICAL INFORMATION: ?? SOB. ? COMPARISON: ?? XR Chest 03/02/2024. ? TECHNIQUE: ?? 2 views of the chest were obtained. ? FINDINGS: ?? Normal appearance of the cardiomediastinal structures. No effusions or ?? pneumothoraces. No focal pulmonary consolidation. Central peribronchial ?? wall thickening. Minimal multilevel anterior endplate osteophytosis of ?? the thoracic spine. Mild aortic calcific atherosclerosis. ? XR/XR chest 2V ?? IMPRESSION: ?? *Central peribronchial wall thickening which may represent the chronic ?? sequela of asthma and/or acute bronchitis. No focal pulmonary ?? consolidation. ? Electronically signed by: ??Mani Aj MD ??04/21/2024 12:29 AM EST RP ? Dictated By: ?Mani Aj MD ? Signed By: ?<Electronically signed by Mani Aj MD in OV> ? 04/21/24 0029 ? DD/ ? TD/TT: 04/20/242257 ? Archery Equipment Repairer: EF ? Procedure Note Lino Garcia - 04/21/[address] [address] XRay Report Signed Patient: Brigid ValdesR#: [id number] : 1970Acct:[id number] Age/Sex: 53 / MADM Date: 04/20/24 Loc: HO.ED Attending Dr: Ordering Physician: Amish Jackson MD Date of Service: 04/20/24 Procedure(s): XR chest 2V Accession Number(s): [id number] cc: Christina Chakraborty MD; Amish Jackson MD EXAMINATION: XR CHEST 2 VIEWS CLINICAL INFORMATION: SOB. COMPARISON: XR Chest 03/02/2024. TECHNIQUE: 2 views of the chest were obtained. FINDINGS: Normal appearance of the cardiomediastinal structures. No effusions or pneumothoraces. No focal pulmonary consolidation. Central peribronchial wall thickening. Minimal multilevel anterior endplate osteophytosis of the thoracic spine. Mild aortic calcific atherosclerosis. XR/XR chest 2V IMPRESSION: *Central peribronchial wall thickening which may represent the chronic sequela of asthma and/or acute bronchitis. No focal pulmonary consolidation. Electronically signed by: Mani Aj MD 04/21/2024 12:29 AM EST Dictated By: Mani Aj MD Signed By: <Electronically signed by Mani Aj MD in OV> 04/21/24 0029 DD/ 49 TD/TT: 04/20/242257 Archer[employer] Equipment Repairer: [facility] External Provider IMG XR PROCEDURES Edited Result - Final * High Sensitivity Troponin I (04/20/2024 9:49 PM EST) Pathologist [facility] TROPONIN I HIGH SENSITIVITY 5.6 <3.5 - 35.0 ng/L [facility] Comment:The Cobb high sens itivity Troponin-I results should beused in conjunction with other diagnostic information suchas ECG, clinical observations and information, and patientsymptoms to aid in the diagnosis of [place]. 04/20/2024 9:49 PM EST 04/20/2024 9:52 PM EST Generic External Data Provider LAB BLOOD ORDERAB LES Final Result [facility] [address] [place] [phone] * (ABNORMAL) SARS-CoV-2 RNA, Influenza A/B, and RSV RNA, Ql NAAT (04/20/2024 9:49 PM EST) Pathologist [facility] Influenza A PCR NEGATIVE Negative [facility] Influenza B PCR NEGATIVE Negative [facility] Resp Syncy Virus RNA Qual PCR NEGATIVE Negative [facility] SARS COV2 PCR POSITIVE(A) Negative [facility] Comment:All test results mus t be correlated with clinical findings.Negative results do not preclude SARS-CoV2, influenza Avirus, influenza B virus and/or RSV infectionand should not be used as the sole basis for treatment orother patient management decisions. Negative results must becombined with clinical observations, patient history, andepidemiological information.This test has not been evaluated for monitoring treatment ofinfection.This test has been authorized by the FDA under an EmergencyUse Authorization (EUA) for use by authorized laboratories.Testing performed on the [employer] GeneXpert utilizingreal-time RT-PCR.All SARS CoV2 and positive influenza A/B results arereported to [facility]. 04/20/2024 9:49 PM EST 04/20/2024 9:52 PM EST us Generic External Data Provider LAB MICROBIOLOGY - GENERAL ORDERABLES Final Result [facility] [address] [place] [address] [phone] * (ABNORMAL) CBC auto differential (04/20/2024 9:49 PM EST) White Blood Count 8.8 4.8 - 10.8 X10*3/uL [facility] Red Blood Count 5.26 4.60 - 5.80 X10*6/uL [facility] Hemoglobin 14.5 14.0 - 18.0 g/dl [facility] Hematocrit 43.7 42.0 - 52.0 % [facility] Mean Corpuscular Volume 83.1 80.0 - 98.0 fL [facility] Mean Corpuscular Hemoglobin 27.6 27.0 - 33.0 pg [facility] Mean Corpuscular HGB Conc 33.2 31.0 - 36.0 g/dl [facility] Red Cell Distribution Width 13.8 11.0 - 16.0 % [facility] Platelet Count 296 160 - 400 X10*3/uL [facility] Mean Platelet Volume 9.7 9.4 - 12.4 fL [facility] Neutrophils Percent Auto 80.3(H) 45 - 73 % [facility] Imm Gran Pct Auto 0.2 0.0 - 0.4 % [facility] Lymphocytes Percent Auto 7.2(L) 20 - 40 % [facility] Monocytes Percent Auto 9.7 2 - 11 % [facility] Eosinophils Percent Auto 2.3 0 - 4 % [facility] Basophils Percent Auto 0.3 0 - 2 % [facility] NRBC Pct Auto 0.0 0.0 - 0.2 /100WBC [facility] Neutrophils Absolute Auto 7.1 2.0 - 8.3 x10*3/uL [facility] Imm Gran Abs Auto 0.02 0.00 - 0.03 X10*3/uL [facility] Lymphocytes Absolute Auto 0.6(L) 1.2 - 4.9 X10*3/uL [facility] Monocytes Absolute Auto 0.9 0.1 - 1.2 X10*3/uL [facility] Eosinophils Absolute Auto 0.2 0.0 - 0.4 X10*3/uL [facility] Basophils Absolute Auto 0.0 0.0 - 0.2 X10*3/uL [facility] NRBC Abs Auto 0.000 0.0 - 0.012 X10*3/uL [facility] 04/20/2024 9:49 PM EST 04/20/2024 9:52 PM EST us [employer] External Data Provider LAB BLOOD ORDERAB LES Final Result Performing Organization Address [facility] Co de Phone Number [facility] [address] [place] [phone] * B Type Natriuretic Peptide (BNP) (04/20/2024 9:49 PM EST) B Type Natriuretic Peptide 46 <100 pg/mL [facility] Comment:For those patients w ho are being treated with Natrecor(nesiritide, recombinant BNP), BNP testing should beperformed at least two hours post treatment in order toensure that only endogenous levels of BNP are detected. 04/20/2024 9:49 PM EST 04/20/2024 10:35 PM EST us Generic External Data Provider LAB BLOOD ORDERAB LES Final Result [facility] [address] [place] [address] [phone] * Magnesium (04/20/2024 9:49 PM EST) Magnesium 1.8 1.6 - 2.6 mg/dL [facility] 04/20/2024 9:49 PM EST 04/20/2024 9:52 PM EST us Generic External Data Provider LAB BLOOD ORDERAB LES Final Result [facility] [address] [place] [phone] * (ABNORMAL) Comprehensive Metabolic Panel (04/20/2024 9:49 PM EST) Pathologist [facility] Sodium 140 135 - 145 mmol/L [facility] Potassium 4.0 3.3 - 5.1 mmol/L [facility] Chloride 101 96 - 108 mmol/L [facility] Carbon Dioxide 26 22 - 29 mmol/L [facility] Anion Gap 17 12 - 20 [facility] Urea Nitrogen (BUN) 16 9 - 16 mg/dL [facility] Creatinine, Serum 0.88 0.5 - 1.4 mg/dL [facility] Creatinine Clr Calc Pharmacy 119.4 [facility] Comment:eGFR (calculated fro m the MDRD study equation) and eCrCl(calculated from the Cockcroft-Gault equation) are based ondifferent parameters and may not yield comparable results.If eCrCl result is absurd, please check patient'sheight/weight. Estimated Glomerular Filt Rate >60 [facility] Comment:Chronic Kidney Disea se: Estimated GFR < 60 mL/min/1.19e9Ivsnzz Kidney Disease: Estimated GFR < 15 mL/min/1.73m2 Glucose 138(H) 60 - 115 mg/dL [facility] Calcium 9.1 8.4 - 10.2 mg/dL [facility] Bilirubin, Total 0.2 0.0 - 1.0 mg/dL [facility] Aspartate Amino Transferase 24 5 - 37 U/L [facility] Alanine Aminotransferase 25 0 - 40 U/L [facility] Total Protein 7.2 6.5 - 8.0 g/dL [facility] Albumin Level 4.2 3.5 - 5.0 g/dL [facility] Alkaline Phosphatase 118(H) 39 - 117 U/L [facility] 04/20/2024 9:49 PM EST 04/20/2024 9:52 PM EST us Generic External Data Provider LAB BLOOD ORDERAB LES Final Result Performing Organization Address [facility]/ZIP Co de Phone Number [facility] [address], [place] [phone] * Hepatitis A,B,C Profile (04/21/2023 3:37 PM EST) Hepatitis A IgM Nonreactive Nonreactive [facility] Comment:IgM antibodies to VELEZ V not detected; does not exclude earlyacute or recovered HAV infection. ~Hepatitis B Surface Antibody NONREACTIVE Nonreactive [facility] Comment:Nonreactive: < 8.00 mIU/mL Hepatitis B Core Antibody Nonreactive Nonreactive [facility] Hepatitis C Antibody Nonreactive Nonreactive [facility] Comment:Antibodies to HCV no t detected; does not exclude early acuteHCV infection. Blood Venous blood specimen / Unknown 04/21/2023 3:37 PM EST 04/21/2023 4:01 PM EST us Romi Toribio RESTAURANT MANAGER LAB BLOOD ORDERABLES Final Resu lt [facility] [address] [place] [phone] from Last 3 Months or Most Recently Relevant to Health Maintenance Insurance [facility] C3 HSN FULL DENTAL-[facility] MEDICAID STAND ADULT Care Teams Waiter/Waitress Relationship Specialty Start Date End Date Christina Chakraborty MD [address] [place] [address] PCP - General Internal Medicine 10/15/23
--- OUTSIDE RECORDS SUMMARY | 2024-07-04 11:14 | XMS_ITS | Encounter Summary ---
Author Organization [employer] Address [address] [facility] [address] [place] [address] Care Team Providers Care Boiler Fitter Name Role Phone Christina Chakraborty MD Primary Care Provider + Reason for Visit * Reason Onset Date Comments chart prep 06/30/2024 Encounter Details Date Type Department Care Team ([facility] st Contact Info) Description 06/30/2024 Telephone [facility] [address] [place], [place] [phone] Christina Chakraborty MD [address] [place], [place] [phone] chart prep Social History Tobacco Use Types Packs/Day Years [...] encounter Miscellaneous Notes * Telephone Encounter - Tressa Landon [place] - 06/30/2024 2:39 PM EST Chart Prep Labs: done Images: US appt pending Vaccines due: yes Referrals: pending appt Screenings: colonoscopy Overdue care gaps: Sbirt, SDOH, PHQ-9, Oral Health documented in this encounter Plan of Treatment Upcoming Encounters Date Type Department Care Team (Late st Contact Info) Description 07/04/2024 3:30 PM EST Office Visit [facility] [address] [place] [phone] Christina Chakraborty MD [address] [place] [address] Acute bilateral low back pain without sciatica (Primary Dx); Generalized anxiety disorder; Primary hypertension; Chronic obstructive pulmonary disease, unspecified COPD type (CMS/HCC); Congestive heart failure, unspecified HF chronicity, unspecified heart failure type (CMS/HCC); Periodontal disease 07/15/2024 10:15 AM EST Office Visit [facility] [address] [place], [place] [phone] Edil Barragan DDS [address] [place] [address] documented as of this encounter Visit Diagnoses Not on filedocumented in this encounter Additional Health Concerns Assessment Noted Time PHQ-9 Depression Total Score: 6 09/23/19 11:46 AM EDT documented as of this encounter Care Teams Boiler Fitter Relationship Specialty Start Date End Date Christina Chakraborty MD [address] [place] [phone] PCP - General Internal Medicine 10/15/23 documented as of this encounter
--- OUTSIDE RECORDS SUMMARY | 2024-07-04 11:14 | XMS_ITS | Encounter Summary ---
Author Organization [employer] Address [address] [facility] [address] [place] [address] Care Team Providers Care Accordion Maker Name Role Phone Christina Chakraborty MD Primary Care Provider + Encounter Details Date Type Department Care Team (Latest Contact Info) Description 07/04/2024 Travel Social History Tobacco Use Types Packs/Day Years Used Date Smoking Tobacco: Some Days Cigarettes Passive Smoke Exposure: Current Smokeless Tobacco: Current Alcohol Use Standard Drinks/Week Comments Not Currently 0 (1 standard drink = 0.6 oz pur e alcohol) Depression Answer Date Recorded Patient Health Questionnaire-9 Score 0 07/04/2024 Patient Health Questionnaire-9 Score 0 07/04/2024 Last PHQ-9: Questionnaire Data Not on file 0 07/04/2024 Housing Stability Answer Date Recorded What is your housing situation today? I have lizzeth ann marie 06/18/[address] you li [...] Description 07/04/2024 3:30 PM EST Office Visit [facility] [address] [place] [address] Christina Charkaborty MD [address] [place] [address] Acute bilateral low back pain without sciatica (Primary Dx); Generalized anxiety disorder; Primary hypertension; Chronic obstructive pulmonary disease, unspecified COPD type (CMS/HCC); Congestive heart failure, unspecified HF chronicity, unspecified heart failure type (CMS/HCC); Periodontal disease 07/15/2024 10:15 AM EST Office Visit [facility] [address] [place], [place] [phone] Edil Barragan DDS [address] [place], [place] [phone] documented as of this encounter Visit Diagnoses Not on filedocumented in this encounter Additional Health Concerns Assessment Noted Time PHQ-9 Depression Total Score: 0 07/04/19 25 9:35 AM EST documented as of this encounter Care Teams Accordion Maker Relationship Specialty Start Date End Date Christina Chakraborty MD [address] [place] [phone] PCP - General Internal Medicine 10/15/23 documented as of this encounter
--- OUTSIDE RECORDS SUMMARY | 2024-07-04 11:14 | XMS_ITS | Encounter Summary ---
Author Organization [employer] Address [address] [facility] [address] [place] [address] Care Team Providers Care Guide Travel Name Role Phone Christina Chakraborty MD Primary Care Provider + Reason for Referral * Consultation (Routine) - Authorized Specialty Diagnoses / Procedures Referred By Cady andersen Referred To Contact Behavioral Health Diagnoses Generalized anxiety disorder Christina Chakraborty MD [address] [place] [address] Phone: tel: fax: Referral ID Status Reason Start Date Expiration Date Visits Requested Visits Authorized [id number] Authorized Specialty Services Required 07/04/2024 07/04/2025 1 1 * PFT (Routine) - Authorized Specialty Diagnoses / Procedures Referred By Cady andersen Referred To Contact Diagnoses Chronic obstructive pulmonary disease, unspecified COPD type ([facility]/HCC) Procedures Pulmonary Function Test Christina Chakraborty MD [address] [place] [address] Phone: tel: fax: [address] Phone: tel: fax: Referral ID Status Reason Start Date Expiration Date V isits Requested Visits Authorized [id number] Authorized 07/04/2024 07/04/2025 1 1 Encounter Details Date Type Department Care Team (Late st Contact Info) Description 07/04/2024 3:30 PM EST Office Visit [facility] [address] [place] [address] Christina Chakraborty MD [address] [place] [address] Acute bilateral low back pain without sciatica (Primary Dx); Generalized anxiety disorder; Primary hypertension; Chronic obstructive pulmonary disease, unspecified COPD type (CMS/HCC); Congestive heart failure, unspecified HF chronicity, unspecified heart failure type (CMS/HCC); Periodontal disease Social History Tobacco Use Types Packs/Day Years [...] PM EDT documented as of this encounter Last Filed Vital Signs Vital Sign Reading [...] Mass Index 37.98 07/04/2024 9:32 AM EST documented in this encounter Miscellaneous Notes * Assessment & Plan Note - Christina Chakraborty MD - 07/04/2024 10:15 AM EST Associated Problem(s): Acute bilateral low back pain without sciatica 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 I gave him prescription for Tylenol and diclofenac gel and he will take Flexeril nightly. Declined referral to PT Order x-ray L spine Advise regarding weight reduction increase physical activity and quit smoking. Follow-up with me in 4 weeks, he will call back as needed if he agrees to be referred to PT * Assessment & Plan Note - Christina Chakraborty MD - 07/04/2024 10:15 AM EST Associated Problem(s): HTN (hypertension) Uncontrolled, he is noncompliant with medications. Discussed with him the importance of taking medications or lisinopril, amlodipine, hydralazine and chlorthalidone as prescribed. He will follow-up with me in 3 to 4 weeks with BP readings and medications. Advised to use CPAP every night for at least 4 hours Advised to avoid cocaine and smoking. Follow-up with me in 1 month. * Assessment & Plan Note - Christina Chakraborty MD - 07/04/2024 10:14 AM EST Associated Problem(s): Congestive heart failure (CMS/HCC) Unclear if orthopnea/overnight shortness of breath is related to CHF versus COPD. Follow-up echocardiogram results Discussed with him the importance of quitting smoking and tight control of hypertension Advised to use CPAP every night. * Assessment & Plan Note - Christina Chakraborty MD - 07/04/2024 10:13 AM EST Associated Problem(s): Chronic obstructive pulmonary disease (CMS/HCC) Advised to quit smoking. Continue Breo twice [...] with me in 4 to 6 weeks documented in this encounter Plan of Treatment Upcoming Encounters Date Type Department Care Team (Late st Contact Info) Description 07/15/2024 10:15 AM EST Office Visit [facility] [address] [place] [address] Edil Barragan DDS [address] [place] [address] Scheduled Orders Name Type Priority Associated Diagnoses Orde r Schedule Pulmonary Function Test PFT Routine Chronic obstructive pulmonary disease, unspecified COPD type (CMS/HCC) Expected: 07/04/2024 (Approximate), Expires: 01/01/2025 Scheduled Referrals Name Type Priority Associated Diagnoses Order Schedule Referral to Behavioral Health Outpatient Referral Routine Generalized anxiety disorder Expected: 07/04/2024 (Approximate), Expires: 07/04/2025 documented as of this encounter Procedures Procedure Name Priority Date/Time Associated Diagnosis Comments XR LUMBAR SPINE 2-3 VIEWS Routine 07/04/2024 10:24 AM EST Acute bilateral low back pain without sciatica documented in this encounter Results * XR Lumbar Spine 2-3 Views (07/04/2024 10:24 AM EST) Anatomical Region Laterality Modality Spine, L-spine Radiographic Kaci ging 07/04/2024 10:2 4 AM EST Narrative 07/04/2024 11:02 AM EST ?[facility] ?[address] ?[place] [address] ?XRay Report ? Signed ? Patient: Ray Valdes ?MR#: ?? [id number] ? : 1970 ?Acct:[id number] ? Age/Sex: 54 / M ?ADM Date: 07/04/24 ? Loc: HO.HHCX ? Attending Dr: Christina Chakraborty MD ? Ordering Physician: Christina Chakraborty MD ?? Date of Service: 07/04/24 ?? Procedure(s): XR lumbar spine 2-3V ?? Accession Number(s): [id number] ? cc: Christina Chakraborty MD ? EXAMINATION: [...] 07/04/24 1059 ? DD/ 1024 ? TD/TT: 07/04/240 ? Kick Press Setter: ? Procedure Note Donotuseinterpreter, Image - 07/04/[address] [address] XRay Report Signed Patient: Lamar Valdes#: [id number] : 1970Acct:[id number] Age/Sex: 54 / MADM Date: 07/04/24 Loc: HO.HHCX Attending Dr: Christina Chakraborty MD Ordering Physician: Christina Chakraborty MD Date of Service: 07/04/24 Procedure(s): XR lumbar spine 2-3V Accession Number(s): [id number] cc: Christina Chakraborty MD EXAMINATION: XR LUMBOSACRAL SPINE CLINICAL INFORMATION: [...] 07/04/24 1059 DD/ 1024 TD/TT: 07/04/24 1030 Kick Press Setter: Christina Chakraborty MD IMG XR PROCEDURES Final Result documented in this encounter Visit Diagnoses Diagnosis Acute bilateral low back pain without sciatica- Primary Generalized anxiety disorder Primary hypertension Unspecified essential hypertension Chronic obstructive pulmonary disease, unspecified COPD type (CMS/HCC) Congestive heart failure, unspecified HF chronicity, unspecified heart failure type (CMS/HCC) Periodontal disease Unspecified gingival and periodontal disease documented in this encounter Additional Health Concerns Assessment Noted Time PHQ-9 Depression Total Score: 0 02/03/20 25 9:35 AM EST documented as of this encounter Care Teams Guide Travel Relationship Specialty Start Date End Date Christina Chakraborty MD [address] [place] [phone] PCP - General Internal Medicine 10/15/23 documented as of this encounter
== END 2024-07-04 10:24 | disposition home or self-care (01) ==
LOC: HO.HHCX 10:23
PROVIDERS: Visit Provider Internal Medicine
DX: M54.50 Low back pain, unspecified (principal)
CPT/HCPCS: 72100

== ENCOUNTER → 2024-07-04 10:24 | Outpatient (BNV) | payer MEDICAID, SELFPAY | PROVIDERS: Visit Provider Radiology Diagnostic Radiology | DX: M41.86 Other forms of scoliosis, lumbar region (principal) | CPT/HCPCS: 72100 ==

== ENCOUNTER 2024-10-05 14:32 | Outpatient (REF) | payer MEDICAID, SELFPAY ==
--- NOTE | 2024-10-05 14:47 | PFT_ITS ---
Indication: COPD Spirometry [FEV1 to FVC 63%; FEV1 2.55 L; FVC 4.08 L. No significant response to bronchodilators noted.] Lung Volumes [Total lung capacity 85% predicted; expiratory reserve volume 37% predicted] Diffusion Capacity [DLCO 66% predicted] Comparisons [none] Interpretation [There is an obstructive ventilatory defect consistent with moderate COPD. No significant response to bronchodilators noted. Lung volumes are normal except for decrease in the expiratory reserve volume secondary to likely an elevated BMI. Patient does have a mild diffusion impairment. Clinical correlation warranted.] MTDD
[2024-10-05 15:26] VITALS: PULSE 81; O2SAT 95
--- OUTSIDE RECORDS SUMMARY | 2024-10-05 15:41 | XMS_ITS | Encounter Summary ---
Author Organization [facility] Address [address] [facility] 7t [place] [address] Care Team Providers Care Abstractor Name Role Phone Christina Chakraborty MD Primary Care Provider + Reason for Visit * Reason Comments Med Refill Encounter Details Date Type Department Care Team (Late st Contact Info) Description 02/10/2023 Refill [facility] [address] [place], [place] [phone] Jonathan Patel MD [address] [place] [address] Social History Tobacco Use Types Packs/Day Years [...] Care Team (Late st Contact Info) Description 11/21/2024 10:30 AM EDT Office Visit [facility] [address] [place] [address] Edil Barragan DDS [address] [place], [place] [phone] 02/27/2025 1:00 PM EDT Office Visit [facility] [address] [place] [address] Adenike Merchant documented as of this encounter Visit Diagnoses Not on filedocumented in this encounter Care Teams Abstractor Relationship Specialty Start Date End Date Christina Chakraborty MD [address] [place] [phone] PCP - General Internal Medicine 10/15/23 documented as of this encounter
--- OUTSIDE RECORDS SUMMARY | 2024-10-05 15:41 | XMS_ITS | Encounter Summary ---
Author Organization [employer] Address [address] [facility] 7[address] [place] [address] Care Team Providers Care Passenger Tire Builder Name Role Phone Christina Chakraborty MD Primary Care Provider + Reason for Visit * Reason Onset Date Comments New Patient Appt 01/01/2023 Encounter Details Date Type Department Care Team (Late st Contact Info) Description 01/01/2023 Telephone [facility] [address] [place] [address] Keanu Patricio MD [address] [place] [address] New Patient Appt Social History Tobacco Use [...] PM EDT Tc to pt, to offer LAY OUT WORKER appt, no answer due to pt phone not accepting any calls at this time . Auto Collision Repair Instructor could not leave voice mail. documented in this encounter Plan of Treatment Upcoming Encounters Date Type Department Care Team (Late st Contact Info) Description 11/21/2024 10:30 AM EDT Office Visit [facility] [address] [place] [address] Edil Barragan DDS [address] [place], [place] [phone] 02/27/2025 1:00 PM EDT Office Visit [facility] [address] [place], [place] [phone] Adenike Merchant documented as of this encounter Visit Diagnoses Not on filedocumented in this encounter Care Teams Passenger Tire Builder Relationship Specialty Start Date End Date Christina Chakraborty MD [address] [place], [place] [phone] PCP - General Internal Medicine 10/15/23 documented as of this encounter
--- OUTSIDE RECORDS SUMMARY | 2024-10-05 15:42 | XMS_ITS | Clinical Summary ---
Author Organization [employer] Address [address] [facility] 7t [place] [address] Care Team Providers Care Packaging Manager Name Role Phone Christina Chakraborty MD Primary Care Provider + Allergies No known active allergies Medications * This document contains information received from the source organization and may not represent a complete record from that organization. hydrOXYzine pamoate (Vistaril) 25 MG capsule Take 1 capsule (25 mg) by mouth every 8 (eight) hours if needed for itching or anxiety. 30 capsule 05/03/20 24 Active amLODIPine (Norvasc) 10 MG tablet Take 1 tablet (10 mg) by mouth Once per day. 90 tablet 1 05/03/20 24 Active lisinopril 40 MG tablet Take 1 tablet (40 mg) by mouth Once per day. 90 tablet 1 05/03/20 24 025 Active chlorthalidone (Hygroton) 50 MG tablet Take 1 tablet (50 mg) by mouth Once per day. 30 tablet 05/16/20 24 025 Active hydrALAZINE (Apresoline) 10 MG tablet Take 1 tablet (10 mg) by mouth 2 times daily. 60 tablet 05/17/20 24 025 Active budesonide-for moterol (Symbicort) 160-4.5 MCG/ACT inhaler Inhale 2 puffs in the morning and at bedtime. Rinse mouth with water after use to reduce aftertaste and incidence of candidiasis. Do not swallow. 1 each 05/19/20 24 025 Active nicotine polacrilex (Nicotine Mini) 4 MG lozenge Dissolve 1 lozenge (4 mg) in the mouth every 2 (two) hours if needed for smoking cessation. 100 lozenge 07/04/19 25 Active Diclofenac Sodium 1 % gelIndications :Acute bilateral low back pain without sciatica Apply to the affected area BID prn for pain 50 g 3 07/04/19 25 Active DULoxetine (Cymbalta) [address] capsule Take 1 capsule (60 mg) by mouth Once per day. Do not crush or chew. 90 capsule 3 07/04/19 25 026 Active cyclobenzaprin e (Flexeril) 10 MG tablet Take 1 tablet (10 mg) by mouth at bedtime for 10 days. 10 tablet 07/04/19 25 Active acetaminophen (Tylenol 8 Hour) 650 MG ER tablet Take 1 tablet (650 mg) by mouth every 8 (eight) hours if needed for mild pain. Do not crush, chew, or split. 30 tablet 10/04/19 25 Active amoxicillin (Amoxil) 500 MG capsule Take 1 capsule (500 mg) by mouth every 8 (eight) hours for 7 days. 21 capsule 10/04/19 25 025 Active Blood Pressure kit 1 each 2 times daily. 1 kit 09/23/19 24 025 acetaminophen (Tylenol) 500 MG tabletIndicati ons:Acute bilateral low back pain without sciatica Take 1 tablet (500 mg) by mouth every 6 (six) hours if needed for mild pain for up to 20 doses. 20 tablet 07/04/19 25 025 Discontinued Active Problems Problem Noted Date Diagnosed Date Dental calculus 08/18/2024 Bone loss 08/18/2024 Acute bilateral low back pain without sciatica [...] Generalized anxiety disorder 05/30/2024 Assessment & Plan (07/04/2024 11:59 AM EST): Tolerates duloxetine well, will increase to 60 mg daily and referred to counseling. Discussed with patient importance of avoiding recreational substances including cocaine and alcohol. He feels safe at home, he can reach out for safety to his female partner and he has crisis number. Follow-up with me in 6 weeks Advised him to avoid medications that are not prescribed for him including benzodiazepines. Assessment & Plan (05/30/2024 12:26 PM EST): [...] least 4 hours every night. FU with Carder Blankets. Assessment & Plan (01/14/2024 2:52 PM EDT): [...] and has agreed to be referred to recovery specialist Acute congestive heart failure 04/07/2023 Assessment & [...] information was given to group meeting at [facility] Ramiro Kamille , he does not want to talk with the recovery specialist at this time. FU BP in 2 [...] 2 weeks Severe dental caries 10/16/2022 Encounters * This document contains information received from the source organization and may not represent a complete record from that organization. Date Type Department Care Team Description 10/03/2024 2:30 PM EDT Office Visit [facility] [address] [place] [address] Edil Barragan DDS Retained dental root (Primary Dx) 09/01/[address] [address] Christina Chakraborty MD No Show 08/30/[address] [address] Christina Chakraborty MD Chart prep 08/23/2024 10:00 AM EDT Office Visit [facility] [address] [place] [address] [place] Dental calculus (Primary Dx); Dental plaque; Periodontal disease 08/23/2024 Patient Outreach [address] [address] Christina Chakraborty MD Pre-visit Planning ((Unable to reach for PVP screening, LVM)) 08/18/2024 1:30 PM EDT Office Visit [facility] [address] [place] [address] Edil Barragan DDS Dental plaque (Primary Dx); Dental calculus; Bone loss; Severe dental caries 08/12/2024 Population Health Risk Score [facility] () Department [address] [place] [phone] Provider, Population Health Generic from Last 3 Months Social History Tobacco [...] Sign Reading Time Taken Comments Blood Pressure 136/86 10/03/2024 2:04 PM EDT Pulse 70 10/03/2024 2:04 PM EDT Temperature 36.7 ??C (98 ??F) 07/04/2024 9:32 [...] Description 11/21/2024 10:30 AM EDT Office Visit [facility] [address] [place] [address] Edil Barragan, DDS [address] [place], [place] [phone] 02/27/2025 1:00 PM EDT Office Visit [facility] [address] [place] [address] Adenike Merchant Health Maintenance Due Date Last Done Comments [...] (2 of 2) 04/28/2023 03/03/2023 COVID-19 Vaccine (1 - 2023-2 5 season) 2024 Influenza Vaccine (#1) 2024 03/06/2023 Dental Oral Exam 10/19/2024 04/20/2024, 01/28/2023 Dental Prophylaxis 10/19/2024 04/20/2024 Dental X-Ray: Bitewings 04/21/2025 04/20/20 24, 01/28/2023 Alcohol/Substance Use Screening 07/04/2025 07/04/2024 Depression Screening 07/04/2025 07/04/2024, 07/04/2024 SDOH Screening 07/04/2025 07/04/2024 Tobacco Screening 10/03/2025 10/03/2024 Dental X-Ray: Full Mouth 10/05/2026 024, 01/28/2023 [...] Procedure Name Priority Date/Time Associated Diagnosis Comments CASE PRESENTATION, DETAILED AND EXTENSIVE TREATMENT PLANNING Routine 10/03/2024 2:30 PM EDT 30 EXTRACTION, ERUPTED TOOTH OR EXPOSED ROOT (ELEVATION/FORCEPS REMOVAL) Routine 10/03/2024 2:30 PM EDT 29 EXTRACTION, ERUPTED TOOTH OR EXPOSED ROOT (ELEVATION/FORCEPS REMOVAL) Routine 10/03/2024 2:30 PM EDT UL PERIODONTAL SCALING AND ROOT PLANING - 1 TO 3 TEETH PER QUADRANT Routine 08/23/2024 10:00 AM EDT Dental calculus Dental plaque Periodontal disease ORAL HYGIENE INSTRUCTIONS Routine 08/23/2024 10:00 AM EDT Dental calculus Dental plaque Periodontal disease CASE PRESENTATION, DETAILED AND EXTENSIVE TREATMENT PLANNING Routine 08/23/2024 10:00 AM EDT LL PERIODONTAL SCALING AND ROOT PLANING - 4 OR MORE TEETH PER QUADRANT Routine 08/23/2024 10:00 AM EDT Dental calculus Dental plaque Periodontal disease CASE PRESENTATION, DETAILED AND EXTENSIVE TREATMENT PLANNING Routine 08/18/2024 1:30 PM EDT LIMITED ORAL EVALUATION - PROBLEM FOCUSED Routine 08/18/2024 1:30 PM EDT PROPHYLAXIS - ADULT Routine 04/20/2024 2 :00 PM EST Dental calculus Dental plaque BITEWINGS - 4 RADIOGRAPHIC IMAGES Routine 04/20/2024 2:00 PM EST PERIODIC ORAL EVALUATION - ESTABLISHED PATIENT Routine 04/20/2024 2:00 PM EST PANORAMIC RADIOGRAPHIC IMAGE Routine 10/05/2023 9:15 AM EDT HEPATITIS PANEL, GENERAL Routine 04/21/2023 3:37 PM EST Right upper quadrant pain from Last 3 Months or Most Recently Relevant to Health Maintenance Results * Hepatitis A,B,C Profile (04/21/2023 3:37 PM EST) Hepatitis A IgM Nonreactive Nonreactive [facility] Comment:IgM antibodies to VELEZ V not detected; does not exclude earlyacute or recovered HAV infection. ~Hepatitis B Surface Antibody NONREACTIVE Nonreactive [facility] Comment:Nonreactive: < 8.00 mIU/mL Hepatitis B Core Antibody Nonreactive Nonreactive [facility] Hepatitis C Antibody Nonreactive Nonreactive [facility] Comment:Antibodies to HCV no t detected; does not exclude early acuteHCV infection. Blood Venous blood specimen / Unknown 04/21/2023 3:37 PM EST 04/21/2023 4:01 PM EST Romi Toribio ACTUARIAL MANAGER LAB BLOOD ORDERABLES Final Resu lt [facility] [address] [place] [address] [phone] from Last 3 Months or Most Recently Relevant to Health Maintenance Insurance [facility] C3 [facility] ST[place] ADULT Care Teams Packaging Manager Relationship Specialty Start Date End Date Christina Chakraborty MD [address] [place] [address] [phone] PCP - General Internal Medicine 10/15/23
--- OUTSIDE RECORDS SUMMARY | 2024-10-05 15:42 | XMS_ITS | Encounter Summary ---
Author Organization [employer] Address [address] [facility] 7t [place] [address] Care Team Providers Care Abatement Worker Name Role Phone Christina Chakraborty MD Primary Care Provider + Reason for Visit * Reason Onset Date Comments rs no show 06/15/2024 Encounter Details Date Type Department Care Team ([facility] st Contact Info) Description 06/15/2024 Telephone [facility] [address] [place], [place] [phone] Edil Barragan DDS [address] [place], [place] [phone] rs no show Social History Tobacco Use [...] 9:50 AM EST Patient called in to rs no show appt. Patient informed there is a waiting period to rs no show appt. Informed patient that [facility] dental will reach out to patient to rs when waiting period if over. Patient understood DR documented in this encounter Plan of Treatment Upcoming Encounters Date Type Department Care Team (Late st Contact Info) Description 11/21/2024 10:30 AM EDT Office Visit [facility] [address] [place] [address] Edil Barragan DDS [address] [place] [address] 02/27/2025 1:00 PM EDT Office Visit [facility] [address] [place] [address] Adenike Merchant documented as of this encounter Visit Diagnoses Not on filedocumented in this encounter Additional Health Concerns Assessment Noted Time PHQ-9 Depression Total Score: 6 09/23/19 24 11:46 AM EDT documented as of this encounter Care Teams Abatement Worker Relationship Specialty Start Date End Date Christina Chakraborty MD [address] [place] [address] PCP - General Internal Medicine 10/15/23 documented as of this encounter
--- OUTSIDE RECORDS SUMMARY | 2024-10-05 15:42 | XMS_ITS | Encounter Summary ---
Author Organization [employer] Address [address] [facility] 7t [place] [address] Care Team Providers Care Mixer Operator Tablets Name Role Phone Christina Chakraborty MD Primary Care Provider + Reason for Visit * Reason Comments Extraction Encounter Details Date Type Department Care Team (Late st Contact Info) Description 10/03/2024 2:30 PM EDT Office Visit [facility] [address] [place], [place] [phone] Edil Barragan DDS [address] [place], [place] [phone] Retained dental root (Primary Dx) Social History Tobacco Use Types Packs/Day Years [...] Pulse 70 10/03/2024 2:04 PM EDT Temperature - - Respiratory Rate - - Oxygen Saturation - - Inhaled Oxygen Concentration - - Weight - - Height - - Body Mass Index - - documented in this encounter Progress Notes * Edil Barraagn DDS - 10/03/2024 2:30 PM EDT * Edil Barragan DDS - 10/03/2024 2:30 PM EDT Patient ID: Ray Barraza is a 54 y.o. male. Time Out: Timeout Date: 10/03/24, Timeout Time: 1402 (ext on tooth #29,30) Location: [facility] Tooth: Mandible, #29, and #30 Procedure: Extraction Verified the above with patient, medical assistant cardiology, and provider. Confirmed via patient's chart, intraorally and by radiographs. Head Animal Trainer: not applicable Chief Complaint Patient presents with Extraction Medical Hx: Vitals: Blood pressure 136/86, pulse 70. Past Medical History: Diagnosis Date Asthma Hypertension Medications: Outpatient Encounter Medications as of 10/03/2024 Medication Sig Dispense Refill acetaminophen (Tylenol) 500 MG tablet Take 1 tablet (500 mg) by mouth every 6 (six) hours if neededfor mild pain for up to 20 doses. 20 tablet 0 amLODIPine (Norvasc) 10 MG tablet Take 1 tablet (10 mg) by mouth Once per day. 90 tablet 1 budesonide-formoterol (Symbicort) 160-4.5 MCG/ACT inhaler Inhale 2 puffs in the morning and at bedtime. Rinse mouth with water after use to reduce aftertaste and incidence of candidiasis. Do not swallow. 1 each 11 chlorthalidone (Hygroton) 50 MG tablet Take 1 tablet (50 mg) by mouth Once per day. 30 tablet 11 cyclobenzaprine (Flexeril) 10 MG tablet Take 1 tablet (10 mg) by mouth at bedtime for 10 days. 10 tablet 0 Diclofenac Sodium 1 % gel Apply to the affected area BID prn for pain 50 g 3 DULoxetine (Cymbalta) [address] capsule Take 1 capsule (60 mg) by mouth Once per day. Do not crush or chew. 90 capsule 3 hydrALAZINE (Apresoline) 10 MG tablet Take 1 tablet (10 mg) by mouth 2 times daily. 60 tablet 11 hydrOXYzine pamoate (Vistaril) 25 MG capsule Take 1 capsule (25 mg) by mouth every 8 (eight) hours if needed for itching or anxiety. 30 capsule 0 lisinopril 40 MG tablet Take 1 tablet (40 mg) by mouth Once per day. 90 tablet 1 nicotine polacrilex (Nicotine Mini) 4 MG lozenge Dissolve 1 lozenge (4 mg) in the mouth every 2 (two) hours if needed for smoking cessation. 100 lozenge 0 No facility-administered encounter medications on file as of 10/03/2024. Consent Obtained: The risks, benefits, indications, potential complications, and alternatives were explained to the patient and informed consent was obtained with good understanding. Treatment Provided: Dental procedures in this visit D7140 - EXTRACTION, ERUPTED TOOTH OR EXPOSED ROOT (ELEVATION/FORCEPS REMOVAL) 29 (Completed) Service provider: Edil Barragan DDS Billing provider: Edil Barragan DDS D7140 - EXTRACTION, ERUPTED TOOTH OR EXPOSED ROOT (ELEVATION/FORCEPS REMOVAL) 30 (Completed) Service provider: Edil Barragan DDS Billing provider: Edil Barragan DDS [id number] - CASE PRESENTATION, DETAILED AND EXTENSIVE TREATMENT PLANNING (Completed) Service provider: Edil Barragan DDS Billing provider: Edil Barragan DDS Diagnosis: Retained roots Topical: 20% Benzocaine Anesthesia: 2% Lidocaine (Xylocaine) w/ 1:100,000 epinephrine Number of Cartridges: 1 Injection Type: Inferior alveolar nerve block, Mental nerve block, and Intrapapillary injection Confirmed profound anesthesia. Pharyngeal curtain and bite block placed. Removed tooth with elevators and forceps. Apices intact. Surgical Extraction: Yes, #29,30 Socket curetted & irrigated with sterile water. Compressed alveolar bone. Sutures: None Needed All adjacent teeth intact. Hemostasis achieved. Complications: None. Pt tolerated procedure well . Prescription sent to [facility] on file. Written and verbal post-op instructions given. Patient discharged in stable condition; ambulatory, alert, and oriented. NV: F/U as needed / Cont. [employer]. Electric Stove Mechanic: Anette Almaguer Dentist: Edil Barragan DDS documented in this encounter Plan of Treatment Upcoming Encounters Date Type Department Care Team (Late st Contact Info) Description 11/21/2024 10:30 AM EDT Office Visit [facility] [address] [place] [address] Edil Barragan DDS [address] [place] [address] 02/27/2025 1:00 PM EDT Office Visit [facility] [address] [place] [address] Adenike Merchant documented as of this encounter Procedures Procedure Name Priority Date/Time Associated Diagnosis Comments 30 EXTRACTION, ERUPTED TOOTH OR EXPOSED ROOT (ELEVATION/FORCEPS REMOVAL) Routine 10/03/2024 2:30 PM EDT 29 EXTRACTION, ERUPTED TOOTH OR EXPOSED ROOT (ELEVATION/FORCEPS REMOVAL) Routine 10/03/2024 2:30 PM EDT CASE PRESENTATION, DETAILED AND EXTENSIVE TREATMENT PLANNING Routine 10/03/2024 2:30 PM EDT documented in this encounter Visit Diagnoses Diagnosis Retained dental root- Primary documented in this encounter Additional Health Concerns Assessment Noted Time PHQ-9 Depression Total Score: 0 07/04/19 25 9:35 AM EST documented as of this encounter Care Teams Mixer Operator Tablets Relationship Specialty Start Date End Date Christina Chakraborty MD [address] [place] [phone] PCP - General Internal Medicine 10/15/23 documented as of this encounter
== END 2024-10-05 14:33 | disposition home or self-care (01) ==
LOC: HO.RESP 14:32
PROVIDERS: PCP Internal Medicine; Visit Provider Nurse Practitioner Family
DX: J44.9 Chronic obstructive pulmonary disease, unspecified (principal)
CPT/HCPCS: 94010; 94640; 94727; 94729

== ENCOUNTER → 2024-10-05 14:47 | Outpatient (BNV) | payer MEDICAID, SELFPAY | PROVIDERS: PCP Internal Medicine; Visit Provider Hospitalist | DX: J44.9 Chronic obstructive pulmonary disease, unspecified (principal) | CPT/HCPCS: 94060; 94727; 94729 ==

== ENCOUNTER 2025-01-11 14:23 | Emergency (ER) | payer MEDICAID, SELFPAY ==
[2025-01-11 14:32] VITALS: BP 193/99; PULSE 85; RESP 20; TEMP 36.9; O2SAT 92; BMI 39.5
--- NOTE | 2025-01-11 14:36 | ED.GENADULT ---
HPI - General Adult General Chief complaint: Abdominal Pain Stated complaint: Lump on stomach, belly hard Related Data Home Medications ?Medication ?Instructions ?Recorded ?Confirmed fluticasone furoate 100 1 ea inhalation DAILY 04/21/24 mcg-vilanterol 25 mcg/dose inhalation powder (Breo Ellipta) hydrochlorothiazide 25 mg tablet 25 mg PO DAILY 04/21/24 Previous Rx's ?Medication ?Instructions ?Recorded acetaminophen 500 mg tablet 1,000 mg (2 x 500 mg) PO Q6H PRN 10/01/22 (Tylenol Extra Strength) fever or pain #20 tabs acetaminophen 500 mg tablet 500 mg PO Q6H PRN fever or pain 11/13/22 (Tylenol Extra Strength) #30 tabs lisinopril 20 mg tablet 20 mg PO DAILY 90 days #90 tabs 11/13/22 amlodipine 10 mg tablet 10 mg PO DAILY #90 tabs 12/15/23 albuterol sulfate 90 mcg/actuation 2 puff inhalation Q6H PRN 01/11/24 aerosol inhaler shortness of breath or wheezing #8.5 grams ibuprofen 800 mg tablet 800 mg PO Q8H PRN pain #30 tabs 02/22/24 prednisone 20 mg tablet 40 mg (2 x 20 mg) PO DAILY #10 tabs 04/21/24 Allergies Allergy/AdvReac Type Severity Reaction Status Date / Time No Known Allergies Allergy Verified 01/11/25 14:38 COUNT INCLUDES THE [facility] Past Medical History Medical History COPD (chronic obstructive pulmonary disease) Asthma Nocturnal hypoxemia Multiple pulmonary nodules Hypertension Social History Social History Alcohol intake: never Patient Tobacco Use Status: Former Tobacco user Cigarette Packs Per Day: 4 Advance Directives: No Advance Directives Information Provided: No Do you have a plan to hurt others: No Plan Physical Exam ED Vital Signs: BMI result Body Mass Index 39.5 Course Course Course Narrative: This is a rapid medical exam performed by Riky Marsh NP: Additional HPI, ROS, PE not included below will be deferred to primary provider. Patient is a 54-year-old male with history of COPD, asthma, presenting with complaint of abdominal pain and distention for the past 2 days. Having diarrhea, denies nausea or vomiting. Eating and drinking normally. Some subjective fevers. Plan: Labs, UA Patient left the emergency department before myself or any of the other clinicians could review or explain physical exam findings, test results, need or lack there of for additional testing, treatment options, or a treatment plan. Medical Decision Making Lab Data 01/11/25 14:50 01/11/25 14:50 Labs: Lab Results 01/11/25 Range/Units 14:50 WBC 6.9 (4.8-10.8) X10*3/uL RBC 5.19 (4.60-5.80) X10*6/uL Hgb 14.4 (14.0-18.0) g/dl Hct 44.0 (42.0-52.0) % MCV 84.8 (80.0-98.0) fL MCH 27.7 (27.0-33.0) pg MCHC 32.7 (31.0-36.0) g/dl RDW 13.8 (11.0-16.0) % Plt Count 288 (160-400) X10*3/uL MPV 9.8 (9.4-12.4) fL Immature Gran % (Auto) 0.4 (0.0-0.4) % Neut % (Auto) 58.3 (45-73) % Lymph % (Auto) 26.6 (20-40) % [place] % (Auto) 10.1 (2-11) % Eos % (Auto) 3.9 (0-4) % Baso % (Auto) 0.7 (0-2) % Lymph # (Auto) 1.8 (1.2-4.9) X10*3/uL [place] # (Auto) 0.7 (0.1-1.2) X10*3/uL Eos # (Auto) 0.3 (0.0-0.4) X10*3/uL Baso # (Auto) 0.1 (0.0-0.2) X10*3/uL Abs Immat Gran (auto) 0.03 (0.00-0.03) X10*3/uL Absolute Neuts (auto) 4.0 (2.0-8.3) x10*3/uL Absolute Nucleated RBC 0.000 (0.0-0.012) X10*3/uL Nucleated RBC % (auto) 0.0 (0.0-0.2) /100WBC Sodium 142 (135-145) mmol/L Potassium 4.6 D (3.3-5.1) mmol/L Chloride 107 (96-108) mmol/L Carbon Dioxide 24 (22-29) mmol/L Anion Gap 16 (12-20) BUN 24 H (9-16) mg/dL Creatinine 1.24 (0.5-1.4) mg/dL Estim Creat Clear Calc 86.5 Estimated GFR > 60 Random Glucose 193 H (60-115) mg/dL Calcium 8.9 D (8.4-10.2) mg/dL Magnesium 1.9 (1.6-2.6) mg/dL Total Bilirubin 0.3 (0.0-1.0) mg/dL AST 26 (5-37) U/L ALT 30 (0-40) U/L Alkaline Phosphatase 95 (39-117) U/L Total Protein 7.1 (6.5-8.0) g/dL Albumin 4.3 (3.5-5.0) g/dL Lipase 43 (8-78) U/L Discharge Plan Discharge Clinical Impression: Abdominal pain Patient Disposition: Left W/O Completing Treatment Prescriptions: No Action acetaminophen [Tylenol Extra Strength] 500 mg tablet 500 mg PO Q6H PRN (Reason: fever or pain) Qty: 30 0RF lisinopril 20 mg tablet 20 mg PO DAILY 90 Days Qty: 90 0RF amlodipine 10 mg tablet 10 mg PO DAILY Qty: 90 0RF hydrochlorothiazide 25 mg tablet 25 mg PO DAILY fluticasone furoate-vilanterol [Breo Ellipta] 100-25 mcg/dose blister with device 1 ea INHALATION DAILY prednisone 20 mg Tablet 40 mg PO DAILY Qty: 10 0RF acetaminophen [Tylenol Extra Strength] 500 mg tablet 1,000 mg PO Q6H PRN (Reason: fever or pain) Qty: 20 0RF albuterol sulfate 90 mcg/actuation HFA aerosol inhaler 2 puff inhalation Q6H PRN (Reason: shortness of breath or wheezing) Qty: 8.5 0RF ibuprofen 800 mg tablet 800 mg PO Q8H PRN (Reason: pain) Qty: 30 0RF Discharge Date/Time: 01/11/25 19:24
[2025-01-11 14:56] LABS: MANUAL DIFF FLAG NO
[2025-01-11 14:58] LABS: Hematocrit 44.0 % (42.0-52.0); Hemoglobin 14.4 g/dl (14.0-18.0); Imm Gran Abs Auto 0.03 X10*3/uL (0.00-0.03); Imm Gran Pct Auto 0.4 % (0.0-0.4); Lymphocytes Absolute Auto 1.8 X10*3/uL (1.2-4.9); Mean Corpuscular HGB Conc 32.7 g/dl (31.0-36.0); Mean Corpuscular Hemoglobin 27.7 pg (27.0-33.0); Mean Corpuscular Volume 84.8 fL (80.0-98.0); NRBC Abs Auto 0.000 X10*3/uL (0.0-0.012); NRBC Pct Auto 0.0 /100WBC (0.0-0.2); Platelet Count 288 X10*3/uL (160-400); Red Blood Count 5.19 X10*6/uL (4.60-5.80); White Blood Count 6.9 X10*3/uL (4.8-10.8)
[2025-01-11 15:21] LABS: Alanine Aminotransferase 30 U/L (0-40); Albumin Level 4.3 g/dL (3.5-5.0); Alkaline Phosphatase 95 U/L (39-117); Anion Gap 16 (12-20); Aspartate Amino Transferase 26 U/L (5-37); Blood Urea Nitrogen 24 mg/dL (9-16); Calcium 8.9 mg/dL (8.4-10.2); Carbon Dioxide 24 mmol/L (22-29); Chloride 107 mmol/L (96-108); Creatinine Clr Calc Pharmacy 86.5; Estimated Glomerular Filt Rate > 60; Lipase 43 U/L (8-78); Magnesium 1.9 mg/dL (1.6-2.6); Potassium 4.6 mmol/L (3.3-5.1); Sodium 142 mmol/L (135-145); Total Protein 7.1 g/dL (6.5-8.0)
== END 2025-01-11 19:24 | disposition left against medical advice (07) ==
LOC: HO.ED 19:19
PROVIDERS: Registered Nurse Emergency; Emergency Provider Emergency Medicine; PCP Internal Medicine
DX: R10.2 Pelvic and perineal pain (principal); R50.9 Fever, unspecified; Z79.899 Other long term (current) drug therapy; Z87.891 Personal history of nicotine dependence
CPT/HCPCS: 36415; 80053; 83690; 83735; 85025; 99281; 99283

== ENCOUNTER 2025-01-13 20:27 | Emergency (ER) | payer MEDICAID, SELFPAY ==
--- NOTE | ~2025-01-13 | CT_ITS ---
CLINICAL HISTORY: Suprapubic and Umbilical Tenderness; Nausea CT abdomen and pelvis with contrast Comparison: CT - CT ABDOMEN PELVIS W IV CON - 01/14/25 00:36 EDT Findings: The lung bases are clear. Bilateral renal cysts. Otherwise normal kidneys. No urinary tract calculus or obstruction. Remaining solid organs and gallbladder normal. No bowel obstruction, pneumoperitoneum, or pneumatosis. Circumferential urinary bladder wall thickening. Normal appendix. Sigmoid diverticula without evidence of diverticulitis. Bones intact. IMPRESSION: Circumferential urinary bladder wall thickening suspicious for cystitis. This document has been electronically signed by: Collin Lopez MD on 01/14/2025 01:45:46
[2025-01-13 20:40] VITALS: BP 176/112; PULSE 83; RESP 18; TEMP 37.4; O2SAT 100; BMI 39.8
--- NOTE | 2025-01-13 20:41 | ED.ABDPAIN ---
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 The patient believes he may have a hernia, denies any surgical abdominal history. The patient denies associated fever/chills, diarrhea, chest pain, shortness of breath, cough, dizziness, near-syncope, syncope. Related Data Home Medications ?Medication ?Instructions ?Recorded ?Confirmed fluticasone furoate 100 1 ea inhalation DAILY 04/21/24 mcg-vilanterol 25 mcg/dose inhalation powder (Breo Ellipta) hydrochlorothiazide 25 mg tablet 25 mg PO DAILY 04/21/24 Previous Rx's ?Medication ?Instructions ?Recorded acetaminophen 500 mg tablet 1,000 mg (2 x 500 mg) PO Q6H PRN 10/01/22 (Tylenol Extra Strength) fever or pain #20 tabs acetaminophen 500 mg tablet 500 mg PO Q6H PRN fever or pain 11/13/22 (Tylenol Extra Strength) #30 tabs lisinopril 20 mg tablet 20 mg PO DAILY 90 days #90 tabs 11/13/22 amlodipine 10 mg tablet 10 mg PO DAILY #90 tabs 12/15/23 albuterol sulfate 90 mcg/actuation 2 puff inhalation Q6H PRN 01/11/24 aerosol inhaler shortness of breath or wheezing #8.5 grams ibuprofen 800 mg tablet 800 mg PO Q8H PRN pain #30 tabs 02/22/24 prednisone 20 mg tablet 40 mg (2 x 20 mg) PO DAILY #10 tabs 04/21/24 Allergies Allergy/AdvReac Type Severity Reaction Status Date / Time No Known Allergies Allergy Verified 01/13/25 20:46 Review of Systems Review of Systems Yes all other systems are reviewed and are negative PMFSH Past Medical History Medical History COPD (chronic obstructive pulmonary disease) Asthma Nocturnal hypoxemia Multiple pulmonary nodules Hypertension Social History Social History Alcohol intake: never Patient Tobacco Use Status: Former Tobacco user Cigarette Packs Per Day: 4 Smoked in Last 30 Days: No Use of substances other than those prescribed or required for medical reasons: No Advance Directives: No Advance Directives Information Provided: No Physical Exam ED Vital Signs: Vital Signs - 24 hr 01/13/25 20:40 01/13/25 21:26 01/13/25 22:40 Temperature 99.3 F Pulse Rate 83 85 76 Respiratory Rate 18 18 16 Blood Pressure 176/112 H 146/112 H 168/114 H Pulse Oximetry 100 95 94 Oxygen Delivery Method Room Air Room Air Room Air 01/14/25 01:05 Temperature 97.8 F Pulse Rate 76 Respiratory Rate 18 Blood Pressure 172/112 H Pulse Oximetry 95 Oxygen Delivery Method Room Air BMI result Body Mass Index 39.8 CONSTITUTIONAL: The patient appears non-toxic, well nourished and in no acute distress. Vital signs as documented. HEAD: Atraumatic, normocephalic. EYES: EOMs grossly intact, pupils equal, conjunctiva clear, no exudate. ENT: Nares patent, no discharge. Airway patent, no audible stridor, visible mucosa is pink and moist without noted lesions. NECK: Trachea is midline, no obvious masses or gross abnormalities. CHEST: Symmetric movement, normal appearance. LUNGS: LS present and CTAB, no w/r/r. Non-labored work of breathing. CARDIAC: Regular Rhythm, S1/S2 appreciated, no murmurs, rubs or gallops. ABDOMEN: Abdomen soft x4 quadrants, there is positive tenderness to palpation of the periumbilical and suprapubic region, negative rebound. No palpable masses or organomegaly, specifically no irreducible hernias. : Deferred. EXTREMITIES: Normal tone, moves all extremities spontaneously without reported pain. No obvious acute injury or deformity noted. NEURO: Alert and oriented x3, CN II-XII appear grossly intact. Cerebellar Functioning grossly intact. No obvious sensory or motor deficits. Speech clear and appropriate. PSYCH: normal affect, appropriate eye contact, fluid speech, with appropriate response to questioning. No reported suicidality or homicidality. SKIN: Warm, dry, color appropriate, normal turgor. No rashes noted. Course Course Course Narrative: Edita Montelongo [employer] 01/14 2040 This is a rapid medical exam. Defer additional HPI, ROS and PE to primary provider. 54-year-old male with a history of asthma, HTN presents the ER with concern for swelling and pain around the belly button for the last 2 weeks. Patient reports he noticed what he believes to be a hernia about 2 weeks ago. Over the last 3 days he has had generalized abdominal pain and several episodes of vomiting daily. Will obtain labs, UA Patient hypertensive in triage. He did not take his morning medications Medical Decision Making Medical Decision Making MDM Narrative: 12:07 AM 01/14/2025 (Sujata HUTCHINSON): The patient is a 54-year-old male presenting to the ED for evaluation of periumbilical and suprapubic abdominal pain for the past 2 weeks with nausea without associated vomiting. The patient denies surgical abdominal history, fever/chills, or recent trauma. The patient's laboratory evaluation is markedly reassuring, no leukocytosis, anemia, significant electrolyte abnormality, or NAV. LFTs and lipase were normal. The patient's urinalysis pending, bladder scan reveals 84 mL. We will add on CT abdomen and pelvis to evaluate the patient's abdominal tenderness. 2:59 AM 01/14/2025 (Sujata HUTCHINSON): Patient's CT shows circumferential bladder wall thickening concerning for cystitis. The patient has just now provided a urinalysis, we will send for UA and treat accordingly. 3:27 AM 01/14/2025 (Sujata HUTCHINSON): The patient's urinalysis has resulted and shows no leukocyte esterase, nitrites, or other evidence of infection. The exact cause of the patient's abdominal pain is not entirely clear, however there was no evidence of intestinal obstruction, acute UTI, or other dangerous cause for his symptoms. There is no hernia documented on CT. Patient will be discharged to follow up with the PCP for re-evaluation of his ongoing abdominal pain with nausea. Admission/Observation Consideration of admission/observation: Escalation of care including admission/observation considered Lab Data MDM Lab Attestation statement: I reviewed the patient's lab results. 01/13/25 20:50 01/13/25 20:50 Labs: Lab Results 08/15/25 08/16/25 Range/Units 20:50 02:46 WBC 7.1 (4.8-10.8) X10*3/uL RBC 5.12 (4.60-5.80) X10*6/uL Hgb 14.5 (14.0-18.0) g/dl Hct 43.2 (42.0-52.0) % MCV 84.4 (80.0-98.0) fL MCH 28.3 (27.0-33.0) pg MCHC 33.6 (31.0-36.0) g/dl RDW 13.9 (11.0-16.0) % Plt Count 278 (160-400) X10*3/uL MPV 9.8 (9.4-12.4) fL Immature Gran % (Auto) 0.3 (0.0-0.4) % Neut % (Auto) 52.2 (45-73) % Lymph % (Auto) 32.3 (20-40) % [place] % (Auto) 10.6 (2-11) % Eos % (Auto) 3.9 (0-4) % Baso % (Auto) 0.7 (0-2) % Lymph # (Auto) 2.3 (1.2-4.9) X10*3/uL [place] # (Auto) 0.8 (0.1-1.2) X10*3/uL Eos # (Auto) 0.3 (0.0-0.4) X10*3/uL Baso # (Auto) 0.1 (0.0-0.2) X10*3/uL Abs Immat Gran (auto) 0.02 (0.00-0.03) X10*3/uL Absolute Neuts (auto) 3.7 (2.0-8.3) x10*3/uL Absolute Nucleated RBC 0.000 (0.0-0.012) X10*3/uL Nucleated RBC % (auto) 0.0 (0.0-0.2) /100WBC Sodium 139 (135-145) mmol/L Potassium 4.5 (3.3-5.1) mmol/L Chloride 110 H (96-108) mmol/L Carbon Dioxide 23 (22-29) mmol/L Anion Gap 11 L (12-20) BUN 18 H (9-16) mg/dL Creatinine 1.06 (0.5-1.4) mg/dL Estim Creat Clear Calc 101.6 Estimated GFR > 60 Random Glucose 125 H (60-115) mg/dL Calcium 9.3 (8.4-10.2) mg/dL Total Bilirubin 0.2 (0.0-1.0) mg/dL Direct Bilirubin < 0.2 (0.0-0.5) mg/dL AST 26 (5-37) U/L ALT 31 (0-40) U/L Alkaline Phosphatase 100 (39-117) U/L Total Protein 7.4 (6.5-8.0) g/dL Albumin 4.4 (3.5-5.0) g/dL Lipase 59 (8-78) U/L Urine Color Yellow Urine Appearance Clear Urine pH 6.0 (5.0-9.0) Ur Specific [place] >= 1.030 H (1.005-1.025) Urine Protein Negative (Neg-Trace) mg/dL Urine Glucose (UA) Negative (Negative) mg/dL Urine Ketones Negative (Negative) mg/dL Urine Blood Negative (Negative) Urine Nitrite Negative (Negative) Ur Leukocyte Esterase Negative (Negative) Radiology Impression Discussion of test interpretation with radiology: I have reviewed the radiologist's reading. Radiologist Impression: CLINICAL HISTORY: Suprapubic and Umbilical Tenderness; Nausea CT abdomen and pelvis with contrast Comparison: CT - CT ABDOMEN PELVIS W IV CON - 01/14/25 00:36 EDT Findings: The lung bases are clear. Bilateral renal cysts. Otherwise normal kidneys. No urinary tract calculus or obstruction. Remaining solid organs and gallbladder normal. No bowel obstruction, pneumoperitoneum, or pneumatosis. Circumferential urinary bladder wall thickening. Normal appendix. Sigmoid diverticula without evidence of diverticulitis. Bones intact. IMPRESSION: Circumferential urinary bladder wall thickening suspicious for cystitis. This document has been electronically signed by: Collin Lopze MD on 01/14/2025 01:45:46 Medications Administered Discontinued Medications Generic Name Dose Route Start Last Admin Trade Name Freq PRN Reason Stop Dose Admin Iohexol 100 ml 01/14/25 00:52 01/14/25 00:52 Iohexol 350 Mg/Ml 100 Ml Infus..Btl IV 01/14/25 00:53 100 ml ONCE ONE Administration Discharge Plan Discharge Clinical Impression: Abdominal pain Patient Disposition: Home, Self-Care Instructions: Abdominal Pain (ED) Additional Instructions: Nancie por elegir el Departamento de Urgencias del [facility] M?dico [place] para rogers atenci?n m?dica hoy. Afortunadamente, rogers evaluaci?n de laboratorio, tomograf?a computarizada y examen de hoy no muestran evidencia de fabio?n proceso ruby de emergencia que cause phyllis s?ntomas. En stephen momento, no hay indicaci?n de ingreso hospitalario ni de observaci?n continua en el Departamento de Urgencias, y es seguro darle de claus. La causa exacta de rogers dolor abdominal no est? del todo nona; rogers evaluaci?n diagn?stica no revela evidencia de hernia, infecci?n del tracto urinario, obstrucci?n intestinal, infecci?n abdominal, anemia, c?lculos renales, disfunci?n renal, anomal?a metab?lica ni inflamaci?n pancre?afsaneh o hep?afsaneh. Puede adriana dosis alternas (escalonadas) de ibuprofeno 600 mg y Tylenol 1000 mg cada 4 horas seg?n sea necesario para cualquier dolor adicional. Mant?ngase brianna hidratado y descanse lo suficiente. Consulte con rogers m?dico de cabecera para alfredo reevaluaci?n, un manejo adicional de phyllis s?ntomas y atenci?n preventiva continua. Si no tiene un m?dico de cabecera, llame a [facility] al [phone] para asignarle goyo nuevo. Mientras espera la asignaci?n de rogers nuevo m?dico de cabecera, puede llamar a nuestra Cl?irena de Atenci?n Sin [facility] al [phone] para necesidades que no koby de emergencia. Regrese a urgencias si presenta un cambio repentino o grave en phyllis s?ntomas, fiebre superior a 38 ?C que no mejora con Tylenol o ibuprofeno, v?mitos recurrentes o cualquier otro s?ntoma o inquietud nuevo o que empeore. Thank you for choosing [facility]'s Emergency Department for your care today. Thankfully your laboratory evaluation, CT, and exam today show no evidence of any acute emergent process causing your symptoms. At this time there is no indication for admission to the hospital or continued ED observation, and it is safe to discharge you home. The exact cause of your abdominal pain is not entirely clear, your workup reveals no evidence of a hernia, urinary tract infection, intestinal obstruction, abdominal infection, anemia, kidney stone, kidney dysfunction, metabolic abnormality, or pancreatic or liver inflammation. You may take alternating (staggered) doses of ibuprofen 600mg and Tylenol 1000mg every 4 hours as needed for any additional pain. Please stay well hydrated and get plenty of rest. Please follow up with your primary care physician for re-evaluation, additional management of your symptoms, and continued preventative care. If you do not have a primary care physician, please call the [facility] at [phone] to establish a new primary care physician. While waiting to establish your new primary care physician, you can call our Walk[facility] at [phone] for non-emergency needs. Please return to the emergency department if you develop a severe or sudden change in your symptoms, a fever over 100.4 that does not improve with Tylenol or Ibuprofen, recurrent vomiting, or any other new or worsening symptoms or concerns. Prescriptions: No Action acetaminophen [Tylenol Extra Strength] 500 mg tablet 500 mg PO Q6H PRN (Reason: fever or pain) Qty: 30 0RF lisinopril 20 mg tablet 20 mg PO DAILY 90 Days Qty: 90 0RF amlodipine 10 mg tablet 10 mg PO DAILY Qty: 90 0RF hydrochlorothiazide 25 mg tablet 25 mg PO DAILY fluticasone furoate-vilanterol [Breo Ellipta] 100-25 mcg/dose blister with device 1 ea INHALATION DAILY prednisone 20 mg Tablet 40 mg PO DAILY Qty: 10 0RF acetaminophen [Tylenol Extra Strength] 500 mg tablet 1,000 mg PO Q6H PRN (Reason: fever or pain) Qty: 20 0RF albuterol sulfate 90 mcg/actuation HFA aerosol inhaler 2 puff inhalation Q6H PRN (Reason: shortness of breath or wheezing) Qty: 8.5 0RF ibuprofen 800 mg tablet 800 mg PO Q8H PRN (Reason: pain) Qty: 30 0RF Referrals: Lisa Moon MD [Primary Care Provider, Internal Medicine] Clinical Impression: Abdominal pain Print Language: Setswana
[2025-01-13 20:55] LABS: MANUAL DIFF FLAG NO
[2025-01-13 20:56] LABS: Hematocrit 43.2 % (42.0-52.0); Hemoglobin 14.5 g/dl (14.0-18.0); Imm Gran Abs Auto 0.02 X10*3/uL (0.00-0.03); Imm Gran Pct Auto 0.3 % (0.0-0.4); Lymphocytes Absolute Auto 2.3 X10*3/uL (1.2-4.9); Mean Corpuscular HGB Conc 33.6 g/dl (31.0-36.0); Mean Corpuscular Hemoglobin 28.3 pg (27.0-33.0); Mean Corpuscular Volume 84.4 fL (80.0-98.0); NRBC Abs Auto 0.000 X10*3/uL (0.0-0.012); NRBC Pct Auto 0.0 /100WBC (0.0-0.2); Platelet Count 278 X10*3/uL (160-400); Red Blood Count 5.12 X10*6/uL (4.60-5.80); White Blood Count 7.1 X10*3/uL (4.8-10.8)
[2025-01-13 21:13] LABS: Albumin Level 4.4 g/dL (3.5-5.0); Alkaline Phosphatase 100 U/L (39-117); Anion Gap 11 (12-20); Aspartate Amino Transferase 26 U/L (5-37); Blood Urea Nitrogen 18 mg/dL (9-16); Calcium 9.3 mg/dL (8.4-10.2); Carbon Dioxide 23 mmol/L (22-29); Chloride 110 mmol/L (96-108); Creatinine Clr Calc Pharmacy 101.6; Estimated Glomerular Filt Rate > 60; Lipase 59 U/L (8-78); Potassium 4.5 mmol/L (3.3-5.1); Sodium 139 mmol/L (135-145); Total Protein 7.4 g/dL (6.5-8.0)
[2025-01-13 21:26] VITALS: BP 146/112; PULSE 85; RESP 18; O2SAT 95
--- NOTE | 2025-01-13 21:26 | PC.NURSE ---
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 Per patient he's had 8/10 abd pain d/t hernia x 2 weeks. Has not taken any BP, pain, or asthma medication today. When inquiring why the patient had not taken any medication today patient stated, I just forgot, I woke up earlier. I only want to be checked out for my hernia not anything else. Patient has exp wheeze on examination. Awaiting ED provider at this time
[2025-01-13 21:31] LABS: Alanine Aminotransferase 31 U/L (0-40)
[2025-01-13 22:40] VITALS: BP 168/114; PULSE 76; RESP 16; O2SAT 94
--- NOTE | 2025-01-13 23:55 | PC.NURSE ---
pt notified by provider
--- NOTE | 2025-01-14 00:36 | PC.NURSE ---
pt wanting to leave, notified provider, provider into discuss plan of care.
[2025-01-14] MEDS: iohexoL 350 MG/ML 100 ML INFUS..BTL IV (00:52)
[2025-01-14 01:05] VITALS: BP 172/112; PULSE 76; RESP 18; TEMP 36.6; O2SAT 95
[2025-01-14 03:02] LABS: Appearance Urine Clear; Glucose Urine UA Negative (Negative); PH 6.0 (5.0-9.0); Specific Gravity - Urine >= 1.030 (1.005-1.025)
--- NOTE | 2025-01-14 03:44 | PC.NURSE ---
Reviewed discharge with pt, pt verbalized understanding.
[2025-01-14 03:46] VITALS: BP 172/112; PULSE 76; RESP 18; TEMP 36.6; O2SAT 95
== END 2025-01-14 03:49 | disposition home or self-care (01) ==
PROVIDERS: Nurse Practitioner Family; Emergency Provider Emergency Medicine; PCP Internal Medicine
DX: R30.0 Dysuria (principal); R10.2 Pelvic and perineal pain; R11.0 Nausea; Z79.899 Other long term (current) drug therapy
CPT/HCPCS: 36415; 51798; 74177; 80048; 80076; 81003; 83690; 85025; 99284; 99285; Q9967

== ENCOUNTER → 2025-01-14 00:01 | Outpatient (BNV) | payer MEDICAID, SELFPAY | PROVIDERS: Emergency Provider Emergency Medicine; PCP Internal Medicine; Visit Provider Radiology Diagnostic Radiology | DX: N28.1 Cyst of kidney, acquired (principal) | CPT/HCPCS: 74177 ==

== ENCOUNTER 2025-01-23 09:46 | Outpatient (AMB) | payer MEDICAID, SELFPAY ==
--- NOTE | 2025-01-23 09:54 | MHC.OFFVIS ---
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 He has been lost to follow up, last seen in office 03/2024. He notes he travels back and forth from [place] with plans to stay here until May. Since the last visit he had a PFT which revealed moderate COPD. He reports suboptimal control on Breo, continues with dyspnea, chest tightness, dry cough and wheezing. Prior Chest CT from 11/2023 revealed emphysematous changes and multiple pulmonary nodules, largest 7mm. At the last visit he was sent for repeat chest CT however this was canceled and he never rescheduled. PCP sent for titration study for LIZETH and revealed AHI 28, however REM AHI 80, with nocturnal hypoxemia for 87,5 minutes, lowest 70%. He reportedly has been using CPAP therapy along with a portable CPAP but reports minimal use due to difficulties with dry mouth/throat. He was unaware that he could adjust humidity. [facility] Medical History COPD (chronic obstructive pulmonary disease) Asthma Nocturnal hypoxemia Multiple pulmonary nodules Hypertension Social History Alcohol intake: never Patient Tobacco Use Status: Former Tobacco user Cigarette Packs Per Day: 4 Review of Systems Const Denies chills, Denies excessive sweating, Denies fever(s), Denies headache(s) and Denies night sweats Eyes Denies dry eyes, Denies irritation and Denies itchy eyes ENT Reports Normal hearing present, Denies headache(s), Denies nasal congestion, Denies nasal discharge, Denies post nasal drip and Denies sore throat Card Denies chest pain, Denies chest pain at rest, Denies chest pain with activity, Denies claudication, Denies leg edema, Reports dyspnea on exertion, Denies orthopnea and Denies paroxysmal nocturnal dyspnea Resp Denies change in phlegm color, Denies chest congestion, Reports cough, Denies hemoptysis, Denies excessive phlegm production, Denies pain on inspiration, Denies pain with cough, Reports dyspnea on exertion, Denies stridor and Reports wheezing Musc Denies myalgias Neuro Reports Normal hearing present and Denies headache(s) Endo Denies excessive sweating Sd/Lymph Denies lymphadenopathy Aller/Immun Denies itchy eyes, Denies seasonal rhinorrhea and Reports wheezing Physical Exam Vital Signs: Last Vital Signs Pulse 89 01/23/25 09:55 BP 140/92 H 01/23/25 09:55 Pulse Ox 94 01/23/25 09:55 Oxygen Delivery Method Room Air 01/23/25 09:55 BMI result Body Mass Index 39.4 Const General: cooperative, healthy appearing, comfortable, no acute distress, well developed and alert Nutritional Appearance: obese Orientation/consciousness: patient oriented x3 Limitations: no limitations HEENT Head: Yes normal to inspection, Yes normocephalic and Yes atraumatic Ears: hearing grossly normal bilaterally and external ears normal Eyes General: appearance normal, both eyes and all related structures Eyelids: Yes eyelids normal Sclerae: sclerae normal EOM: EOMs intact bilaterally Neck Neck: Yes normal visual inspection and Yes no lymphadenopathy Lymphatic: no lymphadenopathy noted Chest Chest palpation & inspection: normal inspection of the chest Resp Other: scattered wheezes throughout Effort & Inspection: normal respiratory effort, able to speak in complete sentences, no audible wheezes, no cough, no stridor, not tachypneic, no tripod positioning and no use of accessory muscles Cardio Jugular venous distension: no JVD Rate: regular rate Rhythm: regular rhythm Skin Other: warm, dry General skin exam: no rashes or lesions noted Neuro General: patient oriented x3 Cranial nerves: Yes Normal hearing present Cognition (Neuro): normal cognition Gait exam (Neuro): Normal gait present Extrem General: Yes normal to inspection, Yes capillary refill normal, Yes no clubbing, cyanosis or edema and Yes no pedal edema Psych Appearance: grossly normal and well kempt Speech and movement: Normal speech and movement present and Clear speech present Affect: normal affect Attitude: cooperative Thought process: Normal thought process present Thought content: Normal thought content present Insight: Good insight present (Psych) Judgement: Good judgement present (Psych) Assessment & Plan Assessment & Plan (1) Asthma: Code(s): J45.909 - Unspecified asthma, uncomplicated Category: Medical (2) COPD (chronic obstructive pulmonary disease): Code(s): J44.9 - Chronic obstructive pulmonary disease, unspecified Category: Medical (3) Severe obstructive sleep apnea: Code(s): G47.33 - Obstructive sleep apnea (adult) (pediatric) Category: Medical (4) Nocturnal hypoxemia: Code(s): G47.34 - Idiopathic sleep related nonobstructive alveolar hypoventilation Category: Medical (5) Personal history of tobacco use: Code(s): Z87.891 - Personal history of nicotine dependence Category: Social Hx (6) Multiple pulmonary nodules: Code(s): R91.8 - Other nonspecific abnormal finding of lung field Category: Medical Plan Ray reports suboptimal control with Breo, will switch to Trelegy and refill albuterol MDI as well as DuoNeb. At this time with exacerbation, will treat with prednisone. He is aware to call if symptoms do not improve. Prior CT revealed pulmonary nodules largest 7 mm with recommendation to repeat to assess stability. We discussed importance of compliance with CPAP therapy and he will attempt to increase humidity to improve overall compliance. All questions were answered and patient is in agreement of plan. Will follow-up in 8-10 weeks or sooner if needed. Orders: Orders CT chest wo IV con Today R91.8 - Other nonspecific abnormal finding of lung field Medications: New albuterol sulfate 2.5 mg (3 mL) inhalation Q4-6H PRN 180 mL 2RF shortness of breath or wheezing anmedpjqgty-dhimoqfbm-rfyfsoaq 200-62.5-25 mcg (Trelegy Ellipta) 1 inh inhalation DAILY 60 ea 6RF Refilled prednisone 40 mg (2 x 20 mg) PO DAILY 10 tabs 0RF Coding Level of Care Code Est Pt Level 4 (67982) Diagnoses Asthma J45.909 COPD (chronic obstructive pulmonary disease) J44.9 Severe obstructive sleep apnea G47.33 Nocturnal hypoxemia G47.34 Personal history of tobacco use Z87.891 Multiple pulmonary nodules R91.8
[2025-01-23 09:55] VITALS: BP 140/92; PULSE 89; O2SAT 94; BMI 39.4
== END 2025-01-23 10:28 | disposition home or self-care (01) ==
LOC: HO.HPS 09:47
PROVIDERS: PCP Internal Medicine; Visit Provider Nurse Practitioner Family
DX: J45.909 Unspecified asthma, uncomplicated (principal); J44.9 Chronic obstructive pulmonary disease, unspecified; G47.33 Obstructive sleep apnea (adult) (pediatric); G47.34 Idiopathic sleep related nonobstructive alveolar hypoventilation; Z87.891 Personal history of nicotine dependence; R91.8 Other nonspecific abnormal finding of lung field
CPT/HCPCS: 99214

== ENCOUNTER → 2025-01-23 09:46 | Outpatient (BNVA) | payer MEDICAID, SELFPAY | PROVIDERS: PCP Internal Medicine; Visit Provider Nurse Practitioner Family | DX: J45.909 Unspecified asthma, uncomplicated (principal); J44.9 Chronic obstructive pulmonary disease, unspecified; G47.33 Obstructive sleep apnea (adult) (pediatric); G47.34 Idiopathic sleep related nonobstructive alveolar hypoventilation; Z87.891 Personal history of nicotine dependence; R91.8 Other nonspecific abnormal finding of lung field | CPT/HCPCS: 99212 ==

== ENCOUNTER 2025-03-10 12:18 | Emergency (ER) | payer MEDICAID, SELFPAY ==
--- NOTE | ~2025-03-10 | XR_ITS ---
EXAMINATION: XR CHEST CLINICAL INFORMATION: CP COMPARISON: 04/20/2024, 03/02/2024. TECHNIQUE: 2 views of the chest were obtained. FINDINGS: There is mild cardiac enlargement. The mediastinal and hilar contours appear normal. Aorta is tortuous with mural calcifications. Diffusely hyperaerated lungs, with stable increased fine interstitial markings suggestive of COPD. No definite pneumonic consolidation. There is no pneumothorax or pleural effusion. There is no focal osseous or soft tissue abnormality. There are degenerative changes of the spine. XR/XR chest 2V IMPRESSION: 1. Mild cardiac enlargement. 2. COPD. No active superimposed disease. Electronically signed by: Adolfo Lilly MD 03/10/2025 01:02 PM EDT
[2025-03-10 12:35] VITALS: BP 205/128; PULSE 114; RESP 18; TEMP 37.1; O2SAT 94; BMI 39.7
--- NOTE | 2025-03-10 12:41 | ECG_ITS ---
Test Reason : CP Blood Pressure : */* mmHG Vent. Rate : 111 BPM Atrial Rate : 111 BPM P-R Int : 144 ms QRS Dur : 94 ms QT Int : 334 ms P-R-T Axes : 48 -22 95 degrees QTcB Int : 454 ms Sinus tachycardia T wave abnormality, consider lateral ischemia Abnormal ECG When compared with ECG of 20-Apr-2024 22:00, T wave inversion less evident in Anterolateral leads Referred By: Audrey Licona Electronically Signed By: RASHARD VAN MD
--- NOTE | 2025-03-10 12:46 | ED.GENADULT ---
HPI - General Adult General Chief complaint: General Medical Stated complaint: Back pain Time Seen by Provider: 03/10/25 13:36 Source: patient, RN notes reviewed and old records reviewed Mode of arrival: ambulatory History of Present Illness ED Provider: Padmaja Gonzalez PA-C HPI narrative: 54-year-old [place]er-speaking male with a past medical history of COPD, asthma, HTN, presenting to the ED sent in from [facility] due to upper back wound/abscess and hypertension noted in office. Patient reports compliance with his home BP medication however today ran out of 2 of his medications so he only took 1, & unsure which medication he did take. States his PCP sent refill prescriptions to the pharmacy which he has to go cook pickled meat. Reports abscess to upper back x a few days with active drainage. Reports subjective fever and chills. Patient denies headache, vision change/loss, CP or SOB to this screen writer although he did mention in triage. Denies nausea, vomiting Related Data Home Medications ?Medication ?Instructions ?Recorded ?Confirmed hydrochlorothiazide 25 mg tablet 25 mg PO DAILY 04/21/24 Previous Rx's ?Medication ?Instructions ?Recorded acetaminophen 500 mg tablet 1,000 mg (2 x 500 mg) PO Q6H PRN 10/01/22 (Tylenol Extra Strength) fever or pain #20 tabs acetaminophen 500 mg tablet 500 mg PO Q6H PRN fever or pain 11/13/22 (Tylenol Extra Strength) #30 tabs lisinopril 20 mg tablet 20 mg PO DAILY 90 days #90 tabs 11/13/22 amlodipine 10 mg tablet 10 mg PO DAILY #90 tabs 12/15/23 albuterol sulfate 90 mcg/actuation 2 puff inhalation Q6H PRN 01/11/24 aerosol inhaler shortness of breath or wheezing #8.5 grams ibuprofen 800 mg tablet 800 mg PO Q8H PRN pain #30 tabs 02/22/24 albuterol sulfate 2.5 mg/3 mL 2.5 mg (3 mL) inhalation Q4-6H PRN 01/23/25 (0.083 %) solution for nebulization shortness of breath or wheezing #180 mL fluticasone fur. 200 mcg-umeclid 1 inh inhalation DAILY #60 ea 01/23/25 62.5 mcg-vilant 25 mcg inhalat.powder (Trelegy Ellipta) fluticasone furoate 200 1 inh inhalation DAILY #60 ea 01/23/25 mcg-vilanterol 25 mcg/dose inhalation powder (Breo Ellipta) prednisone 20 mg tablet 40 mg (2 x 20 mg) PO DAILY #10 tabs 01/23/25 umeclidinium 62.5 mcg/actuation 1 inh inhalation DAILY #30 ea 01/23/25 blister powder for inhalation (Incruse Ellipta) cephalexin 500 mg capsule 500 mg PO QID 7 days #28 caps 03/10/25 doxycycline hyclate 100 mg tablet 100 mg PO BID 7 days #14 tabs 03/10/25 Allergies Allergy/AdvReac Type Severity Reaction Status Date / Time No Known Allergies Allergy Verified 03/10/25 12:35 Review of Systems Review of Systems: Yes all other systems are reviewed and are negative Constitutional: Constitutional: Reports as per HPI Neurologic: Denies Abnormal speech present PMFSH Past Medical History Attestation statement: The following information was validated with the patient. Source: old records reviewed Medical History COPD (chronic obstructive pulmonary disease) Asthma Nocturnal hypoxemia Multiple pulmonary nodules Hypertension Social History Social History Alcohol intake: never Patient Tobacco Use Status: Former Tobacco user Cigarette Packs Per Day: 4 Smoked in Last 30 Days: Yes Use of substances other than those prescribed or required for medical reasons: No Advance Directives: No Advance Directives Information Provided: Yes Do you have a plan to hurt others: No Plan Physical Exam ED Vital Signs: Vital Signs - 24 hr 03/10/25 12:35 03/10/25 14:27 03/10/25 14:40 Temperature 98.7 F 98.8 F Pulse Rate 114 H 95 Respiratory Rate 18 14 Blood Pressure 205/128 H 161/114 H 116/114 H Pulse Oximetry 94 95 Oxygen Delivery Method Room Air Room Air 03/10/25 14:40 03/10/25 15:37 Temperature Pulse Rate Respiratory Rate Blood Pressure 116/114 H 167/126 H Pulse Oximetry Oxygen Delivery Method BMI result Body Mass Index 39.7 Const General: cooperative, healthy appearing and no acute distress Orientation/consciousness: patient oriented x3 Limitations: no limitations HENMT Head: Yes normal to inspection and Yes atraumatic Ears: hearing grossly normal bilaterally General nose exam: Normal external nose present Face and sinus: Yes normal facial exam Eyes General: appearance normal, both eyes and all related structures Pupils: Equal, round and reactive pupils present EOM: EOMs intact bilaterally Neck Neck: Yes normal visual inspection and Yes no meningeal signs Resp Effort & Inspection: normal respiratory effort and no respiratory distress Auscultation: clear to auscultation bilaterally, no rhonchi and no wheezes Cardio Rate: regular rate Heart sounds: S1 normal heart sound present and S2 normal heart sound present Skin Other: + indurated abscess noted to left upper back with surrounding erythema. Small area of central fluctuance. Scant active drainage appreciated. Mildly tender to palpation. Rashes: no rashes Neuro General: patient oriented x3, gait normal, tone normal, moves all extremities, no meningeal signs, no focal motor deficits and CN's II-XI intact bilaterally Cranial nerves: Yes CN's II-XII intact bilaterally and Yes Equal, round and reactive pupils present Cognition (Neuro): normal cognition Speech: No Abnormal speech present Gait exam (Neuro): Normal gait present Extrem General: Yes normal to inspection Course Course Course Narrative: This is an RME: Additional HPI, ROS, PE not included below will be deferred to primary provider. RME assessment and note performed by: Audrey Licona PA-C This is a 54-year-old [place]er-speaking male, with a past medical history of COPD, asthma, and hypertension, who presents emergency department for wound on upper back. Patient states that he was seen at [facility] and was sent here for further evaluation. He also reports that he has a history of hypertension. Come to find out, he was told to come to the emergency room secondary to his elevated blood pressure. He states that he has been compliant on his medications. Back with quarter size area of induration and warmth as well as erythema, slight active drainage noted. Blood pressure elevated at 205/128, patient reports he is having some chest pain and some shortness of breath. Plan: Labs, EKG, further ER evaluation needed. -labs reassuring including negative troponin XR chest 2V IMPRESSION: 1. Mild cardiac enlargement. 2. COPD. No active superimposed disease. -abscess I&D in the ED. Will discharge with p.o. antibiotics >1550--patient refusing repeat troponin. Also refusing additional blood pressure treatment in the ED. States this is normal for him. States he is going to the pharmacy to cook pickled meat his blood pressure medications rate after the ED. Strict return precautions and worrisome signs and symptoms discussed. Patient will sign out AMA. Medications Administered Discontinued Medications Generic Name Dose Route Start Last Admin Trade Name Curtis PRN Reason Stop Dose Admin Hydralazine HCl 10 mg 03/10/25 14:23 03/10/25 14:40 Hydralazine Hcl 10 Mg Tablet PO 03/10/25 14:24 10 mg ONCE ONE Administration Protocol Hydrochlorothiazide 25 mg 03/10/25 14:23 03/10/25 14:40 Hydrochlorothiazide 25 Mg Tablet PO 03/10/25 14:24 25 mg ONCE ONE Administration Protocol Lidocaine HCl 5 ml 03/10/25 13:58 03/10/25 14:14 Lidocaine Hcl 1 % Mpf 5 Ml Vial INFILTRATI 03/10/25 13:59 5 ml ONCE ONE Administration Procedures Abscess I/D Site: back Side (if applicable): left Local Anesthetic: lidocaine 1% Amount of anesthesia used (mL): 3 Technique: incised with blade Sent for culture/gram staining?: No Irrigation: No Packing used?: none Medical Decision Making Medical Decision Making [facility] Narrative: 54-year-old [place]er-speaking male with a past medical history of COPD, asthma, HTN, presenting to the ED sent in from [facility] due to upper back wound/abscess and hypertension noted in office. On exam hypertensive, tachycardic likely from pain. Low suspicion for severe sepsis. Concern for hypertension secondary to medication noncompliance and pain. Rule out hypertensive urgency/emergency although patient denies any symptoms to this screen writer. Concern for cellulitic abscess. Low suspicion for ICH/SAH Plan: EKG, labs, I & D, give home BP medications and re-evaluate Please refer to course for remaining clinical decision making, interpretation of labs/imaging results, and discussions with consultants and/or family members. Differential Diagnosis Differential Diagnoses: The differential diagnosis associated with the presentation includes As above Admission/Observation Consideration of admission/observation: Escalation of care including admission/observation considered Lab Data [facility] Lab Attestation statement: I reviewed the patient's lab results. 03/10/25 13:02 03/10/25 13:02 Labs: Lab Results 03/10/25 Range/Units 13:02 WBC 9.9 (4.8-10.8) X10*3/uL RBC 5.93 H (4.60-5.80) X10*6/uL Hgb 15.9 (14.0-18.0) g/dl Hct 48.7 (42.0-52.0) % MCV 82.1 (80.0-98.0) fL MCH 26.8 L (27.0-33.0) pg MCHC 32.6 (31.0-36.0) g/dl RDW 13.1 (11.0-16.0) % Plt Count 340 (160-400) X10*3/uL MPV 9.8 (9.4-12.4) fL Immature Gran % (Auto) 0.2 (0.0-0.4) % Neut % (Auto) 74.4 H (45-73) % Lymph % (Auto) 15.1 L (20-40) % [place] % (Auto) 8.4 (2-11) % Eos % (Auto) 1.4 (0-4) % Baso % (Auto) 0.5 (0-2) % Lymph # (Auto) 1.5 (1.2-4.9) X10*3/uL [place] # (Auto) 0.8 (0.1-1.2) X10*3/uL Eos # (Auto) 0.1 (0.0-0.4) X10*3/uL Baso # (Auto) 0.1 (0.0-0.2) X10*3/uL Abs Immat Gran (auto) 0.02 (0.00-0.03) X10*3/uL Absolute Neuts (auto) 7.4 (2.0-8.3) x10*3/uL Absolute Nucleated RBC 0.000 (0.0-0.012) X10*3/uL Nucleated RBC % (auto) 0.0 (0.0-0.2) /100WBC Sodium 139 (135-145) mmol/L Potassium 4.6 (3.3-5.1) mmol/L Chloride 105 (96-108) mmol/L Carbon Dioxide 25 (22-29) mmol/L Anion Gap 14 (12-20) BUN 17 H (9-16) mg/dL Creatinine 1.06 (0.5-1.4) mg/dL Estim Creat Clear Calc 101.5 Estimated GFR > 60 Random Glucose 158 H (60-115) mg/dL Calcium 10.4 H D (8.4-10.2) mg/dL Magnesium 2.1 (1.6-2.6) mg/dL Total Bilirubin 0.4 (0.0-1.0) mg/dL Direct Bilirubin 0.1 (0.0-0.5) mg/dL AST 30 (5-37) U/L ALT 41 H (0-40) U/L Alkaline Phosphatase 97 (39-117) U/L Troponin I High Sens 4.5 (<3.5-35.0) ng/L Total Protein 8.2 H (6.5-8.0) g/dL Albumin 4.9 (3.5-5.0) g/dL Independent Interpretation I performed an independent interpretation of an: EKG (My interpretation EKG sinus tachycardia rate of 111. ME interval 144. T-wave inversion less evident in anterior lateral leads. No STEMI.) Radiology Impression Discussion of test interpretation with radiology: I have reviewed the radiologist's reading. External Record Review External record reviewed: Inpatient record, Office record, Outpatient record, Prior outpatient labs, Prior outpatient radiology, Primary care record and Outside ED record Tests considered The following testing was considered but not selected: As above Prescription Management I considered prescription management with: Pain Medication and Antibiotic Chronic Conditions Patient?s care impacted by: Hypertension Social Determinants Patient?s care significantly limited by Social Determinants of Health including: Other Social Determinant of Health Discharge Plan Discharge Clinical Impression: Abscess, Uncontrolled hypertension Patient Disposition: Left Against Medical Advice Instructions: Abscess (ED), Hypertension (ED) Additional Instructions: Keflex and doxycycline are antibiotics please take as prescribed until completion Apply warm compresses to area If area grows, becomes increasingly painful, swollen, you have fever return to the ED Please be re-evaluated in 3 days Your blood pressure was extremely elevated it is crucial you take your blood pressure at home and your blood pressure medication Monitor your blood pressure closely if it continues continue to be elevated or low return to the ED Prescriptions: New cephalexin 500 mg capsule 500 mg PO QID 7 Days Qty: 28 0RF doxycycline hyclate 100 mg tablet 100 mg PO BID 7 Days Qty: 14 0RF No Action Incruse Ellipta 62.5 mcg/actuation blister with device 1 inh inhalation DAILY Qty: 30 3RF fluticasone furoate-vilanterol [Breo Ellipta] 200-25 mcg/dose blister with device 1 inh inhalation DAILY Qty: 60 3RF acetaminophen [Tylenol Extra Strength] 500 mg tablet 500 mg PO Q6H PRN (Reason: fever or pain) Qty: 30 0RF lisinopril 20 mg tablet 20 mg PO DAILY 90 Days Qty: 90 0RF amlodipine 10 mg tablet 10 mg PO DAILY Qty: 90 0RF hydrochlorothiazide 25 mg tablet 25 mg PO DAILY acetaminophen [Tylenol Extra Strength] 500 mg tablet 1,000 mg PO Q6H PRN (Reason: fever or pain) Qty: 20 0RF albuterol sulfate 90 mcg/actuation HFA aerosol inhaler 2 puff inhalation Q6H PRN (Reason: shortness of breath or wheezing) Qty: 8.5 0RF ibuprofen 800 mg tablet 800 mg PO Q8H PRN (Reason: pain) Qty: 30 0RF albuterol sulfate 2.5 mg /3 mL (0.083 %) solution for nebulization 2.5 mg inhalation Q4-6H PRN (Reason: shortness of breath or wheezing) Qty: 180 2RF prednisone 20 mg tablet 40 mg PO DAILY Qty: 10 0RF Trelegy Ellipta 200-62.5-25 mcg blister with device 1 inh inhalation DAILY Qty: 60 6RF Referrals: Christina Chakraborty MD [Primary Care Provider, Internal Medicine] - 2 days Print Language: [place]
[2025-03-10 13:07] LABS: MANUAL DIFF FLAG NO
[2025-03-10 13:09] LABS: Hematocrit 48.7 % (42.0-52.0); Hemoglobin 15.9 g/dl (14.0-18.0); Imm Gran Abs Auto 0.02 X10*3/uL (0.00-0.03); Imm Gran Pct Auto 0.2 % (0.0-0.4); Lymphocytes Absolute Auto 1.5 X10*3/uL (1.2-4.9); Mean Corpuscular HGB Conc 32.6 g/dl (31.0-36.0); Mean Corpuscular Hemoglobin 26.8 pg (27.0-33.0); Mean Corpuscular Volume 82.1 fL (80.0-98.0); NRBC Abs Auto 0.000 X10*3/uL (0.0-0.012); NRBC Pct Auto 0.0 /100WBC (0.0-0.2); Platelet Count 340 X10*3/uL (160-400); Red Blood Count 5.93 X10*6/uL (4.60-5.80); White Blood Count 9.9 X10*3/uL (4.8-10.8)
[2025-03-10 13:33] LABS: Troponin-I High Sensitivity 4.5 ng/L (<3.5-35.0)
[2025-03-10 13:39] LABS: Alanine Aminotransferase 41 U/L (0-40); Albumin Level 4.9 g/dL (3.5-5.0); Alkaline Phosphatase 97 U/L (39-117); Anion Gap 14 (12-20); Aspartate Amino Transferase 30 U/L (5-37); Blood Urea Nitrogen 17 mg/dL (9-16); Calcium 10.4 mg/dL (8.4-10.2); Carbon Dioxide 25 mmol/L (22-29); Chloride 105 mmol/L (96-108); Creatinine Clr Calc Pharmacy 101.5; Estimated Glomerular Filt Rate > 60; Magnesium 2.1 mg/dL (1.6-2.6); Potassium 4.6 mmol/L (3.3-5.1); Sodium 139 mmol/L (135-145); Total Protein 8.2 g/dL (6.5-8.0)
[2025-03-10] MEDS: Lidocaine HCl 1 % MPF 5 ML VIAL INFILTRATI (14:14)
--- NOTE | 2025-03-10 14:16 | PC.NURSE ---
patient a&ox3, ekg performed, labs previously drawn, cafeteria monitor applied. at this time pt is refusing repeat vitals he states My blood pressure is high because of all of this going on , patient is trying to get a picture of his home BP medications to show the provider. hes denying symptoms of htn. lido is at bedside for the provider to use for the wound to his upper back. call monzon within reach, plan of care ongoing
[2025-03-10 14:27] VITALS: BP 161/114; PULSE 95; RESP 14; TEMP 37.1; O2SAT 95
[2025-03-10 14:40] VITALS: BP 116/114
[2025-03-10 15:37] VITALS: BP 167/126
--- NOTE | 2025-03-10 15:55 | MHC.EDTECH ---
Pt refused blood draw for troponin. RN aware.
[2025-03-10 16:07] VITALS: BP 167/126; PULSE 62; RESP 16; TEMP 37.1; O2SAT 95
--- NOTE | 2025-03-10 16:12 | PC.NURSE ---
PT left AMA, Verbalizes understanding Risks of leaving AMA. AMA form signed by pt, witness and provider.
== END 2025-03-10 16:13 | disposition left against medical advice (07) ==
PROVIDERS: Physician Assistant Medical; Emergency Provider Emergency Medicine Emergency Medical Services; PCP Internal Medicine
DX: L02.212 Cutaneous abscess of back [any part, except buttock and flank] (principal); R07.89 Other chest pain; R00.0 Tachycardia, unspecified; R50.9 Fever, unspecified; J44.9 Chronic obstructive pulmonary disease, unspecified; Z79.899 Other long term (current) drug therapy; Z87.891 Personal history of nicotine dependence
CPT/HCPCS: 10060; 36415; 71046; 80048; 80076; 83735; 84484; 85025; 93005; 99284; J2003

== ENCOUNTER → 2025-03-10 12:41 | Outpatient (BNV) | payer MEDICAID, SELFPAY | PROVIDERS: PCP Internal Medicine; Visit Provider Internal Medicine Cardiovascular Disease | DX: R00.0 Tachycardia, unspecified (principal) | CPT/HCPCS: 93010 ==

== ENCOUNTER → 2025-03-10 12:41 | Outpatient (BNV) | payer MEDICAID, SELFPAY | PROVIDERS: PCP Internal Medicine; Visit Provider Radiology Diagnostic Radiology | DX: I51.7 Cardiomegaly (principal); J44.9 Chronic obstructive pulmonary disease, unspecified | CPT/HCPCS: 71046 ==

== ENCOUNTER 2025-04-03 08:30 | Outpatient (AMB) | payer MEDICAID, SELFPAY ==
--- OUTSIDE RECORDS SUMMARY | 2025-03-30 10:15 | XMS_ITS | Encounter Summary ---
Author Organization [employer] Address [address] [facility] [address] [place] [address] Care Team Providers Care Medical Affairs Director Name Role Phone Christina Chakraborty MD Primary Care Provider + Moni Khan RN Unavailable Anne Barraza Unavailable Reason for Referral * Consultation (Routine) - Closed Specialty Diagnoses / Procedures Referred By Cady andersen Referred To Contact Otolaryngology Diagnoses Severe obstructive sleep apnea Christina Chakraborty MD [address] [place] [id number] Phone: tel: fax: [facility] [address] Phone: tel: fax: Referral ID Status Reason Start Date Expiration Date V isits Requested Visits Authorized [id number] Closed Specialty Services Required 03/30/2025 03/30/2026 6 6 Encounter Details Date Type Department Care Team (Late st Contact Info) Description 03/30/2025 11:15 AM EDT Office Visit [facility] [address], [place] [phone] Christina Chakraborty MD [address] [place] [address] Primary hypertension (Primary Dx); Type 2 diabetes mellitus with hyperglycemia, without long-term current use of insulin (HCC); Class 3 severe obesity due to excess calories with serious comorbidity and body mass index (BMI) of 40.0 to 44.9 in adult (HCC); Hyperglycemia; Cigarette nicotine dependence without complication; Severe obstructive sleep apnea; Dietary counseling; Exercise counseling; Generalized anxiety disorder Social History Tobacco Use Types Packs/Day Years Used Date Smoking Tobacco: Some Days Cigarettes Passive Smoke Exposure: Current Smokeless Tobacco: Never Tobacco Cessation:Ready to Q uit: Not Asked; Counseling Given: Not Answered Comments:Pt smokes about 2-3 cigarettes per wk Alcohol Use Standard Drinks/Week Comments Not Currently [...] Sign Reading Time Taken Comments Blood Pressure 150/98 03/30/2025 11:11 AM EDT Pulse 97 03/30/2025 11:11 AM EDT Temperature 36.2 C (97.1 F) 03/30/2025 11:11 AM EDT Respiratory Rate 18 03/30/2025 11:11 AM EDT Oxygen Saturation 95% 03/30/2025 11:11 AM EDT Inhaled Oxygen Concentration - - Weight 123 kg (272 lb 3.2 oz) 03/30/2025 11:11 A M EDT Height 175.3 cm (5' 9 ) 03/30/2025 11:11 AM EDT Body Mass Index 40.2 03/30/2025 11:11 AM EDT documented in this encounter Functional Status * Over the last 2 weeks, how often have you been bothered by any of the following problems? Question Answer Date of Assessment Author Feeling nervous, anxious, or on edge 0 03/30/2025 11:17 AM EDT Haydee Linares MA Not being able to stop or co ntrol worrying 0 03/30/2025 11:17 AM EDT Haydee Linares MA Worrying too much about diff erent things 0 03/30/2025 11:17 AM EDT Haydee Linares MA Trouble relaxing 0 03/30/2025 11:17 AM EDT Haydee Linares MA Being so restless that it is hard to sit still 0 03/30/2025 11:17 AM EDT Haydee Linares MA Becoming easily annoyed or irritable 0 03/30/2025 11:17 AM EDT Haydee Linares MA Feeling afraid as if somethi ng awful might happen 0 03/30/2025 11:17 AM EDT Haydee Linares MA JN-7 Total Score 0 03/30/2025 11:17 AM EDT Haydee Linares MA documented as of this encounter Progress Notes * Christina Chakraborty MD - 03/30/2025 11:15 AM EDT SUBJECTIVE: Ray Barraza is a 54 y.o. year old male who presents for follow up rs hypertension fu. Denies recent illness, injury, or hospitalization. He has lost his insurance, here to recommend with PCP. Hypertension He re-started antihypertensive medications two weeks ago. He is doing well, he is not checking BP at home but he does not have chest pain or cardiac symptoms reported. Upper Airway Inflammation He has developed throat discomfort and tonsillar inflammation on and off for many years, more recently 2 weeks ago. Reports difficulty sleeping due to throat discomfort and sometimes he wakes up choking. No mention of fever. He uses CPAP every night and sleeps well for the most part Respiratory Symptoms Has a history of COPD previously on Breo and Incruse, he has not picked them up in 3 months. Reports shortness of breath and need for inhaler use. He was last seen by senior net c developer in December this year. He continues to smoke 1 to 2 cigarettes/day. He quit using cocaine more than 6 months ago. Patient was seen in the ED few weeks ago apparently due to a URI, his RBS was 158. He denies preventives or polyuria Acute Concerns: Social History Social History Narrative Not on file Problem List[1] Family History[2] Review of Systems Constitutional: Positive for fatigue and unexpected weight change. Negative for fever. HENT: Positive for sore throat. Negative for congestion, ear pain and rhinorrhea. Eyes: Negative for pain and discharge. Respiratory: Positive for shortness of breath. Negative for cough. Cardiovascular: Negative for chest pain. Gastrointestinal: Negative for abdominal pain, constipation, diarrhea and nausea. Endocrine: Negative for polydipsia. Genitourinary: Negative for dysuria and frequency. Musculoskeletal: Negative for arthralgias, back pain and neck pain. Neurological: Negative for dizziness, numbness and headaches. Psychiatric/Behavioral: Positive for sleep disturbance. Negative for agitation. The patient is nervous/anxious. OBJECTIVE: Vitals: 03/30/25 1111 BP: (!) 150/98 Pulse: 97 Resp: 18 Temp: 97.1 ??F (36.2 ??C) SpO2: 95% Physical Exam Constitutional: Appearance: Normal appearance. HENT: Right Ear: Tympanic membrane and ear canal normal. Left Ear: Tympanic membrane and ear canal normal. Nose: Right Nostril: Occlusion present. Left Nostril: Occlusion present. Mouth/Throat: Mouth: Mucous membranes are moist. Pharynx: Uvula midline. Pharyngeal swelling (Uvula and soft palate, tonsils are normal) and uvula swelling present. No oropharyngeal exudate or posterior oropharyngeal erythema. Tonsils: No tonsillar exudate. Eyes: Pupils: Pupils are equal, round, and reactive to light. Cardiovascular: Rate and Rhythm: Normal rate and regular rhythm. Heart sounds: No murmur heard. Pulmonary: Breath sounds: Normal breath sounds. No wheezing. Abdominal: General: Bowel sounds are normal. Palpations: Abdomen is soft. Tenderness: There is no abdominal tenderness. Musculoskeletal: General: No tenderness. Normal range of motion. Cervical back: Normal range of motion. No tenderness. Skin: General: Skin is warm. Neurological: General: No focal deficit present. Mental Status: He is alert and oriented to person, place, and time. Psychiatric: Mood and Affect: Mood normal. Problem List Items Addressed This Visit HTN (hypertension) - Primary Uncontrolled, patient recently restarted meds. We discussed importance of take medication regularlyand therefore to keep him his insurance. Continue lisinopril, chlorthalidone and amlodipine same dose, no med changes at this time as he is living to [place] and uncontrolled HTN may be partially related to new onset of DM, see below. Counseled re low salt diet/increase moderate physical activity. Check home BP BIW and prn CP/VELEZ/PIMENTEL red flags to go to ED discussed with patient. Counseled to quit smoking Follow-up with me in 3 months or earlier as needed upon his return from [place]. Type 2 diabetes mellitus with hyperglycemia, without long-term current use of insulin (HCC) New onset, uncontrolled Start metformin XR 500 mg, he is aware that he needs follow-up in about 4 weeks to adjust medication. We discussed about keeping FBS between 100 130, call back as needed if RBS is> 190 Counseled re more frequent low calorie/carb meals. Check fgstk 1x daily + as needed dizziness, lightheadedness, nausea, MS changes Encouraged physical activity as tolerated. Relevant Medications metFORMIN XR (Glucophage-XR) 500 MG 24 hr tablet Class 3 severe obesity due to excess calories with serious comorbidity and body mass index (BMI) of40.0 to 44.9 in adult ([facility]) Discussed re weight reduction options including exercise, life style modifications, diet. Recommended to decrease soda and sugary beverage consumption, increase protein intake with meals (at least 1 portion of protein with each meal) to assist with satiety, increase dietary fiber Recommended at least 150 min/week of moderate intensity exercise. Started on metformin due to new onset of diabetes, information given regarding DM diet. Will refer to dietitian upon his return from [place] Relevant Medications metFORMIN XR (Glucophage-XR) 500 MG 24 hr tablet Cigarette nicotine dependence without complication Use nicotine lozenges as needed Counseled to quit smoking Relevant Medications nicotine polacrilex (Nicotine Mini) 4 MG lozenge Severe obstructive sleep apnea Discussed the importance of using CPAP every night to decrease morbidity and mortality Will refer to ENT to rule out oropharyngeal obstruction due to uvular edema Relevant Medications DULoxetine (Cymbalta) [address] capsule Other Relevant Orders Referral to ENT Generalized anxiety disorder Restart duloxetine 60 mg, counseled to avoid cocaine use He feels safe at home, he can reach out for safety to his female partner and he has crisis number. Follow-up with me in 3 months Relevant Medications DULoxetine (Cymbalta) [address] capsule Other Visit Diagnoses Hyperglycemia Recently in the ED, repeat RBS and A1c Relevant Medications metFORMIN XR (Glucophage-XR) 500 MG 24 hr tablet Other Relevant Orders POCT Glucose (Completed) POCT Hgb A1c (Completed) Dietary counseling Relevant Medications metFORMIN XR (Glucophage-XR) 500 MG 24 hr tablet Exercise counseling Relevant Medications metFORMIN XR (Glucophage-XR) 500 MG 24 hr tablet Follow Up: Medications Ordered Prior to Encounter[3] [1] Patient Active Problem List Diagnosis Severe dental caries Cigarette nicotine dependence without complication HTN (hypertension) Back abscess Localized osteoarthritis of left knee Retained dental root Acute congestive heart failure ([facility]) Cocaine use Shortness of breath Abnormal chest x-ray Abnormal ECG Periodontal disease Papilloma of left breast Dysuria Balanitis Hypertensive urgency Chronic obstructive pulmonary disease ([facility]) Housing instability Dependence on supplemental oxygen Generalized abdominal pain Encounter for colorectal cancer screening Generalized anxiety disorder Acute bilateral low back pain without sciatica Congestive heart failure ([facility]) Dental calculus Bone loss Nocturnal hypoxemia Asthma Chronic obstructive asthma with exacerbation ([facility]) ([facility]) COVID Multiple pulmonary nodules Personal history of tobacco use Postop check Abscess COPD (chronic obstructive pulmonary disease) ([facility]) Abdominal pain Uncontrolled hypertension Severe obstructive sleep apnea 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 [3] Current Outpatient Medications on File Prior to Visit Medication Sig Dispense Refill amLODIPine (Norvasc) 10 MG tablet Take 1 tablet (10 mg) by mouth Once per day. 90 tablet 1 budesonide-formoterol (Symbicort) 160-4.5 MCG/ACT inhaler Inhale 2 puffs in the morning and at bedtime. Rinse mouth with water after use to reduce aftertaste and incidence of candidiasis. Do not swallow. 1 each 11 chlorthalidone (Hygroton) 25 MG tablet Take 1 tablet (25 mg) by mouth Once per day. 90 tablet 1 cyclobenzaprine (Flexeril) 10 MG tablet Take 1 tablet (10 mg) by mouth at bedtime for 10 days. 10 tablet 0 Diclofenac Sodium 1 % gel Apply to the affected area BID prn for pain 50 g 3 hydrALAZINE (Apresoline) 10 MG tablet Take 1 tablet (10 mg) by mouth 2 times daily. 60 tablet 11 hydrOXYzine pamoate (Vistaril) 25 MG capsule Take 1 capsule (25 mg) by mouth every 8 (eight) hours if needed for itching or anxiety. 30 capsule 0 lisinopril 40 MG tablet Take 1 tablet (40 mg) by mouth Once per day. 90 tablet 1 [DISCONTINUED] acetaminophen (Tylenol 8 Hour) 650 MG ER tablet Take 1 tablet (650 mg) by mouth every 8 (eight) hours if needed for mild pain. Do not crush, chew, or split. 30 tablet 0 [DISCONTINUED] DULoxetine (Cymbalta) [address] capsule Take 1 capsule (60 mg) by mouth Once per day.Do not crush or chew. 90 capsule 3 [DISCONTINUED] nicotine polacrilex (Nicotine Mini) 4 MG lozenge Dissolve 1 lozenge (4 mg) in the mouth every 2 (two) hours if needed for smoking cessation. 100 lozenge 0 No current facility-administered medications on file prior to visit. documented in this encounter Miscellaneous Notes * Assessment & Plan Note - Christina Chakraborty MD - 03/30/2025 4:17 PM EDT Associated Problem(s): Generalized anxiety disorder Restart duloxetine 60 mg, counseled to avoid cocaine use He feels safe at home, he can reach out for safety to his female partner and he has crisis number. Follow-up with me in 3 months * Assessment & Plan Note - Christina Chakraborty MD - 03/30/2025 4:15 PM EDT Associated Problem(s): Type 2 diabetes mellitus with hyperglycemia, without long-term current use of insulin (HCC) New onset, uncontrolled Start metformin XR 500 mg, he is aware that he needs follow-up in about 4 weeks to adjust medication. We discussed about keeping FBS between 100 130, call back as needed if RBS is> 190 Counseled re more frequent low calorie/carb meals. Check fgstk 1x daily + as needed dizziness, lightheadedness, nausea, MS changes Encouraged physical activity as tolerated. * Assessment & Plan Note - Christina Chakraborty MD - 03/30/2025 4:14 PM EDT Associated Problem(s): Class 3 severe obesity due to excess calories with serious comorbidity and body mass index (BMI) of 40.0 to 44.9 in adult (HCC) Discussed re weight reduction options including exercise, life style modifications, diet. Recommended to decrease soda and sugary beverage consumption, increase protein intake with meals (at least 1 portion of protein with each meal) to assist with satiety, increase dietary fiber Recommended at least 150 min/week of moderate intensity exercise. Started on metformin due to new onset of diabetes, information given regarding DM diet. Will refer to dietitian upon his return from [place] * Assessment & Plan Note - Christina Chakraborty MD - 03/30/2025 4:13 PM EDT Associated Problem(s): Cigarette nicotine dependence without complication Use nicotine lozenges as needed Counseled to quit smoking * Assessment & Plan Note - Christina Chakraborty MD - 03/30/2025 4:13 PM EDT Associated Problem(s): Severe obstructive sleep apnea Discussed the importance of using CPAP every night to decrease morbidity and mortality Will refer to ENT to rule out oropharyngeal obstruction due to uvular edema * Assessment & Plan Note - Christina Chakraborty MD - 03/30/2025 4:12 PM EDT Associated Problem(s): HTN (hypertension) Uncontrolled, patient recently restarted meds. We discussed importance of take medication regularlyand therefore to keep him his insurance. Continue lisinopril, chlorthalidone and amlodipine same dose, no med changes at this time as he is living to [place] and uncontrolled HTN may be partially related to new onset of DM, see below. Counseled re low salt diet/increase moderate physical activity. Check home BP BIW and prn CP/VELEZ/PIMENTEL red flags to go to ED discussed with patient. Counseled to quit smoking Follow-up with me in 3 months or earlier as needed upon his return from [place]. * Patient Education Note - Christina Chakraborty MD - 03/30/2025 4:01 PM EDT Images from the original note were not included. Patient Education Table of Contents Diabetes: alimentaci?n saludable para adultos (Diabetes: Healthy Eating for Adults) To view videos and all your education online visit, [email or web address] or scan this QR code with your smartphone. Access to this content will in one year. Diabetes: alimentaci?n saludable para adultos Diabetes: Healthy Eating for Adults Si tiene diabetes, tambi?n llamada diabetes mellitus, es importante que mantenga unos h?bitos alimentarios saludables. Los niveles de az?car (glucosa) en la naynaa dependen en gran medida de lo que come y irene. Tiene que consumir alimentos saludables en las cantidades adecuadas, m?s o menos a la misma hora cada d?a. Bynum lo puede ayudar a: Controlar el nivel de az?car en la nayana. Disminuir el riesgo de sufrir alfredo enfermedad card?louie. Mejorar la presi?n arterial. Lograr un peso saludable y mantenerlo. ?Qu?? puede afectar mi plan de alimentaci?n? Cada persona con diabetes es diferente. Y cada persona tiene necesidades diferentes respecto a beltran plan de alimentaci?n. Beltran m?dico puede sugerirle que colabore con un experto en alimentaci?n saludablellamado nutricionista. Marizol profesional lo ayudar?? a elaborar el plan de alimentaci?n m?s conveniente. ?C?mo me afectan los carbohidratos? Los carbohidratos, o hidratos de carbono, afectan el nivel de az?car en la nayana m?s que cualquierotro tipo de alimento. La ingesta de carbohidratos aumenta la cantidad de glucosa en la nayana. Es importante conocer la cantidad de carbohidratos que puede ingerir en cada comida sin correr fabio?n riesgo. Bynum es diferente en cada persona. Beltran nutricionista puede ayudarlo a calcular la cantidadde carbohidratos que debe ingerir en cada comida y en cada refrigerio. ?C?mo me afecta el alcohol? El alcohol puede provocar alfredo disminuci?n del az?car en la nayana (hipoglucemia), sobre todo si se inyecta insulina o estuardo determinados medicamentos por v?a oral contra la diabetes. La hipoglucemia es alfredo afecci?n potencialmente mortal. Los s?ntomas de la hipoglucemia son similares a los del consumo excesivo de alcohol. Estos incluyen confusi?n, somnolencia y mareos. No maximino alcohol si: Beltran m?dico le indica no hacerlo. Est?? embarazada, podr?a estar embarazada o planea quedar embarazada. ?Cu?les son algunos consejos para seguir marizol plan? Leer las etiquetas de los alimentos Leticia tara el alessia?o de la porci?n incluido en la etiqueta de informaci?n nutricional de los alimentos envasados y las bebidas. La cantidad de calor?as, carbohidratos, grasas y otros nutrientes detallados en la etiqueta se calcula por porci?n de alimento. Muchos alimentos tienen m?s de alfredo porci?npor envase. Verifique los gramos totales (G) de carbohidratos por porci?n. Verifique los gramos totales de grasas saturadas y grasas trans por porci?n. Elija alimentos sin esos tipos de grasas o con un contenido m?ed. Verifique la cantidad de miligramos (MG) de cristina (sodio) por porci?n. La mayor?a de las personas deben limitar la ingesta total de sodio a menos de 2300?MG al d?a. Siempre consulte la informaci?n nutricional de los alimentos que tengan la etiqueta ?con bajo contenido de grasa? o ?sin grasa?. Tatianna estos alimentos pueden tener un mayor contenido de az?car agregada o carbohidratos refinados, deben evitarse. Consulte con beltran nutricionista c?mo identificar phyllis necesidades diarias en funci?n de los nutrientesdetallados en la etiqueta. Ir de compras Evite comprar alimentos procesados, enlatados o precocidos. Estos alimentos suelen tener m?s grasa,sodio y az?car agregada. Elija productos exhibidos en los pasillos exteriores de la abbie. Esta es la mihaela donde, por lo general, est?n las frutas y las verduras frescas, los cereales a granel, las cara frescas y los productos l?cteos frescos. Cocinar Utilice m?todos de cocci?n a baja temperatura, tatianna hornear, en lugar de m?todos de cocci?n a claus temperatura, tatianna abdulkadir?r en abundante aceite. Cocine con aceites saludables, tatianna el aceite de weaver, de canola o de girasol. Evite cocinar con manteca, crema o cara con alto contenido de grasa. Planificaci?n de las comidas Respete las comidas y las colaciones con regularidad. Intente alimentarse a la misma hora todos losd?as. Evite pasar demasiado tiempo sin comer. Consuma alimentos ricos en fibra, tatianna frutas frescas, verduras, frijoles y cereales integrales. Consuma entre 4 y 6?OZ (entre 112 y 168?G) de prote?skyler magras por d?a, tatianna cara con un bajo contenido de grasa, julia, pescado, huevos o tofu. Equivalencia de alfredo onza (OZ), o 28?G, de prote?na magra: ? 1?OZ (28?G) de carne, julia o pescado. ? 1?huevo. ? ? de taza (62?G) de tofu. Coma algunos alimentos por d?a que contengan grasas saludables, tatianna aguacates, kahlil secos, semillas y pescado. ?Qu?? alimentos jolene comer? Frutas Bayas. Manzanas. Naranjas. Duraznos. Damascos. Ciruelas. Uvas. Mangos. Papayas. Granadas. Kiwi. Cerezas. Verduras Verduras de hoja gordon, tatianna janet, espinaca, col rizada, acelga, hojas de berza, hojas de mostaza y repollo. Remolachas. Coliflor. Br?coli. Zanahorias. Tucumcari?as verdes. Tomates. Pimientos. Cebollas.Pepinos. [place] de Bruselas. Cereales Granos integrales, tatianna panes, galletas, tortillas, cereales y pasta. Nereida sin az?car. Quinua. Arroz integral o daniel. Cara y otras prote?skyler Kahlil de mar. Carne de ave sin piel. Dalal magros de ave y de carne de res. Tofu. Kahlil secos. Semillas. L?cteos Productos l?cteos sin grasa o con bajo contenido de grasa, tatianna leche, yogur y queso. Es posible que los productos detallados con anterioridad no koby todos los alimentos y bebidas que puede consumir. Consulte a beltran nutricionista para obtener m?s informaci?n. ?Qu?? alimentos jolene evitar? Frutas Frutas enlatadas al evan?bar. Verduras Verduras enlatadas. Verduras congeladas con mantequilla o salsa de crema. Cereales Productos elaborados con harina y harina rajni refinada, tatianna panes, pastas, bocadillos y cereales. Evite todos los alimentos procesados. Cara y otras prote?skyler Dalal de carne con alto contenido de grasa. Carne de ave con piel. Cara empanizadas o fritas. Carne procesada. Evite las grasas saturadas. L?cteos Yogur, queso o leche entera. Bebidas Bebidas azucaradas, tatianna gaseosas o t?? helado. Es posible que los productos detallados con anterioridad no koby todos los alimentos y bebidas que debe evitar. Consulte a beltran nutricionista para obtener m?s informaci?n. D?nde obtener m?s informaci?n: Para obtener m?s informaci?n, visite los siguientes sitios web: Academy of Nutrition and Dietetics (Academia de Nutrici?n y Diet?afsaneh): eatArgyle Social.org. 1. Nunu clic en ?Search? (buscar) y escriba ?diabetes?. Busque el enlace que necesita. Centers for Disease Control and Prevention (Centros para el Control y la Prevenci?n de Enfermedades): cdc.gov. 1. Nunu clic en ?Search? (buscar) y escriba ?diabetes?. Busque el enlace que necesita. [place] Diabetes Association (Asociaci?n [place]idense de Diabetes): diabetes.org/food-nutrition National [place] of Diabetes and Digestive and Kidney Diseases (Instituto Nacional de la Diabetesy las Enfermedades Digestivas y Renales): niddk.nih.gov Esta informaci?n no tiene tatianna fin reemplazar el consejo del m?dico. Aseg?rese de hacerle al m?dicocualquier pregunta que tenga. Document Released: 2008-08-24 Document Updated: 2024-06-08 Document Reviewed: 2024-06-08 [employer] Patient Education ? 2024 [employer] documented in this encounter Plan of Treatment Upcoming Encounters Date Type Department Care Team (Late st Contact Info) Description 09/25/2025 8:45 AM EDT Office Visit [facility] [address], [place] [id number] Reina Harris [address], [place] [id number] Scheduled Referrals Name Type Priority Associated Diagnoses Orde r Schedule Referral to ENT Outpatient Referral Routine Severe obstructive sleep apnea Expected: 03/30/2025 (Approximate), Expires: 03/30/2026 documented as of this encounter Procedures Procedure Name Priority Date/Time Associated Diagnosis Comments POCT GLYCATED HEMOGLOBIN, TOTAL Routine 03/30/2025 11:47 AM EDT Hyperglycemia POCT GLUCOSE Routine 03/30/2025 11:47 AM EDT Hyperglycemia documented in this encounter Results * (ABNORMAL) POCT Hgb A1c (03/30/2025 11:47 AM EDT) Hemoglobin A1C 8.0(A) 4.0 - 5.7 % QC Media Lot # [id number] Lot# Expiration Date , Blood 03/30/2025 11:4 7 AM EDT Christina Chakraborty MD POINT OF CARE TEST ENTER /EDIT ORDERABLES Final Result * POCT Glucose (03/30/2025 11:47 AM EDT) Glucose Blood, POC 106 60 - 200 mg/dL QC Media Lot # [id number] Lot# Expiration Date 3,026 Blood Capillary blood specimen / Unknown 03/30/2025 11:47 AM EDT Christina Chakraborty MD POINT OF CARE TEST ENTER /EDIT ORDERABLES Final Result documented in this encounter Visit Diagnoses Diagnosis Primary hypertension- Primary Unspecified essential hypertension Type 2 diabetes mellitus with hyperglycemia, without long-term current use of insulin (HCC) Class 3 severe obesity due to excess calories with serious comorbidity and body mass index (BMI) of 40.0 to 44.9 in adult (HCC) Hyperglycemia Other abnormal glucose Cigarette nicotine dependence without complication Severe obstructive sleep apnea Dietary counseling Dietary surveillance and counseling Exercise counseling Generalized anxiety disorder documented in this encounter Additional Health Concerns Assessment Noted Time PHQ-9 Depression Total Score: 0 07/04/19 25 9:35 AM EST documented as of this encounter Care Teams Medical Affairs Director Relationship Specialty Start Date End Date Christina Chakraborty MD [address] [place] [address] PCP - General Internal Medicine 10/15/23 Moni Khan, JAYNE [address] [place] [address] Registered Nurse Family Medicine 01/12/25 Anne Barraza 01/12/25 documented as of this encounter
--- NOTE | 2025-04-03 08:38 | A.OFFVIS_ITS ---
Vital Signs 04/03/25 08:41 Height 5 ft 9 in Weight 265 lb 10.512 oz BMI 39.2 BP 110/78 Blood Pressure Location Lt brachial Position Sitting Pulse 73 Pulse Source Pulse Oximeter Pulse Oximetry (%) 96 Oxygen Delivery Method Room Air Intake Visit Reasons: Asthma Composing Room Supervisor Required: Yes Composing Room Supervisor Services: Composing Room Supervisor Present Composing Room Supervisor Name: Louisa Shultz (OA) Allergies No Known Allergies Allergy (Verified 04/03/25 08:44) HPI HPI Asthma: Details: Ray is a pleasant 54 year old male, former 40 pack year smoker, quit 1 year ago with underlying HTN, moderate COPD, and asthma. He travels back and forth to [place] with plans to leave next week until late June. At the last visit, Incruse was added to regimen of Breo, albuterol MDI/neb due to suboptimal control and patient reports moderate improvements, continues with intermittent wheezing and dyspnea. He has been using albuterol neb QD, does not have albuterol MDI. He does note bronchitic symptoms over the last few days however recently started antibiotics for an abscess. He believes he is on Amoxicillin and Doxycyline for a total of two weeks. Will attempt to confirm with pharmacy. He currently denies any chest congestion, fevers or chills. Prior Chest CT from 11/2023 revealed emphysematous changes and multiple pulmonary nodules, largest 7mm. A [address] was ordered however he had no showed and never rescheduled, then was lost to follow up. At the last visit an order was placed which he was agreeable to have performed, which is scheduled for 04/14/25. Unfortunately patient states he is leaving next week for [place] until the end of June. Prior PSG titration study revealed AHI 28, however REM AHI 80, with nocturnal hypoxemia for 87,5 minutes, lowest 70%. He was started on CPAP 13 cmH2O, continues to report minimal use due to difficulties with dry mouth/throat, despite adjusting humidity. DME is [facility]. PFS Medical History COPD (chronic obstructive pulmonary disease) Asthma Nocturnal hypoxemia Multiple pulmonary nodules Hypertension Social History Alcohol intake: never Patient Tobacco Use Status: Former Tobacco user Cigarette Packs Per Day: 4 Review of Systems Const Denies chills, Denies excessive sweating, Denies fever(s), Denies headache(s) and Denies night sweats Eyes Denies dry eyes, Denies irritation and Denies itchy eyes ENT Reports Normal hearing present, Denies headache(s), Denies nasal congestion, Denies nasal discharge, Denies post nasal drip and Denies sore throat Card Denies chest pain, Denies chest pain at rest, Denies chest pain with activity, Denies claudication, Denies leg edema, Reports dyspnea on exertion, Denies orthopnea and Denies paroxysmal nocturnal dyspnea Resp Denies chest congestion, Reports cough, Denies hemoptysis, Denies excessive phlegm production, Denies pain on inspiration, Denies pain with cough, Reports dyspnea on exertion, Denies stridor and Reports wheezing Musc Denies myalgias Neuro Reports Normal hearing present and Denies headache(s) Endo Denies excessive sweating Sd/Lymph Denies lymphadenopathy Aller/Immun Denies itchy eyes, Denies seasonal rhinorrhea and Reports wheezing Physical Exam Vital Signs: Last Vital Signs Pulse 73 04/03/25 08:41 BP 110/78 04/03/25 08:41 Pulse Ox 96 04/03/25 08:41 Oxygen Delivery Method Room Air 04/03/25 08:41 BMI result Body Mass Index 39.2 Const General: cooperative, healthy appearing, comfortable, no acute distress, well developed and alert Nutritional Appearance: obese Orientation/consciousness: patient oriented x3 Limitations: no limitations HEENT Head: Yes normal to inspection, Yes normocephalic and Yes atraumatic Ears: hearing grossly normal bilaterally and external ears normal Eyes General: appearance normal, both eyes and all related structures Eyelids: Yes eyelids normal Sclerae: sclerae normal EOM: EOMs intact bilaterally Neck Neck: Yes normal visual inspection and Yes no lymphadenopathy Lymphatic: no lymphadenopathy noted Chest Chest palpation & inspection: normal inspection of the chest Resp Effort & Inspection: normal respiratory effort, able to speak in complete sentences, no audible wheezes, no cough, no stridor, not tachypneic, no tripod positioning and no use of accessory muscles Auscultation: diminished lung sounds Cardio Jugular venous distension: no JVD Rate: regular rate Rhythm: regular rhythm Skin Other: warm, dry General skin exam: no rashes or lesions noted Neuro General: patient oriented x3 Cranial nerves: Yes Normal hearing present Cognition (Neuro): normal cognition Gait exam (Neuro): Normal gait present Extrem General: Yes normal to inspection, Yes capillary refill normal, Yes no clubbing, cyanosis or edema and Yes no pedal edema Psych Appearance: grossly normal and well kempt Speech and movement: Normal speech and movement present and Clear speech present Affect: normal affect Attitude: cooperative Thought process: Normal thought process present Thought content: Normal thought content present Insight: Good insight present (Psych) Judgement: Good judgement present (Psych) Assessment & Plan Assessment & Plan (1) Asthma: Code(s): J45.909 - Unspecified asthma, uncomplicated Category: Medical (2) COPD (chronic obstructive pulmonary disease): Code(s): J44.9 - Chronic obstructive pulmonary disease, unspecified Category: Medical (3) Severe obstructive sleep apnea: Code(s): G47.33 - Obstructive sleep apnea (adult) (pediatric) Category: Medical (4) Nocturnal hypoxemia: Code(s): G47.34 - Idiopathic sleep related nonobstructive alveolar hypoventilation Category: Medical (5) Personal history of tobacco use: Code(s): Z87.891 - Personal history of nicotine dependence Category: Social Hx (6) Multiple pulmonary nodules: Code(s): R91.8 - Other nonspecific abnormal finding of lung field Category: Medical Plan Ray reports improvements since adding Incruse to regimen, encouraged to continue. Will refill albuterol MDI. He reports bronchitic symptoms however was recently started on antibiotics including Amoxicillin and Doxycycline for an abscess for a total of two weeks. Encouraged patient to complete course and if symptoms persist, will call office. Since patient with prior abnormal chest CT with multiple nodules, will send for CXR today and will reach out to to reschedule for when he returns from [place]. We again discussed importance of compliance with CPAP therapy and he was agreeable to reach out to [facility] to trial a new mask in attempts to be more compliant. All questions were answered and patient is in agreement of plan. Will follow-up when he returns from [place]. Orders: Orders XR chest 2V Today R05.9 - Cough, unspecified Medications: Refilled albuterol sulfate 90 mcg/actuation 2 puffs inhalation Q6H PRN 1 ea 3RF shortness of breath or wheezing Discontinued cephalexin Discontinued Reason: Patient Completed Course 500 mg PO QID 7 days 28 caps 0RF doxycycline hyclate Discontinued Reason: Patient Completed Course 100 mg PO BID 7 days 14 tabs 0RF prednisone Discontinued Reason: Patient Completed Course 40 mg (2 x 20 mg) PO DAILY 10 tabs 0RF xbkizxpujat-zjkbmuudx-qynjhiac 200-62.5-25 mcg (Trelegy Ellipta) Discontinued Reason: Insurance Denied 1 inh inhalation DAILY 60 ea 6RF Coding Level of Care Code Est Pt Level 4 (99671) Diagnoses Asthma J45.909 COPD (chronic obstructive pulmonary disease) J44.9 Severe obstructive sleep apnea G47.33 Nocturnal hypoxemia G47.34 Personal history of tobacco use Z87.891 Multiple pulmonary nodules R91.8
[2025-04-03 08:41] VITALS: BP 110/78; PULSE 73; O2SAT 96; BMI 39.2
--- OUTSIDE RECORDS SUMMARY | 2025-04-03 08:53 | XMS_ITS | Encounter Summary ---
Author Organization [employer] [facility] Address [address] [facility] 7t [place] [address] Care Team Providers Care Tube Teller Name Role Phone Christina Chakraborty MD Primary Care Provider + Moni Khan RN Unavailable [phone] Anne Barraza Unavailable Reason for Visit * Reason Comments Med Refill Encounter Details Date Type Department Care Team (Late st Contact Info) Description 02/10/2023 Refill [facility] [address] [place], [place] [phone] Jonathan Patel MD [address] [place], [place] [phone] Social History Tobacco Use Types Packs/Day Years [...] Description 09/25/2025 8:45 AM EDT Office Visit [facility] [address] [place] [address] Ranjith Harrisaris [address] [place] [address] documented as of this encounter Visit Diagnoses Not on filedocumented in this encounter Care Teams Tube Teller Relationship Specialty Start Date End Date Christina Chakraborty MD [address] [place] [address] PCP - General Internal Medicine 10/15/23 Moni Khan RN [address] [place] [address] Registered Nurse Family Medicine 01/12/25 Anne Barraza 01/12/25 documented as of this encounter
--- OUTSIDE RECORDS SUMMARY | 2025-04-03 08:53 | XMS_ITS | Encounter Summary ---
Author Organization [employer] Address [address] [facility] [address] [place] [address] Care Team Providers Care Education Department Chair Name Role Phone Christina Chakraborty MD Primary Care Provider + Moni Khan RN Unavailable [phone] Anne Barraza Unavailable Reason for Visit * Reason Onset Date Comments New Patient Appt 01/01/2023 Encounter Details Date Type Department Care Team (Late st Contact Info) Description 01/01/2023 Telephone [facility] [address] [place], [place] [phone] Keanu Patricio MD [address] [place], [place] [phone] New Patient Appt Social History Tobacco Use [...] PM EDT Tc to pt, to offer LAW EXAMINER appt, no answer due to pt phone not accepting any calls at this time . Brilliandeer Looper could not leave voice mail. documented in this encounter Plan of Treatment Upcoming Encounters Date Type Department Care Team (Late st Contact Info) Description 09/25/2025 8:45 AM EDT Office Visit [facility]ULT [facility] [address] [place], [place] [phone] Reina Harris [address] [place], [place] [phone] documented as of this encounter Visit Diagnoses Not on filedocumented in this encounter Care Teams Education Department Chair Relationship Specialty Start Date End Date Christina Chakraborty MD [address] [place] [address] PCP - General Internal Medicine 10/15/23 Moni Khan RN [address] [place] [address] Registered Nurse Family Medicine 01/12/25 Anne Barraza 01/12/25 documented as of this encounter
--- OUTSIDE RECORDS SUMMARY | 2025-04-03 08:53 | XMS_ITS ---
Author Organization [employer] Address [address] [facility] [address]t [place] [address] Care Team Providers Care Head Of Global Strategic Partnerships Name Role Phone Christina Chakraborty MD Primary Care Provider + Moni Khan RN Unavailable [phone] Anne Barraza Unavailable CHW Complex Status:Outreach In Progress (Enrolling) Start date:01/12/2025 Enrollment reason:ADT Feed Overview [facility] ED 01/11/25. Please outreach for enrollment. Case Team Name Relationship Phone Anne Barraza(Responsible Staff) [phone] Continued Care and Services Coordination
--- OUTSIDE RECORDS SUMMARY | 2025-04-03 08:53 | XMS_ITS | Encounter Summary ---
Author Organization [employer] Address [address] [facility] [address] [place] [address] Care Team Providers Care Answering Service Telephone Operator Name Role Phone Christina Chakraborty MD Primary Care Provider + Moni Khan RN Unavailable [phone] Anne Barraza Unavailable Reason for Visit * Reason Onset Date Comments rs no show 06/15/2024 Encounter Details Date Type Department Care Team ([facility] st Contact Info) Description 06/15/2024 Telephone [facility] [address] [place], [place] [phone] Edil Barragan DDS [address] [place], [place] [phone] rs no show Social History Tobacco Use [...] rs no show appt. Informed patient that [facility] dental will reach out to patient to rs when waiting period if over. Patient understood DR documented in this encounter Plan of Treatment Upcoming Encounters Date Type Department Care Team (Late st Contact Info) Description 09/25/2025 8:45 AM EDT Office Visit [facility] [address] [place] [address] Ranjith Harrisaris [address] [place] [address] documented as of this encounter Visit Diagnoses Not on filedocumented in this encounter Additional Health Concerns Assessment Noted Time PHQ-9 Depression Total Score: 6 09/23/19 11:46 AM EDT documented as of this encounter Care Teams Answering Service Telephone Operator Relationship Specialty Start Date End Date Christina Chakraborty MD [address] [place] [address] PCP - General Internal Medicine 10/15/23 Moni Khan RN [address] [place] [address] Registered Nurse Family Medicine 01/12/25 Anne Barraza 01/12/25 documented as of this encounter
--- OUTSIDE RECORDS SUMMARY | 2025-04-03 08:53 | XMS_ITS | Encounter Summary ---
Author Organization [employer] Address [address] [facility] [address] [place] [address] Care Team Providers Care Pallet Assembler Name Role Phone Christina Chakraborty MD Primary Care Provider + Moni Khan RN Unavailable [phone] Anne Barraza Unavailable Encounter Details Date Type Department Care Team (Latest Contact Info) Description 03/30/2025 Travel Social History Tobacco Use Types Packs/Day Years Used Date Smoking Tobacco: Some Days Cigarettes Passive Smoke Exposure: Current Smokeless Tobacco: Never Comments:Pt smokes about 2-3 cigarettes per wk Alcohol Use Standard Drinks/Week Comments Not Currently 0 (1 standard drink = 0.6 oz pur e alcohol) Depression Answer Date Recorded Patient Health Questionnaire-9 Score 0 07/04/2024 Patient Health Questionnaire-9 Score 0 07/04/2024 Last PHQ-9: Questionnaire Data Not on file 0 07/04/2024 Housing Stability Answer Date Recorded What is your housing situation today? I have lizzethvickie jesus 06/18/[address] you [...] PM EDT documented as of this encounter Functional Status * Over the [...] irritable 0 03/30/2025 11:17 AM EDT Haydee Linaers [place] Feeling afraid as if somethi ng awful might happen 0 03/30/2025 11:17 AM EDT Haydee Linares MA JN-7 Total Score 0 03/30/2025 11:17 AM EDT Haydee Linares [place] documented as of this encounter Plan of Treatment Upcoming Encounters Date Type Department Care Team (Late st Contact Info) Description 09/25/2025 8:45 AM EDT Office Visit [facility] [address] [place] [address] Reina Harris [address] [place] [address] documented as of this encounter Visit Diagnoses Not on filedocumented in this encounter Additional Health Concerns Assessment Noted Time PHQ-9 Depression Total Score: 0 07/04/19 9:35 AM EST documented as of this encounter Care Teams Pallet Assembler Relationship Specialty Start Date End Date Christina Chakraborty MD [address] [place] [address] PCP - General Internal Medicine 10/15/23 Moni Khan RN [address] [place] [address] Registered Nurse Family Medicine 01/12/25 Anne Barraza 01/12/25 documented as of this encounter
--- OUTSIDE RECORDS SUMMARY | 2025-04-03 08:53 | XMS_ITS | Encounter Summary ---
Author Organization [employer] Address [address] [facility] [address]t [place] [address] Care Team Providers Care Talent Acquisition Operations Manager Name Role Phone Christina Chakraborty MD Primary Care Provider + Moni Khan RN Unavailable [phone] Anne Barraza Unavailable Reason for Visit * Reason Onset Date Comments chart prep 03/29/2025 Encounter Details Date Type Department Care Team ([facility] st Contact Info) Description 03/29/2025 Telephone [facility] MED[facility] [address] [place], [place] [phone] Christina Chakraborty MD [address] [place], [place] [phone] chart prep Social History Tobacco Use Types [...] encounter Miscellaneous Notes * Telephone Encounter - Nito Vidal [place] - 03/29/2025 9:26 PM EDT Chart Prep Labs: not applicable Images: not applicable Referrals: pulmo 04/03/25 9am, GI 06/23/25 1pm [facility] Vaccines due: Covid and Flu Screenings: colonoscopy and Anal pap Overdue care gaps: SBIRT, PHQ-9, JN-7, Oral health screening, and Disability screen documented in this encounter Plan of Treatment Upcoming Encounters Date Type Department Care Team (Late st Contact Info) Description 09/25/2025 8:45 AM EDT Office Visit [facility]ULT [facility] [address] [place] [address] Kimberly, Reina [address] [place] [address] documented as of this encounter Visit Diagnoses Not on filedocumented in this encounter Additional Health Concerns Assessment Noted Time PHQ-9 Depression Total Score: 0 07/04/19 9:35 AM EST documented as of this encounter Care Teams Talent Acquisition Operations Manager Relationship Specialty Start Date End Date Christina Chakraborty MD [address] [place] [address] PCP - General Internal Medicine 10/15/23 Moni Khan RN [address] [place] [address] Registered Nurse Family Medicine 01/12/25 Anne Barraza 01/12/25 documented as of this encounter
--- OUTSIDE RECORDS SUMMARY | 2025-04-03 08:53 | XMS_ITS ---
Author Organization [employer] [facility] Address [address] [facility] [address] [place] [address] Care Team Providers Care Patient Assistant Name Role Phone Christina Chakraborty MD Primary Care Provider + Moni Khan RN Unavailable [phone] Anne Barraza Unavailable CM Complex Status:Outreach In Progress (Enrolling) Start date:01/12/2025 Enrollment reason:ADT Feed Overview [facility] 01/11/25 Case Team Name Relationship Phone Moni Khan RN(Responsible Staff) Registered Nurse [phone] Continued Care and Services Coordination
--- OUTSIDE RECORDS SUMMARY | 2025-04-03 08:54 | XMS_ITS | Clinical Summary ---
Author Organization [employer] Address [address] [facility] [address] [place] [address] Care Team Providers Care Rice Drier Name Role Phone Devaughn Figueroa MD Primary Care Provider + Moni Khan RN Unavailable [phone] Anne Barraza Unavailable Allergies No known active allergies Medications * This document contains information received from the source organization and may not represent a complete record from that organization. hydrOXYzine pamoate (Vistaril) 25 MG capsule Take 1 capsule (25 mg) by mouth every 8 (eight) hours if needed for itching or anxiety. 30 capsule 05/03/20 24 Active hydrALAZINE (Apresoline) 10 MG tablet Take 1 tablet (10 mg) by mouth 2 times daily. 60 tablet 05/17/20 24 025 Active budesonide-form oterol (Symbicort) 160-4.5 MCG/ACT inhaler Inhale 2 puffs in the morning and at bedtime. Rinse mouth with water after use to reduce aftertaste and incidence of candidiasis. Do not swallow. 1 each 05/19/20 24 025 Active Diclofenac Sodium 1 % gelIndications: Acute bilateral low back pain without sciatica Apply to the affected area BID prn for pain 50 g 3 07/04/19 25 Active lisinopril 40 MG tabletIndicatio ns:Primary hypertension Take 1 tablet (40 mg) by mouth Once per day. 90 tablet 1 03/16/20 25 026 Active chlorthalidone (Hygroton) 25 MG tabletIndicatio ns:Primary hypertension Take 1 tablet (25 mg) by mouth Once per day. 90 tablet 1 03/16/20 25 026 Active amLODIPine (Norvasc) 10 MG tabletIndicatio ns:Primary hypertension Take 1 tablet (10 mg) by mouth Once per day. 90 tablet 1 03/16/20 Active nicotine polacrilex (Nicotine Mini) 4 MG lozenge Dissolve 1 lozenge (4 mg) in the mouth every 2 (two) hours if needed for smoking cessation. 100 lozenge 03/30/20 25 Active DULoxetine (Cymbalta) [address] capsule Take 1 capsule (60 mg) by mouth Once per day. Do not crush or chew. 90 capsule 3 03/30/20 25 Active fluticasone (Flonase) 50 MCG/ACT nasal spray Administer 1 spray into each nostril Once per day. 16 g 2 03/30/20 25 Active acetaminophen (Tylenol 8 Hour) 650 MG ER tablet Take 1 tablet (650 mg) by mouth every 8 (eight) hours if needed for mild pain. Do not crush, chew, or split. 30 tablet 03/30/20 Active metFORMIN XR (Glucophage-XR) 500 MG 24 hr tablet Take 1 tablet (500 mg) by mouth with evening meal. Do not crush, chew, or split. 90 tablet 1 03/30/20 25 Active FREESTYLE LITE test strip Use to test blood sugar 1 times daily 100 each 12 03/30/20 25 Active Lancets misc Use to test blood sugar 1 times daily 100 each 03/30/20 Active Blood Glucose Monitoring Suppl (FreeStyle Treichlers Lite) w/Device kit Use to test blood sugar 1 times daily 1 kit 03/30/20 Active amLODIPine (Norvasc) 10 MG tablet Take 1 tablet (10 mg) by mouth Once per day. 90 tablet 1 05/03/20 24 025 Discontinued(R eorder (will not trigger notification to Pharmacy)) lisinopril 40 MG tablet Take 1 tablet (40 mg) by mouth Once per day. 90 tablet 1 05/03/20 24 025 Discontinued(R eorder (will not trigger notification to Pharmacy)) chlorthalidone (Hygroton) 50 MG tablet Take 1 tablet (50 mg) by mouth Once per day. 30 tablet 11 05/16/20 24 Discontinued nicotine polacrilex (Nicotine Mini) 4 MG lozenge Dissolve 1 lozenge (4 mg) in the mouth every 2 (two) hours if needed for smoking cessation. 100 lozenge 07/04/19 025 Discontinued(R eorder (will not trigger notification to Pharmacy)) DULoxetine (Cymbalta) [address] capsule Take 1 capsule (60 mg) by mouth Once per day. Do not crush or chew. 90 capsule 3 07/04/19 025 Discontinued(R eorder (will not trigger notification to Pharmacy)) cyclobenzaprine (Flexeril) 10 MG tablet Take 1 tablet (10 mg) by mouth at bedtime for 10 days. 10 tablet 07/04/19 Discontinued(T herapy completed) acetaminophen (Tylenol 8 Hour) 650 MG ER tablet Take 1 tablet (650 mg) by mouth every 8 (eight) hours if needed for mild pain. Do not crush, chew, or split. 30 tablet 10/04/19 Discontinued(R eorder (will not trigger notification to Pharmacy)) sulfamethoxazol e-trimethoprim (Bactrim DS) 800-160 MG tabletIndicatio ns:Abscess of back Take 1 tablet by mouth 2 times daily for 7 days. 14 tablet 03/10/20 Discontinued(E ntered in error) amLODIPine (Norvasc) 10 MG tablet Take 1 tablet (10 mg) by mouth Once per day. 90 tablet 1 03/10/20 Discontinued(R eorder (will not trigger notification to Pharmacy)) Active Problems Problem Noted Date Diagnosed Date Class 3 severe obesity due t o excess calories with serious comorbidity and body mass index (BMI) of 40.0 to 44.9 in adult 03/30/2025 Assessment & Plan (03/30/2025 4:14 PM EDT): Discussed re weight reduction options including exercise, [...] refer to dietitian upon his return from [place] Type 2 diabetes mellitus wit h hyperglycemia, without long-term current use of insulin 03/30/2025 Assessment & Plan (03/30/2025 4:15 PM EDT): New onset, uncontrolled Start metformin XR 500 mg, he is aware that he needs follow-up in about 4 weeks to adjust medication. We discussed about keeping FBS between 100 130, call back as needed if RBS is> 190 Counseled re more frequent low calorie/carb meals. Check fgstk 1x daily + as needed dizziness, lightheadedness, nausea, MS changes Encouraged physical activity as tolerated. Nocturnal hypoxemia 03/24/2025 Asthma 03/24/2025 Chronic obstructive asthma with exacerbation (CM S/HCC) 03/24/2025 COVID 03/24/2025 Multiple pulmonary nodules 03/24/2025 Personal history of tobacco use 03/24/2025 Postop check 03/24/2025 Abscess 03/24/2025 Overview (03/24/2025): Patient will be given continuation of antibiotics, analgesics, office based VNA services, and will see me as directed or p.r.n.. 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 No fluid wave on exam. Likely due to increase abdominal pressure from chronic respiratory failure, giving breathing habits. -ordered abdominal US 05/2024, not done yet. -referred to GI 05/2024 -given number to call GI 01/05/25 -ER precautions discussed. -Seek medical attention for worsening symptoms. Assessment & Plan (05/30/2024 12:23 PM EST): Most likely related to previous constipation, diet, rule out cholecystitis. Order abdominal US. Pt agreed to be referred to GI for CRC screen. Encounter for colorectal cancer screening 2023 Generalized anxiety disorder 05/30/2024 Assessment & Plan (03/30/2025 4:17 PM EDT): Restart duloxetine 60 mg, counseled to avoid cocaine use He feels safe at home, he can reach out for safety to his female partner and he has crisis number. Follow-up with me in 3 months Assessment & Plan (07/04/2024 11:59 AM EST): [...] referral, overnight O2 sat after next visit. Papilloma of left breast 01/14/2024 Assessment & Plan (01/14/2024 2:57 PM EDT): Will refer to general surgery for resection. Dysuria 01/14/2024 Assessment & Plan (01/14/2024 2:52 PM EDT): R/o STI. Balanitis 01/14/2024 Assessment & Plan (01/14/2024 2:56 PM EDT): R/o IFG. Keep area clean and dry, use Clotrimazole BID. Severe obstructive sleep apnea 01/14/2024 Overview (03/30/2025 4:03 PM EDT): >>OVERVIEW FOR LIZETH (OBSTRUCTIVE SLEEP APNEA) WRITTEN ON 05/30/2024 12:18 PM BY DEVAUGHN FIGUEROA MD Titration study on 01/20/24: AutoCPAP 13-14 cm Assessment & Plan (03/30/2025 4:13 PM EDT): Discussed the importance of using CPAP every night to decrease morbidity and mortality Will refer to ENT to rule out oropharyngeal obstruction due to uvular edema Assessment & Plan (03/30/2025 4:03 PM EDT): >>ASSESSMENT AND PLAN FOR LIZETH (OBSTRUCTIVE SLEEP APNEA) WRITTEN ON 01/14/2024 2:52 PM BY FOX BURR Had sleep study 10/02/2023, need sleep titration study. Assessment & Plan (03/30/2025 4:03 PM EDT): >>ASSESSMENT AND PLAN FOR LIZETH (OBSTRUCTIVE SLEEP APNEA) WRITTEN ON 05/30/2024 12:23 PM BY ANALILIA DUNLAP Using CPAP every night. Continue using CPAP for at least 4 hours every night. FU with [facility]. Periodontal disease 10/05/2023 Abnormal ECG 09/24/2023 Shortness [...] has agreed to be referred to recovery agent Acute congestive heart failure 04/07/2023 Assessment & [...] needed. Back abscess 11/21/2022 Assessment & Plan (03/16/2025 4:46 PM EDT): - Abscess previously drained in the emergency department. Ongoing antibiotic therapy indicated. - Advised to picker operator and complete prescribed antibiotics. Instructed to show the abscess to primary care physician at next visit to confirm resolution. Assessment & Plan (11/21/2022 3:41 PM EDT): Stat referral to surgery Cigarette nicotine dependence without complicati on 11/13/2022 Assessment & Plan (03/30/2025 4:13 PM EDT): Use nicotine lozenges as needed Counseled to quit smoking Assessment & Plan (05/03/2024 2:05 PM EST): Prescription for nicotine gum to use PRN. FU in 1 month. Assessment & Plan (09/23/2023 1:44 PM EDT): - has not smoked for 2+ months - congratulated him and advised him to use nicotine gum PRN only HTN (hypertension) 11/13/2022 Assessment & Plan (03/30/2025 4:12 PM EDT): Uncontrolled, patient recently restarted meds. We discussed importance of take medication regularly and therefore to keep him his insurance. Continue lisinopril, chlorthalidone and amlodipine same dose, no med changes at this time as he is living to [place] next week and uncontrolled HTN may be partially related to new onset of DM, see below. Counseled re low salt diet/increase moderate physical activity. Check home BP BIW and prn CP/VELEZ/PIMENTEL red flags to go to ED discussed with patient. Counseled to quit smoking Follow-up with me in 3 months or earlier as needed upon his return from [place]. Assessment & Plan (03/16/2025 4:46 PM EDT): Uncontrolled hypertension, blood pressure measured at 160/110 mmHg. Nonadherence to antihypertensive medications for approximately one week. - Prescribed lisinopril, chlorthalidone at a lower dose due to renal considerations, and amlodipine. Advised to picker operator antihypertensive medications from the pharmacy and take them daily as directed. Recommended follow-up with nurse for blood pressure monitoring. Scheduled appointment with primary care physician on March 24, 2025. Assessment & Plan (07/04/2024 10:15 AM EST): [...] information was given to group meeting at [facility] , he does not want to talk with the recovery agent at this time. FU BP in 2 [...] Encounters Date Type Department Care Team Description 03/30/2025 11:15 AM EDT Office Visit [facility] [address] [place] [phone] Devaughn Figueroa MD Primary hypertension (Primary Dx); Type 2 diabetes mellitus with hyperglycemia, without long-term current use of insulin (HCC); Class 3 severe obesity due to excess calories with serious comorbidity and body mass index (BMI) of 40.0 to 44.9 in adult (HCC); Hyperglycemia; Cigarette nicotine dependence without complication; Severe obstructive sleep apnea; Dietary counseling; Exercise counseling; Generalized anxiety disorder 03/30/2025 Travel 03/29/2025 Telephone [facility] [address] [place] [phone] Devaughn Figueroa MD chart prep 03/24/2025 8:45 AM EDT Office Visit [facility] [address] [place] [phone] Reina Harris Retained dental root (Primary Dx); Dental calculus; Periodontal disease; Bone loss; Dental caries; Missing teeth, acquired 03/23/[address] [phone] Devaughn Figueroa MD Chart Prep 03/17/2025 Patient Outreach [facility] [address] [place] [address] Devaughn Figueroa MD Pre-visit Planning ([facility] unable to reach [facility] ) 03/16/2025 3:15 PM EDT Office Visit [address] [phone] Lisa Moon MD Primary hypertension (Primary Dx); Back abscess 03/16/2025 Travel 03/15/2025 Telephone [facility] [address] [place] [phone] Devaughn Figueroa MD Chart Prep 03/13/2025 Patient Outreach [facility] [address] [place] [address] Devaughn Figueroa MD 03/13/2025 Patient Outreach [facility] [address] [place] [phone] Devaughn Figueroa MD 03/10/2025 11:20 AM EDT Office Visit [facility] [address] [place] [phone] Meaghan Gaitan MD Abscess of back (Primary Dx); Uncontrolled hypertension 03/10/[address] [facility] External Provider, [facility] 03/10/2025 Telephone [facility] [address] [place] [address] Meaghan Gaitan MD ER Follow-up; Care Coordination 03/10/2025 Travel 03/08/2025 Patient Outreach [facility] [address] [place] [phone] Devaughn Figueroa MD Care Coordination ([facility] outreach) 02/22/2025 Patient Outreach [address] [phone] Devaughn Figueroa MD 01/17/2025 Patient Outreach [address] [phone] Devaughn Figueroa MD Care Coordination ([facility] outreach) 01/16/2025 Patient Outreach [address] [phone] Devaughn Figueroa MD 01/14/2025 Orders Only GENERIC EXTERNAL DATA DEPARTMENT Provider, Generic External Data 01/13/2025 Orders Only GENERIC EXTERNAL DATA DEPARTMENT Provider, Generic External Data 01/12/2025 Patient Outreach [address] [phone] Devaughn Figueroa MD Care Coordination ([facility] outreach) 01/12/2025 Patient Outreach [address] [address] Devaughn Figueroa MD Care Coordination ([facility] chart review) 01/12/2025 Patient Outreach [address] [phone] Devaughn Figueroa MD Care Management ([facility]- chart review) 01/12/2025 Patient Outreach [address] [phone] Devaughn Figueroa MD 01/11/2025 Orders Only GENERIC EXTERNAL DATA DEPARTMENT Provider, Generic External Data 01/05/2025 1:20 PM EDT Office Visit [facility] [address] [address] Louisa Lyman MD Generalized abdominal fullness (Primary Dx); Ventral hernia without obstruction or gangrene; Umbilical hernia without obstruction and without gangrene 01/05/2025 Telephone [facility] [address] [address] Louisa Lyman MD Referral 01/05/2025 Travel from Last 3 Months Immunizations Immunization Administration Dates Next Due Influenza Injectable Quadriv alant Preservative Free IIV4 MDCK 03/06/2023 Zoster, Recombinant 03/03/2023 Social History Tobacco Use Types Packs/Day Years [...] Mass Index 40.2 03/30/2025 11:11 AM EDT Plan of Treatment Upcoming Encounters Date Type Department Care Team (Late st Contact Info) Description 09/25/2025 8:45 AM EDT Office Visit [facility] [address] [place] [address] Kimberly, Reina [address] [place] [address] Health Maintenance Due Date Last Done Comments Anal Pap 1969 CT Colonography 1969 Colonoscopy 1969 Colorectal Cancer Screening 1969 FIT DNA/Cologuard 1969 FIT 1969 FOBT 1969 HIV Screening 1969 Lipid Panel 1969 Sigmoidoscopy 1969 Eye Exam 1979 DTaP/Tdap/Td Vaccines (1 - Tdap) 1988 Diabetes: Urine Protein Screening 1988 Hepatitis A Vaccines (1 of 2 - Risk 2-dose series) 1988 Hepatitis B Vaccines (1 of 3 - 19+ 3-dose series) 1988 Pneumococcal Vaccine: 50+ Years (1 of 2 - PCV) 1988 Zoster Vaccines (2 of 2) 04/28/2023 03/03/2023 Diabetes: Foot Exam 01/10/2024 01/09/2023, 01/09/2023, 01/09/2023, Additional history exists COVID-19 Vaccine ( - season) 2025 Influenza Vaccine (#1) 2025 03/06/2023 Dental X-Ray: Bitewings 04/21/2025 04/20/2024, 01/28 Diabetes: Hemoglobin A1C 06/30/2025 03/30/2025 Alcohol/Substance Use Screening 07/04/2025 07/04/2024 Depression Screening 07/04/2025 07/04/2024, 07/04/19 SDOH Screening 07/04/2025 07/04/2024 Dental Oral Exam 09/23/2025 03/24/2025, , 01/28/2023 Dental Prophylaxis 09/23/2025 03/24/2025, 04/20/2024 Disability Screening 03/30/2026 03/30/2025 Tobacco Screening 03/30/2026 03/30/2025 Dental X-Ray: Full Mouth 08/20/2027 025, 10/05/2023, 01/28/2023 RSV Patients and Patients Aged 60 [...] patient's age to complete this topic Meningococcal B Vaccine Aged Out No l onger eligible based on patient's age to complete [...] GLUCOSE Routine 03/30/2025 11:47 AM EDT Hyperglycemia COMPREHENSIVE PERIODONTAL EVALUATION - NEW OR ESTABLISHED PATIENT Routine 03/24/2025 8:45 AM EDT Retained dental root Dental calculus Periodontal disease Bone loss Dental caries Missing teeth, acquired PERIODIC ORAL EVALUATION - ESTABLISHED PATIENT Routine 03/24/2025 8:45 AM EDT Retained dental root Dental calculus Periodontal disease Bone loss Dental caries Missing teeth, acquired CASE PRESENTATION, DETAILED AND EXTENSIVE TREATMENT PLANNING Routine 03/24/2025 8:45 AM EDT Retained dental root Dental calculus Periodontal disease Bone loss Dental caries Missing teeth, acquired PROPHYLAXIS - ADULT Routine 03/24/2025 8 :45 AM EDT Dental calculus Periodontal disease Bone loss MAGNESIUM Routine 03/10/2025 1:02 PM EDT BASIC METABOLIC PANEL Routine 03/10/2025 1:02 PM EDT HEPATIC FUNCTION PANEL Routine 1:02 PM EDT HIGH SENSITIVITY TROPONIN I Routine 03/10/2025 1:02 PM EDT CBC WITH AUTO DIFFERENTIAL Routine 03/10/2025 1:02 PM EDT XR CHEST 2 VIEWS Routine 03/10/2025 12:4 5 PM EDT URINALYSIS WITH REFLEX MICROSCOPIC Routine 01/14/2025 2:[address] ABDOMEN PELVIS W CONTRAST Routine 01/14/2025 1:45 AM EDT LIPASE Routine 01/13/2025 8:50 PM EDT BASIC METABOLIC PANEL Routine 01/13/2025 8:50 PM EDT HEPATIC FUNCTION PANEL Routine 8:50 PM EDT CBC WITH AUTO DIFFERENTIAL Routine 01/13/2025 8:50 PM EDT LIPASE Routine 01/11/2025 2:50 PM EDT MAGNESIUM Routine 01/11/2025 2:50 PM EDT COMPREHENSIVE METABOLIC PANEL Routine 01/11/2025 2:50 PM EDT CBC WITH AUTO DIFFERENTIAL Routine 01/11/2025 2:50 PM EDT BITEWINGS - 4 RADIOGRAPHIC IMAGES Routine 04/20/2024 2:00 PM EST PANORAMIC RADIOGRAPHIC IMAGE Routine 10/05/2023 9:15 AM EDT HEPATITIS PANEL, GENERAL Routine 04/21/2023 3:37 PM EST Right upper quadrant pain from Last 3 Months or Most Recently Relevant to Health Maintenance Results * (ABNORMAL) POCT Hgb A1c (03/30/2025 11:47 AM EDT) Pathologist [facility] Hemoglobin A1C 8.0(A) 4.0 - 5.7 % QC Media Lot # [id number] Lot# Expiration Date [id number] Blood 03/30/2025 11:4 7 AM EDT Devaughn Figueroa MD POINT OF CARE TEST ENTER /EDIT ORDERABLES Final Result * POCT Glucose (03/30/2025 11:47 AM EDT) Pathologist [facility] Glucose Blood, POC 106 60 - 200 mg/dL QC Media Lot # [id number] Lot# Expiration Date [id number] Blood Capillary blood specimen / Unknown 03/30/2025 11:47 AM EDT Devaughn Figueroa MD POINT OF CARE TEST ENTER /EDIT ORDERABLES Final Result * High Sensitivity Troponin I (03/10/2025 1:02 PM EDT) Pathologist [facility] TROPONIN I HIGH SENSITIVITY 4.5 <3.5 - 35.0 ng/L [facility] Comment:The Cobb high sens itivity Troponin-I results should beused in conjunction with other diagnostic information suchas ECG, clinical observations and information, and patientsymptoms to aid in the diagnosis of NC. 03/10/2025 1:02 PM EDT 03/10/2025 1:05 PM EDT us Generic External Data Provider LAB BLOOD ORDERAB LES Final Result [facility] [address], [place] [phone] * (ABNORMAL) CBC auto differential (03/10/2025 1:02 PM EDT) Only the most recent of3 resultswithin the time period is included. White Blood Count 9.9 4.8 - 10.8 X10*3/uL [facility] Red Blood Count 5.93(H) 4.60 - 5.80 X10*6/uL [facility] Hemoglobin 15.9 14.0 - 18.0 g/dl [facility] Hematocrit 48.7 42.0 - 52.0 % [facility] Mean Corpuscular Volume 82.1 80.0 - 98.[address] [facility] Mean Corpuscular Hemoglobin 26.8(L) 27.0 - 33.[address] [facility] Mean Corpuscular HGB Conc 32.6 31.0 - 36.0 g/dl [facility] Red Cell Distribution Width 13.1 11.0 - 16.0 % [facility] Platelet Count 340 160 - 400 X10*3/uL [facility] Mean Platelet Volume 9.8 9.4 - 12.[address] [facility] Neutrophils Percent Auto 74.4(H) 45 - 73 % [facility] Imm Gran Pct Auto 0.2 0.0 - 0.4 % [facility] Lymphocytes Percent Auto 15.1(L) 20 - 40 % [facility] Monocytes Percent Auto 8.4 2 - 11 % [facility] Eosinophils Percent Auto 1.4 0 - 4 % [facility] Basophils Percent Auto 0.5 0 - 2 % [facility] NRBC Pct Auto 0.0 0.0 - 0.2 /100WBC [facility] Neutrophils Absolute Auto 7.4 2.0 - 8.3 x10*3/uL [facility] Imm Gran Abs Auto 0.02 0.00 - 0.03 X10*3/uL [facility] Lymphocytes Absolute Auto 1.5 1.2 - 4.9 X10*3/uL [facility] Monocytes Absolute Auto 0.8 0.1 - 1.2 X10*3/uL [facility] Eosinophils Absolute Auto 0.1 0.0 - 0.4 X10*3/uL [facility] Basophils Absolute Auto 0.1 0.0 - 0.2 X10*3/uL [facility] NRBC Abs Auto 0.000 0.0 - 0.012 X10*3/uL [facility] 03/10/2025 1:02 PM EDT 03/10/2025 1:05 PM EDT Generic External Data Provider LAB BLOOD ORDERAB LES Final Result Performing Organization Address City/[facility]/ZIP Co de Phone Number [facility] [address] [place] [address] [phone] * Magnesium (03/10/2025 1:02 PM EDT) Only the most recent of2 resultswithin the time period is included. Pathologist [facility] Magnesium 2.1 1.6 - 2.6 mg/dL [facility] 03/10/2025 1:02 PM EDT 03/10/2025 1:05 PM EDT Generic External Data Provider LAB BLOOD ORDERAB LES Final Result Performing Organization Address City/[facility]/ZIP Co de Phone Number [facility] [address] [place] [phone] * (ABNORMAL) Hepatic Function Panel (03/10/2025 1:02 PM EDT) Only the most recent of2 resultswithin the time period is included. Bilirubin, Total 0.4 0.0 - 1.0 mg/dL [facility] Bilirubin, Direct 0.1 0.0 - 0.5 mg/dL [facility] Aspartate Amino Transferase 30 5 - 37 U/L [facility] Alanine Aminotransferase 41(H) 0 - 40 U/L [facility] Total Protein 8.2(H) 6.5 - 8.0 g/dL [facility] Albumin Level 4.9 3.5 - 5.0 g/dL [facility] Alkaline Phosphatase 97 39 - 117 U/L [facility] 03/10/2025 1:0 2 PM EDT 03/10/2025 1:05 PM EDT us Generic External Data Provider LAB BLOOD ORDERAB LES Final Result [facility] [address] [place] [address] [phone] * (ABNORMAL) Basic Metabolic Panel (03/10/2025 1:02 PM EDT) Only the most recent of2 resultswithin the time period is included. Sodium 139 135 - 145 mmol/L [facility] Potassium 4.6 3.3 - 5.1 mmol/L [facility] Chloride 105 96 - 108 mmol/L [facility] Carbon Dioxide 25 22 - 29 mmol/L [facility] Anion Gap 14 12 - [address] [facility] Urea Nitrogen (BUN) 17(H) 9 - 16 mg/dL [facility] Creatinine, Serum 1.06 0.5 - 1.4 mg/dL [facility] Creatinine Clr Calc Pharmacy 101.[address] [facility] Comment:eGFR (calculated fro m the MDRD study equation) and eCrCl(calculated from the Cockcroft-Gault equation) are based ondifferent parameters and may not yield comparable results.If eCrCl result is absurd, please check patient'sheight/weight. Estimated Glomerular Filt Rate >[address] [facility] Comment:Chronic Kidney Disea se: Estimated GFR < 60 mL/min/[id number] Kidney Disease: Estimated GFR < 15 mL/min/1.73m2 Glucose 158(H) 60 - 115 mg/dL [facility] Calcium 10.4(H) 8.4 - 10.2 mg/dL [facility] 03/10/2025 1:02 PM EDT 03/10/2025 1:05 PM EDT us Generic External Data Provider LAB BLOOD ORDERAB LES Final Result [facility] [address] [place] [phone] * XR Chest 2 Views (03/10/2025 12:45 PM EDT) Anatomical Region Laterality Modality Chest Radiographic Kaci ging 03/10/2025 12:4 5 PM EDT Narrative 03/10/2025 1:05 PM EDT [address] [address] XRay Report Signed Patient: Ray Valdes MR#: [id number] : 1970 Acct:[id number] Age/Sex: 54 / M ADM Date: 03/10/25 Loc: HO.ED Attending Dr: Ordering Physician: Audrey Licona Date of Service: 03/10/25 Procedure(s): XR chest 2V Accession Number(s): [id number] cc: Devaughn Figueroa MD; Audrey Licona Reason for Exam: CP EXAMINATION: XR CHEST CLINICAL INFORMATION: CP COMPARISON: 04/20/2024, 03/02/2024. TECHNIQUE: 2 views of the chest were obtained. FINDINGS: There is mild cardiac enlargement. The mediastinal and hilar contours appear normal. Aorta is tortuous with mural calcifications. Diffusely hyperaerated lungs, with stable increased fine interstitial markings suggestive of COPD. No definite pneumonic consolidation. There is no pneumothorax or pleural effusion. There is no focal osseous or soft tissue abnormality. There are degenerative changes of the spine. XR/XR chest 2V IMPRESSION: 1. Mild cardiac enlargement. 2. COPD. No active superimposed disease. Electronically signed by: Adolfo Lilly MD 03/10/2025 01:02 PM EDT Dictated By: Adolfo Lilly MD Signed By: <Electronically signed by Adolfo Lilly MD in OV> 03/10/25 1302 DD/ TD/TT: 03/10/25 125 Curtain Inspector: Procedure Note Donotuseinterpreter, Image - 03/10/[address] [address] XRay Report Signed Patient: Lamar Valdes#: [id number] : 1970Acct:[id number] Age/Sex: 54 / MADM Date: 03/10/25 Loc: HO.ED Attending Dr: Ordering Physician: Audrey Licona Date of Service: 03/10/25 Procedure(s): XR chest 2V Accession Number(s): [id number] cc: Devaughn Figueroa MD; Audrey Licona Reason for Exam: CP EXAMINATION: XR CHEST CLINICAL INFORMATION: CP COMPARISON: 04/20/2024, 03/02/2024. TECHNIQUE: 2 views of the chest were obtained. FINDINGS: There is mild cardiac enlargement. The mediastinal and hilar contours appear normal. Aorta is tortuous with mural calcifications. Diffusely hyperaerated lungs, with stable increased fine interstitial markings suggestive of COPD. No definite pneumonic consolidation. There is no pneumothorax or pleural effusion. There is no focal osseous or soft tissue abnormality. There are degenerative changes of the spine. XR/XR chest 2V IMPRESSION: 1. Mild cardiac enlargement. 2. COPD. No active superimposed disease. Electronically signed by: Adolfo Lilly MD 03/10/2025 01:02 PM EDT Dictated By: Adolfo Lilly MD Signed By: <Electronically signed by Adolfo Lilly MD in OV> 03/10/25 1302 DD/ TD/TT: 03/10/25 125 Curtain Inspector: [facility] External Provider IMG XR PROCEDURES Final Result * (ABNORMAL) Urinalysis w/reflex microscopic (01/14/2025 2:46 AM EDT) Color Urine Yellow [facility] Appearance Urine Clear [facility] PH 6.0 5.0 - 9.[address] [facility] Glucose Urine UA Negative Negative mg/dL [facility] Urine Blood Negative Negative [facility] Specific [place] - Urine >=1.030(H) 1.005 - 1.[address] [facility] Urine Protein Negative Neg-Trace mg/dL [facility] Urine Ketones Negative Negative mg/dL [facility] Nitrite Urine Negative Negative [facility] Leukocyte Esterase Urine Negative Negative [facility] 01/14/2025 2:46 AM EDT 01/14/2025 2:58 AM EDT Narrative [facility] - 01/14/2025 3:03 AM EDT [id number], Clean Catch us Generic External Data Provider LAB URINE ORDERAB LES Final Result Performing Organization Address City/State/[facility] de Phone Number [facility] [address] [place] [phone] * CT Abdomen Pelvis w/ Contrast (01/14/2025 1:45 AM EDT) Anatomical Region Laterality Modality Body, Pelvis, Abdomen Computed T omography 01/14/2025 1:45 AM EDT Narrative 01/14/2025 1:47 AM EDT [address] [address] [address] Scan Report Signed Patient: Ray Valdes MR#: [id number] : 1970 Acct:[id number] Age/Sex: 54 / M ADM Date: 01/13/25 Loc: HO.ED Attending Dr: Ordering Physician: Adolfo Alvarado PA-C Date of Service: 01/14/25 Procedure(s): CT abdomen pelvis w IV con Accession Number(s): [id number] cc: Lisa Moon MD; Adolfo Alvarado PA-C Report Number: [id number]: Total DLP = 923.00 mGy-cm CLINICAL HISTORY: Suprapubic and Umbilical Tenderness; Nausea CT abdomen and pelvis with contrast Comparison: CT - CT ABDOMEN PELVIS W IV CON - 01/14/25 00:36 EDT Findings: The lung bases are clear. Bilateral renal cysts. Otherwise normal kidneys. No urinary tract calculus or obstruction. Remaining solid organs and gallbladder normal. No bowel obstruction, pneumoperitoneum, or pneumatosis. Circumferential urinary bladder wall thickening. Normal appendix. Sigmoid diverticula without evidence of diverticulitis. Bones intact. IMPRESSION: Circumferential urinary bladder wall thickening suspicious for cystitis. This document has been electronically signed by: Collin Lopez MD on 01/14/2025 01:45:46 Dictated By: Collin Lopez MD Signed By: <Electronically signed by Collin Lopez MD in OV> 01/14/25146 DD/ 4 TD/TT: 01/14/25144 Curtain Inspector: Procedure Note Donotuseinterpreter, Image - 01/14/[address] [place] [address] [address] Scan Report Signed Patient: Lamar Valdes#: [id number] : 1970Acct:[id number] Age/Sex: 54 / MADM Date: 01/13/25 Loc: HO.ED Attending Dr: Ordering Physician: Adolfo Alvarado PA-C Date of Service: 01/14/25 Procedure(s): CT abdomen pelvis w IV con Accession Number(s): [id number] cc: Lisa Moon MD; Adolfo Alvarado PA-C Report Number: [id number]: Total DLP = 923.00 mGy-cm CLINICAL HISTORY: Suprapubic and Umbilical Tenderness; Nausea CT abdomen and pelvis with contrast Comparison: CT - CT ABDOMEN PELVIS W IV CON - 01/14/25 00:36 EDT Findings: The lung bases are clear. Bilateral renal cysts. Otherwise normal kidneys. No urinary tract calculus or obstruction. Remaining solid organs and gallbladder normal. No bowel obstruction, pneumoperitoneum, or pneumatosis. Circumferential urinary bladder wall thickening. Normal appendix. Sigmoid diverticula without evidence of diverticulitis. Bones intact. IMPRESSION: Circumferential urinary bladder wall thickening suspicious for cystitis. This document has been electronically signed by: Collin Lopez MD on 01/14/2025 01:45:46 Dictated By: Collin Lopez MD Signed By: <Electronically signed by Collin Lopez MD in OV> 01/14/25146 DD/ 4 TD/TT: 01/14/25144 Curtain Inspector: [facility] External Provider IMG CT PROCEDURES Edited Result - Final * Lipase (01/13/2025 8:50 PM EDT) Only the most recent of2 resultswithin the time period is included. Lipase 59 8 - 78 U/L [facility] 01/13/2025 8:50 PM EDT 01/13/2025 8:54 PM EDT Generic External Data Provider LAB BLOOD ORDERAB LES Final Result [facility] [address] [place] [phone] * (ABNORMAL) Comprehensive Metabolic Panel (01/11/2025 2:50 PM EDT) Sodium 142 135 - 145 mmol/L [facility] Potassium 4.6 3.3 - 5.1 mmol/L [facility] Chloride 107 96 - 108 mmol/L [facility] Carbon Dioxide 24 22 - 29 mmol/L [facility] Anion Gap 16 12 - [address] [facility] Urea Nitrogen (BUN) 24(H) 9 - 16 mg/dL [facility] Creatinine, Serum 1.24 0.5 - 1.4 mg/dL [facility] Creatinine Clr Calc Pharmacy 86.[address] [facility] Comment:eGFR (calculated fro m the MDRD study equation) and eCrCl(calculated from the Cockcroft-Gault equation) are based ondifferent parameters and may not yield comparable results.If eCrCl result is absurd, please check patient'sheight/weight. Estimated Glomerular Filt Rate >[address] [facility] Comment:Chronic Kidney Disea se: Estimated GFR < 60 mL/min/1.33p6Dvlrwc Kidney Disease: Estimated GFR < 15 mL/min/1.73m2 Glucose 193(H) 60 - 115 mg/dL [facility] Calcium 8.9 8.4 - 10.2 mg/dL [facility] Bilirubin, Total 0.3 0.0 - 1.0 mg/dL [facility] Aspartate Amino Transferase 26 5 - 37 U/L [facility] Alanine Aminotransferase 30 0 - 40 U/L [facility] Total Protein 7.1 6.5 - 8.0 g/dL [facility] Albumin Level 4.3 3.5 - 5.0 g/dL [facility] Alkaline Phosphatase 95 39 - 117 U/L [facility] 01/11/2025 2:50 PM EDT 01/11/2025 2:55 PM EDT us Generic External Data Provider LAB BLOOD ORDERAB LES Final Result Performing Organization Address [facility] Co de Phone Number [facility] [address] [place] [phone] * Hepatitis A,B,C Profile (04/21/2023 3:37 PM EST) Hepatitis A IgM Nonreactive Nonreactive [facility] Comment:IgM antibodies to VELEZ V not detected; does not exclude earlyacute or recovered HAV infection. ~Hepatitis B Surface Antibody NONREACTIVE Nonreactive [facility] Comment:Nonreactive: < 8.00 mIU/mL Hepatitis B Core Antibody Nonreactive Nonreactive [facility] Hepatitis C Antibody Nonreactive Nonreactive [facility] Comment:Antibodies to HCV no t detected; does not exclude early acuteHCV infection. Blood Venous blood specimen / Unknown 04/21/2023 3:37 PM EST 04/21/2023 4:01 PM EST us Romi [facility] LAB BLOOD ORDERABLES Final Resu lt [facility] [address] [place] [phone] from Last 3 Months or Most Recently Relevant to Health Maintenance Insurance [facility] C3 HSN [employer] [facility] MEDICAID STAND ADULT Care Teams Rice Drier Relationship Specialty Start Date End Date Devaughn Figueroa MD [address] [place] [address] PCP - General Internal Medicine 10/15/23 Moni Khan RN [address] [place] [phone] Registered Nurse Family Medicine 01/12/25 Anne Barraza 01/12/25
== END 2025-04-03 09:10 | disposition home or self-care (01) ==
PROVIDERS: PCP Internal Medicine; Visit Provider Nurse Practitioner Family
DX: J45.909 Unspecified asthma, uncomplicated (principal); J44.9 Chronic obstructive pulmonary disease, unspecified; G47.33 Obstructive sleep apnea (adult) (pediatric); G47.34 Idiopathic sleep related nonobstructive alveolar hypoventilation; Z87.891 Personal history of nicotine dependence; R91.8 Other nonspecific abnormal finding of lung field
CPT/HCPCS: 99214

== ENCOUNTER 2025-04-03 08:30 | Outpatient (REF) | payer MEDICAID, SELFPAY ==
--- NOTE | ~2025-04-03 | XR_ITS ---
EXAMINATION: XR CHEST CLINICAL INFORMATION: R05.9 - Cough, unspecified COMPARISON: March 10, 2025. TECHNIQUE: PA and lateral views FINDINGS: Pulmonary reticular pattern. No hyperinflation. No consolidation, pleural effusion or pneumothorax. Cardiomediastinal silhouette size is normal. Tortuosity of the thoracic aorta. Calcified plaque. Multilevel spondylosis. Osteopenia versus osteoporosis. XR/XR chest 2V IMPRESSION: Consider chronic interstitial lung disease without acute airspace disease. Electronically signed by: Dwight Starr MD 04/03/2025 09:37 AM EST
== END 2025-04-03 08:31 | disposition home or self-care (01) ==
LOC: HO.XRAY 08:30
PROVIDERS: PCP Internal Medicine; Visit Provider Nurse Practitioner Family
DX: J44.89 Other specified chronic obstructive pulmonary disease (principal); G47.33 Obstructive sleep apnea (adult) (pediatric); G47.34 Idiopathic sleep related nonobstructive alveolar hypoventilation; R91.8 Other nonspecific abnormal finding of lung field; Z87.891 Personal history of nicotine dependence
CPT/HCPCS: 71046; 99212

== ENCOUNTER → 2025-04-03 09:18 | Outpatient (BNV) | payer MEDICAID, SELFPAY | PROVIDERS: PCP Internal Medicine; Visit Provider Radiology Diagnostic Radiology | DX: R05.9 Cough, unspecified (principal) | CPT/HCPCS: 71046 ==